=== PATIENT | female | born 1965 | race Hispanic/Latino ===

== ENCOUNTER 2017-04-27 20:09 | Emergency (ER) | payer OTHER ==
[~2017-04-27] VITALS: Ht 154.9 cm; Wt 103.9 kg
[~2017-04-27 20:09] MED LIST: ADVAIR DISKUS 21 DSK; ADVAIR DISKUS1 UNIT INH; ALBUTEROL SULFAT3 M1 INH; ALBUTEROL0.09 MG/A1 INH; ALBUTEROL0.63 MG/3 INH/SOL; ASPIRIN CHILDRE81 MG PO; ATROVENT 0.02%2.5 ML INH; BACTRIM DS 8001 TAB PO; CIPRO 500MG TA500 MG PO; DELTASONE20 MG PO; DILAUDID2 MG PO; DUONEB 3 MG/3 ML3 ML INH/SOL; FLEXERIL10 MG PO; FUROSEMIDE20 MG PO; FUROSEMIDE40 MG PO; LASIX20 MG PO; LASIX40 MG PO; MEDROL DOSEPAK1 PA1 PO; MEDROL DOSEPAK1 PAC PO; NAPROSYN500 M1 PO; NAPROXEN500 MG PO; ORPHENADRINE C100 MG PO; OXYCODONE HYDRO10 M1 PO; OXYCODONE5 MG PO; PERCOCET 325 MG-5 MG PO; PERCOCET 325 MG1 TA2 PO; PERCOCET 325 MG1 TAB PO; PREDNICOT10 MG PO; PREDNISONE 10MG10 M1 PO; PREDNISONE 20MG20 MG PO; PREDNISONE10 MG PO; PREDNISONE20 M1 PO; PROAIR HFA0.09 MG/Ac; PROAIR HFA0.09 MG/Ac INH; PROVENTIL0.09 MG/A1 INH; PROVENTIL0.09 MG/Ac INH; TESSALON PERLE100 MG PO; TRAMADOL HCL50 MG PO; TRAMADOL HYDROC50 MG PO; TRAMADOL50 MG PO; VICODIN HP 3001 TAB PO; ZITHROMAX Z-PA250 M1 PO; ZITHROMAX250 M2 PO
[2017-04-27 20:18] VITALS: BP 117/76
[2017-04-27] MEDS ORDERED: ZITHROMAX250 M2 PO (20:20)
[2017-04-27] MEDS ORDERED: VENTOLIN HFA18 GM INH (20:20)
[2017-04-27] MEDS ORDERED: PREDNISONE50 M1 PO (20:20)
--- NOTE | 2017-04-27 20:20 | ED DYSPNEA/ASTHMA COMPLAINT ---
History of Present Illness General Chief Complaint: Wheezing/Asthma Stated Complaint: "PER PT SOB NEED INHALER SCRIPT" Source: patient Exam Limitations: no limitations Vital Signs & Intake/Output Vital Signs & Intake/Output Vital Signs Date Time Temp Pulse Resp B/P B/P Pulse O2 O2 Flow FiO2 Mean Ox Delivery Rate 04/27 2018 97.1 89 16 117/76 96 Room Air Allergies Coded Allergies: NO KNOWN ALLERGIES (12/08/15) Reconcile Medications Albuterol Sulfate (Ventolin Hfa) 90 MCG HFA.AER.AD 2 PUF INH Q4-6 PRN PRN ASTHMA/BRONCHITIS Albuterol Sulfate (Albuterol Sulfate Hfa) 0.09 MG/Actuation ANUM 2 PUFF INH Q4- 6 PRN PRN SHORTNESS OF BREATH 90 MCG PER PUFF Albuterol Sulfate/Ipratropiu (Duoneb) 3 MG/3 ML NEB 1 Vial INH/THA 4 TIMES/DAY PRN WHEEZING/DYSPNEA Azithromycin (Zithromax) 250 MG TABLET 1 DP PO AD BRONCHITIS 2 the first day followed by 1 for days 2-5 Fluticasone-Salmeterol (Advair 500-50 Diskus) 500 MCG-50 MCG/DOSE BLST.W.DEV 1 PUF INH BID ASTHMA (Reported) Furosemide (Lasix) 40 MG TAB 1 TAB PO BID EDEMA Naproxen (Naprosyn) 500 MG TABLET 1 TAB PO BID PAIN Orphenadrine Citrate 100 MG TABLET.ER 1 TAB PO BIDP PRN back pain OXYCODONE HCL/ACETAMINOPHEN (Percocet 10-325 MG Tablet) 325 MG/10 MG TAB 1 TAB PO BID PRN PAIN (Reported) Prednisone 50 MG TABLET 1 TAB PO DAILY ASTHMA Triage Nurses Notes Reviewed? yes Onset: Gradual Duration: day(s):, changing over time Timing: recent history Severity: moderate Activities at Onset: activity Prior Episodes/Possible Cause: occasional episodes Modifying Factors: Improves With: rest. Associated Symptoms: cough, wheezing HPI: 51 yo woman presents with wheezing, cough, no phlegm x 1 week, in the context of cigarette smoking. She notes that she was able to work today, "but that I keep coughing and wheezing." She notes no fever, chills, chest pain, dizziness, syncopal type symptoms. She is otherwise well. Past History Travel History Traveled to [place] past 21 day No Medical History Any Pertinent Medical History? 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 MOTHER (Asthma). Uncle (Diabetes). BROTHER (sudden ; possibly cardiac.). Hx Contributory? No Review of Systems Review of Systems Constitutional: Reports: no symptoms. EENTM: Reports: no symptoms. Respiratory: Reports: no symptoms. Cardiovascular: Reports: no symptoms. GI: Reports: no symptoms. Genitourinary: Reports: no symptoms. Musculoskeletal: Reports: no symptoms. Skin: Reports: no symptoms. Neurological/Psychological: Reports: no symptoms. Hematologic/Endocrine: Reports: no symptoms. Immunologic/Allergic: Reports: no symptoms. All Other Systems: Reviewed and Negative Physical Exam Physical Exam General Appearance: well developed/nourished, mild distress Head: atraumatic, normal appearance Eyes: Bilateral: normal appearance. Ears, Nose, Throat: normal pharynx, normal ENT inspection Neck: normal inspection, supple, full range of motion Respiratory: normal breath sounds, wheezing bilaterally, mild. no respiratory distress. Cardiovascular: regular rate/rhythm Gastrointestinal: normal bowel sounds, soft, non-tender, no organomegaly Extremities: normal inspection, normal capillary refill, normal range of motion, no edema Neurologic/Psych: no motor/sensory deficits, awake, alert, oriented x 3 Skin: intact, normal color, warm/dry Core Measures ACS in differential dx? No Severe Sepsis Present: No Septic Shock Present: No Progress Differential Diagnosis: asthma, bronchitis, COPD, musculoskeletal pain Plan of Care: pt with stable 02 saturation, no distress. pt also ran out of albuterol inhaler.... Sent prednisone/ albuterol/azithro for asthmatic related bronchitis... close follow up advised. Initial ED EKG: none Departure Departure Disposition: HOME OR SELF CARE Condition: Stable Clinical Impression Primary Impression: Bronchitis Secondary Impressions: Asthma Referrals: THO MD,PRIETO (PCP/Family) Departure Forms: Customer Survey General Discharge Information Prescriptions: Current Visit Scripts Prednisone 1 TAB PO DAILY #5 TAB Azithromycin (Zithromax) 1 DP PO AD #6 TAB 2 the first day followed by 1 for days 2-5 Albuterol Sulfate (Ventolin Hfa) 2 PUF INH Q4-6 PRN PRN ASTHMA/BRONCHITIS #1 INHAL Ref 3 Critical Care Note Critical Care Note Critical Care Time: non-applicable
== END 2017-04-27 20:35 ==
LOC: ERH 20:09
DX: J45.909 Unspecified asthma, uncomplicated (principal); Z72.0 Tobacco use

== ENCOUNTER 2017-11-19 10:26 | Emergency (ER) | payer OTHER ==
[~2017-11-19 10:26] MED LIST changes: +ADVAIR 500-501 EACH INH; -ADVAIR DISKUS1 UNIT INH; +AUGMENTIN 875-1 EACH PO; +AZITHROMYCIN250 M1 PO; +CETIRIZINE HCL10 M2 PO; +CHANTIX1 MG PO; +FLUTICASONE PRO16 GM NASB; +FUROSEMIDE40 M1 PO; +IPRAT-ALBUT 0.5-3 ML NEB; +IPRAT-ALBUT 0.5-3 ML PO; +IPRATROPIU0.2 MG/1 M INH/SOL; +MEDROL4 M2 PO; +MONTELUKAST SOD10 M1 PO; +POTASSIUM CHLO20 ME2 PO; +PREDNISONE10 M2 PO; +PREDNISONE50 M1 PO; +PROAIR HFA8.5 GM INH; +SUBOXONE 12 MG1 EACH SL; +VENTOLIN HFA18 GM INH
--- NOTE | 2017-11-19 10:53 | ED GENERAL ADULT ---
History of Present Illness General Chief Complaint: General Adult Stated Complaint: BILATERIAL LE EDEMA Source: patient, old records Exam Limitations: poor historian Vital Signs & Intake/Output Vital Signs & Intake/Output Vital Signs Date Time Temp Pulse Resp B/P B/P Pulse O2 O2 Flow FiO2 Mean Ox Delivery Rate 11/19 1036 97.2 114 20 113/65 94 Room Air Allergies Coded Allergies: NO KNOWN ALLERGIES (12/08/15) Reconcile Medications Albuterol Sulfate (Proair Hfa) 90 MCG HFA.AER.AD 2 PUF INH Q4-6 PRN PRN ASTHMA Buprenorphine HCl/Naloxone HCl (Suboxone 12 MG-3 MG Sl Film) 12 MG-3 MG FILM 1 STR SL DAILY CHRONIC PAIN (Reported) Cetirizine HCl 10 MG TABLET 1 TAB PO PRN ALLERGIES/ASTHMA (Reported) Fluticasone Propionate 50 MCG/ACTUATION SPRAY.SUSP 2 SPRAY NASB AD PRN ALLERGIES/ASTHMA (Reported) Fluticasone/Salmeterol (Advair 500-50 Diskus) 500 MCG-50 MCG/DOSE BLST.W.DEV 1 PUF INH BID ASTHMA (Reported) Montelukast Sodium 10 MG TABLET 1 TAB PO AD PRN ALLERGIES/ASTHMA (Reported) Prednisone 10 MG TABLET 1 DOSE PO ONCE asthma exacerbation 6 tabs for two days 5 tabs for two days 4 tabs for two days 3 tabs for two days 2 tabs for two days Varenicline Tartrate (Chantix) 1 MG TABLET 1 TAB PO BID SMOKING CESSATION ( Reported) Triage Note: PT TO ED C/O INCREASED LYNN LE SWELLING. STATES SHE HAS A HX OF IT AND IS ON LASIX, REPORTS THAT THE MEDICINE DOES NOT SEEM TO BE WORKING MUCH AND HER SWELLING HAS BEEN INCRESED. REPORTS SHE IS NORMALLY SOB AT BASELINE, BUT THAT HAS INCREASED TO WITH EXERTION. Triage Nurses Notes Reviewed? yes HPI: Patient is a 49-year-old female with a past medical history significant for asthma, COPD, osteoarthritis the knees and back, chronic lower extremity edema who presents complaining of worsening lower extremity edema and worsening dyspnea on exertion. Patient states over the past 2 weeks her lower extremity edema has been worsening and while she has dyspnea on exertion at baseline, she has been having increasingly worse dyspnea on exertion over the last 2 weeks. She also complains of orthopnea needing to sleep in her recliner when she normally can tolerate lying down in bed with multiple pillows. She was to see her PCP Dr. Kennedy on 11/11/17 who prescribed a prednisone taper and azithromycin as well as recommending compression stockings. Patient has not been using compression stockings. Patient has had multiple ER visits for asthma exacerbation and leg swelling. Most recent echo was 06/23/17 and revealed normal ejection fraction. The review of systems is positive for vague intermittent chest pain occurring most recently 2 days ago lasting only for several minutes and for chronic cough that has not worsened recently. She denies any nausea, vomiting, fever, chills, palpitations and the rest of the review of systems is negative. 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 Cabrera within 1 week. (Saman ACUNA,Chase) Past History Travel History Traveled to [place] past 21 day No Medical History Any Pertinent Medical History? 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 MOTHER (Asthma). Uncle (Diabetes). BROTHER (sudden ; possibly cardiac.). Hx Contributory? No (Chase Davison MD) Review of Systems Review of Systems Constitutional: Denies: chills, diaphoresis, fever. EENTM: Reports: no symptoms. Respiratory: Reports: cough (chronic), orthopnea, short of breath (on exertion), sputum production (chronic), wheezing. Cardiovascular: Reports: chest pain (mild, intermittent), orthopena, peripheral edema. Denies: palpitations, syncope. GI: Reports: no symptoms. Genitourinary: Reports: no symptoms. Musculoskeletal: Reports: back pain (chronic). Skin: Denies: rash. (Chase Davison MD) Physical Exam Physical Exam General Appearance: well developed/nourished, no apparent distress, alert, awake , comfortable Head: atraumatic, normal appearance Eyes: Bilateral: normal appearance, PERRL, EOMI, pale conjunctivae. Ears, Nose, Throat: normal pharynx, normal ENT inspection Neck: normal inspection, supple Respiratory: normal breath sounds, no respiratory distress, decreased breath sounds, wheezing Cardiovascular: regular rate/rhythm, normal peripheral pulses Peripheral Pulses: 2+ radial (R), 2+ radial (L) Gastrointestinal: normal bowel sounds, soft, non-tender Core Measures ACS in differential dx? No CVA/TIA Diagnosis: No Sepsis Present: No Sepsis Focused Exam Completed? No (Chase Davison MD) Progress Differential Diagnoses I considered the following diagnoses in my evaluation of the patient: [Chronic venous insufficiency, CHF, asthma exacerbation, COPD exacerbation] Initial ED EKG: normal axis, sinus tachycardia Prior EKG: unchanged (Chase Davison MD) Plan of Care: Orders Procedure Date/time Status AEROSOL (GEN) 11/19 1249 Complete CBC WITHOUT DIFFERENTIAL 11/19 1113 Complete B-TYPE NATRIURETIC PEP (BNP) 11/19 1113 Complete BASIC METABOLIC PANEL 11/19 1113 Complete EKG 11/19 1113 Active Laboratory Tests 11/19/17 1145: Anion Gap 10, Estimated GFR > 60, BUN/Creatinine Ratio 27.1 H, Glucose 123 H, Calcium 9.0, Lnp-O-Llnfyleiikx Pept 45.3, CBC w Diff NO MAN DIFF REQ, RBC 4.36, MCV 89.2, MCH 29.0, RDW 17.8 H, MPV 6.9 L, Gran % 70.8, Lymphocytes % 21.9, Monocytes % 4.8, Eosinophils % 2.1, Basophils % 0.4, Absolute Granulocytes 8.7 H, Absolute Lymphocytes 2.7, Absolute Monocytes 0.6, Absolute Eosinophils 0.3, Absolute Basophils 0, PUBS MCHC 32.6 L Given presentation with worsening dyspnea on exertion and worsening lower extremity swelling patient will be worked up for CHF although most recent echocardiogram done in June 2017 showed normal ejection fraction. BNP was wnl and desiccation without evidence of pulmonary vascular congestion. Patient saturating well on room air and is already on Lasix for lower extremity edema. CBC significant only for mild leukocytosis can be attributed to prednisone taper the patient was put on by PCP. BMP significant for mild elevation in CO2 however this patient be patient's baseline based on previous records. Will give breathing treatment with albuterol and ipratropium and 1 dose IV Solu- Medrol. Recommend follow-up with previously scheduled appointment with Dr. Cabrera to establish care. Smoking CESSATION counseling given and patient was encouraged to begin use of compression stockings. (Chase Davison MD) (Nicole ACUNA,Jaylon Beaulieu) Departure Departure Disposition: HOME OR SELF CARE Condition: Stable Clinical Impression Primary Impression: Asthma Qualifiers: Asthma severity: moderate Asthma persistence: persistent Asthma complication type: with acute exacerbation Qualified Code: J45.41 - Moderate persistent asthma with (acute) exacerbation Referrals: Chase Kennedy MD (PCP/Family) Additional Instructions: Please call your PCP Dr. Kennedy inform him of this visit to the ER, schedule a follow-up appointment with him within 24-48 hours. Please keep your appointment to establish pulmonary care with Dr. Cabrera. Continue prednisone taper as previously prescribed, start using compression stockings. Continue to take all asthma/COPD medications as prescribed. Continue to attempt smoking cessation. If you should experience worsening shortness of breath, severe chest pain, palpitations please call your doctor or return to the ER. Departure Forms: Customer Survey General Discharge Information (Chase Davison MD) Resident Co-Sign Statement Statement: ED Attending supervision documentation- [x] I saw and evaluated the patient. I have also reviewed all the pertinent lab results and diagnostic results. I agree with the findings and the plan of care as documented in the Resident's documentation. Patient presents for evaluation of worsening lower extremity edema and dyspnea. Physical examination reveals bilateral lower extremity edema long with diminished breath sounds and mild end expiratory wheezing. [] I have reviewed the ED Record and agree with the Resident's documentation. [] Additions or exceptions (if any) to the Resident's note and plan are summarized below: [] (Nicole ACUNA,Jaylon Beaulieu) Critical Care Note Critical Care Note Critical Care Time: non-applicable (Chase Davison MD)
[2017-11-19 11:54] LABS: ABSOLUTE BASOPHIL COUNT 0 /CUMM (0.0-0.2); ABSOLUTE EOSINOPHIL COUNT 0.3 /CUMM (0.0-0.7); ABSOLUTE GRANULOCYTE CT 8.7 /CUMM (1.4-6.5); ABSOLUTE LYMPH COUNT 2.7 /CUMM (1.2-3.4); ABSOLUTE MONOCYTE COUNT 0.6 /CUMM (0.10-0.60); BASOPHIL % 0.4 % (0.0-2.0); EOSINOPHIL % 2.1 % (0-5); GRANULOCYTE % 70.8 % (42.2-75.2); HEMATOCRIT 38.9 % (37-47); MEAN CORPUSCULAR HGB CONC 32.6 G/DL (33.0-37.0); MEAN CORPUSCULAR VOLUME 89.2 FL (81.0-99.0); MEAN PLATELET VOLUME 6.9 FL (7.4-10.4); PLATELET COUNT 310 /CUMM (130-400); RBC DISTRIBUTION WIDTH 17.8 % (11.5-14.5); RED BLOOD CELL CT 4.36 /CUMM (4.20-5.40); WHITE BLOOD CELL COUNT 12.3 /CUMM (4.8-10.8)
--- NOTE | 2017-11-19 13:08 | RADIOLOGY REPORT ---
EXAMINATION: XR CHEST CLINICAL INFORMATION: cough. Likely asthma exacerbation. R/O CHF COMPARISON: 10/25/2017 TECHNIQUE: PA and lateral views of the chest were obtained. FINDINGS: Mild perihilar bronchial wall thickening. No consolidation, pneumothorax, or pleural effusion. Cardiac and mediastinal contours are normal. Pulmonary vasculature is unremarkable. Trachea is midline. Osseous structures are unremarkable. IMPRESSION: Mild bronchial wall thickening as can be seen with asthma or viral/atypical airways infection. No evidence of pneumonia.
[2017-11-19 14:07] VITALS: BP 122/70
== END 2017-11-19 14:34 ==
LOC: ERH 10:26
PROVIDERS: Dermatology
DX: J45.909 Unspecified asthma, uncomplicated (principal); Z72.0 Tobacco use
CPT/HCPCS: 1263; 71046; 93005; 93010; 96374; J2920

== ENCOUNTER 2017-12-05 16:02 | Emergency (ER) | payer OTHER ==
[~2017-12-05] VITALS: Ht 154.9 cm; Wt 103.9 kg
[2017-12-05 16:46] LABS: ABSOLUTE BASOPHIL COUNT 0.1 /CUMM (0.0-0.2); ABSOLUTE EOSINOPHIL COUNT 0.1 /CUMM (0.0-0.7); ABSOLUTE GRANULOCYTE CT 6.8 /CUMM (1.4-6.5); ABSOLUTE MONOCYTE COUNT 0.9 /CUMM (0.10-0.60); BASOPHIL % 0.6 % (0.0-2.0); EOSINOPHIL % 1.5 % (0-5); GRANULOCYTE % 68.9 % (42.2-75.2); HEMATOCRIT 39.7 % (37-47); MEAN CORPUSCULAR HGB 28.5 PG (27.0-31.0); MEAN CORPUSCULAR VOLUME 89.1 FL (81.0-99.0); MEAN PLATELET VOLUME 7.4 FL (7.4-10.4); PLATELET COUNT 360 /CUMM (130-400); RBC DISTRIBUTION WIDTH 16.7 % (11.5-14.5); RED BLOOD CELL CT 4.45 /CUMM (4.20-5.40); WHITE BLOOD CELL COUNT 9.9 /CUMM (4.8-10.8)
--- NOTE | 2017-12-05 17:16 | RADIOLOGY REPORT ---
EXAMINATION: XR CHEST CLINICAL INFORMATION: Shortness of breath. Cough. Congestion. COMPARISON: Chest x-ray 11/19/2017. CT of chest 10/25/2017. Chest x-ray 10/25/2017, 05/09/2017. TECHNIQUE: 2 views of the chest were obtained. FINDINGS: Mild chronic increased lung markings that are chronic unchanged since prior study. No pulmonary vascular congestion. No infiltrate or pleural effusion. The heart size is normal. The cardiomediastinal contours are normal. Stable calcified granuloma at the right medial lung base. IMPRESSION: No acute abnormality of the chest.
--- NOTE | 2017-12-05 17:58 | ED DYSPNEA/ASTHMA COMPLAINT ---
History of Present Illness General Chief Complaint: Dyspnea (COPD, CHF, Other) Stated Complaint: DIFF BREATHING, SWELLING IN LEGS Source: patient, old records Exam Limitations: no limitations Allergies Coded Allergies: NO KNOWN ALLERGIES (12/08/15) Reconcile Medications Albuterol Sulfate (Proair Hfa) 90 MCG HFA.AER.AD 2 PUF INH Q4-6 PRN PRN ASTHMA Buprenorphine HCl/Naloxone HCl (Suboxone 12 MG-3 MG Sl Film) 12 MG-3 MG FILM 1 STR SL DAILY CHRONIC PAIN (Reported) Fluticasone Propionate 50 MCG/ACTUATION SPRAY.SUSP 2 SPRAY NASB AD PRN ALLERGIES/ASTHMA (Reported) Fluticasone/Salmeterol (Advair 500-50 Diskus) 500 MCG-50 MCG/DOSE BLST.W.DEV 1 PUF INH BID ASTHMA (Reported) Montelukast Sodium 10 MG TABLET 1 TAB PO AD PRN ALLERGIES/ASTHMA (Reported) Potassium Citrate (Potassium Citrate ER) 10 MEQ (1,080 MG) TABLET.ER 2 TAB PO BID LOW POTASSIUM Varenicline Tartrate (Chantix) 1 MG TABLET 1 TAB PO BID SMOKING CESSATION ( Reported) Triage Note: PT TO ED WITH C/O COUGH AND CONGESTION "FOREVER", CONGESTED COUGH NOTED. "THE REASON I'M HERE AGAIN IS BOTH MY FEET AND LOWER LEGS ARE RED AND STILL SWOLLEN, I HAVE BEEN TAKING LASIX FOR 2 WEEKS, IT'S NOT HELPING, I WENT BACK THEY SAID TAKE 2, THEN I WENT AGAIN THEY SAID TAKE 3, STILL SWOLLEN". Triage Nurses Notes Reviewed? yes Onset: Gradual Duration: week(s): (2), waxing and waning Timing: recent history Severity: mild, moderate Associated Symptoms: cough, LE EDEMA HPI: 51 year old female presents with c/o lower leg swelling for the past 2 weeks and also c/o lower back right sided for the past few months. She c/o associated shortness of breath for the past 2 weeks. SHe was seen in the ER last week and was treated with nebulizer treatment and told to use compression stockings. She then went to her PCP who doubled her lasix and then to Dr. Zarate who increased her lasix to 3 pillss. She is scheduled to have outpatient echo and stress test. She now reports that the legs are becoming red. (Stephanie ACUNA,Lalitha) Vital Signs & Intake/Output Vital Signs & Intake/Output Vital Signs Date Time Temp Pulse Resp B/P B/P Pulse O2 O2 Flow FiO2 Mean Ox Delivery Rate 12/05 2051 98.5 78 18 117/57 97 Room Air ED Intake and Output 12/06 0000 12/05 1200 Intake Total Output Total Balance Patient 229 lb Weight Weight Reported by Patient Measurement Method (Nicole ACUNA,Jaylon Beaulieu) Past History Travel History Traveled to [place] past 21 day No Medical History Any Pertinent Medical History? see below for history Neurological: NONE EENT: NONE Cardiovascular: NONE Respiratory: COPD, ASTHMA, BRONCITIS Gastrointestinal: NONE Hepatic: NONE Renal: NONE Musculoskeletal: chronic back pain, rheumatoid arthritis, CHRONIC KNEE PAIN Psychiatric: NONE Endocrine: NONE Blood Disorders: NONE Cancer(s): NONE SHIPPING AGENT/Reproductive: NONE History of MRSA: No History of VRE: No History of CDIFF: No Surgical History Surgical History: none Psychosocial History Who do you live with Mother Services at Home None What is your primary language Scottish Tobacco Use: Current Daily Use Daily Tobacco Use Amount/Type: => 5 Cigarettes daily ETOH Use: denies use Illicit Drug Use: denies illicit drug use Family History Family History, If Any: FATHER (Heart Disease). MOTHER (Asthma). Uncle (Diabetes). BROTHER (sudden ; possibly cardiac.). Hx Contributory? No (Lalitha Brown MD) Review of Systems Review of Systems Constitutional: Denies: chills, fever. EENTM: Reports: no symptoms. Respiratory: Reports: cough, short of breath. Denies: sputum production. Cardiovascular: Reports: chest pain, peripheral edema. Denies: palpitations. GI: Denies: abdominal pain. Genitourinary: Denies: discharge, dysuria. Musculoskeletal: Reports: no symptoms. Skin: Reports: no symptoms. Neurological/Psychological: Reports: no symptoms. Hematologic/Endocrine: Denies: bruising, bleeding, polyuria, polydipsia. Immunologic/Allergic: Denies: splenectomy. All Other Systems: Reviewed and Negative (Lalitha Brown MD) Physical Exam Physical Exam General Appearance: well developed/nourished, alert, awake, anxious Head: atraumatic, normal appearance Eyes: Bilateral: normal appearance, PERRL, EOMI. Ears, Nose, Throat: normal pharynx, hearing grossly normal Neck: normal inspection, supple, full range of motion Respiratory: decreased breath sounds, accessory muscle use, wheezing (END EXPIRATORY), respiratory distress Cardiovascular: regular rate/rhythm Peripheral Pulses: 2+ radial (R), 2+ radial (L) Gastrointestinal: normal bowel sounds, soft, non-tender Extremities: swelling (2+ BILATERALLY) Neurologic/Psych: no motor/sensory deficits, awake, alert, oriented x 3 Skin: intact, normal color, warm/dry Core Measures ACS in differential dx? Yes CVA/TIA Diagnosis No Sepsis Present: No Sepsis Focused Exam Completed? No (Stephanie ACUNA,Lalitha) Progress Differential Diagnosis: asthma, bronchitis, COPD, pulmonary embolism, unstable angina Plan of Care: Orders Procedure Date/time Status Add-on Test (ER Only) 12/05 1843 Active D-DIMER 12/05 1830 Complete EKG 12/05 1700 Active TROPONIN LEVEL 12/05 1621 Complete B-TYPE NATRIURETIC PEP (BNP) 12/05 1621 Complete COMPREHENSIVE METABOLIC PANEL 12/05 1615 Complete CBC WITHOUT DIFFERENTIAL 12/05 1615 Complete Laboratory Tests 12/05/17 1830: Troponin I < 0.01, Jcn-Z-Reqgqnslhru Pept 31.7, D-Dimer High Sensitivty 211 12/05/17 1634: Anion Gap 11, Estimated GFR > 60, BUN/Creatinine Ratio 17.1, Glucose 93, Calcium 8.8, Total Bilirubin 0.4, AST 19, ALT 33, Alkaline Phosphatase 96, Total Protein 6.4, Albumin 3.9, Globulin 2.5, Albumin/Globulin Ratio 1.6, CBC w Diff NO MAN DIFF REQ, RBC 4.45, MCV 89.1, MCH 28.5, MCHC 32.0 L, RDW 16.7 H, MPV 7.4, Gran % 68.9, Lymphocytes % 19.7 L, Monocytes % 9.3, Eosinophils % 1.5, Basophils % 0.6, Absolute Granulocytes 6.8 H, Absolute Lymphocytes 2.0, Absolute Monocytes 0.9 H, Absolute Eosinophils 0.1, Absolute Basophils 0.1 Diagnostic Imaging: Viewed by Me: Radiology Read. Discussed w/RAD: Radiology Read. CXR Impression: PATIENT: NILO GARDINER PRESENT AGE : 51 PATIENT ACCOUNT NO: [id number] : 63 LOCATION: [facility] ORDERING PHYSICIAN: Jaylon Sanchez (TBS) DO SERVICE DATE: 12/05/17 EXAM TYPE: RAD - XRY-CHEST XRAY, TWO VIEWS EXAMINATION: XR CHEST CLINICAL INFORMATION: Shortness of breath. Cough. Congestion. COMPARISON: Chest x-ray 11/19/2017. CT of chest 10/25/2017. Chest x-ray 10/25/2017, 05/09/2017. TECHNIQUE: 2 views of the chest were obtained. FINDINGS: Mild chronic increased lung markings that are chronic unchanged since prior study. No pulmonary vascular congestion. No infiltrate or pleural effusion. The heart size is normal. The cardiomediastinal contours are normal. Stable calcified granuloma at the right medial lung base. IMPRESSION: No acute abnormality of the chest. DICTATED BY: Manas Arrieta MD DATE /TIME DICTATED:12/05/171710 MODELING MANAGER:RYAN DATE/TIME TRANSCRIBED: 12/05/171710 CONFIDENTIAL, DO NOT COPY WITHOUT APPROPRIATE AUTHORIZATION. < Electronically signed in Other Vendor System> SIGNED BY: Manas Arrieta MD 1715 Initial ED EKG: NSR Prior EKG: unchanged Hand-Off Endorsed To: Jaylon Rivera MD Endorsed Time: 1899 Pending: labs, other (TREATMENT) (Lalitha Brown MD) Comments: 12/05/2017 8:43:06 PM I have updated Nilo on her test results and it had a rather lengthy discussion about her leg swelling. I have reassured her that the redness of her legs (mild erythema symmetrically of the ankles) simply stasis dermatitis. I have urged her to elevate her feet and begin using her compression stockings again. I have also requested that she did not go to work because she tends to stand for hours at a time. I will provide a potassium prescription given her hypokalemia. At this point she states she is feeling better overall and comfortable enough to return home. Her primary concern this evening was the leg swelling. (Jaylon Rivera MD) Departure Departure Condition: Stable Referrals: Chase Kennedy MD (PCP/Family) Departure Forms: Customer Survey General Discharge Information (Lalitha Brown MD) Departure Disposition: HOME OR SELF CARE Clinical Impression Primary Impression: Dyspnea Qualifiers: Dyspnea type: unspecified Qualified Code: R06.00 - Dyspnea, unspecified Secondary Impressions: Dependent edema, Hypokalemia Additional Instructions: Continue taking your Lasix but because your potassium level is low, begin the potassium prescription I have provided. Begin using her compression stockings again and elevate your legs for half an hour 3 times a day. Low-salt diet. Follow-up with your primary care physician or electronics research engineer on Friday for reevaluation and recheck of your potassium level. Return if any concerns or sudden worsening. Please note that there might be incidental findings in your evaluation that are unrelated to the current emergency department visit. Please notify your primary care doctor about this emergency department visit in order to obtain and review all of the testing performed so that these incidental findings can be monitored as needed. If you had an x-ray performed, please understand that some fractures may not be seen on the initial set of x-rays. If your symptoms persist you might need a repeat set of x-rays to check for such a fracture. If you had a laceration evaluated, please understand that foreign bodies such as glass or wood may not be visible to the naked eye or on plain x-rays. If the wound becomes red, swollen, increasingly more painful or if there is any drainage from the wound, please have it reevaluated by a physician for the possibility of a retained foreign body. If you're unable to follow up as outlined in the discharge instructions please return to the emergency department. Thank you for choosing the [facility] Emergency Department for your care. It was a pleasure to serve you today. Jaylon Rivera M.D. [facility] Prescriptions: Current Visit Scripts Potassium Citrate (Potassium Citrate ER) 2 TAB PO BID #20 TAB (Nicole ACUNA,Jaylon Beaulieu) Critical Care Note Critical Care Note Critical Care Time: non-applicable (Stephanie ACUNA,Lalitha)
[2017-12-05] MEDS ORDERED: POTASSIUM CITR10 ME1 PO (20:48)
[2017-12-05 20:52] VITALS: BP 117/57
== END 2017-12-05 21:00 ==
LOC: ERH 16:02
PROVIDERS: Emergency Medicine
DX: R06.00 Dyspnea, unspecified (principal); R60.0 Localized edema; E87.6 Hypokalemia; M54.5 Low back pain
CPT/HCPCS: 1263; 71046; 93005; 93010; 96374; J1940

== ENCOUNTER 2017-12-11 07:26 | Inpatient (IN) | payer OTHER ==
[~2017-12-11] VITALS: Ht 154.9 cm; Wt 112.9 kg
[~2017-12-11 07:26] MED LIST changes: +POTASSIUM CITR10 ME1 PO
--- NOTE | 2017-12-11 08:30 | ED DYSPNEA/ASTHMA COMPLAINT ---
History of Present Illness General Chief Complaint: General Adult Stated Complaint: ASTHMA/SWELLING TO LOWER EXTREMITIES Source: patient, old records Exam Limitations: no limitations Vital Signs & Intake/Output Vital Signs & Intake/Output Vital Signs Date Time Temp Pulse Resp B/P B/P Pulse O2 O2 Flow FiO2 Mean Ox Delivery Rate 12/11 1057 98.1 74 20 104/66 96 Nasal 2.0L Cannula 12/11 0904 94 Nasal 2.0L Cannula 12/11 0733 96.4 105 15 102/69 90 Room Air Room Air Allergies Coded Allergies: No Known Allergies (12/11/17) Reconcile Medications Albuterol Sulfate (Proair Hfa) 90 MCG HFA.AER.AD 2 PUF INH Q4-6 PRN PRN ASTHMA Buprenorphine HCl/Naloxone HCl (Suboxone 12 MG-3 MG Sl Film) 12 MG-3 MG FILM 1 STR SL DAILY CHRONIC PAIN (Reported) Fluticasone Propionate 50 MCG/ACTUATION SPRAY.SUSP 2 SPRAY NASB AD PRN ALLERGIES/ASTHMA (Reported) Fluticasone/Salmeterol (Advair 500-50 Diskus) 500 MCG-50 MCG/DOSE BLST.W.DEV 1 PUF INH BID ASTHMA (Reported) Montelukast Sodium 10 MG TABLET 1 TAB PO AD PRN ALLERGIES/ASTHMA (Reported) Potassium Citrate (Potassium Citrate ER) 10 MEQ (1,080 MG) TABLET.ER 2 TAB PO BID LOW POTASSIUM Varenicline Tartrate (Chantix) 1 MG TABLET 1 TAB PO BID SMOKING CESSATION ( Reported) Triage Note: PT TO ED FOR C/C OF SOB AND SWOLLEN BILATERAL LEGS X 2 WEEKS. SAW HER PCP AND STARTED ON LASIX, BUT PT REPORTS NO RELIEF OF SYMPTOMS. O2 SAT 90% ON RA IN TRIAGE. PT TOOK NEBULIZER TREATMENT AT HOME WITHOUT RELIEF. Triage Nurses Notes Reviewed? yes HPI: Increasing shortness of breath, wheezing, nonproductive cough, dyspnea on exertion, orthopnea and bilateral leg swelling. Symptoms started approximately 2 months ago and have been worsening. This the patient's third visit to the emergency department. Patient is also seen her primary care physician 3 times and her calender feeder once. Patient was started on Lasix and her Lasix dose was slowly. Increased 220 mg. Patient is urinating frequently however the swelling continues to worsen. Patient states that she was originally on steroids but has been off of them since she finished a course. Patient is now getting pain in the right side of her lower back. Pain is aching in nature. There is no radiation. The pain increases with movement. She rates the pain as 4 out of 10. Patient denies any fevers or chills. Patient states that she cannot even do her activities of daily living because she feels so short of breath. Patient required to stop 3 times in the waiting room to the emergency department room to catch her breath. Past History Travel History Traveled to [place] past 21 day No Medical History Any Pertinent Medical History? see below for history Neurological: NONE EENT: NONE Cardiovascular: NONE Respiratory: COPD, ASTHMA, BRONCITIS Gastrointestinal: NONE Hepatic: NONE Renal: NONE Musculoskeletal: chronic back pain, rheumatoid arthritis, CHRONIC KNEE PAIN Psychiatric: NONE Endocrine: NONE Blood Disorders: NONE Cancer(s): NONE REPAIR ORDER CLERK/Reproductive: NONE History of MRSA: No History of VRE: No History of CDIFF: No Surgical History Surgical History: none Psychosocial History Who do you live with Mother Services at Home None What is your primary language Andorran Tobacco Use: Current Daily Use Daily Tobacco Use Amount/Type: => 5 Cigarettes daily ETOH Use: denies use Illicit Drug Use: denies illicit drug use Family History Family History, If Any: FATHER (Heart Disease). MOTHER (Asthma). Uncle (Diabetes). BROTHER (sudden ; possibly cardiac.). Hx Contributory? No Review of Systems Review of Systems Constitutional: Reports: no symptoms. EENTM: Reports: no symptoms. Respiratory: Reports: see HPI, cough, orthopnea, short of breath, wheezing. Cardiovascular: Reports: no symptoms. GI: Reports: no symptoms. Genitourinary: Reports: no symptoms. Musculoskeletal: Reports: see HPI, back pain. Skin: Reports: no symptoms. Neurological/Psychological: Reports: no symptoms. Hematologic/Endocrine: Reports: no symptoms. Immunologic/Allergic: Reports: no symptoms. All Other Systems: Reviewed and Negative Physical Exam Physical Exam General Appearance: well developed/nourished, alert, awake, anxious, moderate distress Head: atraumatic Eyes: Bilateral: PERRL, EOMI. Ears, Nose, Throat: normal pharynx, normal ENT inspection, hearing grossly normal Neck: normal inspection, supple, full range of motion, JVD Respiratory: decreased breath sounds, wheezing, respiratory distress Cardiovascular: regular rate/rhythm, normal peripheral pulses Gastrointestinal: normal bowel sounds, soft, non-tender, no organomegaly Extremities: pedal edema (ABOVE KNEES B/L) Neurologic/Psych: no motor/sensory deficits, awake, alert, oriented x 3, normal mood/affect Skin: intact, normal color, warm/dry Lymphatic: no anterior cervical josue Core Measures ACS in differential dx? No CVA/TIA Diagnosis No Sepsis Present: No Sepsis Focused Exam Completed? No Progress Differential Diagnosis: asthma, bronchitis, CHF, COPD, pulmonary embolism, pneumonia, pneumothorax Plan of Care: Orders Procedure Date/time Status Heart Healthy Diet 12/11 D Active ED Holding Orders 12/11 1323 Active Admit to inpatient 12/11 132 Active Vital Signs 12/11 1323 Active Code Status 12/11 1323 Active BLOOD CULTURE 12/11 937 Active RAPID VIRAL INFLUENZA A 12/11 933 Complete URINALYSIS 12/11 832 Complete TROPONIN LEVEL 12/11 832 Complete COMPREHENSIVE METABOLIC PANEL 12/11 832 Complete CBC WITHOUT DIFFERENTIAL 12/11 832 Complete B-TYPE NATRIURETIC PEP (BNP) 12/11 832 Complete EKG 12/11 736 Active Laboratory Tests 12/11/17 0840: Anion Gap 9, Estimated GFR > 60, BUN/Creatinine Ratio 16.7, Glucose 107 H, Calcium 9.0, Total Bilirubin 0.1 L, AST 19, ALT 34, Alkaline Phosphatase 86, Troponin I < 0.01, Aan-R-Bnvrerjykpj Pept 43.8, Total Protein 6.3, Albumin 3.8, Globulin 2.5, Albumin/Globulin Ratio 1.5, CBC w Diff NO MAN DIFF REQ, RBC 4.30, MCV 88.6, MCH 28.6, MCHC 32.3 L, RDW 17.0 H, MPV 7.2 L, Gran % 65.1, Lymphocytes % 20.9, Monocytes % 10.0 H, Eosinophils % 3.6, Basophils % 0.4, Absolute Granulocytes 4.4, Absolute Lymphocytes 1.4, Absolute Monocytes 0.7 H, Absolute Eosinophils 0.2, Absolute Basophils 0, Urine Color STRAW, Urine Clarity CLEAR, Urine pH 6.0, Ur Specific [place] 1.010, Urine Protein NEG, Urine Ketones NEG, Urine Nitrite NEG, Urine Bilirubin NEG, Urine Urobilinogen 0.2, Ur Leukocyte Esterase NEG, Ur Microscopic SEDIMENT EXAMINED, Urine RBC 1-3, Urine WBC RARE, Ur Epithelial Cells FEW, Urine Bacteria RARE H, Urine Hemoglobin TRACE-INTACT, Urine Glucose NEG Microbiology 12/11 1030 BLOOD: Blood Culture - RECD 12/11 1020 NASOPHARYN: Influenza Virus A & B Rapid Smear - COMP 12/11 09 BLOOD: Blood Culture - RECD Diagnostic Imaging: Viewed by Me: Radiology Read. Discussed w/RAD: Radiology Read. Radiology Impression: PATIENT: NILO GARDINER PRESENT AGE: 52 PATIENT ACCOUNT NO: [id number] : 63 LOCATION: ER ORDERING PHYSICIAN: Chase Morrison MD SERVICE DATE: 12/11/17 EXAM TYPE: RAD - XRY-LUMBOSACRAL SPINE AP & LAT EXAMINATION: XR LUMBOSACRAL SPINE CLINICAL INFORMATION: Low back pain. Presumptive diagnosis: Fracture. COMPARISON : CT of the abdomen and pelvis 10/25/2017. TECHNIQUE: AP and lateral views of the lumbosacral spine are obtained. FINDINGS: There is no acute fracture or subluxation. Mild degenerative disc disease at L4-L5 with a slight anterolisthesis of L4 is unchanged in appearance. IMPRESSION: No change in mild degenerative disc disease at L4-L5 with a slight anterolisthesis of L4 on L5. No acute findings. DICTATED BY: Jacek Lopez MD DATE/TIME DICTATED:12/11/17907 SOFT BOARDER:RYAN DATE/TIME TRANSCRIBED:12/11/17907 CONFIDENTIAL, DO NOT COPY WITHOUT APPROPRIATE AUTHORIZATION. <Electronically signed in Other Vendor System> SIGNED BY: Jacek Lopez MD 12/11/17912 , PATIENT: NILO GARDINER PRESENT AGE: 52 PATIENT ACCOUNT NO: [id number] : 63 LOCATION: ER ORDERING PHYSICIAN: Chase Morrison MD SERVICE DATE: 12/11/17 EXAM TYPE: US - US-EXT BILAT VENOUS DOPPLER EXAMINATION: US TRIPLEX OF LOWER EXTREMITIES, BILATERAL CLINICAL INFORMATION: There is a 52-year-old female with bilateral leg edema, bilateral pain., Possible deep vein thrombosis. COMPARISON: None TECHNIQUE: Color-flow triplex imaging with spectral analysis and compression Doppler were performed on the lower extremities. This study was somewhat limited in the distal left femoral vein and the bilateral calf veins due to the patient's body habitus. FINDINGS: Respiratory variation, normal compression and augmented flow are noted throughout the lower extremities. The visualized common femoral vein, superficial femoral vein, profunda femoral vein, popliteal vein and midcalf peroneal and posterior tibial venous segments show no evidence of deep venous thrombosis. The distal left femoral vein was difficult to visualize. The bilateral calf veins were not identified. There is no Melvin's cyst. IMPRESSION: Normal triplex scan without evidence of deep venous thrombosis involving the lower extremities. DICTATED BY: Jason Sullivan MD DATE/TIME DICTATED:12/11/171025 SOFT BOARDER:RYAN DATE/TIME TRANSCRIBED:12/11/171025 CONFIDENTIAL, DO NOT COPY WITHOUT APPROPRIATE AUTHORIZATION. <Electronically signed in Other Vendor System> SIGNED BY: Jason Sullivan MD 12/11/17 1032, PATIENT: NILO GARDINER PRESENT AGE: 52 PATIENT ACCOUNT NO: [id number] : 63 LOCATION: [facility] ORDERING PHYSICIAN: Chase Morrison MD SERVICE DATE: 12/11/17 EXAM TYPE: CAT - CTA CHEST -PULMONARY EMBOLISM EXAMINATION: CT CHEST PE STUDY CLINICAL INFORMATION: Shortness of breath. Dyspnea on exertion. Wells score greater than 6. Presumptive diagnosis of pulmonary embolism. COMPARISON: Chest x-ray dated 12/11. CTA of the chest dated 10/25/2017. TECHNIQUE: Prior to contrast administration, localization images were obtained. After the administration of 120 mL of intravenous Optiray 350, multidetector CT volume acquisition of the chest was performed. 3-D postprocessing was performed with multiplanar reconstructions and MIP images obtained at the acquisition workstation under concurrent physician supervision. DLP: 517.99 mGy-cm. FINDINGS: Pulmonary arteries: The bolus timing on this study was acceptable for visualization of the pulmonary arterial tree. There are no intraluminal pulmonary arterial filling defects present to suggest pulmonary embolism in the main pulmonary artery, right and left main pulmonary artery, lobar and segmental branches. Lungs: There is a 0.8 cm densely calcified granuloma in the right lower lobe (series 2, image 301). Mild subsegmental atelectasis is seen in the right middle lobe and lingula. No suspicious pulmonary nodules, masses, pleural effusion or pneumothorax. The central airways are patent. Aorta and heart: The heart is normal in size. Moderate three-vessel coronary artery calcifications are suspected. Evaluation is limited by the presence of intravenous contrast. The mediastinum, aorta and great vessels are normal. There is no pericardial effusion Lymphatic structures: There is no lymphadenopathy. Some faint calcific densities are seen within subcarinal lymph nodes. Thyroid gland: Coarse calcific density in the right lobe of the thyroid gland is again seen, unchanged. Thyroid gland to the extent included is heterogeneous, but otherwise unremarkable. Upper abdomen: Limited evaluation of the upper abdominal viscera demonstrates no focal abnormality. Bones: No significant focal findings. IMPRESSION: 1. No evidence of pulmonary embolism. 2. Mild subsegmental atelectatic changes in the right middle lobe and lingula. 3. Densely calcified granuloma right lower lobe and partially calcified subcarinal lymph nodes, consistent with old granulomatous disease. 4. Moderate three-vessel coronary artery calcifications are suspected. DICTATED BY: Kaylene Church MD DATE/TIME DICTATED:12/11/171230 SOFT BOARDER:RYAN DATE/TIME TRANSCRIBED:12/11/171230 CONFIDENTIAL, DO NOT COPY WITHOUT APPROPRIATE AUTHORIZATION. <Electronically signed in Other Vendor System> SIGNED BY: Kaylene Church MD 12/11/17 1249 CXR Impression: PATIENT: NILO GARDINER PRESENT AGE : 52 PATIENT ACCOUNT NO: [id number] : 63 LOCATION: [facility] ORDERING PHYSICIAN: Chase Morrison MD SERVICE DATE: 12/11/17 EXAM TYPE: RAD - XRY-CHEST XRAY, TWO VIEWS EXAMINATION: XR CHEST CLINICAL INFORMATION: Shortness of breath, orthopnea, dyspnea on exertion, peripheral edema. Presumptive diagnosis: Pulmonary edema. COMPARISON: Chest 12/05/2017. TECHNIQUE: PA and lateral views of the chest are obtained. FINDINGS: The heart is normal in size. There is no vascular congestion or edema. There is no change in mild perihilar peribronchial thickening. There is no focal consolidation. A calcified granuloma at the right medial lung base is unchanged. IMPRESSION: No acute cardiopulmonary process. DICTATED BY: Jacek Lopez MD DATE/TIME DICTATED:06/20 SOFT BOARDER:RYAN DATE/TIME TRANSCRIBED:12/11/17904 CONFIDENTIAL, DO NOT COPY WITHOUT APPROPRIATE AUTHORIZATION. <Electronically signed in Other Vendor System> SIGNED BY: Jacek Lopez MD 12/11/17910 Initial ED EKG: S TACH AT 107, NO STT CHANGES, NO CHANGE FROM PRIOR Prior EKG: unchanged Rhythm Strip: sinus tachycardia Comments: Ambulatory saturation 88%. Case was discussed with Dr. Zarate who does not feel that this is heart failure given the normal BNP and chest x-ray findings of no pulmonary edema. Departure Departure Disposition: STILL A PATIENT Condition: Stable Clinical Impression Primary Impression: COPD exacerbation Referrals: Brent ACUNA,Chase Elizabeth (PCP/Family) Departure Forms: Customer Survey General Discharge Information Admission Note Spoke With: Genesis Simon MD Documentation of Exam: Documentation of any treatments & extenuating circumstances including Concerns Regarding Discharge (functional status, medication knowledge or non-compliance, living conditions, etc.) that warrant an admission rather than observation: [ NEBS, IV STEROIDS, PULM CONSULTAITON, O2, ] Critical Care Note Critical Care Note Critical Care Time: non-applicable
[2017-12-11 08:50] LABS: ABSOLUTE BASOPHIL COUNT 0 /CUMM (0.0-0.2); ABSOLUTE EOSINOPHIL COUNT 0.2 /CUMM (0.0-0.7); ABSOLUTE GRANULOCYTE CT 4.4 /CUMM (1.4-6.5); ABSOLUTE LYMPH COUNT 1.4 /CUMM (1.2-3.4); ABSOLUTE MONOCYTE COUNT 0.7 /CUMM (0.10-0.60); BASOPHIL % 0.4 % (0.0-2.0); EOSINOPHIL % 3.6 % (0-5); GRANULOCYTE % 65.1 % (42.2-75.2); HEMATOCRIT 38.1 % (37-47); MEAN CORPUSCULAR HGB 28.6 PG (27.0-31.0); MEAN CORPUSCULAR HGB CONC 32.3 G/DL (33.0-37.0); MEAN CORPUSCULAR VOLUME 88.6 FL (81.0-99.0); MEAN PLATELET VOLUME 7.2 FL (7.4-10.4); PLATELET COUNT 358 /CUMM (130-400); WHITE BLOOD CELL COUNT 6.8 /CUMM (4.8-10.8)
--- NOTE | 2017-12-11 09:11 | RADIOLOGY REPORT ---
EXAMINATION: XR CHEST CLINICAL INFORMATION: Shortness of breath, orthopnea, dyspnea on exertion, peripheral edema. Presumptive diagnosis: Pulmonary edema. COMPARISON: Chest 12/05/2017. TECHNIQUE: PA and lateral views of the chest are obtained. FINDINGS: The heart is normal in size. There is no vascular congestion or edema. There is no change in mild perihilar peribronchial thickening. There is no focal consolidation. A calcified granuloma at the right medial lung base is unchanged. IMPRESSION: No acute cardiopulmonary process.
--- NOTE | 2017-12-11 09:13 | RADIOLOGY REPORT ---
EXAMINATION: XR LUMBOSACRAL SPINE CLINICAL INFORMATION: Low back pain. Presumptive diagnosis: Fracture. COMPARISON: CT of the abdomen and pelvis 10/25/2017. TECHNIQUE: AP and lateral views of the lumbosacral spine are obtained. FINDINGS: There is no acute fracture or subluxation. Mild degenerative disc disease at L4-L5 with a slight anterolisthesis of L4 is unchanged in appearance. IMPRESSION: No change in mild degenerative disc disease at L4-L5 with a slight anterolisthesis of L4 on L5. No acute findings.
--- NOTE | 2017-12-11 10:32 | ULTRASOUND REPORT ---
EXAMINATION: US TRIPLEX OF LOWER EXTREMITIES, BILATERAL CLINICAL INFORMATION: There is a 52-year-old female with bilateral leg edema, bilateral pain., Possible deep vein thrombosis. COMPARISON: None TECHNIQUE: Color-flow triplex imaging with spectral analysis and compression Doppler were performed on the lower extremities. This study was somewhat limited in the distal left femoral vein and the bilateral calf veins due to the patient's body habitus. FINDINGS: Respiratory variation, normal compression and augmented flow are noted throughout the lower extremities. The visualized common femoral vein, superficial femoral vein, profunda femoral vein, popliteal vein and midcalf peroneal and posterior tibial venous segments show no evidence of deep venous thrombosis. The distal left femoral vein was difficult to visualize. The bilateral calf veins were not identified. There is no Melvin's cyst. IMPRESSION: Normal triplex scan without evidence of deep venous thrombosis involving the lower extremities.
--- NOTE | 2017-12-11 12:49 | CT SCAN REPORT ---
EXAMINATION: CT CHEST PE STUDY CLINICAL INFORMATION: Shortness of breath. Dyspnea on exertion. Wells score greater than 6. Presumptive diagnosis of pulmonary embolism. COMPARISON: Chest x-ray dated 12/11/2017. CTA of the chest dated 10/25/2017. TECHNIQUE: Prior to contrast administration, localization images were obtained. After the administration of 120 mL of intravenous Optiray 350, multidetector CT volume acquisition of the chest was performed. 3-D postprocessing was performed with multiplanar reconstructions and MIP images obtained at the acquisition workstation under concurrent physician supervision. DLP: 517.99 mGy-cm. FINDINGS: Pulmonary arteries: The bolus timing on this study was acceptable for visualization of the pulmonary arterial tree. There are no intraluminal pulmonary arterial filling defects present to suggest pulmonary embolism in the main pulmonary artery, right and left main pulmonary artery, lobar and segmental branches. Lungs: There is a 0.8 cm densely calcified granuloma in the right lower lobe (series 2, image 301). Mild subsegmental atelectasis is seen in the right middle lobe and lingula. No suspicious pulmonary nodules, masses, pleural effusion or pneumothorax. The central airways are patent. Aorta and heart: The heart is normal in size. Moderate three-vessel coronary artery calcifications are suspected. Evaluation is limited by the presence of intravenous contrast. The mediastinum, aorta and great vessels are normal. There is no pericardial effusion Lymphatic structures: There is no lymphadenopathy. Some faint calcific densities are seen within subcarinal lymph nodes. Thyroid gland: Coarse calcific density in the right lobe of the thyroid gland is again seen, unchanged. Thyroid gland to the extent included is heterogeneous, but otherwise unremarkable. Upper abdomen: Limited evaluation of the upper abdominal viscera demonstrates no focal abnormality. Bones: No significant focal findings. IMPRESSION: 1. No evidence of pulmonary embolism. 2. Mild subsegmental atelectatic changes in the right middle lobe and lingula. 3. Densely calcified granuloma right lower lobe and partially calcified subcarinal lymph nodes, consistent with old granulomatous disease. 4. Moderate three-vessel coronary artery calcifications are suspected.
--- NOTE | 2017-12-11 13:42 | History & Physical ---
RikiRedmond 12/11/17 7040: General Information and HPI MD Statement: I have seen and personally examined NILO GARDINER and documented this H&P. The patient is a 52 year old F who presented with a patient stated chief complaint of worsening of shortness of breath and cough.[]. Source of Information: patient, old records Exam Limitations: no limitations History of Present Illness: 52 YO F obese, current smoker (5-6 cigarettes/d) with PMH of COPD not on home O2 , asthma, lower extrimity edema on lasix, chronic back pain, rheumatoid arthritis and chronic knee pain came to ED with progressively worsening of shortness of breath for 2 months. Patient reported that for last 2 months her shortness of breath progressively worsening. She reported that initially she was able to walk but later on she wasn't able to walk even 20 steps and she becomes short of breath. For last couple of days patient having worsening of shortness of breath and she became short of breath even at rest. Patient also reported having worsening of lower extremity swelling. Patient came to ED for worsening of swelling and short of breath couple of times and she was discharged with Lasix and tapering dose of prednisone. This time her short of breath is worse and she was desaturating to 88 on room air and she was admitted. Patient also reported having back pain/10 nonradiating and dull. Patient also reported having chest pain intermittently that goes away by itself in a couple of minutes. But on this admission patient denied any chest pain. Patient also reported that she has baseline cough that comes and goes. Patient denied any chest pain, palpitation, lightheadedness, chills, fever, sick contacts, abdominal pain and dysuria. Last time patient was admitted with shortness of breath in telemetry unit but later on was transferred to general medicine and treated for COPD exacerbation and discharged on prednisone taper. Her last echocardiogram was done in February 2015 that showing ejection fraction 6570 percent. Patient is following Dr. Zarate for her cardiac issues. Patient was supposed to see Dr. Cabrera for her COPD today at 2 PM. ED course: Vitals: Impression 96.4, pulse 105, respiratory rate 15, blood pressure 102/69, oxygen saturation 90% on room air. Labs: WBC count 6.8, hemoglobin 12.3, hematocrit 38.5, platelet count 358, sodium 141, potassium 3.9, BUN 10, creatinine 0.6, anion gap 9, BUNs/creatinine ratio 16.7, glucose 107, calcium 9.0, bilirubin 0.1, AST 19, ALT 34, troponin less than 0.01, proBNP 43.8. On ambulation patient's saturation was 88% in ED and she was started on 2L oxygen. Rapid flu test negative Allergies/Medications Allergies: Coded Allergies: No Known Allergies (12/11/17) Past History Travel History Traveled to [place] past 21 day No Medical History Neurological: NONE EENT: NONE Cardiovascular: NONE Respiratory: COPD, ASTHMA, BRONCITIS Gastrointestinal: NONE Hepatic: NONE Renal: NONE Musculoskeletal: chronic back pain, rheumatoid arthritis, CHRONIC KNEE PAIN Psychiatric: NONE Endocrine: NONE Blood Disorders: NONE Cancer(s): NONE MAJOR GIFTS MANAGER/Reproductive: NONE History of MRSA: No History of VRE: No History of CDIFF: No Surgical History Surgical History: none Past Family/Social History Family History Relations & Conditions if any FATHER (Heart Disease). MOTHER (Asthma). Uncle (Diabetes). BROTHER (sudden ; possibly cardiac.). Psychosocial History Services at Home: None ETOH Use: denies use Illicit Drug Use: denies illicit drug use Review of Systems Review of Systems Constitutional: Reports: no symptoms. EENTM: Reports: no symptoms. Cardiovascular: Reports: see HPI. Respiratory: Reports: cough, short of breath. GI: Reports: no symptoms. Genitourinary: Reports: no symptoms. Musculoskeletal: Reports: back pain. Neurological/Psychological: Reports: no symptoms. Exam & Diagnostic Data Last 24 Hrs of Vital Signs/I&O Vital Signs Date Time Temp Pulse Resp B/P B/P Pulse O2 O2 Flow FiO2 Mean Ox Delivery Rate 12/11 1420 97.5 87 20 105/65 94 Nasal 2.0L Cannula 12/11 1418 97.5 86 20 105/65 94 Nasal 2.0L Cannula 12/11 1414 95 Nasal Cannula 12/11 1057 98.1 74 20 104/66 96 Nasal 2.0L Cannula 12/11 0904 94 Nasal 2.0L Cannula 12/11 0733 96.4 105 15 102/69 90 Room Air Room Air Intake & Output 12/11 1600 12/11 0800 12/11 0000 Intake Total 360 Output Total Balance 360 Intake, Oral 360 Patient 249 lb 249 lb Weight Weight Reported by Patient Measurement Method Physical Exam General Appearance Alert, Oriented X3, Cooperative Skin Temp/Moisture Exam: Warm/Dry Sepsis Skin Exam (color): Normal for Ethnicity HEENT Atraumatic, PERRLA, EOMI Neck Supple Cardiovascular Normal S1, Normal S2 Lungs Expiratory wheezing B/L Abdomen Soft, No Tenderness Neurological Normal Speech, Strength at 5/5 X4 Ext, Normal Tone, Sensation Intact Extremities B/L pedal edema with chronic venous changes and reticular veins Last 24 Hrs of Labs/Reza: Laboratory Tests 12/11/17 0840: Anion Gap 9, Estimated GFR > 60, BUN/Creatinine Ratio 16.7, Glucose 107 H, Calcium 9.0, Total Bilirubin 0.1 L, AST 19, ALT 34, Alkaline Phosphatase 86, Troponin I < 0.01, Edw-T-Hvnklnglokl Pept 43.8, Total Protein 6.3, Albumin 3.8, Globulin 2.5, Albumin/Globulin Ratio 1.5, CBC w Diff NO MAN DIFF REQ, RBC 4.30, MCV 88.6, MCH 28.6, MCHC 32.3 L, RDW 17.0 H, MPV 7.2 L, Gran % 65.1, Lymphocytes % 20.9, Monocytes % 10.0 H, Eosinophils % 3.6, Basophils % 0.4, Absolute Granulocytes 4.4, Absolute Lymphocytes 1.4, Absolute Monocytes 0.7 H, Absolute Eosinophils 0.2, Absolute Basophils 0, Urine Color STRAW, Urine Clarity CLEAR, Urine pH 6.0, Ur Specific [place] 1.010, Urine Protein NEG, Urine Ketones NEG, Urine Nitrite NEG, Urine Bilirubin NEG, Urine Urobilinogen 0.2, Ur Leukocyte Esterase NEG, Ur Microscopic SEDIMENT EXAMINED, Urine RBC 1-3, Urine WBC RARE, Ur Epithelial Cells FEW, Urine Bacteria RARE H, Urine Hemoglobin TRACE-INTACT, Urine Glucose NEG Microbiology 12/11 1030 BLOOD: Blood Culture - RECD 12/11 1020 NASOPHARYN: Influenza Virus A & B Rapid Smear - COMP 12/11 929 BLOOD: Blood Culture - RECD Assessment/Plan Assessment: 52 YO F obese, current smoker (5-6 cigarettes/d) with PMH of COPD not on home O2 , asthma, lower extrimity edema on lasix, chronic back pain, rheumatoid arthritis and chronic knee pain came to ED with progressively worsening of shortness of breath for 2 months. Patient reported that for last 2 months her shortness of breath progressively worsening. We will admit the patient on general medicine floor for the treatment of COPD exacerbation. COPD exacerbation: -Supplemental oxygen to maintain oxygen saturation above 92%. -TRC nebulization as needed -IV azithromycin -IV Solu-Medrol 40 mg IV every 8 hourly. -Incentive spirometry -Chest physiotherapy -CTA chest negative for PE Chronic bilateral leg swelling: -We will continue Lasix home dose. -Pressure stockings. -Daily weight -Monitor Input and output -We will monitor BP for electrolyte, BUN and creatinine. -Doppler study lower extremity was done that was negative for DVT. -Ultrasound abdomen negative for ascites. -We will follow the echocardiogram result tomorrow for pulmonary hypertension and right heart failure. Smoking cessation: -Nicotine patch -counselling for smoking cessation. DVT prophylaxis: Mechanical and subcutaneous heparin CODE STATUS: Full code. As Ranked By This Provider Problem List: 1. COPD exacerbation 2. Lower extremity edema Core Measures/Misc (07/20) Acute Coronary Syndrome ACS Diagnosis: No Congestive Heart Failure Congestive Heart Failure Diagnosis No Cerebrovascular Accident CVA/TIA Diagnosis: No VTE (View Protocol) VTE Risk Factors Age>40 No Mechanical VTE Prophylaxis d/t N/A MechProphylax Ordered No VTE Pharm Prophylaxis d/t NA PharmProphylax ordered Sepsis (View protocol) Sepsis Present: No Shannan ACUNA,[facility] 12/11/17 1431: Resident Review Statement Resident Statement: examined this patient, discussed with internal audit senior manager, agreed with internal audit senior manager Other Findings: 52 year old female with past medical history of COPD not on oxygen, asthma, chronic lower extremity edema on Lasix, chronic back pain, rheumatoid arthritis, who presented to the ED with progressive exertional dyspnea. Patient symptoms started long time ago however during the last 2 months her her symptom including lower extremity swelling and exertional dyspnea started to get worse. She now reports dyspnea with few steps. The patient presented to the ED and her primary care doctor multiple times during the past 2 months for the same exact complaint. She reported 2 days of wheezing and significant worsening of her symptom. Patient also has recent abdominal distention but without abdominal pain, nausea, vomiting, diarrhea or constipation. Assessment: Patient has a chronic lower extremity edema that's most likely secondary to venous insufficiency. Her x-ray is clear, no JVD, no BMP which makes heart failure unlikely. She presented with wheezing and shortness breath which can be secondary to COPD exacerbation or asthma exacerbation. There is no symptom or sign suggestive for ongoing infection and the patient does not need antibiotic. Oxygen saturation dropped to 88% while in the ED by improved to the 90s on 2 L of oxygen. Plan * We will admit to the general medicine floor * We will order peak flow * Echocardiogram, looking for pulmonary hypertension and right-sided strain. * Limited abdominal ultrasound, to rule out ascites. * Patient will be on oxygen supplement as needed * IV Solu-Medrol 40 mg daily every 8 hours * Sputum culture, and watch off antibiotic. * Albuterol he applies her, if continued to be short of breath we may add ipratropium nebulizer. * DVT prophylaxis with heparin subcutaneous * Regular diet * Full code Heather ACUNA,Ankur 12/12/17 1422: General Information and HPI Allergies/Medications Home Med list Albuterol Sulfate (Proair Hfa) 90 MCG HFA.AER.AD 2 PUF INH Q4-6 PRN PRN ASTHMA Aspirin (Aspirin*) 81 MG TAB.CHEW 1 TAB PO DAILY Heart health . Buprenorphine HCl/Naloxone HCl (Suboxone 12 MG-3 MG Sl Film) 12 MG-3 MG FILM 1 STR SL DAILY CHRONIC PAIN (Reported) Fluticasone Propionate 50 MCG/ACTUATION SPRAY.SUSP 2 SPRAY NASB AD PRN ALLERGIES/ASTHMA (Reported) Fluticasone/Salmeterol (Advair 500-50 Diskus) 500 MCG-50 MCG/DOSE BLST.W.DEV 1 PUF INH BID ASTHMA (Reported) Furosemide (Lasix) 40 MG TABLET 1 TAB PO DAILY edema (Reported) Montelukast Sodium 10 MG TABLET 1 TAB PO AD PRN ALLERGIES/ASTHMA (Reported) Potassium Citrate (Potassium Citrate ER) 10 MEQ (1,080 MG) TABLET.ER 2 TAB PO BID LOW POTASSIUM Prednisone 20 MG TABLET 2 TAB PO DAILY COPD Take 2 tabs daily for 5 days and then stop.. Varenicline Tartrate (Chantix) 1 MG TABLET 1 TAB PO BID SMOKING CESSATION ( Reported) Attending MD Review Statement Attending Statement Attending MD Statement: examined this patient, discuss w/resident/PA/OPTICAL ENGINEERING TECHNICIAN, agreed w/resident/PA/OPTICAL ENGINEERING TECHNICIAN, reviewed EMR data (avail) Attending Assessment/Plan: 52F PMH COPD not on home O2, asthma, lower extrimity edema on lasix, chronic back pain, rheumatoid arthritis presenting with 2 days of worsening shortness of breath, dyspnea on exertion, and dry cough, found to desaturate to 82% in ED with exertion. Patient is wheezing on exam, clear CXR, low BNP. She has chronic LE edema that is treated with outpatient Lasix. No signs of infection. 1. COPD Exacerbation 2. Acute hypoxemic respiratory failure 3. Chronic bilateral LE edema Plan - Continue in general medicine - Solumedrol - Nebulizers - Cardiology and pulmonary consults - Titrate down oxygen as tolerated - Continue home medications including Lasix - Obtain echocardiogram - DVT PPx
[2017-12-11 14:18] VITALS: BP 105/65
--- NOTE | 2017-12-11 16:03 | ULTRASOUND REPORT ---
EXAMINATION: US ABDOMEN LIMITED CLINICAL INFORMATION: Ascites check. Abdominal distention. Edema. COMPARISON: None TECHNIQUE: Real-time imaging of all 4 abdominal quadrants performed. FINDINGS: No evidence of abdominal ascites. Limited views of the liver are unremarkable. IMPRESSION: No abdominal ascites.
[2017-12-11 17:14] VITALS: BP 114/82
--- NOTE | 2017-12-11 18:24 | Cons- Cardiology ---
General Information and HPI Consulting Request Date of Consult: 12/11/17 Requested By: Ankur Romero MD History of Present Illness: Karen is a 52 year old female with history of asthma, tobacco abuse and obesity who presented to the ER for a worsening of her breathing. She has felt short of breath for two to three weeks but yesterday became profoundly short of breath and can only walk a couple steps. She noted wheezing with a chest heaviness that was worse with physical activity. She has a cough productive of white sputum without any definite fever or chills. In the ER the patient was found to have a low oxygen saturation. Otherwise this patient has complaints of remote lightheadedness, perhaps a month ago and it is common for her to feel some palpitations. She also reports leg swelling with some lower extremity discomfort. It should be noted that she has a history of rheumatoid arthritis and chronic knee pain. The patient's BNP was very low and her chest X-ray was not suggestive of pulmonary edema. Her last echocardiogram was done in February 2015 and showed an ejection fraction of 6570 percent. Allergies/Medications Allergies: Coded Allergies: No Known Allergies (12/11/17) Home Med List: Albuterol Sulfate (Proair Hfa) 90 MCG HFA.AER.AD 2 PUF INH Q4-6 PRN PRN ASTHMA Buprenorphine HCl/Naloxone HCl (Suboxone 12 MG-3 MG Sl Film) 12 MG-3 MG FILM 1 STR SL DAILY CHRONIC PAIN (Reported) Fluticasone Propionate 50 MCG/ACTUATION SPRAY.SUSP 2 SPRAY NASB AD PRN ALLERGIES/ASTHMA (Reported) Fluticasone/Salmeterol (Advair 500-50 Diskus) 500 MCG-50 MCG/DOSE BLST.W.DEV 1 PUF INH BID ASTHMA (Reported) Montelukast Sodium 10 MG TABLET 1 TAB PO AD PRN ALLERGIES/ASTHMA (Reported) Potassium Citrate (Potassium Citrate ER) 10 MEQ (1,080 MG) TABLET.ER 2 TAB PO BID LOW POTASSIUM Varenicline Tartrate (Chantix) 1 MG TABLET 1 TAB PO BID SMOKING CESSATION ( Reported) Review of Systems Review of Systems: leg discomfort Past History Travel History Traveled to [place] past 21 day No Medical History Blood Transfusion Hx: No Neurological: NONE EENT: NONE Cardiovascular: NONE Respiratory: COPD, ASTHMA, BRONCITIS Gastrointestinal: NONE Hepatic: NONE Renal: NONE Musculoskeletal: chronic back pain, rheumatoid arthritis, CHRONIC KNEE PAIN Psychiatric: NONE Endocrine: NONE Blood Disorders: NONE Cancer(s): NONE STEMMER MACHINE/Reproductive: NONE Surgical History Surgical History: 1 Family History Relations & Conditions If Any: FATHER (Heart Disease). MOTHER (Asthma). Uncle (Diabetes). BROTHER (sudden ; possibly cardiac.). Psychosocial History Services at Home: None Smoking Status: Current Everyday Smoker ETOH Use: denies use Illicit Drug Use: denies illicit drug use Exam & Diagnostic Data Vital Signs and I&O Vital Signs Date Time Temp Pulse Resp B/P B/P Pulse O2 O2 Flow FiO2 Mean Ox Delivery Rate 12/11 1714 98.4 88 18 114/82 93 Room Air 12/11 1614 97.3 85 18 95/60 94 Nasal 2.0L Cannula 12/11 1420 97.5 87 20 105/65 94 Nasal 2.0L Cannula 12/11 1418 97.5 86 20 105/65 94 Nasal 2.0L Cannula 12/11 1414 95 Nasal Cannula 12/11 1057 98.1 74 20 104/66 96 Nasal 2.0L Cannula 12/11 0904 94 Nasal 2.0L Cannula 12/11 0733 96.4 105 15 102/69 90 Room Air Room Air Intake & Output 12/11 1600 12/11 0800 12/11 0000 12/10 1600 12/10 0800 12/10 0000 Intake Total 360 Output Total Balance 360 Intake, Oral 360 Patient 249 lb 249 lb Weight Weight Reported by Patient Measurement Method Physical Exam: General: WD/obese female in NAD; alert and oriented x 3 HEENT: NC/AT, PERRL, EOMI Neck: no JVD, no carotid bruit Heart: RRR w/o murmur Lungs: decreased air movement with wheezing bilaterally ABdomen: soft, NT, +ve bowel sounds Extremities: 2+ bilateral leg edema Assessment/Plan Assessment/Plan * This patient has an exacerbation of COPD with bronchospasm. She has ruled out for a PE and has no evidence of decompensated CHF. There is no pulmonary edema on her chest X-ray or CT scan and her BNP is very low. I recommend agressive treatment for bronchospasm with steroids and beta agonist inhalers. In addition to asthma, I stongly suspect that this patient has restrictive lung disease related to her centripetal obesity. * This patient does have coronary calcifications and has chest tightness. I suspect that the chest discomfort is related more to bronchospasm but it is reasonable and recommended to risk stratify her with a stress test when more stable and when not wheezing. If she continues to demonstrate wheezing with low oxygen saturation then the stress test will need to be a dobutamine study since persantine can worsen bronchospasm. Continue low dose aspirin for now. * This patient should have sleep study as an outpatient if not already done. * Obtain an echocardiogram to assess for right heart failure related to high pulmonary pressures from lung disease. I think her lower extremity edema is most likely dependent edema however and would diurese her with lasix at 40mg IV daily with careful monitoring of her creatinine and her blood pressure which at present is at the lower limits of normal. Consult Acknowledgment - Thank you for your consult request.
[2017-12-11 22:37] VITALS: BP 124/75
[2017-12-12 05:29] VITALS: BP 126/86
--- NOTE | 2017-12-12 07:16 | PN- Housestaff ---
[facility] Subjective Follow-up For: Acute hypoxemic respiratory failure due to COPD exacerbation. B/L lower extremity swelling Subjective: No overnight events. Patient remained afebrile overnight. Seen and examined this morning. Patient denied any chest pain, short of breath, nausea, vomiting, chills, fever, abdominal pain dysuria. She is using 2 L of oxygen maintaining saturation 92%. Patient having dry cough that started baseline. Her breathing is improved. Review of Systems Constitutional: Reports: no symptoms. EENTM: Reports: no symptoms. Cardiovascular: Reports: no symptoms. Respiratory: Reports: cough. Gastrointestinal: Reports: no symptoms. Genitourinary: Reports: no symptoms. Musculoskeletal: Reports: no symptoms. Neurological/Psychological: Reports: no symptoms. Objective Last 24 Hrs of Vital Signs/I&O Vital Signs Date Time Temp Pulse Resp B/P B/P Pulse O2 O2 Flow FiO2 Mean Ox Delivery Rate 12/12 0700 96 Nasal 2.0L Cannula 12/12 0529 98.4 96 20 126/86 92 Room Air 12/12 0000 Nasal 2.0L Cannula 12/11 2237 98.3 104 20 124/75 93 Nasal 2.0L Cannula 12/11 1927 Nasal 2.0L Cannula 12/11 1924 93 Nasal 2.0L Cannula 12/11 1715 93 Room Air Room Air 12/11 1714 98.4 88 18 114/82 93 Room Air 12/11 1614 97.3 85 18 95/60 94 Nasal 2.0L Cannula 12/11 1420 97.5 87 20 105/65 94 Nasal 2.0L Cannula 12/11 1418 97.5 86 20 105/65 94 Nasal 2.0L Cannula 12/11 1414 95 Nasal Cannula 12/11 1057 98.1 74 20 104/66 96 Nasal 2.0L Cannula Intake & Output 12/12 1600 12/12 0800 12/12 0000 Intake Total 480 240 Output Total Balance 480 240 Intake, Oral 480 240 Physical Exam General Appearance: Alert, Oriented X3, Cooperative Skin Temp/Moisture Exam: Warm/Dry Sepsis Skin Exam (color): Normal for Ethnicity HEENT: Atraumatic, PERRLA, EOMI Neck: Supple Cardiovascular: Normal S1, Normal S2 Lungs: Clear to Auscultation Abdomen: Soft, No Tenderness Neurological: Normal Speech, Strength at 5/5 X4 Ext, Normal Tone, Sensation Intact Extremities: b/l PEDAL EDEMA WITH reticular veins. Assessment/Plan Assessment: 52 YO F obese, current smoker (5-6 cigarettes/d) with PMH of COPD not on home O2 , asthma, lower extrimity edema on lasix, chronic back pain, rheumatoid arthritis and chronic knee pain came to ED with progressively worsening of shortness of breath for 2 months. Patient reported that for last 2 months her shortness of breath progressively worsening. We will admit the patient on general medicine floor for the treatment of COPD exacerbation. Acute hypoxemic respiratory failure due to COPD exacerbation: -Patient was desaturating in ED to 82% initially and then to 88% and requiring O2. -Supplemental oxygen to maintain oxygen saturation above 92%. -TRC nebulization as needed -IV azithromycin -IV Solu-Medrol 40 mg IV every 8 hourly. -Incentive spirometry -Chest physiotherapy Chronic bilateral leg swelling: -Continue Lasix home dose. -Pressure stockings. -Daily weight -Monitor Input and output -We will monitor BP for electrolyte, BUN and creatinine. -We will follow the echocardiogram result for pulmonary hypertension and right heart failure. Smoking cessation: -Nicotine patch -counselling for smoking cessation. DVT prophylaxis: Mechanical and subcutaneous heparin CODE STATUS: Full code. Problem List: 1. COPD exacerbation 2. Leg swelling Pain Ratin Pain Location: none Pain Goal: Remain pain free Pain Plan: pain pathway Tomorrow's Labs & Rationales: cbc/bep Ankur Romero MD 12/12/17 1425: Attending MD Review Statement Attending Statement Attending MD Statement: examined this patient, discuss w/resident/PA/FOOD SERVICE DRIVER, agreed w/resident/PA/FOOD SERVICE DRIVER, reviewed EMR data (avail) Attending Assessment/Plan: 52F PMH COPD not on home O2, asthma, lower extrimity edema on lasix, chronic back pain, rheumatoid arthritis presenting with 2 days of worsening shortness of breath, dyspnea on exertion, and dry cough, found to desaturate to 82% in ED with exertion. Patient is wheezing on exam, clear CXR, low BNP. She has chronic LE edema that is treated with outpatient Lasix. No signs of infection. Wheezing has improved with Solumedrol. Patient feels much better. 1. COPD Exacerbation 2. Acute hypoxemic respiratory failure 3. Chronic bilateral LE edema Plan - Continue in general medicine - Solumedrol - Nebulizers - Cardiology and pulmonary consults - Titrate down oxygen as tolerated - Continue home medications including Lasix - Obtain echocardiogram - DVT PPx
[2017-12-12 09:29] LABS: ABSOLUTE BASOPHIL COUNT 0 /CUMM (0.0-0.2); ABSOLUTE EOSINOPHIL COUNT 0 /CUMM (0.0-0.7); ABSOLUTE GRANULOCYTE CT 10.8 /CUMM (1.4-6.5); ABSOLUTE MONOCYTE COUNT 0.2 /CUMM (0.10-0.60); BASOPHIL % 0.1 % (0.0-2.0); EOSINOPHIL % 0 % (0-5); GRANULOCYTE % 90.5 % (42.2-75.2); HEMATOCRIT 39.3 % (37-47); MEAN CORPUSCULAR HGB 28.7 PG (27.0-31.0); MEAN CORPUSCULAR HGB CONC 32.1 G/DL (33.0-37.0); MEAN CORPUSCULAR VOLUME 89.4 FL (81.0-99.0); MEAN PLATELET VOLUME 7.9 FL (7.4-10.4); PLATELET COUNT 377 /CUMM (130-400); RBC DISTRIBUTION WIDTH 16.6 % (11.5-14.5)
[2017-12-12 10:27] LABS: WHITE BLOOD CELL COUNT 11.9 /CUMM (4.8-10.8)
[2017-12-12] MEDS ORDERED: ASPIRIN81 M4 PO ×2 (13:32→14:19)
[2017-12-12] MEDS ORDERED: PREDNISONE20 M1 PO ×2 (13:32→14:19)
--- NOTE | 2017-12-12 13:37 | Patient Discharge Instructions ---
Discharge Instructions General Discharge Information You were seen/treated for: Acute hypoxemic respiratory failure due to COPD exacerbation. Bilateral pedal edema. Watch for these problems: Shortness of breath at rest, cough, sputum, lightheadedness, chest pain, nausea, increasing leg swelling, decreased appetite, palpitations and generalized weakness. If she experience any of these symptoms place come to ED or call your primary care physician. Special Instructions: Follow-up with your primary care physician in one week. Follow up with your aircraft inspection record clerk in 1 week. Diet Recommended Diet: Heart Healthy Activity Activity Self Limited: Yes Acute Coronary Syndrome Inclusion Criteria At DC or during hospital stay patient has or had the following: ACS DIAGNOSIS No Discharge Core Measures Meds if any: Prescribed or Continued at Discharge Meds if any: NOT Prescribed or Continued at Discharge Congestive Heart Failure Inclusion Criteria At DC or during hospital stay patient has or had the following: CHF DIAGNOSIS No Discharge Core Measures Meds if any: Prescribed or Continued at Discharge Meds if any: NOT Prescribed or Continued at Discharge Cerebrovascular accident Inclusion Criteria At DC or during hospital stay patient has or had the following: CVA/TIA Diagnosis No Discharge Core Measures Meds if any: Prescribed or Continued at Discharge Meds if any: NOT Prescribed or Continued at Discharge Venous thromboembolism Inclusion Criteria VTE Diagnosis No VTE Type NONE VTE Confirmed by (Test) NONE Discharge Core Measures - Per Current guidelines, there needs to be overlap - treatment for the first 5 days of Warfarin therapy. - If discharged on Warfarin prior to 5 days of - overlap therapy, the patient will need to be - assessed for post discharge needs including - *Post discharge parental anticoagulation - *Warfarin and/or parental anticoagulation education - *Follow up date to check INR post discharge At least 5 days overlap therapy as Inpatient No Meds if any: Prescribed or Continued at Discharge Note: Overlap Therapy is Warfarin and Anticoagulant Meds if any: NOT Prescribed or Continued at Discharge
[2017-12-12] MEDS ORDERED: LASIX40 M1 PO (13:49)
[2017-12-12 14:59] VITALS: BP 108/58
--- NOTE | 2017-12-12 16:50 | PN- Cardiology ---
Subjective Subjective: No complaints. Feels her breathing has improved and is near its baseline. Objective Vital Signs and I&Os Vital Signs Date Time Temp Pulse Resp B/P B/P Pulse O2 O2 Flow FiO2 Mean Ox Delivery Rate 12/12 1459 99.3 104 18 108/58 95 12/12 0845 96 Nasal 2.0L Cannula 12/12 799 96 Nasal 2.0L Cannula 12/12 0529 98.4 96 20 126/86 92 Room Air 12/12 0000 Nasal 2.0L Cannula 12/11 2237 98.3 104 20 124/75 93 Nasal 2.0L Cannula 12/11 1926 Nasal 2.0L Cannula 12/11 192 93 Nasal 2.0L Cannula 12/11 171 93 Room Air Room Air 12/11 171 98.4 88 18 114/82 93 Room Air Intake & Output 12/12 1600 12/12 0800 12/12 0000 12/11 1600 12/11 0800 12/11 0000 Intake Total 480 240 360 Output Total Balance 480 240 360 Intake, Oral 480 240 360 Patient 249 lb 249 lb Weight Weight Reported by Patient Measurement Method Physical Exam: Well-developed, well-nourished middle-aged female in no acute distress. Vital signs: See above. Neck: No JVD, no bruits. Lungs: Clear to auscultation bilaterally. Heart: S1, S2 with a grade 1/6 systolic murmur. No gallop or rub. PMI fifth ICS at MCL. Abdomen: Soft, nontender, positive bowel sounds. Extremities: trace edema. Current Medications: Current Medications Sig/Pam Start time Last Medication Dose Route Stop Time Status Admin Albuterol Sulfate 3 ML EVERY 4 HRS/AWAKE 12/11 1999 AC 12/12 INH 1216 Albuterol Sulfate 3 ML Q4P PRN 12/11 1500 AC INH Aspirin 81 MG DAILY 12/12 999 AC 12/12 PO 1052 Budesonide/ 2 PUF BID 12/11 2199 AC 12/12 Formoterol Fumarate INH 1052 Fluticasone 2 SPRAY DAILY 12/12 999 AC 12/12 Propionate DANAE 1052 Furosemide 40 MG DAILY 12/12 1347 AC 12/12 IV 1558 Heparin Sodium 5,000 UNIT Q8 12/11 2199 AC 12/12 (Porcine) SC 1344 Ipratropium [place] 2.5 ML EVERY 4 HRS/AWAKE 12/11 1999 AC 12/12 INH 1217 Magnesium Oxide 400 MG ONE ONE 12/12 1345 DC 12/12 PO 12/12 1346 1558 Methylprednisolone 40 MG Q12 12/12 2199 UNVr IV Methylprednisolone 40 MG Q8 12/11 1999 DC 12/12 IV 1344 Montelukast Sodium 10 MG AT BEDTIME 12/11 2199 AC 12/11 PO 2135 Potassium Chloride 10 MEQ DAILY 12/12 1000 AC 12/12 PO 1052 Results Last 48 Hrs of Labs/Mics: Laboratory Tests 12/12/17 0800: Anion Gap 16, Estimated GFR > 60, BUN/Creatinine Ratio 28.3 H, CBC w Diff NO MAN DIFF REQ, RBC 4.40, MCV 89.4, MCH 28.7, MCHC 32.1 L, RDW 16.6 H, MPV 7.9, Gran % 90.5 H, Lymphocytes % 8.0 L, Monocytes % 1.4 L, Eosinophils % 0, Basophils % 0.1, Absolute Granulocytes 10.8 H, Absolute Lymphocytes 1.0 L, Absolute Monocytes 0.2, Absolute Eosinophils 0, Absolute Basophils 0 12/11/17 0840: Anion Gap 9, Estimated GFR > 60, BUN/Creatinine Ratio 16.7, Glucose 107 H, Calcium 9.0, Magnesium 1.8, Total Bilirubin 0.1 L, AST 19, ALT 34, Alkaline Phosphatase 86, Troponin I < 0.01, Dqp-P-Bvofycgcino Pept 43.8, Total Protein 6.3, Albumin 3.8, Globulin 2.5, Albumin/Globulin Ratio 1.5, TSH 0.899, CBC w Diff NO MAN DIFF REQ, RBC 4.30, MCV 88.6, MCH 28.6, MCHC 32.3 L, RDW 17.0 H, MPV 7.2 L, Gran % 65.1, Lymphocytes % 20.9, Monocytes % 10.0 H, Eosinophils % 3.6, Basophils % 0.4, Absolute Granulocytes 4.4, Absolute Lymphocytes 1.4, Absolute Monocytes 0.7 H, Absolute Eosinophils 0.2, Absolute Basophils 0, Urine Color STRAW, Urine Clarity CLEAR, Urine pH 6.0, Ur Specific [place] 1.010, Urine Protein NEG, Urine Ketones NEG, Urine Nitrite NEG, Urine Bilirubin NEG, Urine Urobilinogen 0.2, Ur Leukocyte Esterase NEG, Ur Microscopic SEDIMENT EXAMINED, Urine RBC 1-3, Urine WBC RARE, Ur Epithelial Cells FEW, Urine Bacteria RARE H, Urine Hemoglobin TRACE-INTACT, Urine Glucose NEG Microbiology 12/11 1020 NASOPHARYN: Influenza Virus A & B Rapid Smear - COMP Assessment/Plan Assessment/Plan [id number] w/ hx of obesity, tobacco use, & asthma who presented to the ED w/ worsening SOB w/ LE edema, but no significantly elevated NT-PRO BNP or CXR evidence of vascular congestion. Evaluation was felt to be most consistent with acute hypoxemic respiratory failure due to COPD exacerbation and she has been improving with standard therapy. Echocardiogram has been performed and will be reviewed. Continue telemetry? Not applicable (On Gen Med.)
--- NOTE | 2017-12-12 18:56 | ECHOCARDIOGRAM REPORT ---
NILO GARDINER Age: 52 : 1965 Gender: F Exam Date: 12/12/2017 09:16 Exam Location: [address] [place] [address] Ht (in): 61 Wt (lb): 249 BSA: 2.28 BP: 105 / 65 Ordering Physician: Rebecca Campbell MD Referring Physician: Rebecca Campbell MD Technologist: Luis Correa [facility] Room Number: 210-2 Indications: PULMONARY HYPERTENSION Rhythm: Sinus Technical Quality: Fair FINDINGS Left Ventricle Normal size left ventricle. Mild concentric left ventricular hypertrophy. No obvious regional wall motion abnormalities. Normal left ventricular ejection fraction visually estimated at >65%. "pseudonormal" filling pattern of the left ventricle for age (stage 2 diastolic dysfunction). Right Ventricle Normal right ventricular size and function. Right Atrium Normal right atrial size. Left Atrium Normal left atrial size. Mitral Valve Mitral valve mildly thickened. Mild mitral regurgitation. Aortic Valve Aortic valve not well visualized. Focal thickening of the aortic valve cusps. Mild aortic stenosis. No aortic regurgitation. Tricuspid Valve Structurally normal tricuspid valve. Trace tricuspid regurgitation. No evidence of pulmonary hypertension. Right ventricular systolic pressure estimated to be within the normal range at 28 mmHg. Pulmonic Valve Pulmonic valve not well visualized, grossly normal. No pulmonic regurgitation. Pericardium No pericardial effusion. Great Vessels Normal size aortic root. Dilated inferior vena cava. CONCLUSIONS Normal size left ventricle. Mild concentric left ventricular hypertrophy. Normal left ventricular ejection fraction visually estimated at > 65%. "pseudonormal" filling pattern of the left ventricle for age (stage 2 diastolic dysfunction). Normal right ventricular size and function. Normal atrial size. Mild mitral regurgitation. Mild aortic stenosis. Trace tricuspid regurgitation. No evidence of pulmonary hypertension. Dilated inferior vena cava. Santos Blackmon M.D. (Electronically Signed) Final Date: 12 December 2017 18:55 MEASUREMENTS (Male / Female) Normal Values 2D ECHO LV Diastolic Diameter PLAX 5.0 cm 4.2 - 5.9 / 3.9 - 5.3 cm LV Systolic Diameter PLAX 3.0 cm 2.1 - 4.0 cm LV Fractional Shortening PLAX 40.0 % 25 - 46 % LV Ejection Fraction 2D Teich 70.4 % IVS Diastolic Thickness 1.2 cm LVPW Diastolic Thickness 1.1 cm LV Relative Wall Thickness 0.5 RV Internal Dim ED PLAX 2.9 cm 1.9 - 3.8 cm LVOT Diameter 2.0 cm Aortic Root Diameter 2.4 cm LA Systolic Diameter LX 3.1 cm 3.0 - 4.0 / 2.7 - 3.8 cm LA Volume 40.0 cm 18 - 58 / 22 - 52 cm Ascending Aorta Diameter 3.0 cm DOPPLER AV Peak Velocity 203.0 cm/s AV Peak Gradient 16.5 mmHg AV Mean Velocity 136.0 cm/s AV Mean Gradient 9.0 mmHg AV Velocity Time Integral 37.3 cm LVOT Peak Velocity 104.0 cm/s LVOT Peak Gradient 4.3 mmHg LVOT Mean Velocity 65.4 cm/s LVOT Mean Gradient 2.0 mmHg LVOT Velocity Time Integral 26.2 cm LVOT Stroke Volume 82.3 cm AV Area Cont Eq vti 2.2 cm AV Area Cont Eq pk 1.6 cm MV Peak Velocity 135.0 cm/s MV Peak Gradient 7.3 mmHg MV Mean Velocity 81.9 cm/s MV Mean Gradient 3.0 mmHg Mitral E Point Velocity 122.0 cm/s Mitral A Point Velocity 116.0 cm/s Mitral E to A Ratio 1.1 MV PHT Velocity 140.0 cm/s MV Deceleration [place] 955.0 cm/s MV Pressure Half Time 44.0 ms MV Area PHT 5.0 cm MV Deceleration Time 211.0 ms TR Peak Velocity 210.0 cm/s TR Peak Gradient 17.6 mmHg Right Atrial Pressure 10.0 mmHg Pulmonary Artery Systolic Pressu 27.6 mmHg Right Ventricular Systolic Press 27.6 mmHg PV Peak Velocity 146.0 cm/s PV Peak Gradient 8.5 mmHg PV Mean Velocity 99.8 cm/s PV Mean Gradient 5.0 mmHg PV Velocity Time Integral 34.0 cm LV E' Lateral Velocity 10.4 cm/s Mitral E to LV E' Lateral Ratio 11.7 LV E' Septal Velocity 10.0 cm/s Mitral E to LV E' Septal Ratio 12.2
[2017-12-12 21:54] VITALS: BP 100/64
[2017-12-13 07:16] VITALS: BP 104/66
[2017-12-13 08:28] LABS: ABSOLUTE BASOPHIL COUNT 0 /CUMM (0.0-0.2); ABSOLUTE EOSINOPHIL COUNT 0 /CUMM (0.0-0.7); EOSINOPHIL % 0 % (0-5); MEAN CORPUSCULAR VOLUME 88.9 FL (81.0-99.0); MEAN PLATELET VOLUME 7.8 FL (7.4-10.4)
[2017-12-13 09:05] LABS: ABSOLUTE GRANULOCYTE CT 17.9 /CUMM (1.4-6.5); ABSOLUTE LYMPH COUNT 1.1 /CUMM (1.2-3.4); ABSOLUTE MONOCYTE COUNT 0.7 /CUMM (0.10-0.60); BASOPHIL % 0 % (0.0-2.0); HEMATOCRIT 37.2 % (37-47); MEAN CORPUSCULAR HGB CONC 32.6 G/DL (33.0-37.0); PLATELET COUNT 362 /CUMM (130-400); RBC DISTRIBUTION WIDTH 17.1 % (11.5-14.5); RED BLOOD CELL CT 4.18 /CUMM (4.20-5.40)
--- NOTE | 2017-12-13 09:23 | PN- Housestaff ---
Tai ACUNA,Jason 12/13/17 0923: Subjective Follow-up For: COPD exacerbation Subjective: breathing is substantially improved afebrile no new complaints Review of Systems Constitutional: Reports: see HPI. Objective Last 24 Hrs of Vital Signs/I&O Vital Signs Date Time Temp Pulse Resp B/P B/P Pulse O2 O2 Flow FiO2 Mean Ox Delivery Rate 12/13 0845 95 Room Air 12/13 0800 Nasal 2.0L Cannula 12/13 0716 98.1 83 18 104/66 95 12/13 0000 Room Air 12/12 2154 98.9 94 18 100/64 94 Room Air 12/12 1930 93 Nasal 2.0L Cannula 12/12 1730 96 Nasal 2.0L Cannula 12/12 1459 99.3 104 18 108/58 95 Intake & Output 12/13 1600 12/13 0800 12/13 0000 Intake Total 480 250 Output Total Balance 480 250 Intake, IV 0 10 Intake, Oral 480 240 Number 20 0 Bowel Movements Physical Exam General Appearance: Alert, Oriented X3, Cooperative, No Acute Distress Cardiovascular: Regular Rate, Normal S1, Normal S2, No Murmurs Lungs: diminished air entry, no audible wheezing Abdomen: Normal Bowel Sounds, Soft, No Tenderness, No Masses Extremities: No Clubbing, No Cyanosis, Normal Pulses, mild LE edema Current Medications: Current Medications Sig/Pam Start time Last Medication Dose Route Stop Time Status Admin Albuterol Sulfate 3 ML EVERY 4 HRS/AWAKE 12/11 1999 AC 12/13 INH 1226 Albuterol Sulfate 3 ML Q4P PRN 12/11 1500 AC INH Aspirin 81 MG DAILY 12/12 999 AC 12/13 PO 0945 Budesonide/ 2 PUF BID 12/11 2199 AC 12/13 Formoterol Fumarate INH 0944 Fluticasone 2 SPRAY DAILY 12/12 1000 AC 12/13 Propionate DANAE 0944 Furosemide 40 MG DAILY 12/12 1347 AC 12/13 IV 0944 Heparin Sodium 5,000 UNIT Q8 12/11 2199 AC 12/13 (Porcine) SC 0536 Ipratropium [place] 2.5 ML EVERY 4 HRS/AWAKE 12/11 1999 AC 12/13 INH 1224 Magnesium Oxide 400 MG ONE ONE 12/12 1345 DC 12/12 PO 12/12 1346 1558 Methylprednisolone 40 MG Q12 12/12 2199 AC 12/13 IV 0944 Methylprednisolone 40 MG Q8 12/11 1999 DC 12/12 IV 1344 Montelukast Sodium 10 MG AT BEDTIME 12/11 2199 AC 12/12 PO 2054 Potassium Chloride 10 MEQ DAILY 12/12 1000 AC 12/13 PO 0945 Last 24 Hrs of Lab/Reza Results Last 24 Hrs of Labs/Mics: Laboratory Tests 12/13/17 0650: Anion Gap 10, Estimated GFR > 60, BUN/Creatinine Ratio 31.4 H, CBC w Diff MAN DIFF ORDERED, RBC 4.18 L, MCV 88.9, MCH 29.0, MCHC 32.6 L, RDW 17.1 H, MPV 7.8, Gran % 91.0 H, Lymphocytes % 5.6 L, Monocytes % 3.4, Eosinophils % 0, Basophils % 0, Absolute Granulocytes 17.9 H, Absolute Lymphocytes 1.1 L, Absolute Monocytes 0.7 H, Absolute Eosinophils 0, Absolute Basophils 0, Platelet Estimate ADEQUATE, Normocytic RBCs VERIFIED, Normochromic RBCs VERIFIED Assessment/Plan Assessment: 52 year old female with PMH of obesity, smoking (11/06ppd), COPD not on home O2, asthma, lower extremity edema , chronic back pain, rheumatoid arthritis and chronic knee pain came to ED with progressively worsening of shortness of breath for 2 months. Patient reported that for last 2 months her shortness of breath progressively worsening. Acute hypoxemic respiratory failure due to COPD exacerbation: -Patient desaturated in ED to 82% and requiring O2. -Supplemental oxygen to maintain oxygen saturation above 92%. -TRC nebulization as needed -Antibiotics discontinued -IV Solu-Medrol 40mg IV BID, discharge on prednisone 40mg x 5 days then stop -Incentive spirometry -Chest physiotherapy -Continue singulair and symbicort -Evaluated by cardiology, findings c/w COPD exacerbation, no significant valvular disease or pulmonary hypertension Chronic bilateral leg swelling: -Continue Lasix home dose. -Pressure stockings. -Daily weight -Monitor Input and output -We will monitor BP for electrolyte, BUN and creatinine. -We will follow the echocardiogram result for pulmonary hypertension and right heart failure. Smoking cessation: -Nicotine patch -counseling for smoking cessation. DVT prophylaxis: Mechanical and subcutaneous heparin CODE STATUS: Full code. Problem List: 1. Tobacco abuse counseling 2. Asthma 3. Hypoxia 4. COPD exacerbation 5. Leg swelling Pain Ratin Pain Location: n/a Pain Goal: Pain 4 or less Pain Plan: prn Tomorrow's Labs & Rationales: none, discharge Heather ACUNAAnkur 12/13/17 1157: Attending MD Review Statement Attending Statement Attending MD Statement: examined this patient, discuss w/resident/PA/DIRECTOR OF QUALITY CONTROL, agreed w/resident/PA/DIRECTOR OF QUALITY CONTROL, reviewed EMR data (avail) Attending Assessment/Plan: 52F PMH COPD not on home O2, asthma, lower extrimity edema on lasix, chronic back pain, rheumatoid arthritis presenting with 2 days of worsening shortness of breath, dyspnea on exertion, and dry cough, found to desaturate to 82% in ED with exertion. Patient is wheezing on exam, clear CXR, low BNP. She has chronic LE edema that is treated with outpatient Lasix. No signs of infection. Wheezing has improved with Solumedrol. Patient feels much better. Now on room air. Echocardiogram shows diastolic dysfunction and pulmonary hypertension. 1. COPD Exacerbation 2. Acute hypoxemic respiratory failure 3. Chronic bilateral LE edema Plan - Stable for discharge home following evaluation by cardiology today - Prednisone taper - Outpatient pulmonary and cardiology follow up - Titrate down oxygen as tolerated - Continue home medications including Lasix and inhalers
[2017-12-13 09:29] LABS: WHITE BLOOD CELL COUNT 19.7 /CUMM (4.8-10.8)
--- NOTE | 2017-12-14 09:44 | Discharge Summary ---
Visit Information Visit Dates Admission Date: 12/11/17 Discharge Date: 12/13/17 Hospital Course Course Attending Physician: Ankur Romero MD Primary Care Physician: Chase Kennedy MD Hospital Course: 52 YO F obese, current smoker (5-6 cigarettes/d) with PMH of COPD not on home O2 , asthma, lower extrimity edema on lasix, chronic back pain, rheumatoid arthritis and chronic knee pain came to ED with progressively worsening of shortness of breath for 2 months. Patient reported that for last 2 months her shortness of breath progressively worsening. ED course: Vitals: Impression 96.4, pulse 105, respiratory rate 15, blood pressure 102/69, oxygen saturation 90% on room air. Labs: WBC count 6.8, hemoglobin 12.3, hematocrit 38.5, platelet count 358, sodium 141, potassium 3.9, BUN 10, creatinine 0.6, anion gap 9, BUNs/creatinine ratio 16.7, glucose 107, calcium 9.0, bilirubin 0.1, AST 19, ALT 34, troponin less than 0.01, proBNP 43.8. On ambulation patient's saturation was 88% in ED and she was started on 2L oxygen. Rapid flu test negative Acute hypoxemic respiratory failure due to COPD exacerbation: -Patient was desaturating in ED to 82% initially and then to 88% and requiring O2. -Supplemental oxygen to maintain oxygen saturation above 92%. -TRC nebulization as needed -IV azithromycin -IV Solu-Medrol 40 mg IV every 8 hourly. -Incentive spirometry -Chest physiotherapy Chronic bilateral leg swelling: -Continue Lasix home dose. -Pressure stockings. -Daily weight -Monitor Input and output -We will monitor BP for electrolyte, BUN and creatinine. -We will follow the echocardiogram result for pulmonary hypertension and right heart failure. Smoking cessation: -Nicotine patch -counselling for smoking cessation. DVT prophylaxis: Mechanical and subcutaneous heparin CODE STATUS: Full code. Allergies: Coded Allergies: No Known Allergies (12/11/17) Pertinent Lab Results: USG abdomen on 12/11/17: IMPRESSION: No abdominal ascites. Chest x-ray on 12/11/17: IMPRESSION: No acute cardiopulmonary process. Lumbar spine x-ray on 12/11/17; IMPRESSION: No change in mild degenerative disc disease at L4-L5 with a slight anterolisthesis of L4 on L5. No acute findings. Doppler study legs on 12/11/17: IMPRESSION: Normal triplex scan without evidence of deep venous thrombosis involving the lower extremities. CTA chest on 12/11/17: IMPRESSION: 1. No evidence of pulmonary embolism. 2. Mild subsegmental atelectatic changes in the right middle lobe and lingula. 3. Densely calcified granuloma right lower lobe and partially calcified subcarinal lymph nodes, consistent with old granulomatous disease. 4. Moderate three-vessel coronary artery calcifications are suspected. Echocardiogram on 12/12/17: CONCLUSIONS Normal size left ventricle. Mild concentric left ventricular hypertrophy. Normal left ventricular ejection fraction visually estimated at > 65%. "pseudonormal" filling pattern of the left ventricle for age (stage 2 diastolic dysfunction). Normal right ventricular size and function. Normal atrial size. Mild mitral regurgitation. Mild aortic stenosis. Trace tricuspid regurgitation. No evidence of pulmonary hypertension. Dilated inferior vena cava. Disposition Summary Disposition Principal Diagnosis: Acute hypoxemic respiratory failure due to COPD exacerbation. Additional Diagnosis: B/L leg edema possibly due to chronic venous insufficiency. Discharge Disposition: home or self care Discharge Instructions General Discharge Information Code Status: Full Code Patient's Diet: Heart healthy diet Patient's Activity: Self limited Follow-Up Instructions/Appts: Follow-up with your primary care physician in one week. 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 Medications at Discharge Discharge Medications: Continue taking these medications: Fluticasone/Salmeterol (Advair 500-50 Diskus) 500 MCG-50 MCG/DOSE BLST.W.DEV 1 Puff Inhale through mouth TWICE DAILY Comments: NOT GIVEN IN HOSPITAL Albuterol Sulfate (Proair Hfa) 90 MCG HFA.AER.AD 2 Puff Inhale through mouth EVERY 4-6 HOURS NEEDED as needed for ASTHMA Qty = 1 Comments: NOT GIVEN IN HOSPITAL Buprenorphine HCl/Naloxone HCl (Suboxone 12 MG-3 MG Sl Film) 12 MG-3 MG FILM 1 Strip SUBLINGUAL DAILY Qty = 14 Comments: NOT GIVEN IN HOSPITAL Fluticasone Propionate (Fluticasone Propionate) 50 MCG/ACTUATION SPRAY.SUSP 2 [place] Both sides of nose As Directed as needed for ALLERGIES/ASTHMA Qty = 16 Comments: Last Taken: 12/13/17 Time: 0945 AM Varenicline Tartrate (Chantix) 1 MG TABLET 1 Tablet ORAL TWICE DAILY Qty = 56 Comments: NOT GIVEN IN HOSPITAL Montelukast Sodium (Montelukast Sodium) 10 MG TABLET 1 Tablet ORAL As Directed as needed for ALLERGIES/ASTHMA Qty = 30 Comments: Last Taken: 12/12/17 Time: 9:00 PM Potassium Citrate (Potassium Citrate ER) 10 MEQ (1,080 MG) TABLET.ER 2 Tablet ORAL TWICE DAILY Qty = 20 Comments: Last Taken: 12/13/17 Time: 0945 AM Furosemide (Lasix) 40 MG TABLET 1 Tablet ORAL DAILY Qty = 30 Comments: Last Taken: 12/13/17 Time: 0945 AM Start taking the following new medications: Aspirin (Aspirin*) 81 MG TAB.CHEW 1 Tablet ORAL DAILY Qty = 30 No Refills Instructions: . Comments: Last Taken: 12/13/17 Time: 0945 AM Prednisone (Prednisone) 20 MG TABLET 2 Tablet ORAL DAILY Qty = 10 No Refills Instructions: Take 2 tabs daily for 5 days and then stop.. Comments: IV SOLUMEDROL GIVEN Last Taken: 12/13/17 Time: 0945 AM Copies To: Brent ACUNA,Chase Zarate MD PHD,[facility] [place]
== END 2017-12-13 13:50 | DRG 140 ==
LOC: ERH 07:26 → ERHI 13:24 → 2NB 13:24 → ENRESERV 15:22 → ENTRNSPT 15:45 → EDTRNSPT 15:58 → 2NB 16:58 → CMPTRNSPT 17:03 → ENPENDDIS 12-13 11:53 → 2NB 12-13 13:50
PROVIDERS: Emergency Medicine; Student in an Organized Health Care Education/Training Program
DX: J44.1 Chronic obstructive pulmonary disease with (acute) exacerbation (principal); J96.01 Acute respiratory failure with hypoxia; Z72.0 Tobacco use; E66.9 Obesity, unspecified; Z68.42 Body mass index [BMI] 45.0-49.9, adult; R60.0 Localized edema; I87.2 Venous insufficiency (chronic) (peripheral); G89.29 Other chronic pain; M54.9 Dorsalgia, unspecified; M06.9 Rheumatoid arthritis, unspecified; M25.569 Pain in unspecified knee
CPT/HCPCS: 2NBSP; 36415; 71046; 72100; 81001; 82436; 87040; 87804; 87804-59; 93005; 93010; 93306; 93970; 96374; J1644; J1940; J2920; J2930; J3490

== ENCOUNTER 2018-01-02 10:40 | Inpatient (IN) | payer OTHER ==
[~2018-01-02] VITALS: Ht 154.9 cm; Wt 113.4 kg
[~2018-01-02 10:40] MED LIST changes: +ASPIRIN81 M4 PO; +LASIX40 M1 PO
--- NOTE | 2018-01-02 10:52 | ED GENERAL ADULT ---
See Addendum History of Present Illness General Chief Complaint: General Adult Stated Complaint: WEAKNESS Allergies Coded Allergies: No Known Allergies (12/11/17) (Prince ACUNA,Chase Matthews) General Source: patient Exam Limitations: no limitations Vital Signs & Intake/Output Vital Signs & Intake/Output Vital Signs Date Time Temp Pulse Resp B/P B/P Pulse O2 O2 Flow FiO2 Mean Ox Delivery Rate 01/02 1247 95 Room Air 01/02 1246 97.6 137 18 112/70 96 Nasal 2.0L Cannula 01/02 1241 137 126/63 03 1201 95 01/02 1046 98.3 124 18 96/67 93 Room Air Reconcile Medications Albuterol Sulfate (Proair Hfa) 90 MCG HFA.AER.AD 2 PUF INH Q4-6 PRN PRN ASTHMA Aspirin (Aspirin*) 81 MG TAB.CHEW 1 TAB PO DAILY Heart health . Buprenorphine HCl/Naloxone HCl (Suboxone 12 MG-3 MG Sl Film) 12 MG-3 MG FILM 1 STR SL DAILY CHRONIC PAIN (Reported) Fluticasone Propionate 50 MCG/ACTUATION SPRAY.SUSP 2 SPRAY NASB AD PRN ALLERGIES/ASTHMA (Reported) Fluticasone/Salmeterol (Advair 500-50 Diskus) 500 MCG-50 MCG/DOSE BLST.W.DEV 1 PUF INH BID ASTHMA (Reported) Furosemide (Lasix) 40 MG TABLET 1 TAB PO DAILY edema (Reported) Montelukast Sodium 10 MG TABLET 1 TAB PO AD PRN ALLERGIES/ASTHMA (Reported) Potassium Citrate (Potassium Citrate ER) 10 MEQ (1,080 MG) TABLET.ER 2 TAB PO BID LOW POTASSIUM Prednisone 20 MG TABLET 2 TAB PO DAILY COPD Take 2 tabs daily for 5 days and then stop.. Varenicline Tartrate (Chantix) 1 MG TABLET 1 TAB PO BID SMOKING CESSATION ( Reported) Triage Nurses Notes Reviewed? yes Onset: Abrupt Duration: hour(s): Timing: multiple episodes today Injury Environment: work Modifying Factors: Improves With: movement. HPI: 52yoF w/ hx of asthma, LE edema BIBA for dizziness, nausea, chills, hot flashes and generalized weakness. She reports sx of abrupt onset this morning and hence calling EMS. She does not endorse any LOC, fevers, vomiting, CP. She endorsed palpitations and chronic SOB. She does not use O2 at baseline. EMS found her with BP of 114/60, tachy to 120, SOB and blood sugar in the 80s. She reports needing several pillows to sleep, which is a chronic issue for 3yrs, for which she uses compression stockings and takes 40mg lasix BID with complete adherence. She is also on Singulair, Advair, ProAir and Chantix. She currently smokes about 1cig/day but over 20-30yrs, she has smoked about 8cigs daily. She occasionally takes alcohol. 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 MOTHER (Asthma). Uncle (Diabetes). BROTHER (sudden ; possibly cardiac.). (Chase Morrison MD) Medical History Any Pertinent Medical History? see below for history Neurological: NONE EENT: NONE Cardiovascular: NONE Respiratory: NONE Gastrointestinal: NONE Hepatic: NONE Renal: NONE Musculoskeletal: NONE Surgical History Surgical History: unobtainable Psychosocial History ETOH Use: occasional use Family History Hx Contributory? Yes (Slade Schwartz) Review of Systems Review of Systems Constitutional: Reports: chills, malaise, weakness. Denies: diaphoresis, fever. EENTM: Reports: no symptoms. Respiratory: Reports: cough, wheezing. Cardiovascular: Reports: no symptoms. GI: Reports: no symptoms. Genitourinary: Reports: no symptoms. Musculoskeletal: Reports: no symptoms. Skin: Reports: no symptoms. Neurological/Psychological: Reports: no symptoms. (Slade Schwartz) Physical Exam Physical Exam Rectal: BROWN STOOL, HEME NEGATIVE (Morrison MD,Dano.) Physical Exam General Appearance: well developed/nourished, mild distress Head: atraumatic, normal appearance Eyes: Bilateral: normal appearance, PERRL. Ears, Nose, Throat: normal pharynx Neck: normal inspection, supple Respiratory: chest non-tender, decreased breath sounds, wheezing Cardiovascular: regular rate/rhythm Peripheral Pulses: 2+ radial (R), 2+ radial (L) Gastrointestinal: normal bowel sounds Rectal: deferred Extremities: pedal edema, swelling Neurologic/Psych: oriented x 3 Core Measures ACS in differential dx? Yes CVA/TIA Diagnosis: No Sepsis Present: No Sepsis Focused Exam Completed? No Kim Coma Score Kim Coma Score Response Value Best Eye Response ([place]): open to voice 3 Best Verbal Response: oriented 5 Best Motor Response: obeys commands 6 Total 14 (Opare-Michelle STUDENT,Slade) Progress Diagnostic Imaging: Viewed by Me: Radiology Read. Discussed w/RAD: Radiology Read. CXR Impression: PATIENT: NILO GARDINER PRESENT AGE : 52 PATIENT ACCOUNT NO: [id number] : 63 LOCATION: [facility] ([place]) ORDERING PHYSICIAN: Chase Morrison MD SERVICE DATE: 01/02/181102 EXAM TYPE: RAD - XRY-CHEST XRAY, TWO VIEWS EXAMINATION: XR CHEST CLINICAL INFORMATION: Pulmonary edema COMPARISON: CTA chest 12/11/2017 TECHNIQUE: 2 views of the chest were obtained. FINDINGS: The films are technically limited due to the patient's body habitus and underpenetration. Lung volumes are slightly diminished. No focal consolidation or mass. No pleural effusion or pneumothorax. There is some bronchovascular crowding from low lung volumes, but no cirilo pulmonary edema. Cardiac silhouette is prominent, likely related to the prominent epicardial fat seen previously. IMPRESSION: Limited study but no acute pulmonary disease identified. DICTATED BY: Micheal Kraft MD DATE/TIME DICTATED:01/02/181206 SAP SOLUTION MANAGER CONSULTANT:RYAN DATE/TIME TRANSCRIBED:01/02/181206 CONFIDENTIAL, DO NOT COPY WITHOUT APPROPRIATE AUTHORIZATION. <Electronically signed in Other Vendor System> SIGNED BY: Micheal Kraft MD 01/02/18 1213 Initial ED EKG: S TACH, NSSTT CHANGES Prior EKG: unchanged (Prince ACUNA,Chase Matthews) Differential Diagnoses I considered the following diagnoses in my evaluation of the patient: [CHF, anemia, pulmonary edema, PE, UT, flu, hepatitic/thyroid/ renal pathology] Plan of Care: Orders Procedure Date/time Status Admit to inpatient 01/02 1445 Active PATHOLOGY SPECIMEN 01/02 1436 Active LEUKOCYTE POOR (PACKED CELLS) 01/02 1307 Active RAPID VIRAL INFLUENZA A 01/02 1123 Complete Add-on Test (ER Only) 01/02 1102 Active URINALYSIS 01/02 1058 Complete TROPONIN LEVEL 01/02 1058 Complete PARTIAL THROMBOPLASTIN TIME 01/02 1058 Complete PROTHROMBIN TIME 01/02 1058 Complete CBC WITHOUT DIFFERENTIAL 01/02 1058 Complete B-TYPE NATRIURETIC PEP (BNP) 01/02 1058 Complete BASIC METABOLIC PANEL 01/02 1058 Complete TYPE & SCREEN (NOT X-MATCH) 01/02 1058 Active EKG 01/02 1042 Active Laboratory Tests 01/02/18 1235: Urine Color YEL, Urine Clarity CLEAR, Urine pH 6.0, Ur Specific [place] 1.010, Urine Protein NEG, Urine Ketones NEG, Urine Nitrite NEG, Urine Bilirubin NEG, Urine Urobilinogen 0.2, Ur Leukocyte Esterase NEG, Ur Microscopic EXAM NOT REQUIRED, Urine Hemoglobin NEG, Urine Glucose NEG 01/02/18 1100: Anion Gap 8, Estimated GFR > 60, BUN/Creatinine Ratio 76.7 H, Glucose 146 H, Calcium 8.7, Troponin I < 0.01, Ayw-X-Ncrkwjgudcb Pept 66.5, PT 11.9, INR 1.13, APTT 25, CBC w Diff NO MAN DIFF REQ, RBC 2.86 L, MCV 89.9, MCH 28.9, MCHC 32.1 L, RDW 17.2 H, MPV 7.3 L, Gran % 92.0 H, Lymphocytes % 5.7 L, Monocytes % 2.3, Eosinophils % 0, Basophils % 0, Absolute Granulocytes 13.0 H, Absolute Lymphocytes 0.8 L, Absolute Monocytes 0.3, Absolute Eosinophils 0, Absolute Basophils 0 Microbiology 01/02 1154 NASOPHARYN: Influenza Virus A & B Rapid Smear - COMP Patient's work up will include, urinalysis, flu swab, EKG, trops, CBC, CMP, CXR, type and screen, PT/PTT. Duoneb treatments. 12:30PM Patient w/ low BP - gentle hydration with 500mL of NS 1:15PM Hgb of 8.3, about 4pt drop from previous admission 2wks ago. Patient has hx of blood transfusion years ago during hospitalization for asthma exacerbation. Patient guiaic negative but still GIB until proven otherwise. GI was consulted. Patient to go the GI suite for endoscopy with Dr. Ornelas Initial ED EKG: S TACH, NSSTT CHANGES (Opare-Michelle STUDENT,Slade) Departure Departure Disposition: STILL A PATIENT Condition: Guarded Clinical Impression Primary Impression: Symptomatic anemia Referrals: Chase Kennedy MD (PCP/Family) Departure Forms: Customer Survey General Discharge Information Admission Note Spoke With: Ankur Romero MD Documentation of Exam: Documentation of any treatments & extenuating circumstances including Concerns Regarding Discharge (functional status, medication knowledge or non-compliance, living conditions, etc.) that warrant an admission rather than observation: [ICU admission, IV fluids, transfusion, gastroenterology follow-up, biopsy result follow-up, may require additional endoscopy.] OR/GI Note Spoke With: Ramses Ornelas MD Treatment Decision: NILO GARDINER requires urgent operative management or an emergent procedure that cannot be performed in the Emergency Room setting. Transport To: GI Suite (Chase Morrison MD) Critical Care Note Critical Care Note Critical Care Time: mins: (90 MIN) (Chase Morrison MD)
[2018-01-02 11:07] LABS: ABSOLUTE BASOPHIL COUNT 0 /CUMM (0.0-0.2); ABSOLUTE EOSINOPHIL COUNT 0 /CUMM (0.0-0.7); ABSOLUTE LYMPH COUNT 0.8 /CUMM (1.2-3.4); ABSOLUTE MONOCYTE COUNT 0.3 /CUMM (0.10-0.60); BASOPHIL % 0 % (0.0-2.0); EOSINOPHIL % 0 % (0-5); HEMATOCRIT 25.8 % (37-47); MEAN CORPUSCULAR HGB 28.9 PG (27.0-31.0); MEAN CORPUSCULAR HGB CONC 32.1 G/DL (33.0-37.0); MEAN CORPUSCULAR VOLUME 89.9 FL (81.0-99.0); MEAN PLATELET VOLUME 7.3 FL (7.4-10.4); PLATELET COUNT 290 /CUMM (130-400); RBC DISTRIBUTION WIDTH 17.2 % (11.5-14.5); RED BLOOD CELL CT 2.86 /CUMM (4.20-5.40); WHITE BLOOD CELL COUNT 14.1 /CUMM (4.8-10.8)
[2018-01-02 11:15] LABS: PT 11.9 SEC (9.4-12.5); PTT 25 SEC (25-37)
--- NOTE | 2018-01-02 12:13 | RADIOLOGY REPORT ---
EXAMINATION: XR CHEST CLINICAL INFORMATION: Pulmonary edema COMPARISON: CTA chest 12/11/2017 TECHNIQUE: 2 views of the chest were obtained. FINDINGS: The films are technically limited due to the patient's body habitus and underpenetration. Lung volumes are slightly diminished. No focal consolidation or mass. No pleural effusion or pneumothorax. There is some bronchovascular crowding from low lung volumes, but no cirilo pulmonary edema. Cardiac silhouette is prominent, likely related to the prominent epicardial fat seen previously. IMPRESSION: Limited study but no acute pulmonary disease identified.
--- NOTE | 2018-01-02 14:18 | Cons- Gastroenterology ---
General Information and HPI Consulting Request Date of Consult: 01/02/18 Requested By: Chase Morrison MD Reason for Consult: Anemia. Abdominal pain. Source of Information: patient Exam Limitations: no limitations History of Present Illness: Ms. Nicole is a 52 year old female with COPD who came to today with reports of worsening SOB/GONZALEZ and lower extremity swelling. She has some SOB at baseline which she attributes to COPD, but over the past few weeks she has been more fatigued and has not been able to do her activities of daily living secondary to dyspnea. She has had some vague episgastric discomfort over the past few weeks which she describes as a pressure and burning sensation which is new for her. She is without any burning going up her chest wall and she is also without any dysphagia or vomiting. She takes omeprazole at home and she denies taking anything else for her burning discomfort. She has taken nsaids in the past, but it doesn't sound like she has been taking anything recently and she denies any GI distress with taking nsaids. She also reports having normla bowel movements and she denies any black tarry stool or brbpr. In the ER she was tachycardic and had orthostatic changes with her BP when checked. She was noted to have an increased BUN/Cr ratio of 46/0.6 and her hgb fell 4 grams since it was last checked in mid-december. She was also noted to have brown guaiac negative stool. Allergies/Medications Allergies: Coded Allergies: No Known Allergies (12/11/17) Home Med List: Albuterol Sulfate (Proair Hfa) 90 MCG HFA.AER.AD 2 PUF INH Q4-6 PRN PRN ASTHMA Aspirin (Aspirin*) 81 MG TAB.CHEW 1 TAB PO DAILY Heart health . Buprenorphine HCl/Naloxone HCl (Suboxone 12 MG-3 MG Sl Film) 12 MG-3 MG FILM 1 STR SL DAILY CHRONIC PAIN (Reported) Fluticasone Propionate 50 MCG/ACTUATION SPRAY.SUSP 2 SPRAY NASB AD PRN ALLERGIES/ASTHMA (Reported) Fluticasone/Salmeterol (Advair 500-50 Diskus) 500 MCG-50 MCG/DOSE BLST.W.DEV 1 PUF INH BID ASTHMA (Reported) Furosemide (Lasix) 40 MG TABLET 1 TAB PO DAILY edema (Reported) Montelukast Sodium 10 MG TABLET 1 TAB PO AD PRN ALLERGIES/ASTHMA (Reported) Potassium Citrate (Potassium Citrate ER) 10 MEQ (1,080 MG) TABLET.ER 2 TAB PO BID LOW POTASSIUM Prednisone 20 MG TABLET 2 TAB PO DAILY COPD Take 2 tabs daily for 5 days and then stop.. Varenicline Tartrate (Chantix) 1 MG TABLET 1 TAB PO BID SMOKING CESSATION ( Reported) Current Medications: Current Medications Sig/Pam Start time Last Medication Dose Route Stop Time Status Admin Albuterol Sulfate 3 ML ONCE ONE 01/02 1115 DC 01/02 INH 01/02 1116 1201 Ipratropium [place] 2.5 ML ONCE ONE 01/02 1115 DC 01/02 INH 01/02 1116 1201 Sodium Chloride 500 ML BOLUS ONE 01/02 1115 DC 01/02 IV 01/02 1214 1118 Past History Travel History Traveled to [place] past 21 day No Medical History Neurological: NONE EENT: NONE Cardiovascular: NONE Respiratory: NONE, COPD Gastrointestinal: NONE Hepatic: NONE Renal: NONE Musculoskeletal: NONE, degen joint disease Psychiatric: NONE Endocrine: NONE Blood Disorders: NONE Cancer(s): NONE 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 MOTHER (Asthma). Uncle (Diabetes). BROTHER (sudden ; possibly cardiac.). Psychosocial History Services at Home: None ETOH Use: occasional use Review of Systems Review of Systems Constitutional: Reports: malaise, weakness. Denies: diaphoresis, fever, unexplained weight loss. EENTM: Denies: no symptoms. Cardiovascular: Reports: edema, orthopena, peripheral edema. Denies: chest pain, syncope. Respiratory: Reports: cough, orthopnea, short of breath. Denies: hemoptysis, sputum production, stridor. GI: Reports: see HPI. Genitourinary: Denies: no symptoms. Musculoskeletal: Reports: back pain, joint pain, muscle pain. Denies: joint swelling. Skin: Denies: no symptoms. Neurological/Psychological: Denies: no symptoms. Hematologic/Endocrine: Denies: no symptoms. Immunologic/Allergic: Denies: no symptoms. All Other Systems: Reviewed and Negative Exam & Diagnostic Data Vital Signs and I&O Vital Signs Date Time Temp Pulse Resp B/P B/P Pulse O2 O2 Flow FiO2 Mean Ox Delivery Rate 01/02 1247 95 Room Air 01/02 1246 97.6 137 18 112/70 96 Nasal 2.0L Cannula 01/02 1241 137 126/63 01/02 1201 95 01/02 1046 98.3 124 18 96/67 93 Room Air Intake & Output 01/02 1600 01/02 0400 01/01 1600 01/01 0400 12/31 0400 Intake Total Output Total Balance Patient 240 lb Weight Weight Reported by Patient Measurement Method Physical Exam General Appearance: well developed/nourished, alert, awake, mild distress, obese Head: atraumatic, normal appearance Eyes: Bilateral: normal appearance. Ears, Nose, Throat: normal pharynx, normal ENT inspection Neck: normal inspection, supple, full range of motion Respiratory: decreased breath sounds Cardiovascular: regular rate/rhythm Gastrointestinal: normal bowel sounds, soft, non-tender, distention Rectal: deferred Back: normal inspection Extremities: pedal edema Neurologic/Psych: no motor/sensory deficits, awake, alert, oriented x 3 Skin: intact, normal color Results Pertinent Lab Results: Laboratory Tests 01/02 01/02 1235 1100 Chemistry Sodium (137 - 145 mmol/L) 143 Potassium (3.5 - 5.1 mmol/L) 4.4 Chloride (98 - 107 mmol/L) 105 Carbon Dioxide (22 - 30 mmol/L) 30 Anion Gap (5 - 16) 8 BUN (7 - 17 mg/dL) 46 H Creatinine (0.5 - 1.0 mg/dL) 0.6 Estimated GFR (>60 ml/min) > 60 BUN/Creatinine Ratio (7 - 25 %) 76.7 H Glucose (65 - 99 mg/dL) 146 H Calcium (8.4 - 10.2 mg/dL) 8.7 Troponin I (< 0.11 ng/ml) < 0.01 Ppi-G-Fwsbsoxvqef Pept (<125 pg/mL) 66.5 Coagulation PT (9.4 - 12.5 SEC) 11.9 INR (0.90 - 1.19) 1.13 APTT (25 - 37 SEC) 25 Hematology CBC w Diff NO MAN DIFF REQ WBC (4.8 - 10.8 /CUMM) 14.1 H RBC (4.20 - 5.40 /CUMM) 2.86 L Hgb (12.0 - 16.0 G/DL) 8.3 L Hct (37 - 47 %) 25.8 L MCV (81.0 - 99.0 FL) 89.9 MCH (27.0 - 31.0 PG) 28.9 MCHC (33.0 - 37.0 G/DL) 32.1 L RDW (11.5 - 14.5 %) 17.2 H Plt Count (130 - 400 /CUMM) 290 MPV (7.4 - 10.4 FL) 7.3 L Gran % (42.2 - 75.2 %) 92.0 H Lymphocytes % (20.5 - 51.1 %) 5.7 L Monocytes % (1.7 - 9.3 %) 2.3 Eosinophils % (0 - 5 %) 0 Basophils % (0.0 - 2.0 %) 0 Absolute Granulocytes (1.4 - 6.5 /CUMM) 13.0 H Absolute Lymphocytes (1.2 - 3.4 /CUMM) 0.8 L Absolute Monocytes (0.10 - 0.60 /CUMM) 0.3 Absolute Eosinophils (0.0 - 0.7 /CUMM) 0 Absolute Basophils (0.0 - 0.2 /CUMM) 0 Urines Urine Color (YEL,AMB,STR) YEL Urine Clarity (CLEAR) CLEAR Urine pH (5.0 - 8.0) 6.0 Ur Specific [place] (1.001 - 1.035) 1.010 Urine Protein (NEG,<30 MG/DL) NEG Urine Ketones (NEG) NEG Urine Nitrite (NEG) NEG Urine Bilirubin (NEG) NEG Urine Urobilinogen (0.1 - 1.0 EU/dl) 0.2 Ur Leukocyte Esterase (NEG) NEG Ur Microscopic EXAM NOT REQUIRED Urine Hemoglobin (NEG) NEG Urine Glucose (N MG/DL) NEG Assessment/Plan Assessment/Recommendations: Assessment: Ms. Nicole is a 52 year old female with COPD who has been having worsenign GONZALEZ/SOB over the past few weeks which I suspect is secondary to her new anemia which I suspect may be secondary to bleeding from PUD. While she denies any history of melena or recent execssive nsaid use I am uncertain as to the reliability of her history. Her elevated BUN/Cr is very suggestive of active upper GI bleeding and while this could also be seen in dehydration that wouldn't explain her 4 gram hgb drop. While she is orthostatic she had brown guaiac negative stool on rectal exam so I suspect that if she did bleed it has now stopped. In any case, considering the fall in her hgb and her tachycardia with orthostatic blood pressure changes I will arrange for a diagnostic EGD now to further evaluate her anemia and assess for any active bleeding or lesions that are at high risk to rebleed such as an ulcer with a vissible vessel. Recommendations: 1. IV protonix 80 mg bolus followed by a drip at 8 cc per hour 2. Maintain 2 large bore IVs at all times 3. Avoid NSAIDs for now 4. Notify GI for signs of overt GI bleeding. 5. Keep NPO in anticipation of a diagnostic/therapeutic EGD to be done later today. I will continue to follow this patient and make further recommendations based on her clinical course and the results of the EGD. Problem List: 1. Symptomatic anemia 2. Abdominal pain Copies To: Brent ACUNA,Chase Elizabeth Consult Acknowledgment - Thank you for your consult request.
--- NOTE | 2018-01-02 14:23 | Proc Note Endoscopy ---
Endoscopy Procedure Medical History: unchanged (see meditech consult) Mental Status: alert/oriented Heart/Lung Eval Prior to Sedation: within normal limits Candidate for Sedation? Yes Procedure Date: 01/02/18 Procedure Type: EGD w/biopsy Ophthalmic Tech: Ramses Ornelas MD ASA Classification: III Indications: Anemia. Instrument: diagnostic gastroscope Meds Received: MAC Patient's Tolerance: good Complications: none Extent Reached: second part of duodenum Procedure: After getting written informed consent the patient was placed in the left lateral decubitus position with pulse oximetry, cardiac monitoring, and supplemental oxygen given. A bite block was inserted and IV sedation was given until the desired effect was achieved. A high definition upper Olympus endoscope was then inserted into the mouth and advanced to the second portion of the duodenum with little difficulty. Retroflexed views and photodocumentation was obtained. Findings: Esophagus: The esophageal mucosa was grossly normal appearance and there was a normal-appearing Z line at 39 cm the incisors. Stomach: Along the incisure a were 2 clean-based ulcers approximately 1.5 cm in size which were irregular in appearance and the surrounding mucosa along the incisure was raised and irregular in appearance. Biopsies were obtained along the edge of the ulcers with cold biopsy forceps and was sent to pathology for further evaluation. The remainder the visualized gastric mucosa was grossly unremarkable, but there was a significant amount of leftover dark liquid and some solid food that obscured the fundus and cardia. There was no active bleeding appreciated. The pylorus was patent and easily traversable by the upper endoscope. Duodenum: The duodenal bulb was moderately erythematous, but there were no obvious ulcers or erosions appreciated. The duodenal sweep and folds were grossly normal in appearance. Impression: 1. 2 clean-based, irregular-appearing ulcers along the incisure potentially malignant status post biopsies. 2. Dark fluid and food obscuring the fundus, but no active bleeding was appreciated. Recommendations: 1. Would admit the patient to the ICU overnight for observation. 2. Continue IV Protonix 40 mg twice a day for now. 3. Would continue to hold all NSAIDs. 4. The pathology results should be followed up as an outpatient and if they are negative for malignancy consideration should be given to repeat her upper endoscopy in 2 months to confirm healing. 5. GI should be notified for signs of overt GI bleeding. 6. Follow hemoglobin and transfuse to keep hemoglobin greater than 7 or as per cardiology recommendations. CC: Brent ACUNA,Chase Elizabeth
--- NOTE | 2018-01-02 17:44 | History & Physical ---
Abdi ACUNA,Nishant 01/02/18 1710: General Information and HPI MD Statement: I have seen and personally examined NILO GARDINER and documented this H&P. The patient is a 52 year old F who presented with a patient stated chief complaint of [SOB and dizziness]. Source of Information: patient Exam Limitations: no limitations History of Present Illness: This is a 52 yo female with PMH of COPD not on home O2, asthma, one year of LE edema for which she takes lasix, supposed dx of RA, morbid obesity, who comes in for CC of diaphoresis and dizziness. Pt states that over the past month and a half of so she has been feeling more SOB than usual but today she noted a dramatic difference from her baseline. She went to work as usual but around 8:30 am she noted some diaphoresis and "feeling hot and cold." She drove back home a little later and noted that she was more SOB than baseline and dizzy walking back to her house. She took a neb treatment and she seemed to feel even more diaphoretic and pre-syncopal. Her brother called ambulance and pt has little memory from then. EMS found her with BP of 114/60, tachy to 120, SOB and blood sugar in the 80s. In ID she was found to be tachycardic, and hypotensive down to 96/67 with Hb 8.3 when earlier this month Hb was at 12.1. Given tchycardia, orthostatic +, and substantial drop in Hb GI workup commenced and she went for EGD with GI. She denies any hx of dark tarry stools, GI bleed. She does endorse GERD and bloating which she manages with OTC medications. She states when she gets the "puffiness " in her abdomen she can't eat as it makes it worse. Otherwise she denied any change in bladder or bowel habits. LMP was over 20 yrs ago. Denies drastic lb loss. ED rectal exam negative. She denies heavy use of pain meds (Ibuprofen once a month for generalized aches) but she used to be see a pain management doctor. She no longer follows with them and only takes suboxone. She does take ASA 81 daily. Pt has had many admissions recently with stable H/H and mainly for hypoxic respiratory failure due to COPD. She underwent EGD with biopsy with "2 clean- based, irregular-appearing ulcers along the incisure potentially malignant status post biopsies." Social hx + for 1-2 cigarettes a day but has prev hx up to 1/2 ppd. She does not drink or engage in IVDA. Fam hx negative for malignancy , her father has significant CAD with bypass. Allergies/Medications Allergies: Coded Allergies: No Known Allergies (12/11/17) Home Med list Albuterol Sulfate (Proair Hfa) 90 MCG HFA.AER.AD 2 PUF INH Q4-6 PRN PRN ASTHMA Aspirin (Aspirin*) 81 MG TAB.CHEW 1 TAB PO DAILY Heart health . Buprenorphine HCl/Naloxone HCl (Suboxone 12 MG-3 MG Sl Film) 12 MG-3 MG FILM 1 STR SL DAILY CHRONIC PAIN (Reported) Fluticasone Propionate 50 MCG/ACTUATION SPRAY.SUSP 2 SPRAY NASB AD PRN ALLERGIES/ASTHMA (Reported) Fluticasone/Salmeterol (Advair 500-50 Diskus) 500 MCG-50 MCG/DOSE BLST.W.DEV 1 PUF INH BID ASTHMA (Reported) Furosemide (Lasix) 40 MG TABLET 1 TAB PO DAILY edema (Reported) Montelukast Sodium 10 MG TABLET 1 TAB PO AD PRN ALLERGIES/ASTHMA (Reported) Potassium Citrate (Potassium Citrate ER) 10 MEQ (1,080 MG) TABLET.ER 2 TAB PO BID LOW POTASSIUM Prednisone 20 MG TABLET 2 TAB PO DAILY COPD Take 2 tabs daily for 5 days and then stop.. 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 MOTHER (Asthma). Uncle (Diabetes). BROTHER (sudden ; possibly cardiac.). Psychosocial History Services at Home: None ETOH Use: occasional use Review of Systems Review of Systems Constitutional: Reports: see HPI. Exam & Diagnostic Data Last 24 Hrs of Vital Signs/I&O Vital Signs Date Time Temp Pulse Resp B/P B/P Pulse O2 O2 Flow FiO2 Mean Ox Delivery Rate 01/02 1620 97.4 122 18 106/56 96 Nasal 2.0L Cannula 01/02 1552 97.9 116 20 107/70 96 Nasal 2.0L Cannula 01/02 1247 95 Room Air 01/02 1246 97.6 137 18 112/70 96 Nasal 2.0L Cannula 01/02 1241 137 126/63 01/02 1201 95 01/02 1046 98.3 124 18 96/67 93 Room Air Intake & Output 01/02 1600 01/02 0800 01/02 0000 Intake Total 500 Output Total Balance 500 Intake, IV 500 Patient 108.862 kg Weight Weight Reported by Patient Measurement Method Physical Exam General Appearance No Acute Distress Skin No Significant Lesion HEENT Atraumatic, PERRLA, EOMI, MUCOUS MEMBRANES DRY Neck Supple Cardiovascular Regular Rate, Normal S1, Normal S2 Lungs WHEEZES THROUGHT Abdomen OBESE, SOFT AND NON TENDER. DIMINISHED BS Neurological Normal Speech, Cranial Nerves 3-12 NL Extremities 3+ EDEMA IN BILAT LE Last 24 Hrs of Labs/Reza: Laboratory Tests 01/02/18 1235: Urine Color YEL, Urine Clarity CLEAR, Urine pH 6.0, Ur Specific [place] 1.010, Urine Protein NEG, Urine Ketones NEG, Urine Nitrite NEG, Urine Bilirubin NEG, Urine Urobilinogen 0.2, Ur Leukocyte Esterase NEG, Ur Microscopic EXAM NOT REQUIRED, Urine Hemoglobin NEG, Urine Glucose NEG 01/02/18 1100: Anion Gap 8, Estimated GFR > 60, BUN/Creatinine Ratio 76.7 H, Glucose 146 H, Calcium 8.7, Troponin I < 0.01, Icw-S-Fehopfggdyw Pept 66.5, PT 11.9, INR 1.13, APTT 25, CBC w Diff NO MAN DIFF REQ, RBC 2.86 L, MCV 89.9, MCH 28.9, MCHC 32.1 L, RDW 17.2 H, MPV 7.3 L, Gran % 92.0 H, Lymphocytes % 5.7 L, Monocytes % 2.3, Eosinophils % 0, Basophils % 0, Absolute Granulocytes 13.0 H, Absolute Lymphocytes 0.8 L, Absolute Monocytes 0.3, Absolute Eosinophils 0, Absolute Basophils 0 Microbiology 01/02 1154 NASOPHARYN: Influenza Virus A & B Rapid Smear - COMP Assessment/Plan Assessment: ASSESSMENT: This is a 52 yo female with PMH of COPD not on home O2, asthma, one year of LE edema for which she takes lasix, supposed dx of RA, morbid obesity, who comes in for CC of diaphoresis and dizziness. ED work up showed 4 g drop in Hb from the beginning of this month and given tachycardia, SOB, elevated BUN disproportionate to Cr, and + orthostats pt dx with symptomatic anemia and went for EGD which shows two irregular ulcers which were biopsied. However pt does also have WBC 14 with with tachycardia and elevated RR. She technically meets SIRS criteria, but symptomatic anemia can present much the same. PLAN Acute GI blood loss anemia: Pt is s/p EGD and biopsy. Pt was getting one unit of blood when I saw her. Will monitor and transfuse as necessary * Appreciate GI recs * IV protonix 40 bid * Type and cross * Transfuse with HB goal > 7 * 2 large bore IV * q12 CBC * Follow up pathology outpatient * Hold NSAID * Holding hypertensive medication * Hold ASA * Iron studies Shortness of Breath: DDX: symptomatic anemia, COPD, volume overload. Pt is not hypoxic, but she does complain of SOB which could be secondary to symptomatic anemia. On exam she sounds diffusely wheezy. She also has 3+ edema in bilat LE for which she chronically takes Lasix at home. She was getting blood when I saw her which is additional volume. She was initially hypotensive and is being treated for GI bleed so holding off on diuretics which could worsen hypotension. Will re-assess and if BP tolerates will consider 20 of Lasix. * TRC * Short course of po steroid; will administer 40mg PO today and reassess. Ideally would like to avoid prolonged course of steroids given that she does have ulcer. * Holding Lasix Chronic pain: * f/u in hospital pain pathway. On Suboxone at home. Smoking: Have counseled re smoking cessation. She takes Chiantix at home. * Will offer patch in hosptial FC MECHANICAL DVT PPX As Ranked By This Provider Problem List: 1. Symptomatic anemia 2. Leg swelling 3. COPD (chronic obstructive pulmonary disease) Core Measures/Misc (07/20) Acute Coronary Syndrome ACS Diagnosis: No Congestive Heart Failure Congestive Heart Failure Diagnosis No Cerebrovascular Accident CVA/TIA Diagnosis: No VTE (View Protocol) VTE Risk Factors Acute Medical Illness No Mechanical VTE Prophylaxis d/t N/A MechProphylax Ordered No VTE Pharm Prophylaxis d/t Bleeding (Active) Sepsis (View protocol) Sepsis Present: No Ankur Romero MD 01/02/18 1855: Attending MD Review Statement Attending Statement Attending MD Statement: examined this patient, discuss w/resident/PA/TIRE SHOP MANAGER, agreed w/resident/PA/TIRE SHOP MANAGER, reviewed EMR data (avail) Attending Assessment/Plan: Hemodynamically stable, gastric ulcers and possible malignancy seen on endoscopy , will admit to ICU for monitoring, monitor CBC closely, PPI, GI consult, follow pathology, can give Lasix if appears fluid overloaded.
[2018-01-03] VITALS: BP 110/60
[2018-01-03 05:16] LABS: ABSOLUTE BASOPHIL COUNT 0.1 /CUMM (0.0-0.2); ABSOLUTE EOSINOPHIL COUNT 0 /CUMM (0.0-0.7); ABSOLUTE GRANULOCYTE CT 13.4 /CUMM (1.4-6.5); ABSOLUTE LYMPH COUNT 5.3 /CUMM (1.2-3.4); ABSOLUTE MONOCYTE COUNT 1.6 /CUMM (0.10-0.60); BASOPHIL % 0.3 % (0.0-2.0); EOSINOPHIL % 0.1 % (0-5); GRANULOCYTE % 65.6 % (42.2-75.2); MEAN CORPUSCULAR HGB 29.6 PG (27.0-31.0); MEAN CORPUSCULAR HGB CONC 32.6 G/DL (33.0-37.0); MEAN CORPUSCULAR VOLUME 90.8 FL (81.0-99.0); MEAN PLATELET VOLUME 7.9 FL (7.4-10.4); PLATELET COUNT 279 /CUMM (130-400); RBC DISTRIBUTION WIDTH 16.4 % (11.5-14.5)
[2018-01-03 05:57] LABS: WHITE BLOOD CELL COUNT 20.4 /CUMM (4.8-10.8)
[2018-01-03 08:00] VITALS: BP 120/70
--- NOTE | 2018-01-03 09:53 | PN- Gastroenterology ---
Assessment/Plan GI Assessment/Recommendations: Assessment: Ms. Nicole is a 52 year old female with COPD admitted with an upper GI bleed for which she underwent an EGD yesterday that showed 2 irregular appearing ulcers along her incisura which are potentially malignant and biopsies of those ulcers are pending. She has done relatively well in the ICU overnight without any significant drop in her BP, but her tachycardia has persisted as has her elevated BUN/Cr ratio which is suggests she may actually still be bleeding. That being said, her hgb did improve with transfusion, albeit I would of expected a bit more of an increase with 2 units, and her tachycardia is likely multifactorial and in part related to the nebulizer treatments she has been getting. It is also possible that the melena she reports having after her EGD last night may just be the old blood that was still appreciated in her stomach at the time of the EGD so I will hold off on a repeat EGD today, but would recommend she only be advanced to a full diet today and continue ICU monitoring. Recommendations: 1. Advance to full liquid diet today with nothing red. 2. Continue ICU monitoring 3. Maintain 2 large bore IVs at all times 4. Follow CBC q8hrs today and would also request that a BUN/Cr be rechecked on her next CBC draw 5. Avoid NSAIDs 6. Continue IV protonix 40 mg bid for now 7. Notify GI for signs of overt GI bleeding such as ongoing melena or new hematemesis. 8. Treatment of COPD as per critical care team 9. Follow up pathology. I will continue to follow this patient and make further recommendations based on her clinical course. Problem List: 1. Symptomatic anemia 2. Nausea & vomiting 3. Abdominal pain Subjective Subjective: pt s/p EGD yesterday with biopsy of 2 ulcers along the incisura which were potentially malignant. s/p 2 units of prbcs yesterday. notes having a significant amount of 'dark/black' stool since the EGD with her last BM being about 2 am per her recollection. She denies any significant abdominal pain or vomiting and she is requesting to eat. Review of Systems Constitutional: Reports: malaise, weakness. EENTM: Denies: no symptoms. Cardiovascular: Reports: orthopena. Denies: chest pain. Respiratory: Reports: short of breath, wheezing. Musculoskeletal: Denies: no symptoms. Skin: Denies: no symptoms. Hematologic/Endocrine: Reports: bleeding. Objective Vital Signs and I&Os Vital Signs Date Time Temp Pulse Resp B/P B/P Pulse O2 O2 Flow FiO2 Mean Ox Delivery Rate 01/03 0400 95 Nasal 2.0L Cannula 01/03 0000 95 Nasal 2.0L Cannula 01/03 0000 97.2 129 28 110/60 95 Nasal 2.0L Cannula 01/02 2136 Nasal 2.0L Cannula 01/02 2000 96 Nasal 2.0L Cannula 01/02 1803 97.4 102 16 117/74 100 Nasal 1.0L Cannula 01/02 1620 97.4 122 18 106/56 96 Nasal 2.0L Cannula 01/02 1552 97.9 116 20 107/70 96 Nasal 2.0L Cannula 01/02 1247 95 Room Air 01/02 1246 97.6 137 18 112/70 96 Nasal 2.0L Cannula 01/02 1241 137 126/63 01/02 1201 95 01/02 1046 98.3 124 18 96/67 93 Room Air Intake & Output 01/03 1600 01/03 0400 01/02 1600 01/02 0400 01/01 1600 01/01 0400 Intake Total 700 350 500 Output Total 1 Balance 699 350 500 Intake, Blood 700 350 Product Intake, IV 500 Number 1 Bowel Movements Output, Urine 1 Patient 245 lb 240 lb Weight Weight Bed scale Reported by Patient Measurement Method Physical Exam General Appearance: well developed/nourished, no apparent distress, comfortable Head: atraumatic, normal appearance Ears, Nose, Throat: normal pharynx Neck: normal inspection, supple Respiratory: chest non-tender, wheezing Cardiovascular: regular rate/rhythm, tachycardia Abdomen: normal bowel sounds, soft, non-tender, no organomegaly Rectal: deferred Extremities: no edema Skin: intact, normal color Current Medications: Current Medications Sig/Pam Start time Last Medication Dose Route Stop Time Status Admin Acetaminophen 650 MG Q6P PRN 01/02 1800 AC PO Acetaminophen 1,000 MG Q6P PRN 01/02 1800 AC IV Albuterol Sulfate 3 ML Q4P PRN 01/02 2215 AC INH Albuterol Sulfate 3 ML ONCE ONE 01/02 1115 DC 01/02 INH 01/02 1116 1201 Budesonide/ 2 PUF BID 01/02 2200 AC 01/03 Formoterol Fumarate INH 0919 Chlorhexidine 1 GM .STK-MED ONE 01/02 1439 DC Gluconate TOP 01/02 1440 Ipratropium [place] 2.5 ML ONCE ONE 01/02 1115 DC 01/02 INH 01/02 1116 1201 Morphine Sulfate 4 MG Q4P PRN 01/02 2130 AC IV Morphine Sulfate 4 MG Q4P PRN 01/02 1800 DC IV Ondansetron HCl 4 MG Q8P PRN 01/02 1800 AC 01/02 IV 2237 Pantoprazole Sodium 40 MG BID 01/02 2200 AC 01/03 IV 0919 Sodium Chloride 500 ML BOLUS ONE 01/02 1115 DC 01/02 IV 01/02 1214 1118 Results Pertinent Lab Results: Laboratory Tests 01/03 01/02 01/02 0355 2223 1999 Chemistry Sodium (137 - 145 mmol/L) 142 Potassium (3.5 - 5.1 mmol/L) 4.3 Chloride (98 - 107 mmol/L) 107 Carbon Dioxide (22 - 30 mmol/L) 29 Anion Gap (5 - 16) 6 BUN (7 - 17 mg/dL) 52 H Creatinine (0.5 - 1.0 mg/dL) 0.8 Estimated GFR (>60 ml/min) > 60 Glucose (65 - 99 mg/dL) 90 Calcium (8.4 - 10.2 mg/dL) 8.2 L Phosphorus (2.5 - 4.5 mg/dL) 4.1 Magnesium (1.6 - 2.3 mg/dL) 2.1 Total Bilirubin (0.2 - 1.3 mg/dL) 0.4 AST (14 - 36 U/L) 9 L ALT (9 - 52 U/L) 27 Troponin I (< 0.11 ng/ml) < 0.01 Albumin (3.5 - 5.0 g/dL) 2.9 L Hematology CBC w Diff NO MAN DIFF REQ Cancelled WBC (4.8 - 10.8 /CUMM) 20.4 H Cancelled RBC (4.20 - 5.40 /CUMM) 3.20 L Cancelled Hgb (12.0 - 16.0 G/DL) 9.5 L Cancelled Hct (37 - 47 %) 29.0 L Cancelled MCV (81.0 - 99.0 FL) 90.8 Cancelled MCH (27.0 - 31.0 PG) 29.6 Cancelled MCHC (33.0 - 37.0 G/DL) 32.6 L Cancelled RDW (11.5 - 14.5 %) 16.4 H Cancelled Plt Count (130 - 400 /CUMM) 279 Cancelled MPV (7.4 - 10.4 FL) 7.9 Cancelled Gran % (42.2 - 75.2 %) 65.6 Lymphocytes % (20.5 - 51.1 %) 26.0 Monocytes % (1.7 - 9.3 %) 8.0 Eosinophils % (0 - 5 %) 0.1 Basophils % (0.0 - 2.0 %) 0.3 Absolute Granulocytes (1.4 - 6.5 /CUMM) 13.4 H Absolute Lymphocytes (1.2 - 3.4 /CUMM) 5.3 H Absolute Monocytes (0.10 - 0.60 /CUMM) 1.6 H Absolute Eosinophils (0.0 - 0.7 /CUMM) 0 Absolute Basophils (0.0 - 0.2 /CUMM) 0.1 01/02 03 1235 1100 Chemistry Sodium (137 - 145 mmol/L) 143 Potassium (3.5 - 5.1 mmol/L) 4.4 Chloride (98 - 107 mmol/L) 105 Carbon Dioxide (22 - 30 mmol/L) 30 Anion Gap (5 - 16) 8 BUN (7 - 17 mg/dL) 46 H Creatinine (0.5 - 1.0 mg/dL) 0.6 Estimated GFR (>60 ml/min) > 60 BUN/Creatinine Ratio (7 - 25 %) 76.7 H Glucose (65 - 99 mg/dL) 146 H Calcium (8.4 - 10.2 mg/dL) 8.7 Iron (37 - 170 ug/dL) 41 TIBC (265 - 497 ug/dL) 313 Ferritin (11.1 - 264 ng/mL) 17.3 Troponin I (< 0.11 ng/ml) < 0.01 [id number] Pept (<125 pg/mL) 66.5 Coagulation PT (9.4 - 12.5 SEC) 11.9 INR (0.90 - 1.19) 1.13 APTT (25 - 37 SEC) 25 Hematology CBC w Diff NO MAN DIFF REQ WBC (4.8 - 10.8 /CUMM) 14.1 H RBC (4.20 - 5.40 /CUMM) 2.86 L Hgb (12.0 - 16.0 G/DL) 8.3 L Hct (37 - 47 %) 25.8 L MCV (81.0 - 99.0 FL) 89.9 MCH (27.0 - 31.0 PG) 28.9 MCHC (33.0 - 37.0 G/DL) 32.1 L RDW (11.5 - 14.5 %) 17.2 H Plt Count (130 - 400 /CUMM) 290 MPV (7.4 - 10.4 FL) 7.3 L Gran % (42.2 - 75.2 %) 92.0 H Lymphocytes % (20.5 - 51.1 %) 5.7 L Monocytes % (1.7 - 9.3 %) 2.3 Eosinophils % (0 - 5 %) 0 Basophils % (0.0 - 2.0 %) 0 Absolute Granulocytes (1.4 - 6.5 /CUMM) 13.0 H Absolute Lymphocytes (1.2 - 3.4 /CUMM) 0.8 L Absolute Monocytes (0.10 - 0.60 /CUMM) 0.3 Absolute Eosinophils (0.0 - 0.7 /CUMM) 0 Absolute Basophils (0.0 - 0.2 /CUMM) 0 Retic Count (0.5 - 2.0 %) 2.70 H Urines Urine Color (YEL,AMB,STR) YEL Urine Clarity (CLEAR) CLEAR Urine pH (5.0 - 8.0) 6.0 Ur Specific [place] (1.001 - 1.035) 1.010 Urine Protein (NEG,<30 MG/DL) NEG Urine Ketones (NEG) NEG Urine Nitrite (NEG) NEG Urine Bilirubin (NEG) NEG Urine Urobilinogen (0.1 - 1.0 EU/dl) 0.2 Ur Leukocyte Esterase (NEG) NEG Ur Microscopic EXAM NOT REQUIRED Urine Hemoglobin (NEG) NEG Urine Glucose (N MG/DL) NEG
--- NOTE | 2018-01-03 12:39 | PN- Housestaff ---
See Addendum Subjective Follow-up For: Acute GI blood loss anemia Subjective: Patient seen and examined. Resting in bed. Reports having dark bowel movement overnight. Denies fevers chills abdominal pain. requesting diet to be advanced. Tmax 98 Heart rate ranging in 100 to 110s Sinus tachycardia Blood pressure 120-100/60-70 96% on 2 L nasal cannula Review of Systems Constitutional: Reports: see HPI. Objective Last 24 Hrs of Vital Signs/I&O Vital Signs Date Time Temp Pulse Resp B/P B/P Pulse O2 O2 Flow FiO2 Mean Ox Delivery Rate 01/03 0800 95 Nasal 2.0L Cannula 01/03 0800 98.4 115 18 120/70 95 Nasal 2.0L Cannula 01/03 0400 95 Nasal 2.0L Cannula 01/03 0000 95 Nasal 2.0L Cannula 01/03 0000 97.2 129 28 110/60 95 Nasal 2.0L Cannula 01/02 2136 Nasal 2.0L Cannula 01/02 2000 96 Nasal 2.0L Cannula 01/02 1803 97.4 102 16 117/74 100 Nasal 1.0L Cannula 01/02 1620 97.4 122 18 106/56 96 Nasal 2.0L Cannula 01/02 1552 97.9 116 20 107/70 96 Nasal 2.0L Cannula Intake & Output 01/03 1600 01/03 0800 01/03 0000 Intake Total 700 350 Output Total 1 Balance 699 350 Intake, Blood 700 350 Product Number 1 Bowel Movements Output, Urine 1 Patient 245 lb Weight Weight Bed scale Measurement Method Physical Exam General Appearance: Alert, Oriented X3, Cooperative Skin: No Rashes HEENT: Atraumatic Neck: Supple Cardiovascular: Normal S1, Normal S2, No Murmurs, tachycardic Lungs: b/l wheezes, bibasilar crackels Abdomen: Normal Bowel Sounds, Soft, No Tenderness Neurological: Normal Speech Current Medications: Current Medications Sig/Pam Start time Last Medication Dose Route Stop Time Status Admin Acetaminophen 650 MG Q6P PRN 01/02 1800 AC PO Acetaminophen 1,000 MG Q6P PRN 01/02 1800 AC IV Albuterol Sulfate 3 ML Q4P PRN 01/02 2215 AC INH Budesonide/ 2 PUF BID 01/02 2200 AC 01/03 Formoterol Fumarate INH 0919 Chlorhexidine 1 GM .STK-MED ONE 01/02 1439 DC Gluconate TOP 01/02 1440 Morphine Sulfate 4 MG Q4P PRN 01/02 2130 AC IV Morphine Sulfate 4 MG Q4P PRN 01/02 1800 DC IV Ondansetron HCl 4 MG Q8P PRN 01/02 1800 AC 01/02 IV 2237 Pantoprazole Sodium 40 MG BID 01/02 2200 AC 01/03 IV 0919 Last 24 Hrs of Lab/Reza Results Last 24 Hrs of Labs/Mics: Laboratory Tests 01/03/18 0355: Anion Gap 6, Estimated GFR > 60, Glucose 90, Calcium 8.2 L, Phosphorus 4.1, Magnesium 2.1, Total Bilirubin 0.4, AST 9 L, ALT 27, Albumin 2.9 L, CBC w Diff NO MAN DIFF REQ, RBC 3.20 L, MCV 90.8, MCH 29.6, MCHC 32.6 L, RDW 16.4 H, MPV 7.9, Gran % 65.6, Lymphocytes % 26.0, Monocytes % 8.0, Eosinophils % 0.1, Basophils % 0.3, Absolute Granulocytes 13.4 H, Absolute Lymphocytes 5.3 H, Absolute Monocytes 1.6 H, Absolute Eosinophils 0, Absolute Basophils 0.1 01/02/182222: Troponin I < 0.01 01/02/181999: CBC w Diff Cancelled, WBC Cancelled, RBC Cancelled, Hgb Cancelled, Hct Cancelled , MCV Cancelled, MCH Cancelled, MCHC Cancelled, RDW Cancelled, Plt Count Cancelled, MPV Cancelled Microbiology 01/03 2000 UPPER RESP: Surveillance Culture - RECD Assessment/Plan Assessment: This is a 52 yo female with PMH of COPD not on home O2, asthma, one year of LE edema for which she takes lasix, supposed dx of RA, morbid obesity, who comes in for CC of diaphoresis and dizziness. ED work up showed 4 g drop in Hb from the beginning of this month and given tachycardia, SOB, elevated BUN disproportionate to Cr, and + orthostats pt dx with symptomatic anemia and went for EGD which shows two irregular ulcers which were biopsied. However pt does also have WBC 14 with with tachycardia and elevated RR. She technically meets SIRS criteria, but symptomatic anemia can present much the same. PLAN Acute GI blood loss anemia: Pt is s/p EGD and biopsy. -H/H 8.3/25.8 on presenataion, s/p2 units pRBCS H/H 9.5/29 -Repeat CBC Q8, Transfuse with HB goal > 7 -Continue IV protonix 40 bid -[place]itain 2 large bore IV -Holding NSAIDs and aspirin -Antihypertensive medication -Iron studies within normal limits -Follow up pathology report outpatient -Diet will be advanced to full liquids as per GI recommendation -Notify GI in case of active bleed hemodynamic instability Shortness of Breath: DDX: symptomatic anemia, COPD, volume overload. -Patient continues to have 3+ edema bilateral lower extremity. Her home dose of Lasix was held in event of initial hypotension and GI bleed. She received 2 units of pRBCS as well yesterday. Discussed with attending she will benefit with diuresis. -TRC -Hold of steriods today -Lasix 40mg IV today reassess tomorrow Leukocytosis Patient presented with white count of 14 likely secondary to steroid use and heme concentration. Today she has elevated count of 22 of note patient received 40 mg of prednisone yesterday. No bands -Continue to monitor fever and WBC curve Chronic pain: -f/u in hospital pain pathway. On Suboxone at home. Smoking: Have counseled re smoking cessation. She takes Chiantix at home. -Will offer patch in hosptial FC/ DVT PPX with ALPS only in setting of GI bleed/FL diet Problem List: 1. Symptomatic anemia Pain Ratin Pain Location: n/a Pain Goal: Pain 4 or less Pain Plan: prn Tomorrow's Labs & Rationales: cbc q8 bep
[2018-01-03 14:24] LABS: ABSOLUTE BASOPHIL COUNT 0.1 /CUMM (0.0-0.2); ABSOLUTE EOSINOPHIL COUNT 0.1 /CUMM (0.0-0.7); ABSOLUTE GRANULOCYTE CT 11.3 /CUMM (1.4-6.5); ABSOLUTE LYMPH COUNT 4.7 /CUMM (1.2-3.4); ABSOLUTE MONOCYTE COUNT 1.2 /CUMM (0.10-0.60); BASOPHIL % 0.6 % (0.0-2.0); EOSINOPHIL % 0.4 % (0-5); GRANULOCYTE % 65.2 % (42.2-75.2); MEAN CORPUSCULAR HGB 29.8 PG (27.0-31.0); MEAN CORPUSCULAR HGB CONC 32.8 G/DL (33.0-37.0); MEAN CORPUSCULAR VOLUME 90.8 FL (81.0-99.0); MEAN PLATELET VOLUME 7.6 FL (7.4-10.4); PLATELET COUNT 278 /CUMM (130-400); RBC DISTRIBUTION WIDTH 16.9 % (11.5-14.5); RED BLOOD CELL CT 2.97 /CUMM (4.20-5.40)
[2018-01-03 14:25] LABS: WHITE BLOOD CELL COUNT 17.4 /CUMM (4.8-10.8)
[2018-01-03 16:00] VITALS: BP 112/70
[2018-01-03 22:23] LABS: ABSOLUTE BASOPHIL COUNT 0.1 /CUMM (0.0-0.2); ABSOLUTE EOSINOPHIL COUNT 0.2 /CUMM (0.0-0.7); ABSOLUTE MONOCYTE COUNT 1.5 /CUMM (0.10-0.60); BASOPHIL % 0.6 % (0.0-2.0); EOSINOPHIL % 1.3 % (0-5); MEAN CORPUSCULAR HGB 29.5 PG (27.0-31.0); MEAN CORPUSCULAR HGB CONC 32.4 G/DL (33.0-37.0); MEAN CORPUSCULAR VOLUME 90.9 FL (81.0-99.0); MEAN PLATELET VOLUME 7.6 FL (7.4-10.4); PLATELET COUNT 296 /CUMM (130-400); RBC DISTRIBUTION WIDTH 16.7 % (11.5-14.5); RED BLOOD CELL CT 2.97 /CUMM (4.20-5.40)
[2018-01-03 22:24] LABS: GRANULOCYTE % 61.4 % (42.2-75.2)
[2018-01-03 23:30] VITALS: BP 105/67
[2018-01-04 05:51] LABS: ABSOLUTE BASOPHIL COUNT 0.1 /CUMM (0.0-0.2); ABSOLUTE EOSINOPHIL COUNT 0.3 /CUMM (0.0-0.7); ABSOLUTE GRANULOCYTE CT 11.4 /CUMM (1.4-6.5); ABSOLUTE LYMPH COUNT 3.8 /CUMM (1.2-3.4); ABSOLUTE MONOCYTE COUNT 1.3 /CUMM (0.10-0.60); BASOPHIL % 0.5 % (0.0-2.0); EOSINOPHIL % 1.6 % (0-5); HEMATOCRIT 26.7 % (37-47); MEAN CORPUSCULAR HGB 29.7 PG (27.0-31.0); MEAN CORPUSCULAR HGB CONC 32.4 G/DL (33.0-37.0); MEAN CORPUSCULAR VOLUME 91.7 FL (81.0-99.0); MEAN PLATELET VOLUME 7.3 FL (7.4-10.4); PLATELET COUNT 301 /CUMM (130-400); RBC DISTRIBUTION WIDTH 16.9 % (11.5-14.5); RED BLOOD CELL CT 2.91 /CUMM (4.20-5.40); WHITE BLOOD CELL COUNT 16.8 /CUMM (4.8-10.8)
[2018-01-04 06:09] LABS: GRANULOCYTE % 67.6 % (42.2-75.2)
--- NOTE | 2018-01-04 09:36 | PN- Housestaff ---
Abdi ACUNA,Jose 01/04/18 0935: Subjective Follow-up For: GI Bleed SOB Subjective: Saw pt at bedside. she stated she was hungry and was interested in advancing diet. Review of Systems Constitutional: Denies: chills, fever, weakness. EENTM: Reports: no symptoms. Cardiovascular: Denies: chest pain, palpitations. Respiratory: Reports: short of breath. Gastrointestinal: Denies: abdominal pain, constipation, diarrhea, melena, bloody stool. Genitourinary: Reports: no symptoms. Musculoskeletal: Reports: back pain, joint pain. Objective Last 24 Hrs of Vital Signs/I&O Vital Signs Date Time Temp Pulse Resp B/P B/P Pulse O2 O2 Flow FiO2 Mean Ox Delivery Rate 01/04 1256 97 Nasal 2.0L Cannula 01/04 0830 96 Nasal 2.0L Cannula 01/04 0400 Nasal 2.0L Cannula 01/04 0000 94 Nasal 2.0L Cannula 01/03 2330 97.1 100 17 105/67 95 Nasal 2.0L Cannula 01/03 2200 95 Nasal 2.0L Cannula Intake & Output 01/04 1600 01/04 0800 01/04 0000 Intake Total 990 383 0179 Output Total 013 898 4117 Balance -120 -250 -800 Intake, IV 30 Intake, Oral 363 770 9988 Output, Urine 951 957 0486 Physical Exam General Appearance: Alert, Oriented X3, Cooperative, No Acute Distress Skin: No Significant Lesion HEENT: Atraumatic, PERRLA, EOMI Neck: Supple Cardiovascular: Regular Rate Lungs: wheezes on expiration Abdomen: Soft, obese, no guarding or rigidity Extremities: 3+ edema in bilat LE Current Medications: Current Medications Sig/Pam Start time Last Medication Dose Route Stop Time Status Admin Acetaminophen 650 MG .STK-MED ONE 01/04 0502 DC PO 01/04 0503 Acetaminophen 650 MG Q6P PRN 01/02 1800 AC 01/04 PO 0503 Acetaminophen 1,000 MG Q6P PRN 01/02 1800 AC IV Albuterol Sulfate 3 ML Q4P PRN 01/02 2215 AC INH Budesonide/ 2 PUF BID 01/02 2200 AC 01/04 Formoterol Fumarate INH 0752 Montelukast Sodium 10 MG AT BEDTIME 01/03 220 AC 01/03 PO 220 Morphine Sulfate 4 MG Q4P PRN 01/02 2130 AC IV Omeprazole 40 MG BID 01/05 1000 AC PO Ondansetron HCl 4 MG Q8P PRN 01/02 1800 AC 01/02 IV 2237 Pantoprazole Sodium 40 MG BID 01/02 2200 AC 01/04 IV 01/05 0100 0752 Last 24 Hrs of Lab/Reza Results Last 24 Hrs of Labs/Mics: Laboratory Tests 01/04/18 0525: Anion Gap 4 L, Estimated GFR > 60, BUN/Creatinine Ratio 38.6 H, CBC w Diff NO MAN DIFF REQ, RBC 2.91 L, MCV 91.7, MCH 29.7, MCHC 32.4 L, RDW 16.9 H, MPV 7.3 L, Gran % 67.6, Lymphocytes % 22.4, Monocytes % 7.9, Eosinophils % 1.6, Basophils % 0.5, Absolute Granulocytes 11.4 H, Absolute Lymphocytes 3.8 H, Absolute Monocytes 1.3 H, Absolute Eosinophils 0.3, Absolute Basophils 0.1 01/03/182139: Anion Gap 6, Estimated GFR > 60, BUN/Creatinine Ratio 44.3 H, CBC w Diff NO MAN DIFF REQ, RBC 2.97 L, MCV 90.9, MCH 29.5, MCHC 32.4 L, RDW 16.7 H, MPV 7.6, Gran % 61.4, Lymphocytes % 28.1, Monocytes % 8.6, Eosinophils % 1.3, Basophils % 0.6, Absolute Granulocytes 11.0 H, Absolute Lymphocytes 5.0 H, Absolute Monocytes 1.5 H, Absolute Eosinophils 0.2, Absolute Basophils 0.1 Assessment/Plan Assessment: Acute GI blood loss anemia: Pt is s/p EGD and biopsy with two irregular ulcers in stomach visualized on scope. H/H 8.3/25.8 on presenataion, s/p2 units pRBCS H /H 9.5/29. Pt on full diet today. * Repeat CBC Q8, Transfuse with HB goal > 7. * Transition to PO protonix tomorrow.Continue IV protonix 40 bid today * Manitain 2 large bore IV * Holding NSAIDs and aspirin * Iron studies within normal limits * Follow up pathology report outpatient * Notify GI in case of active bleed hemodynamic instability. GI has signed off. * Type and cross * q12 cbc Shortness of Breath: DDX: symptomatic anemia, COPD, volume overload. * Patient continues to have 3+ edema bilateral lower extremity. She received 2 units of pRBCS as well yesterday. Git IV lasixyesterday * TRC * Will hold Lasix today as her BP was in low 90s systolic and pt is negative 2 liters since yesterday * IV steroids today. Will need to consider transitioning to PO steroids. Leukocytosis: Patient presented with white count of 14 likely secondary to steroid use and heme concentration. WBC con't to be elevated but no bands present. No evidence of infxn at this time. * Continue to monitor fever and WBC curve Chronic pain: * f/u in hospital pain pathway. On Suboxone at home. Smoking: Have counseled re smoking cessation. She takes Chiantix at home. * Will offer patch in hosptial FC/ DVT PPX with ALPS only in setting of GI bleed Regular diet Problem List: 1. Symptomatic anemia Pain Ratin Pain Location: none Pain Goal: Remain pain free Pain Plan: current reg Tomorrow's Labs & Rationales: icu cbc Ankur Romero MD 01/04/18 1328: Attending MD Review Statement Attending Statement Attending MD Statement: examined this patient, discuss w/resident/PA/SNOWSPORT INSTRUCTOR, agreed w/resident/PA/SNOWSPORT INSTRUCTOR, reviewed EMR data (avail) Attending Assessment/Plan: 52F PMH COPD not on home O2, asthma, b/l LE edema on Lasix, RA, morbid obesity, recently discharged after being treated for COPD exacerbation, admitted for complaints of weakness, pallor, lightheadedness, found to have acute blood loss anemia secondary to gastric ulcers suspicious for gastric malignancy, also with fluid overload with bilateral LE edema and orthopnea. Patient feels better today. Her edema is improving. Still dyspneic on exertion. Hgb stable, no further signs of bleeding. Excellent diuresis yesterday. 1. Gastric ulcers 2. Acute blood loss anemia 3. Gastric malignancy 4. Bilateral lower extremity edema 5. COPD Plan - May transfer to telemetry - Advance diet as tolerated - PPI BID - CBC daily - Follow GI recommendations - No Lasix today, check fluid status tomorrow - Continue Solumedrol - Monitor I/O - Continue home medications - ALPS for DVT PPx - If Hgb stable and breathing comfortably, may be discharged home tomorrow
--- NOTE | 2018-01-04 11:19 | PN- Gastroenterology ---
Assessment/Plan GI Assessment/Recommendations: Assessment: Ms. Nicole is a 52 year old female with COPD admitted with a GI bleed secondary to gastric ulcers which are potentially malignant. She has remained hemodynamically stable, as has her hgb, and both her tachycardia and BUN/Cr ratio have improved so while she still has some melena I suspect that is old blood and should improve over the course of the next 1-2 days. She is tolerating a diet and I therefore don't feel a repeat EGD is necessary at this time, but if her pathology is negative for malignancy one should be repeated in about 2 months to confirm healing considering the irregular appearance of the ulcers. Recommendations: 1. Advance diet as tolerated. 2. Continue IV protonix 40 mg bid through today and if once she is taking a full PO diet would then put her on an oral PPI twice a day. 3. Avoid nsaids 4. Follow CBC q12 hrs and transfuse as needed to keep hgb > 7 or as per cardiology recommendations. 5. Notify GI for signs of hemodynamically significant overt GI bleeding. 6. Follow up the pathology and if this is negative for malignancy she should have a repeat EGD in 2 months to ensure healing of the ulcer. If the path is positive for malignancy an oncology consult and a ct scan of her chest, abd and pelvis for with PO and IV contrast should be obtained which can be done as an outpatient. 7. Treatment of respiratory and volume status as per critical care team, but from a GI perspective she no longer requires the ICU. I will sign off at this time and ask that GI be recontaced for any new GI issues or recurrent bleeding that may arise on this admisson. Problem List: 1. Symptomatic anemia 2. Nausea & vomiting 3. Abdominal pain Subjective Subjective: pt doing well without any abdominal pain. She notes that her stools are still dark/black. She is without any vomiting or brbpr. Objective Vital Signs and I&Os Vital Signs Date Time Temp Pulse Resp B/P B/P Pulse O2 O2 Flow FiO2 Mean Ox Delivery Rate 01/04 0830 96 Nasal 2.0L Cannula 01/04 0400 Nasal 2.0L Cannula 01/04 0000 94 Nasal 2.0L Cannula 01/03 2330 97.1 100 17 105/67 95 Nasal 2.0L Cannula 01/03 2200 95 Nasal 2.0L Cannula 01/03 1600 94 Nasal 2.0L Cannula 01/04 1600 98.7 100 28 112/70 94 Nasal 2.0L Cannula 01/03 1200 93 Nasal 2.0L Cannula Intake & Output 01/04 0400 01/03 0400 01/02 1600 01/02 0400 Intake Total 200 1000 1140 350 500 Output Total 450 1800 901 Balance -250 -800 239 350 500 Intake, Blood 700 350 Product Intake, IV 500 Intake, Oral 200 1000 440 Number 1 Bowel Movements Output, Urine 450 1800 901 Patient 245 lb 240 lb Weight Weight Bed scale Reported by Patient Measurement Method Physical Exam General Appearance: well developed/nourished, no apparent distress, comfortable Head: atraumatic, normal appearance Ears, Nose, Throat: normal pharynx Neck: normal inspection, supple Respiratory: chest non-tender, no respiratory distress, wheezing Cardiovascular: regular rate/rhythm Abdomen: normal bowel sounds, soft, non-tender, no organomegaly Rectal: deferred Extremities: normal inspection, pedal edema Current Medications: Current Medications Sig/Pam Start time Last Medication Dose Route Stop Time Status Admin Acetaminophen 650 MG Q6P PRN 01/02 1800 AC 01/04 PO 0503 Acetaminophen 1,000 MG Q6P PRN 01/02 1800 AC IV Albuterol Sulfate 3 ML Q4P PRN 01/02 2215 AC INH Budesonide/ 2 PUF BID 01/02 2200 AC 01/04 Formoterol Fumarate INH 0752 Furosemide 40 MG ONCE ONE 01/03 1330 DC 01/03 IV 01/03 1331 1516 Montelukast Sodium 10 MG AT BEDTIME 01/03 2200 AC 01/03 PO 2209 Morphine Sulfate 4 MG Q4P PRN 01/02 2130 AC IV Ondansetron HCl 4 MG Q8P PRN 01/02 1800 AC 01/02 IV 2237 Pantoprazole Sodium 40 MG BID 01/02 220 AC 01/04 IV 0752 Results Pertinent Lab Results: Laboratory Tests 01/04 01/03 0525 2140 Chemistry Sodium (137 - 145 mmol/L) 136 L 137 Potassium (3.5 - 5.1 mmol/L) 4.1 3.8 Chloride (98 - 107 mmol/L) 99 100 Carbon Dioxide (22 - 30 mmol/L) 32 H 30 Anion Gap (5 - 16) 4 L 6 BUN (7 - 17 mg/dL) 27 H 31 H Creatinine (0.5 - 1.0 mg/dL) 0.7 0.7 Estimated GFR (>60 ml/min) > 60 > 60 BUN/Creatinine Ratio (7 - 25 %) 38.6 H 44.3 H Hematology CBC w Diff NO MAN DIFF REQ NO MAN DIFF REQ WBC (4.8 - 10.8 /CUMM) 16.8 H 18.0 H RBC (4.20 - 5.40 /CUMM) 2.91 L 2.97 L Hgb (12.0 - 16.0 G/DL) 8.6 L 8.7 L Hct (37 - 47 %) 26.7 L 27.0 L MCV (81.0 - 99.0 FL) 91.7 90.9 MCH (27.0 - 31.0 PG) 29.7 29.5 MCHC (33.0 - 37.0 G/DL) 32.4 L 32.4 L RDW (11.5 - 14.5 %) 16.9 H 16.7 H Plt Count (130 - 400 /CUMM) 301 296 MPV (7.4 - 10.4 FL) 7.3 L 7.6 Gran % (42.2 - 75.2 %) 67.6 61.4 Lymphocytes % (20.5 - 51.1 %) 22.4 28.1 Monocytes % (1.7 - 9.3 %) 7.9 8.6 Eosinophils % (0 - 5 %) 1.6 1.3 Basophils % (0.0 - 2.0 %) 0.5 0.6 Absolute Granulocytes (1.4 - 6.5 /CUMM) 11.4 H 11.0 H Absolute Lymphocytes (1.2 - 3.4 /CUMM) 3.8 H 5.0 H Absolute Monocytes (0.10 - 0.60 /CUMM) 1.3 H 1.5 H Absolute Eosinophils (0.0 - 0.7 /CUMM) 0.3 0.2 Absolute Basophils (0.0 - 0.2 /CUMM) 0.1 0.1 /01/03 1348 0355 Chemistry Sodium (137 - 145 mmol/L) 142 Potassium (3.5 - 5.1 mmol/L) 4.3 Chloride (98 - 107 mmol/L) 107 Carbon Dioxide (22 - 30 mmol/L) 29 Anion Gap (5 - 16) 6 BUN (7 - 17 mg/dL) 52 H Creatinine (0.5 - 1.0 mg/dL) 0.8 Estimated GFR (>60 ml/min) > 60 Glucose (65 - 99 mg/dL) 90 Calcium (8.4 - 10.2 mg/dL) 8.2 L Phosphorus (2.5 - 4.5 mg/dL) 4.1 Magnesium (1.6 - 2.3 mg/dL) 2.1 Total Bilirubin (0.2 - 1.3 mg/dL) 0.4 AST (14 - 36 U/L) 9 L ALT (9 - 52 U/L) 27 Albumin (3.5 - 5.0 g/dL) 2.9 L Hematology CBC w Diff NO MAN DIFF REQ NO MAN DIFF REQ WBC (4.8 - 10.8 /CUMM) 17.4 H 20.4 H RBC (4.20 - 5.40 /CUMM) 2.97 L 3.20 L Hgb (12.0 - 16.0 G/DL) 8.9 L 9.5 L Hct (37 - 47 %) 27.0 L 29.0 L MCV (81.0 - 99.0 FL) 90.8 90.8 MCH (27.0 - 31.0 PG) 29.8 29.6 MCHC (33.0 - 37.0 G/DL) 32.8 L 32.6 L RDW (11.5 - 14.5 %) 16.9 H 16.4 H Plt Count (130 - 400 /CUMM) 278 279 MPV (7.4 - 10.4 FL) 7.6 7.9 Gran % (42.2 - 75.2 %) 65.2 65.6 Lymphocytes % (20.5 - 51.1 %) 27.1 26.0 Monocytes % (1.7 - 9.3 %) 6.7 8.0 Eosinophils % (0 - 5 %) 0.4 0.1 Basophils % (0.0 - 2.0 %) 0.6 0.3 Absolute Granulocytes (1.4 - 6.5 /CUMM) 11.3 H 13.4 H Absolute Lymphocytes (1.2 - 3.4 /CUMM) 4.7 H 5.3 H Absolute Monocytes (0.10 - 0.60 /CUMM) 1.2 H 1.6 H Absolute Eosinophils (0.0 - 0.7 /CUMM) 0.1 0 Absolute Basophils (0.0 - 0.2 /CUMM) 0.1 0.1 01/02 123 Chemistry Troponin I (< 0.11 ng/ml) < 0.01 Hematology CBC w Diff Cancelled WBC Cancelled RBC Cancelled Hgb Cancelled Hct Cancelled MCV Cancelled MCH Cancelled MCHC Cancelled RDW Cancelled Plt Count Cancelled MPV Cancelled Urines Urine Color (YEL,AMB,STR) YEL Urine Clarity (CLEAR) CLEAR Urine pH (5.0 - 8.0) 6.0 Ur Specific [place] (1.001 - 1.035) 1.010 Urine Protein (NEG,<30 MG/DL) NEG Urine Ketones (NEG) NEG Urine Nitrite (NEG) NEG Urine Bilirubin (NEG) NEG Urine Urobilinogen (0.1 - 1.0 EU/dl) 0.2 Ur Leukocyte Esterase (NEG) NEG Ur Microscopic EXAM NOT REQUIRED Urine Hemoglobin (NEG) NEG Urine Glucose (N MG/DL) NEG 01/02 1100 Chemistry Sodium (137 - 145 mmol/L) 143 Potassium (3.5 - 5.1 mmol/L) 4.4 Chloride (98 - 107 mmol/L) 105 Carbon Dioxide (22 - 30 mmol/L) 30 Anion Gap (5 - 16) 8 BUN (7 - 17 mg/dL) 46 H Creatinine (0.5 - 1.0 mg/dL) 0.6 Estimated GFR (>60 ml/min) > 60 BUN/Creatinine Ratio (7 - 25 %) 76.7 H Glucose (65 - 99 mg/dL) 146 H Calcium (8.4 - 10.2 mg/dL) 8.7 Iron (37 - 170 ug/dL) 41 TIBC (265 - 497 ug/dL) 313 Ferritin (11.1 - 264 ng/mL) 17.3 Troponin I (< 0.11 ng/ml) < 0.01 Qzz-[id number] Pept (<125 pg/mL) 66.5 Coagulation PT (9.4 - 12.5 SEC) 11.9 INR (0.90 - 1.19) 1.13 APTT (25 - 37 SEC) 25 Hematology CBC w Diff NO MAN DIFF REQ WBC (4.8 - 10.8 /CUMM) 14.1 H RBC (4.20 - 5.40 /CUMM) 2.86 L Hgb (12.0 - 16.0 G/DL) 8.3 L Hct (37 - 47 %) 25.8 L MCV (81.0 - 99.0 FL) 89.9 MCH (27.0 - 31.0 PG) 28.9 MCHC (33.0 - 37.0 G/DL) 32.1 L RDW (11.5 - 14.5 %) 17.2 H Plt Count (130 - 400 /CUMM) 290 MPV (7.4 - 10.4 FL) 7.3 L Gran % (42.2 - 75.2 %) 92.0 H Lymphocytes % (20.5 - 51.1 %) 5.7 L Monocytes % (1.7 - 9.3 %) 2.3 Eosinophils % (0 - 5 %) 0 Basophils % (0.0 - 2.0 %) 0 Absolute Granulocytes (1.4 - 6.5 /CUMM) 13.0 H Absolute Lymphocytes (1.2 - 3.4 /CUMM) 0.8 L Absolute Monocytes (0.10 - 0.60 /CUMM) 0.3 Absolute Eosinophils (0.0 - 0.7 /CUMM) 0 Absolute Basophils (0.0 - 0.2 /CUMM) 0 Retic Count (0.5 - 2.0 %) 2.70 H
[2018-01-04 16:41] VITALS: BP 122/64
--- NOTE | 2018-01-04 17:30 | Patient Discharge Instructions ---
See Addendum Discharge Instructions General Discharge Information You were seen/treated for: GI Bleed Shortness of breath You had these procedures: EGD (Upper endoscopy) Watch for these problems: 1. dizziness 2. Shortness of breath 3. Blood in stool 4. Dark tarry stool 5. Chest pain Special Instructions: 1. Follow up with your PCP in one week 2. Follow up with your GI doctor in two weeks 3. Please take your new meds as prescribed 4. Suggest stop smoking as it directly contributes to your shortness of breath and increases your risk of cancers, including gastric and pulmonary cancer. Diet Continue normal diet: Yes Activity Activity Self Limited: Yes Acute Coronary Syndrome Inclusion Criteria At DC or during hospital stay patient has or had the following: ACS DIAGNOSIS No Discharge Core Measures Meds if any: Prescribed or Continued at Discharge Meds if any: NOT Prescribed or Continued at Discharge Congestive Heart Failure Inclusion Criteria At DC or during hospital stay patient has or had the following: CHF DIAGNOSIS No Discharge Core Measures Meds if any: Prescribed or Continued at Discharge Meds if any: NOT Prescribed or Continued at Discharge Cerebrovascular accident Inclusion Criteria At DC or during hospital stay patient has or had the following: CVA/TIA Diagnosis No Discharge Core Measures Meds if any: Prescribed or Continued at Discharge Meds if any: NOT Prescribed or Continued at Discharge Venous thromboembolism Inclusion Criteria VTE Diagnosis No VTE Type NONE VTE Confirmed by (Test) NONE Discharge Core Measures - Per Current guidelines, there needs to be overlap - treatment for the first 5 days of Warfarin therapy. - If discharged on Warfarin prior to 5 days of - overlap therapy, the patient will need to be - assessed for post discharge needs including - *Post discharge parental anticoagulation - *Warfarin and/or parental anticoagulation education - *Follow up date to check INR post discharge At least 5 days overlap therapy as Inpatient No Meds if any: Prescribed or Continued at Discharge Note: Overlap Therapy is Warfarin and Anticoagulant Meds if any: NOT Prescribed or Continued at Discharge
[2018-01-04] MEDS ORDERED: PROTONIX40 M3 PO (17:32)
[2018-01-04 22:21] VITALS: BP 128/76
[2018-01-04 22:54] LABS: ABSOLUTE BASOPHIL COUNT 0 /CUMM (0.0-0.2); ABSOLUTE EOSINOPHIL COUNT 0.2 /CUMM (0.0-0.7); ABSOLUTE GRANULOCYTE CT 11.8 /CUMM (1.4-6.5); ABSOLUTE LYMPH COUNT 1.8 /CUMM (1.2-3.4); BASOPHIL % 0.2 % (0.0-2.0); EOSINOPHIL % 1.1 % (0-5); GRANULOCYTE % 79.8 % (42.2-75.2); MEAN CORPUSCULAR HGB 29.7 PG (27.0-31.0); MEAN CORPUSCULAR HGB CONC 32.6 G/DL (33.0-37.0); MEAN CORPUSCULAR VOLUME 91.2 FL (81.0-99.0); MEAN PLATELET VOLUME 7.3 FL (7.4-10.4); PLATELET COUNT 297 /CUMM (130-400); RBC DISTRIBUTION WIDTH 16.1 % (11.5-14.5); RED BLOOD CELL CT 2.63 /CUMM (4.20-5.40); WHITE BLOOD CELL COUNT 14.8 /CUMM (4.8-10.8)
[2018-01-05 06:41] VITALS: BP 96/56
--- NOTE | 2018-01-05 07:10 | PN- Housestaff ---
Ji ACUNA,Jyoti 01/05/18 0710: Subjective Follow-up For: GI Bleed SOB Tele-Events Since Last Visit: Normal sinus rhythm, 87, 0.08, 0.16 Subjective: Patient was seen and examined at bedside, she denies any complaints, no overnight events Review of Systems Constitutional: Denies: chills, diaphoresis, fever, malaise, weakness. Cardiovascular: Denies: chest pain, edema, orthopena, palpitations. Respiratory: Denies: cough, hemoptysis, orthopnea, short of breath. Gastrointestinal: Denies: abdominal pain, diarrhea, bloody stool, vomiting. Genitourinary: Denies: no symptoms. Musculoskeletal: Denies: no symptoms. Objective Last 24 Hrs of Vital Signs/I&O Vital Signs Date Time Temp Pulse Resp B/P B/P Pulse O2 O2 Flow FiO2 Mean Ox Delivery Rate 01/05 0641 98.6 80 20 96/56 96 Nasal 2.0L Cannula / 2248 98.3 01/04 2221 99.5 97 20 128/76 94 Nasal 2.0L Cannula 01/04 2200 Nasal 2.0L Cannula / 2116 94 Nasal 1.0L Cannula / 2058 99.8 / 1648 98 Nasal 2.0L Cannula / 1641 97.8 84 20 122/64 96 /04 1256 97 Nasal 2.0L Cannula Intake & Output 03/05 1600 03/05 0800 03/05 0000 Intake Total 120 240 Output Total 900 Balance -780 240 Intake, Oral 120 240 Number 0 Bowel Movements Output, Urine 900 Patient 250 lb Weight Weight Bed scale Measurement Method Physical Exam General Appearance: Alert, Oriented X3, Cooperative, No Acute Distress HEENT: Atraumatic, PERRLA, EOMI, Mucous Membr. moist/pink Neck: Supple, No JVD Cardiovascular: Normal S1, Normal S2, No Murmurs Lungs: bilateral wide spread wheezes Abdomen: Normal Bowel Sounds, Soft, No Tenderness Neurological: Normal Speech, Strength at 5/5 X4 Ext, Normal Tone Extremities: bilateral 2 + pitting edema Vascular: Normal Pulses Assessment/Plan Assessment: 52 yo female with PMH of COPD not on home O2, asthma, one year of LE edema for which she takes lasix, supposed dx of RA, morbid obesity, who comes in for CC of diaphoresis and dizziness. ED work up showed 4 g drop in Hb from the beginning of this month and given tachycardia, SOB, elevated BUN disproportionate to Cr, and + orthostats pt dx with symptomatic anemia and went for EGD which shows two irregular ulcers which were biopsied. Acute GI blood loss anemia: Pt is s/p EGD and biopsy with two irregular ulcers in stomach visualized on scope. H/H 8.1 on presenataion, s/p2 units pRBCS H/H 9.5. Pt on full diet today. * Start omeprazole 40 mg twice daily p.o. * Manitain 2 large bore IV * Holding NSAIDs and aspirin * Iron studies within normal limits * Follow up pathology report outpatient * Notify GI in case of active bleed hemodynamic instability. GI has signed off. * Type and cross * q12 cbc,Transfuse with HB goal > 7. Shortness of Breath: DDX: symptomatic anemia, COPD, volume overload. * Patient continues to have 3+ edema bilateral lower extremity. She received 2 units of pRBCS as well yesterday. * TRC * Will hold Lasix today as her BP was in low 90s systolic and pt is negative 780 * DC IV Solu-Medrol, * Start p.o. prednisone 40 mg daily for a short steroid taper Leukocytosis: Most likely due to steroid use. WBC con't to be elevated but no bands present. No evidence of infxn at this time. * Continue to monitor fever and WBC curve Chronic pain: * f/u in hospital pain pathway. On Suboxone at home. Smoking: Have counseled re smoking cessation. She takes Chiantix at home. * Will offer patch in hosptial FC/ DVT PPX with ALPS only in setting of GI bleed Regular diet Problem List: 1. Leg swelling 2. COPD (chronic obstructive pulmonary disease) Pain Ratin Pain Location: N/A Pain Goal: Remain pain free Pain Plan: PATHWAY Tomorrow's Labs & Rationales: N/A Estela Cabezas 01/05/18 1502: Attending MD Review Statement Attending Statement Attending MD Statement: examined this patient, discuss w/resident/PA/AUTO PARKER, agreed w/resident/PA/AUTO PARKER, reviewed EMR data (avail), discussed with nursing, discussed with case mgmt Attending Assessment/Plan: pt being dced home in stable condition . pts hb stable. pt says she drinks 15-17 cups of coffee daily and still smokes 3 cigs /day. Pt was encouraged to quit smoking and also to cut down on her coffee in view of her recent GI bleed and EGD showing ulcers. She would be following up with GI as an outpatient for f/u of biopsy results as well for repeat EGD to document healing of her ulcers. Pt will be dced home.
[2018-01-05 08:15] LABS: ABSOLUTE BASOPHIL COUNT 0.1 /CUMM (0.0-0.2); ABSOLUTE EOSINOPHIL COUNT 0.1 /CUMM (0.0-0.7); ABSOLUTE GRANULOCYTE CT 10.4 /CUMM (1.4-6.5); ABSOLUTE LYMPH COUNT 2.5 /CUMM (1.2-3.4); ABSOLUTE MONOCYTE COUNT 1.1 /CUMM (0.10-0.60); BASOPHIL % 0.5 % (0.0-2.0); EOSINOPHIL % 0.5 % (0-5); GRANULOCYTE % 73.8 % (42.2-75.2); HEMATOCRIT 24.1 % (37-47); MEAN CORPUSCULAR HGB 30.4 PG (27.0-31.0); MEAN CORPUSCULAR HGB CONC 33.1 G/DL (33.0-37.0); MEAN CORPUSCULAR VOLUME 91.8 FL (81.0-99.0); MEAN PLATELET VOLUME 7.2 FL (7.4-10.4); PLATELET COUNT 312 /CUMM (130-400); RED BLOOD CELL CT 2.63 /CUMM (4.20-5.40); WHITE BLOOD CELL COUNT 14.1 /CUMM (4.8-10.8)
[2018-01-05] MEDS ORDERED: PREDNISONE10 M2 PO (10:47)
[2018-01-05] MEDS ORDERED: PROTONIX40 M3 PO (10:51)
[2018-01-05 11:07] VITALS: BP 110/62
--- NOTE | 2018-01-05 11:12 | Discharge Summary ---
Visit Information Visit Dates Admission Date: 01/02/18 Discharge Date: 01/05/18 Hospital Course Course Attending Physician: Raulito ACUNA,Estela Del Castillo Primary Care Physician: Chase Kennedy MD Hospital Course: 52 yo female with PMH of COPD not on home O2, asthma, one year of LE edema for which she takes lasix, supposed dx of RA, morbid obesity, who came in for CC of diaphoresis and dizziness. Pt states that over the past 1.5 month, she has been feeling more SOB than usual but today she noted a dramatic difference from her baseline. She went to work as usual but around 8:30 am she noted some diaphoresis and "feeling hot and cold." She drove back home a little later and noted that she was more SOB than baseline and dizzy walking back to her house. She took a neb treatment and she seemed to feel even more diaphoretic and pre- syncopal. Her brother called ambulance and pt has little memory from then. EMS found her with BP of 114/60, tachy to 120, SOB and blood sugar in the 80s. In ED she was found to be tachycardic, and hypotensive down to 96/67 with Hb 8.3 when earlier this month Hb was at 12.1. Given tchycardia, orthostatic +, and substantial drop in Hb GI workup commenced and she went for EGD with GI. She denies any hx of dark tarry stools, GI bleed. She does endorse GERD and bloating which she manages with OTC medications. She states when she gets the "puffiness " in her abdomen she can't eat as it makes it worse. Otherwise she denied any change in bladder or bowel habits. LMP was over 20 yrs ago. Denies drastic lb loss. ED rectal exam negative. She denies heavy use of pain meds (Ibuprofen once a month for generalized aches) but she used to be see a pain management doctor. She no longer follows with them and only takes suboxone. She does take ASA 81 daily. Pt has had many admissions recently with stable H/H and mainly for hypoxic respiratory failure due to COPD. " Social hx + for 1-2 cigarettes a day, she drinks 17 cups of coffee daily She does not drink or engage in IVDA. Fam hx negative for malignancy, her father has significant CAD with bypass. Acute GI blood loss anemia: Pt is s/p EGD and biopsy with two irregular ulcers in stomach visualized on scope. H/H on the day of discharge was stable at 8/24.1 , s/p2 units pRBCS H/H 9.5. Pt on full diet today. * She was initially admitted to the ICU and after she was stabilized she was transferred to the telemetry floor * Was initially treated with IV Protonix which was subsequently switched to p.o. omeprazole 40 mg twice daily p.o. * Manitain 2 large bore IV * While in the hospital NSAIDs and aspirin were held, * aspirin was continued on discharge as per GI recommendation * Iron studies within normal limits * Follow up pathology report outpatient * On discharge the patient was advised to get her CBCs checked in 3 days and report the results with her PCP to make sure she is not actively bleeding Shortness of Breath: DDX: symptomatic anemia, COPD, volume overload. * Patient continued to have 3+ edema bilateral lower extremity. She received 2 units of pRBCS as well yesterday. * TRC * Was treated with Lasix IV, had to be held for 2 days for hypotension * Was initially treated with IV Solu-Medrol, which was then switched to prednisone taper on discharge 40 X 2, 30X2,20X2, 10X2 Leukocytosis: Most likely was due to steroid use. WBC con't to be elevated but no bands present. No evidence of infxn at this time. * Continued to monitor fever and WBC curve Chronic pain: * f/u in hospital pain pathway. On Suboxone at home. Smoking: Have counseled re smoking cessation. She takes Chiantix at home. * Nicotine r patch in hosptial FC/ DVT PPX with ALPS only in setting of GI bleed Regular diet Allergies: Coded Allergies: No Known Allergies (12/11/17) Disposition Summary Disposition Principal Diagnosis: Acute GI blood loss anemia due to 2 gastric ulcers Additional Diagnosis: Shortness of Breath: Possibly due to symptomatic anemia, COPD, volume overload. Discharge Disposition: home or self care Discharge Instructions General Discharge Information Code Status: Full Code ( ) Patient's Diet: Heart healthy Patient's Activity: As tolerated Follow-Up Instructions/Appts: 1. Follow up with your PCP in one week 2. Follow up with your GI doctor in two weeks 3. Please take your new meds as prescribed 4. Suggest stop smoking as it directly contributes to your shortness of breath and increases your risk of cancers, including gastric and pulmonary cancer. 5. please get CBC checked in 3 days of discharge as advised and report the results to your CBC Medications at Discharge Discharge Medications: Stop taking the following medications: Prednisone (Prednisone) 20 MG TABLET ORAL DAILY Qty = 10 Continue taking these medications: Fluticasone/Salmeterol (Advair 500-50 Diskus) 500 MCG-50 MCG/DOSE BLST.W.DEV 1 Puff Inhale through mouth TWICE DAILY Comments: Last Taken: 01/05/18 Time: 8:40 AM (RECEIVED SYMBICORT) Albuterol Sulfate (Proair Hfa) 90 MCG HFA.AER.AD 2 Puff Inhale through mouth EVERY 4-6 HOURS NEEDED as needed for ASTHMA Qty = 1 Comments: Last Taken: 01/05/18 Time: 9:50 AM (RECEIVED NEB) Buprenorphine HCl/Naloxone HCl (Suboxone 12 MG-3 MG Sl Film) 12 MG-3 MG FILM 1 Strip SUBLINGUAL DAILY Qty = 14 Comments: Last Taken: NOT GIVEN IN HOSPITAL Time: Fluticasone Propionate (Fluticasone Propionate) 50 MCG/ACTUATION SPRAY.SUSP 2 [place] Both sides of nose As Directed as needed for ALLERGIES/ASTHMA Qty = 16 Comments: Last Taken: NOT GIVEN IN HOSPITAL Time: Varenicline Tartrate (Chantix) 1 MG TABLET 1 Tablet ORAL TWICE DAILY Qty = 56 Comments: Last Taken: NOT GIVEN IN HOSPITAL Time: Montelukast Sodium (Montelukast Sodium) 10 MG TABLET 1 Tablet ORAL As Directed as needed for ALLERGIES/ASTHMA Qty = 30 Comments: Last Taken: 01/04/18 Time: 9:00 PM Potassium Citrate (Potassium Citrate ER) 10 MEQ (1,080 MG) TABLET.ER 2 Tablet ORAL TWICE DAILY Qty = 20 Comments: Last Taken: NOT GIVEN IN HOSPITAL Time: Furosemide (Lasix) 40 MG TABLET 1 Tablet ORAL DAILY Qty = 30 Comments: Last Taken: 01/03/18 Time: 3:15 PM Aspirin (Aspirin*) 81 MG TAB.CHEW 1 Tablet ORAL DAILY Qty = 30 Instructions: . Comments: Last Taken: NOT GIVEN IN HOSPITAL Time: Start taking the following new medications: Pantoprazole Sodium (Protonix) 40 MG TABLET.DR 2 Tablet ORAL TWICE DAILY Qty = 60 No Refills Comments: Last Taken: 01/05/18 Time: 8:40 AM Prednisone (Prednisone) 10 MG TABLET 1 Tablet ORAL DAILY Qty = 20 No Refills Comments: TAKE 4 TABS DAILY ON 01/05, 01/06 TAKE 3 TABS DAILY ON 01/07, 01/08 TAKE 2 TABS DAILY ON 01/09, 01/10 TAKE ONE TAB DAILY ON 01/11,01/12 Copies To: Brent ACUNA,Chase Elizabeth Attending MD Review Statement Documenting Attending: Estela Cabezas MD Other Findings: Pt had GI bleed secondary to Gastric ulcer which on biopsy showed- "-- "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
== END 2018-01-05 13:00 | DRG 241 ==
LOC: ERH 10:40 → ERHI 14:45 → 1NO 14:45 → ENRESERV 16:18 → ENTRNSPT 19:18 → CRI 19:45 → CMPTRNSPT 19:46 → 1NO 01-04 16:04 → ENPENDDIS 01-05 11:37 → 1NO 01-05 13:00 → ENTRNSPT 01-05 13:26 → EDTRNSPTSTS 01-05 13:33 → EDTRNSPT 01-05 13:33 → CMPTRNSPT 01-05 13:43
PROVIDERS: Emergency Medicine; Internal Medicine; Student in an Organized Health Care Education/Training Program
PROC: 30233N1 Transfusion of Nonautologous Red Blood Cells into Peripheral Vein, Percutaneous Approach (ICD-10-PCS; principal; 2018-01-02)
PROC: 0DB68ZX Excision of Stomach, Via Natural or Artificial Opening Endoscopic, Diagnostic (ICD-10-PCS; 2018-01-02)
DX: K25.0 Acute gastric ulcer with hemorrhage (principal); D62 Acute posthemorrhagic anemia; Z68.42 Body mass index [BMI] 45.0-49.9, adult; F17.200 Nicotine dependence, unspecified, uncomplicated; J44.9 Chronic obstructive pulmonary disease, unspecified; R60.0 Localized edema; E66.01 Morbid (severe) obesity due to excess calories; R00.0 Tachycardia, unspecified; Z79.82 Long term (current) use of aspirin; Z79.51 Long term (current) use of inhaled steroids; M19.90 Unspecified osteoarthritis, unspecified site; C16.9 Malignant neoplasm of stomach, unspecified
CPT/HCPCS: 1NP; CCU; 36415; 71046; 81003; 82436; 86920; 87804; 87804-59; 88305; 93005; 93010; 99291; J0131; J1940; J2405; J2920; J3490; J7040; P9016

== ENCOUNTER 2018-01-07 08:08 | Emergency (ER) | payer OTHER ==
[~2018-01-07] VITALS: Ht 154.9 cm; Wt 113.4 kg
[~2018-01-07 08:08] MED LIST changes: +PROTONIX40 M3 PO
[2018-01-07 08:15] VITALS: BP 107/62
--- NOTE | 2018-01-07 09:11 | ED GENERAL ADULT ---
History of Present Illness General Chief Complaint: General Adult Stated Complaint: WEAKNESS, "I AM FEELING FUNNY" Source: patient, old records Exam Limitations: no limitations Vital Signs & Intake/Output Vital Signs & Intake/Output Vital Signs Date Time Temp Pulse Resp B/P B/P Pulse O2 O2 Flow FiO2 Mean Ox Delivery Rate 01/07 0948 99 Room Air 01/07 0815 98.4 101 16 107/62 95 Room Air Allergies Coded Allergies: No Known Allergies (12/11/17) Reconcile Medications Albuterol Sulfate (Proair Hfa) 90 MCG HFA.AER.AD 2 PUF INH Q4-6 PRN PRN ASTHMA Aspirin (Aspirin*) 81 MG TAB.CHEW 1 TAB PO DAILY Heart health . Buprenorphine HCl/Naloxone HCl (Suboxone 12 MG-3 MG Sl Film) 12 MG-3 MG FILM 1 STR SL DAILY CHRONIC PAIN (Reported) Fluticasone Propionate 50 MCG/ACTUATION SPRAY.SUSP 2 SPRAY NASB AD PRN ALLERGIES/ASTHMA (Reported) Fluticasone/Salmeterol (Advair 500-50 Diskus) 500 MCG-50 MCG/DOSE BLST.W.DEV 1 PUF INH BID ASTHMA (Reported) Furosemide (Lasix) 40 MG TABLET 1 TAB PO DAILY edema (Reported) Montelukast Sodium 10 MG TABLET 1 TAB PO AD PRN ALLERGIES/ASTHMA (Reported) Pantoprazole Sodium (Protonix) 40 MG TABLET.DR 2 TAB PO BID GI BLEED Potassium Citrate (Potassium Citrate ER) 10 MEQ (1,080 MG) TABLET.ER 2 TAB PO BID LOW POTASSIUM Prednisone 10 MG TABLET 1 TAB PO DAILY COPD Varenicline Tartrate (Chantix) 1 MG TABLET 1 TAB PO BID SMOKING CESSATION ( Reported) Triage Note: 52 Y/O FEMALE C/O "NOT FEELING WELL" SINCE THIS AM. STATES SHE WAS ADMITTED LAST WEEK FOR GI BLEED AND RECEIVED BLOOD. WAS D/NAS ON FRIDAY AND STATES SHE HAS FELT "VERY WEAK" SINCE D/C. REPORTS EATING/DRINKING WELL. DENIES NOTING BLOOD IN STOOL. DENIES PAIN. AFEBRILE. Triage Nurses Notes Reviewed? yes HPI: Patient was discharged on Friday after an admission for symptomatic anemia and an upper GI bleed. Patient was feeling well after discharge however this morning when she woke up she feels very fatigued and lightheaded. She felt a little bit short of breath when she got up that is currently feeling better. She denies any chest pain or palpitations. Patient denies any nausea or vomiting. She has not noted any blood in her stool. Past History Travel History Traveled to [place] past 21 day No Medical History Any Pertinent Medical History? see below for history Neurological: NONE EENT: NONE Cardiovascular: NONE Respiratory: NONE, COPD Gastrointestinal: GI BLEED Hepatic: NONE Renal: NONE Musculoskeletal: NONE, degen joint disease Psychiatric: NONE Endocrine: NONE Blood Disorders: NONE Cancer(s): NONE GENERAL INTERNAL MEDICINE PHYSICIAN/Reproductive: NONE History of MRSA: No History of VRE: No History of CDIFF: No Surgical History Surgical History: unobtainable Psychosocial History Who do you live with Mother Services at Home None What is your primary language Jordanian Tobacco Use: Quit <30 days ago ETOH Use: denies use Illicit Drug Use: denies illicit drug use Family History Family History, If Any: FATHER (Heart Disease). MOTHER (Asthma). Uncle (Diabetes). BROTHER (sudden ; possibly cardiac.). Hx Contributory? No Review of Systems Review of Systems Constitutional: Reports: see HPI, weakness. EENTM: Reports: no symptoms. Respiratory: Reports: see HPI, short of breath. Cardiovascular: Reports: no symptoms. GI: Reports: no symptoms. Genitourinary: Reports: no symptoms. Musculoskeletal: Reports: no symptoms. Skin: Reports: no symptoms. Neurological/Psychological: Reports: no symptoms. Hematologic/Endocrine: Reports: no symptoms. Immunologic/Allergic: Reports: no symptoms. All Other Systems: Reviewed and Negative Physical Exam Physical Exam General Appearance: well developed/nourished, alert, awake, anxious, mild distress Head: atraumatic, normal appearance Eyes: Bilateral: PERRL, EOMI. Ears, Nose, Throat: normal pharynx, normal ENT inspection, hearing grossly normal Neck: normal inspection, supple, full range of motion Respiratory: normal breath sounds, chest non-tender, no respiratory distress, lungs clear Cardiovascular: regular rate/rhythm, normal peripheral pulses Gastrointestinal: normal bowel sounds, soft, non-tender, no organomegaly Back: normal inspection, normal range of motion Extremities: normal inspection, normal capillary refill Neurologic/Psych: no motor/sensory deficits, awake, alert, oriented x 3, normal gait, normal mood/affect Skin: intact, normal color, warm/dry Lymphatic: no anterior cervical josue Core Measures ACS in differential dx? No CVA/TIA Diagnosis: No Sepsis Present: No Sepsis Focused Exam Completed? No Progress Differential Diagnoses I considered the following diagnoses in my evaluation of the patient: [ANEMIA, COPD, CHF] Plan of Care: Orders Procedure Date/time Status URINALYSIS 01/07 823 Active TROPONIN LEVEL 01/07 823 Active COMPREHENSIVE METABOLIC PANEL 01/07 823 Active CBC WITHOUT DIFFERENTIAL 01/07 823 Complete EKG 01/07 823 Active Laboratory Tests 01/07/18 0952: Anion Gap 8, Estimated GFR > 60, BUN/Creatinine Ratio 33.3 H, Glucose 107 H, Calcium 9.2, Total Bilirubin 0.4, AST 13 L, ALT 18, Alkaline Phosphatase 72, Troponin I Pending, Total Protein 5.7 L, Albumin 3.4 L, Globulin 2.3, Albumin/ Globulin Ratio 1.5, CBC w Diff NO MAN DIFF REQ, RBC 2.64 L, MCV 90.4, MCH 30.0, MCHC 33.2, RDW 16.4 H, MPV 6.9 L, Gran % 79.7 H, Lymphocytes % 11.7 L, Monocytes % 7.8, Eosinophils % 0.7, Basophils % 0.1, Absolute Granulocytes 11.9 H, Absolute Lymphocytes 1.8, Absolute Monocytes 1.2 H, Absolute Eosinophils 0.1 , Absolute Basophils 0 Initial ED EKG: NSR, no ST T wave changes Prior EKG: unchanged Comments: D/W DR. JESSICA. HE WILL SEE PT IN THE OFFICE Departure Departure Disposition: HOME OR SELF CARE Condition: Stable Clinical Impression Primary Impression: Anemia Referrals: Brent ACUNA,Chase Elizabeth (PCP/Family) Martha ACUNA,Jerald N. Additional Instructions: IT IS VERY IMPORTANT TO FOLLOW UP WITH DR. JESSICA. CALL HIS OFFICE TODAY FOR AN APPOINTMENT CALL DR. RODRIGEZ FROM [facility]COL[facility] (A CANCER DOCTOR) FOR AN APPOINTMENT. THEIR OFFICE WAS CLOSED TODAY SO I COULD NOT MAKE THAT APPOINTMENT FOLLOW UP WITH DR. GORDON AT YOUR APPOINTMENT RETURN FOR ANY BLEEDING OR FOR ANY CONCERNS Departure Forms: Customer Survey General Discharge Information Prescriptions: Current Visit Scripts Prednisone 1 TAB PO DAILY #7 TAB TAKE 2 PILLS A DAY FOR 2 MORE DAYS THEN TAKE 1 PILL A DAY FOR 3 DAYS THEN STOP Critical Care Note Critical Care Note Critical Care Time: non-applicable
[2018-01-07 10:13] LABS: ABSOLUTE BASOPHIL COUNT 0 /CUMM (0.0-0.2); ABSOLUTE EOSINOPHIL COUNT 0.1 /CUMM (0.0-0.7); ABSOLUTE GRANULOCYTE CT 11.9 /CUMM (1.4-6.5); ABSOLUTE LYMPH COUNT 1.8 /CUMM (1.2-3.4); ABSOLUTE MONOCYTE COUNT 1.2 /CUMM (0.10-0.60); BASOPHIL % 0.1 % (0.0-2.0); EOSINOPHIL % 0.7 % (0-5); GRANULOCYTE % 79.7 % (42.2-75.2); HEMATOCRIT 23.8 % (37-47); MEAN CORPUSCULAR HGB CONC 33.2 G/DL (33.0-37.0); MEAN CORPUSCULAR VOLUME 90.4 FL (81.0-99.0); MEAN PLATELET VOLUME 6.9 FL (7.4-10.4); PLATELET COUNT 413 /CUMM (130-400); RBC DISTRIBUTION WIDTH 16.4 % (11.5-14.5); RED BLOOD CELL CT 2.64 /CUMM (4.20-5.40)
[2018-01-07] MEDS ORDERED: PREDNISONE10 M2 PO (10:41)
== END 2018-01-07 10:50 ==
LOC: ERH 08:08
PROVIDERS: Emergency Medicine
DX: D64.9 Anemia, unspecified (principal)
CPT/HCPCS: 93005; 93010

== ENCOUNTER 2018-01-21 08:41 | Emergency (ER) | payer OTHER ==
[~2018-01-21] VITALS: Ht 154.9 cm; Wt 94.8 kg
--- NOTE | 2018-01-21 08:47 | ED DYSPNEA/ASTHMA COMPLAINT ---
History of Present Illness General Chief Complaint: Dyspnea (COPD, CHF, Other) Stated Complaint: SOB Source: patient Exam Limitations: no limitations Vital Signs & Intake/Output Vital Signs & Intake/Output Vital Signs Date Time Temp Pulse Resp B/P B/P Pulse O2 O2 Flow FiO2 Mean Ox Delivery Rate 01/21 0906 91 01/21 0901 94 Room Air 01/21 0849 97.9 98 18 125/73 91 Room Air Allergies Coded Allergies: No Known Allergies (12/11/17) Reconcile Medications Albuterol Sulfate (Proair Hfa) 90 MCG HFA.AER.AD 2 PUF INH Q4-6 PRN PRN ASTHMA Albuterol Sulfate 1.25 MG/3 ML VIAL.NEB 1 Vial INH/THA Q4-6 PRN WHEEZING Aspirin (Aspirin*) 81 MG TAB.CHEW 1 TAB PO DAILY Heart health . Azithromycin (Zithromax) 500 MG TABLET 1 TAB PO DAILY URI Buprenorphine HCl/Naloxone HCl (Suboxone 12 MG-3 MG Sl Film) 12 MG-3 MG FILM 1 STR SL DAILY CHRONIC PAIN (Reported) Fluticasone Propionate 50 MCG/ACTUATION SPRAY.SUSP 2 SPRAY NASB AD PRN ALLERGIES/ASTHMA (Reported) Fluticasone/Salmeterol (Advair 500-50 Diskus) 500 MCG-50 MCG/DOSE BLST.W.DEV 1 PUF INH BID ASTHMA (Reported) Furosemide (Lasix) 40 MG TABLET 1 TAB PO DAILY edema (Reported) Montelukast Sodium 10 MG TABLET 1 TAB PO AD PRN ALLERGIES/ASTHMA (Reported) Pantoprazole Sodium (Protonix) 40 MG TABLET.DR 2 TAB PO BID GI BLEED Potassium Citrate (Potassium Citrate ER) 10 MEQ (1,080 MG) TABLET.ER 2 TAB PO BID LOW POTASSIUM Prednisone 10 MG TABLET 1 TAB PO AD INFLAMMATION DAY1/DAY2 FOUR TABS DAILY DAY3/DAY4 THREE TABS DAILY DAY5/DAY6 TWO TABS DAILY DAY7 ONE TAB Triage Nurses Notes Reviewed? yes Onset: Gradual Duration: constant Timing: recent history Severity: moderate HPI: PT IS A 52 Y/O FEMALE WITH A PMH COPD not on home O2, asthma, LE edema for which she takes lasix, supposed dx of RA, morbid obesity, who presents emergency room stating that yesterday evening patient was in her normal state of health however today patient presents emergency room this morning of concerns of a gradual onset of wheezing and shortness of breath and COPD exacerbation, patient denies any fever chills chest pain arm pain jaw pain nausea vomiting leg swelling hemoptysis, diaphoresis back pain patient took rescue inhaler and nebulizers prior to arrival without relief of symptoms. Patient is not on prednisone. (Janak Pizano) Past History Travel History Traveled to [place] past 21 day No Medical History Any Pertinent Medical History? 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 MOTHER (Asthma). Uncle (Diabetes). BROTHER (sudden ; possibly cardiac.). Hx Contributory? No (Janak Pizano) Review of Systems Review of Systems Constitutional: Reports: no symptoms. EENTM: Reports: no symptoms. Respiratory: Reports: see HPI, wheezing. Denies: cough. Cardiovascular: Reports: no symptoms. GI: Reports: no symptoms. Genitourinary: Reports: no symptoms. Musculoskeletal: Reports: no symptoms. Skin: Reports: no symptoms. Neurological/Psychological: Reports: no symptoms. Hematologic/Endocrine: Reports: no symptoms. Immunologic/Allergic: Reports: no symptoms. All Other Systems: Reviewed and Negative (Janak Pizano) Physical Exam Physical Exam General Appearance: no apparent distress, obese Head: atraumatic Eyes: Bilateral: normal appearance. Ears, Nose, Throat: normal pharynx, hearing grossly normal Neck: normal inspection, supple Respiratory: chest non-tender, no respiratory distress, wheezing Cardiovascular: regular rate/rhythm Peripheral Pulses: 2+ radial (R) Gastrointestinal: normal bowel sounds, soft Neurologic/Psych: no motor/sensory deficits, awake Skin: intact, normal color Lymphatic: no anterior cervical josue Core Measures ACS in differential dx? No CVA/TIA Diagnosis No Sepsis Present: No Sepsis Focused Exam Completed? No (Janak Pizano) Progress Differential Diagnosis: asthma, AMI, bronchitis, costochondritis, CHF, COPD, musculoskeletal pain, pericarditis, pulmonary embolism, pneumonia, pneumothorax, unstable angina Plan of Care: Orders Procedure Date/time Status XRY-CHEST XRAY, TWO VIEWS 01/22 852 Active Current Medications Sig/Pam Start time Last Medication Dose Stop Time Status Admin Albuterol Sulfate 3 ML ONCE ONE 01/21 900 AC (Proventil) 01/21 901 Ipratropium Mathews 2.5 ML ONCE ONE 01/21 900 AC (Atrovent) 01/21 901 Prednisone 60 MG ONCE ONE 01/21 900 AC 01/21 901 Patient upon initial presentation was resting comfortably bedside no respiratory distress oxygen saturation 92% room air. Patient had audible wheezing on exam. Patient denies any signs of infection denies any chest pain concerns Although pulmonary embolism is of my differential diagnoses my suspicion is low at this time. Nebulizer AND STEROIDS treatment was ordered 918- patient after reexamination after nebulizers she states she feels much improved patient currently is talking on her cell phone after examination, wheezing had improved on exam patient will have 02 ambulation evaluation. Chest x-ray shows bronchial thickening or atypical pneumonia and due to patient' s past medical history and comorbidities of COPD patient will be given azithromycin Patient walked down the [facility] emergency room SHOWED 97% room air oxygen saturation with no respiratory distress. Diagnostic Imaging: Viewed by Me: Radiology Read. 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 FINDINGS: Symmetric lung inflation. There is no focal consolidation, pleural effusion, or pneumothorax. Central peribronchial thickening prominence of the perihilar interstitium that could reflect atypical/viral pneumonia. Cardiac silhouette size is normal. There are no acute osseous findings. IMPRESSION: Central peribronchial thickening prominence of the perihilar interstitium that could reflect atypical/viral pneumonia. DICTATED BY: Jaylon Wallace MD DATE/TIME DICTATED:01/21/18912 ENDORSEMENT CLERK:RYAN DATE/TIME TRANSCRIBED:01/21/18912 (Janak Pizano) Departure Departure Disposition: HOME OR SELF CARE Condition: Stable Clinical Impression Primary Impression: COPD exacerbation Secondary Impressions: URI (upper respiratory infection) Referrals: Brent ACUNA,Chase Elizabeth (PCP/Family) Additional Instructions: As discussed continue your nebulizer treatments and inhaler as directed, begin the prescription of prednisone as directed, follow-up with your transformation architect in 2 days if no better. If symptoms worsen return to emergency room Begin the prescription of azithromycin and ipratropium vials for nebulizer treatments. Prescriptions waiting at [facility] Departure Forms: Customer Survey General Discharge Information Prescriptions: Current Visit Scripts Albuterol Sulfate 1 Vial INH/THA Q4-6 PRN WHEEZING #150 ML Prednisone 1 TAB PO AD #19 TAB DAY1/DAY2 FOUR TABS DAILY DAY3/DAY4 THREE TABS DAILY DAY5/DAY6 TWO TABS DAILY DAY7 ONE TAB Azithromycin (Zithromax) 1 TAB PO DAILY #5 TAB (Janak Pizano) PA/BOILER WASHER Co-Sign Statement Statement: ED Attending supervision documentation- [] I saw and evaluated the patient. I have also reviewed all the pertinent lab results and diagnostic results. I agree with the findings and the plan of care as documented in the PA's/BOILER WASHER's documentation. [X] I have reviewed the ED Record and agree with the PA's/BOILER WASHER's documentation. [] Additions or exceptions (if any) to the PAs/BOILER WASHER's note and plan are summarized below: [] (Prince ACUNA,Chase Matthews) Critical Care Note Critical Care Note Critical Care Time: non-applicable (Janak Pizano)
[2018-01-21 08:49] VITALS: BP 125/73
--- NOTE | 2018-01-21 09:19 | RADIOLOGY REPORT ---
EXAMINATION: PA and lateral chest radiograph CLINICAL INFORMATION: Shortness of breath and wheezing COMPARISON: Chest x-ray 01/02/2018 TECHNIQUE: 2 views of the chest were obtained. FINDINGS: Symmetric lung inflation. There is no focal consolidation, pleural effusion, or pneumothorax. Central peribronchial thickening prominence of the perihilar interstitium that could reflect atypical/viral pneumonia. Cardiac silhouette size is normal. There are no acute osseous findings. IMPRESSION: Central peribronchial thickening prominence of the perihilar interstitium that could reflect atypical/viral pneumonia.
[2018-01-21] MEDS ORDERED: PREDNISONE10 M2 PO (09:25)
[2018-01-21] MEDS ORDERED: ALBUTEROL1.25 MG/1 INH/SOL (09:25)
[2018-01-21] MEDS ORDERED: ZITHROMAX500 M2 PO (09:25)
[2018-01-22] MEDS ORDERED: PREDNISONE20 M1 PO (06:59)
== END 2018-01-21 09:32 ==
LOC: ERH 08:41
DX: J44.1 Chronic obstructive pulmonary disease with (acute) exacerbation (principal); J06.9 Acute upper respiratory infection, unspecified
CPT/HCPCS: 1263; 71046

== ENCOUNTER 2018-02-07 09:33 | Emergency (ER) | payer OTHER ==
[~2018-02-07] VITALS: Ht 154.9 cm; Wt 117.9 kg
[~2018-02-07 09:33] MED LIST changes: +ALBUTEROL1.25 MG/1 INH/SOL; +ZITHROMAX500 M2 PO
--- NOTE | 2018-02-07 10:24 | ED DYSPNEA/ASTHMA COMPLAINT ---
History of Present Illness General Chief Complaint: Dyspnea (COPD, CHF, Other) Stated Complaint: SOB Source: patient, old records Exam Limitations: no limitations Vital Signs & Intake/Output Vital Signs & Intake/Output Vital Signs Date Time Temp Pulse Resp B/P B/P Pulse O2 O2 Flow FiO2 Mean Ox Delivery Rate 02/07 1219 98.7 100 20 135/72 96 Room Air 02/07 0942 98.6 103 18 123/68 95 Room Air Allergies Coded Allergies: No Known Allergies (12/11/17) Reconcile Medications Albuterol Sulfate (Proair Hfa) 90 MCG HFA.AER.AD 2 PUF INH Q4-6 PRN PRN ASTHMA Albuterol Sulfate (Proair Hfa) 90 MCG HFA.AER.AD 2 PUF INH Q4-6 PRN PRN ASTHMA Albuterol Sulfate 1.25 MG/3 ML VIAL.NEB 1 Vial INH/THA Q4-6 PRN WHEEZING Aspirin (Aspirin*) 81 MG TAB.CHEW 1 TAB PO DAILY Heart health . Azithromycin (Zithromax) 500 MG TABLET 1 TAB PO DAILY URI Buprenorphine HCl/Naloxone HCl (Suboxone 12 MG-3 MG Sl Film) 12 MG-3 MG FILM 1 STR SL DAILY CHRONIC PAIN (Reported) Fluticasone Propionate 50 MCG/ACTUATION SPRAY.SUSP 2 SPRAY NASB AD PRN ALLERGIES/ASTHMA (Reported) Fluticasone/Salmeterol (Advair 500-50 Diskus) 500 MCG-50 MCG/DOSE BLST.W.DEV 1 PUF INH BID ASTHMA (Reported) Furosemide (Lasix) 40 MG TABLET 1 TAB PO DAILY edema (Reported) Furosemide (Lasix) 40 MG TABLET 1 TAB PO DAILY EDEMA Lorazepam (Ativan) 0.5 MG TABLET 0.5 TAB PO DAILY NEEDED PRN PANIC Montelukast Sodium 10 MG TABLET 1 TAB PO AD PRN ALLERGIES/ASTHMA (Reported) Pantoprazole Sodium (Protonix) 40 MG TABLET.DR 2 TAB PO BID GI BLEED Potassium Citrate (Potassium Citrate ER) 10 MEQ (1,080 MG) TABLET.ER 2 TAB PO BID LOW POTASSIUM Prednisone 10 MG TABLET 1 TAB PO BID COPD Prednisone 20 MG TABLET 1 TAB PO BID asthma Prednisone 10 MG TABLET 1 TAB PO AD INFLAMMATION DAY1/DAY2 FOUR TABS DAILY DAY3/DAY4 THREE TABS DAILY DAY5/DAY6 TWO TABS DAILY DAY7 ONE TAB Triage Note: 52 YO FEAMLE TO TRIAGE C/O SOB FOR "AWHILE" HX OF COPD. STATES WAS GIVEN PERSCRIPTION FOR PREDNISONE AND LASIX BUT NEEDS A NEW SCRIPTS BECASE SHE WASNT ABLE TO PICK IT UP. C/O BILATERAL LOWER EXTREMITY SWELLING. RA SATS 95%. DENIES CHEST PAIN. Triage Nurses Notes Reviewed? yes HPI: 52F PMH COPD not on home O2, HFpEF, morbid obesity, recently diagnosed poorly differentiated gastric adenocarcinoma still undergoing staging, presents with episodes of acute onset of dyspnea. Patient was discharged from one month ago after being treated for COPD exacerbation and anemia, with EGD done during admission showing two irregular ulcers with eventual pathology showing adenocarcinoma. Has followed up as outpatient and undergone endoscopic ultrasound and CT for staging, and is due to begin chemotherapy this week. She reports an episode today (and has had 2 or similar in the past week), of acute onset of dyspnea, described as her lungs being squeezed. She becomes short of breath and profoundly dyspneic during exertion during these episodes, which last several hours. She denies chest pain, palpitations, lightheadedness, sore throat, fever, chills, n/v/d, dysuria. She ran out of Lasix yesterday and reports LE edema as well. Past History Travel History Traveled to [place] past 21 day No Medical History Any Pertinent Medical History? 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 MOTHER (Asthma). Uncle (Diabetes). BROTHER (sudden ; possibly cardiac.). Hx Contributory? No Review of Systems Review of Systems Constitutional: Reports: no symptoms. EENTM: Reports: no symptoms. Respiratory: Reports: see HPI. Cardiovascular: Reports: no symptoms. GI: Reports: no symptoms. Genitourinary: Reports: no symptoms. Musculoskeletal: Reports: no symptoms. Skin: Reports: no symptoms. Neurological/Psychological: Reports: no symptoms. Hematologic/Endocrine: Reports: no symptoms. Immunologic/Allergic: Reports: no symptoms. All Other Systems: Reviewed and Negative Physical Exam Physical Exam General Appearance: well developed/nourished, no apparent distress Head: atraumatic, normal appearance Eyes: Bilateral: normal appearance. Ears, Nose, Throat: normal pharynx, normal ENT inspection, hearing grossly normal Neck: normal inspection, supple, full range of motion Respiratory: normal breath sounds, chest non-tender, no respiratory distress Cardiovascular: regular rate/rhythm Gastrointestinal: soft, non-tender Extremities: 2+ b/l LE edema to knees Neurologic/Psych: awake, alert, oriented x 3, normal mood/affect Skin: intact, normal color, warm/dry Core Measures ACS in differential dx? No CVA/TIA Diagnosis No Sepsis Present: No Sepsis Focused Exam Completed? No Progress Differential Diagnosis: asthma, AMI, altitude sickness, bronchitis, costochondritis, CHF, COPD, musculoskeletal pain, pericarditis, pulmonary embolism, pneumonia, pneumothorax, rib fracture, unstable angina Plan of Care: Orders Procedure Date/time Status TROPONIN LEVEL 02/07 1001 Complete D-DIMER 02/07 1001 Complete COMPREHENSIVE METABOLIC PANEL 02/07 1001 Complete CBC WITHOUT DIFFERENTIAL 02/07 1001 Complete B-TYPE NATRIURETIC PEP (BNP) 02/07 1001 Complete EKG 02/07 0942 Active Current Medications Sig/Pam Start time Last Medication Dose Stop Time Status Admin Potassium Chloride 20 MEQ ONCE ONE 02/07 1245 UNVr (Klor) 02/07 1246 Laboratory Tests 02/07/18 1145: D-Dimer High Sensitivty < 200 02/07/18 1025: Anion Gap 10, Estimated GFR > 60, BUN/Creatinine Ratio 30.0 H, Glucose 114 H, Calcium 8.9, Total Bilirubin 0.4, AST 13 L, ALT 28, Alkaline Phosphatase 86, Troponin I < 0.01, Ejd-R-Gwafunycxih Pept 67.6, Total Protein 6.3, Albumin 3.6, Globulin 2.7, Albumin/Globulin Ratio 1.3, CBC w Diff NO MAN DIFF REQ, RBC 3.23 L, MCV 79.5 L, MCH 24.2 L, MCHC 30.4 L, RDW 24.6 H, MPV 6.9 L, Gran % 69.5, Lymphocytes % 16.7 L, Monocytes % 10.3 H, Eosinophils % 2.1, Basophils % 1.4, Absolute Granulocytes 8.7 H, Absolute Lymphocytes 2.1, Absolute Monocytes 1.3 H, Absolute Eosinophils 0.3, Absolute Basophils 0.2 Patient has been asymptomatic throughout stay. Her workup has been negative. I suspect panic disorder with anxiety, particularly given her recent cancer diagnosis. Will discharge home and give Ativan PRN to help. Initial ED EKG: normal sinus rhythm, no ST T wave changes Departure Departure Disposition: HOME OR SELF CARE Condition: Stable Clinical Impression Primary Impression: Panic attack as reaction to stress Referrals: Brent ACUNA,Chase Elizabeth (PCP/Family) Additional Instructions: Follow up with your oncologist and GI specialist. Tell them about this ER encounter. You can take an Ativan if you feel the same symptoms that brought you here, but do not drive or operate machinery after. The medication may make you sleepy or confused. Return to ER if any new or worsening symptoms. Departure Forms: Customer Survey General Discharge Information Prescriptions: Current Visit Scripts Lorazepam (Ativan) 0.5 TAB PO DAILY NEEDED PRN PANIC #10 TAB Furosemide (Lasix) 1 TAB PO DAILY #30 TAB Ref 3 Prednisone 1 TAB PO BID #10 TAB Critical Care Note Critical Care Note Critical Care Time: 30-74 min
[2018-02-07 10:37] LABS: ABSOLUTE BASOPHIL COUNT 0.2 /CUMM (0.0-0.2); ABSOLUTE EOSINOPHIL COUNT 0.3 /CUMM (0.0-0.7); ABSOLUTE GRANULOCYTE CT 8.7 /CUMM (1.4-6.5); ABSOLUTE LYMPH COUNT 2.1 /CUMM (1.2-3.4); ABSOLUTE MONOCYTE COUNT 1.3 /CUMM (0.10-0.60); BASOPHIL % 1.4 % (0.0-2.0); EOSINOPHIL % 2.1 % (0-5); GRANULOCYTE % 69.5 % (42.2-75.2); HEMATOCRIT 25.6 % (37-47); MEAN CORPUSCULAR HGB 24.2 PG (27.0-31.0); MEAN CORPUSCULAR HGB CONC 30.4 G/DL (33.0-37.0); MEAN CORPUSCULAR VOLUME 79.5 FL (81.0-99.0); MEAN PLATELET VOLUME 6.9 FL (7.4-10.4); PLATELET COUNT 411 /CUMM (130-400); RBC DISTRIBUTION WIDTH 24.6 % (11.5-14.5); RED BLOOD CELL CT 3.23 /CUMM (4.20-5.40); WHITE BLOOD CELL COUNT 12.5 /CUMM (4.8-10.8)
--- NOTE | 2018-02-07 11:14 | RADIOLOGY REPORT ---
EXAMINATION: XR CHEST CLINICAL INFORMATION: Dyspnea with lower extremity edema. COMPARISON: Chest radiograph 01/25/2018. TECHNIQUE: 2 views of the chest were obtained. FINDINGS: There is diffuse prominence of the background interstitium which is stable since 01/25/2018 it has developed since 01/21/2018. No alveolar edema, pleural effusion, dense consolidation, or pneumothorax. Normal cardiomediastinal silhouette. The osseous structures are intact. IMPRESSION: Stable exam since 01/25/2018 with diffuse prominence of the background interstitium which may represent interstitial edema.
[2018-02-07 12:19] VITALS: BP 135/72
[2018-02-07] MEDS ORDERED: ATIVAN0.5 M1 PO (12:40)
[2018-02-07] MEDS ORDERED: PREDNISONE10 M2 PO (12:44)
[2018-02-07] MEDS ORDERED: LASIX40 M1 PO (12:44)
== END 2018-02-07 12:55 ==
LOC: ERH 09:33
PROVIDERS: Internal Medicine
DX: F41.0 Panic disorder [episodic paroxysmal anxiety] (principal); F43.9 Reaction to severe stress, unspecified
CPT/HCPCS: 71046; 93005; 93010

== ENCOUNTER 2018-02-19 05:51 | Emergency (ER) | payer OTHER ==
[~2018-02-19 05:51] MED LIST changes: +ATIVAN0.5 M1 PO
--- NOTE | 2018-02-19 05:58 | ED DYSPNEA/ASTHMA COMPLAINT ---
History of Present Illness General Chief Complaint: Dyspnea (COPD, CHF, Other) Stated Complaint: BIBA SOB Source: patient, old records, EMS Exam Limitations: no limitations Vital Signs & Intake/Output Vital Signs & Intake/Output Vital Signs Date Time Temp Pulse Resp B/P B/P Pulse O2 O2 Flow FiO2 Mean Ox Delivery Rate 02/19 0816 93 02/19 0809 98.4 92 20 133/70 92 Room Air 02/19 0607 Room Air 02/19 0556 99.1 95 22 148/66 96 Room Air Allergies Coded Allergies: No Known Allergies (12/11/17) Triage Note: BIBA FROM HOME, WOKE UP WITH SOB/WHEEZES. PT HAS HX COPD. PT TOOK DUONEB AT HOME WITHNO RELIEF, RECIEVED DUO NEB IN ABULANCE WELL. PT AOX3 ON ARRIVAL, AUDIBLE WHEEZES NOTED. DR FINLEY IN FOR EVAL Triage Nurses Notes Reviewed? yes HPI: Patient brought in by ambulance for increasing shortness of breath and wheezing. Patient has also had orthopnea over the past 2-3 weeks. Patient was at the infusion center yesterday. For a unit of blood. Patient saw her surgeon yesterday in anticipation of having a Port-A-Cath inserted. Patient finished steroids approximately one week ago after a COPD exacerbation. For the past 2 days patient has been having increasing shortness of breath and wheezing. Positive nonproductive cough. No fevers chills. No chest pain or chest tightness. Patient used a DuoNeb at home with no relief and then was given another DuoNeb by EMS and she is currently feeling better. (Prince ACUNA,Chase Matthews) Reconcile Medications Albuterol Sulfate (Proair Hfa) 90 MCG HFA.AER.AD 2 PUF INH Q4-6 PRN PRN ASTHMA Albuterol Sulfate (Proair Hfa) 90 MCG HFA.AER.AD 2 PUF INH Q4-6 PRN PRN ASTHMA Albuterol Sulfate 1.25 MG/3 ML VIAL.NEB 1 Vial INH/THA Q4-6 PRN WHEEZING Aspirin (Aspirin*) 81 MG TAB.CHEW 1 TAB PO DAILY Heart health . Azithromycin (Zithromax) 500 MG TABLET 1 TAB PO DAILY URI Buprenorphine HCl/Naloxone HCl (Suboxone 12 MG-3 MG Sl Film) 12 MG-3 MG FILM 1 STR SL DAILY CHRONIC PAIN (Reported) Fluticasone Propionate 50 MCG/ACTUATION SPRAY.SUSP 2 SPRAY NASB AD PRN ALLERGIES/ASTHMA (Reported) Fluticasone/Salmeterol (Advair 500-50 Diskus) 500 MCG-50 MCG/DOSE BLST.W.DEV 1 PUF INH BID ASTHMA (Reported) Furosemide (Lasix) 40 MG TABLET 1 TAB PO DAILY edema (Reported) Furosemide (Lasix) 40 MG TABLET 1 TAB PO DAILY EDEMA Lorazepam (Ativan) 0.5 MG TABLET 0.5 TAB PO DAILY NEEDED PRN PANIC Montelukast Sodium 10 MG TABLET 1 TAB PO AD PRN ALLERGIES/ASTHMA (Reported) Pantoprazole Sodium (Protonix) 40 MG TABLET.DR 2 TAB PO BID GI BLEED Potassium Citrate (Potassium Citrate ER) 10 MEQ (1,080 MG) TABLET.ER 2 TAB PO BID LOW POTASSIUM Prednisone 10 MG TABLET 1 TAB PO BID COPD Prednisone 20 MG TABLET 1 TAB PO BID asthma Prednisone 20 MG TABLET 1 TAB PO BID copd Prednisone 10 MG TABLET 1 TAB PO AD INFLAMMATION DAY1/DAY2 FOUR TABS DAILY DAY3/DAY4 THREE TABS DAILY DAY5/DAY6 TWO TABS DAILY DAY7 ONE TAB (Buster ACUNA,Trino) Past History Travel History Traveled to [place] past 21 day No Medical History Any Pertinent Medical History? 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 MOTHER (Asthma). Uncle (Diabetes). BROTHER (sudden ; possibly cardiac.). Hx Contributory? No (Prince ACUNA,Chase Matthews) Review of Systems Review of Systems Constitutional: Reports: no symptoms. EENTM: Reports: no symptoms. Respiratory: Reports: see HPI. Cardiovascular: Reports: no symptoms. GI: Reports: no symptoms. Genitourinary: Reports: no symptoms. Musculoskeletal: Reports: no symptoms. Skin: Reports: no symptoms. Neurological/Psychological: Reports: no symptoms. Hematologic/Endocrine: Reports: no symptoms. Immunologic/Allergic: Reports: no symptoms. All Other Systems: Reviewed and Negative (Prince ACUNA,Chase Matthews) Physical Exam Physical Exam General Appearance: well developed/nourished, alert, awake, anxious, mild distress Head: atraumatic, normal appearance Eyes: Bilateral: PERRL, EOMI. Ears, Nose, Throat: normal pharynx, normal ENT inspection, hearing grossly normal Respiratory: chest non-tender, wheezing Cardiovascular: regular rate/rhythm, normal peripheral pulses Gastrointestinal: normal bowel sounds, soft, non-tender Extremities: normal inspection, normal capillary refill, normal range of motion, pedal edema Neurologic/Psych: no motor/sensory deficits, awake, alert, oriented x 3, normal mood/affect Skin: intact, normal color, warm/dry Lymphatic: no anterior cervical josue Core Measures ACS in differential dx? No CVA/TIA Diagnosis No Sepsis Present: No Sepsis Focused Exam Completed? No (Prince ACUNA,Chase Matthews) Progress Differential Diagnosis: asthma, AMI, bronchitis, CHF, COPD, pneumonia Plan of Care: Orders Procedure Date/time Status TROPONIN LEVEL 02/19 557 Complete COMPREHENSIVE METABOLIC PANEL 02/19 557 Complete CBC WITHOUT DIFFERENTIAL 02/19 557 Complete B-TYPE NATRIURETIC PEP (BNP) 02/19 557 Complete EKG 02/19 05 Active Laboratory Tests 02/19/18 0619: Anion Gap 7, Estimated GFR > 60, BUN/Creatinine Ratio 28.8 H, Glucose 96, Calcium 9.2, Total Bilirubin 0.4, AST 17, ALT 39, Alkaline Phosphatase 88, Troponin I < 0.01, Xsm-T-Vzuqedubbxi Pept 111, Total Protein 6.4, Albumin 3.7, Globulin 2.7, Albumin/Globulin Ratio 1.4, CBC w Diff MAN DIFF ORDERED, RBC 3.73 L, MCV 76.9 L, MCH 24.0 L, MCHC 31.2 L, RDW 26.4 H, MPV 6.6 L, Segmented Neutrophils 86 H, Band Neutrophils 4, Lymphocytes 4 L, Monocytes 5, Metamyelocytes 1, Nucleated RBCs 1 H, Platelet Estimate INCREASED, Polychromasia 1+, Hypochromic-Microcytic 2+, Poikilocytosis 1+, Basophilic Stippling 1+, Anisocytosis 1+, Microcytic Cells 1+, Stomatocytes 1+, Elliptocytes 1+ Diagnostic Imaging: Viewed by Me: Radiology Read. Discussed w/RAD: Radiology Read. 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 ORDERING PHYSICIAN: Chase Finley MD SERVICE DATE: 02/19/18 EXAM TYPE: RAD - XRY-PORTABLE CHEST XRAY EXAMINATION: XR PORTABLE CHEST CLINICAL INFORMATION: Orthopnea COMPARISON: 02/07/2018 TECHNIQUE: Portable frontal view of the chest was obtained. FINDINGS: Overlying soft tissue somewhat limits the evaluation. The lungs are well expanded. There is no focal consolidation, edema, or effusion. No pneumothorax. The cardiomediastinal silhouette is within normal limits. No acute osseous abnormality. IMPRESSION: No acute pulmonary finding. DICTATED BY: Cristo Pelaez MD DATE/TIME DICTATED:02/19/18615 RN [facility]: [facility] DATE/TIME TRANSCRIBED:02/19/18615 CONFIDENTIAL, DO NOT COPY WITHOUT APPROPRIATE AUTHORIZATION. <Electronically signed in Other Vendor System> SIGNED BY: Cristo Pelaez MD 02/19/18620 Initial ED EKG: NSR, nonspecific ST T wave chg Prior EKG: unchanged Hand-Off Endorsed To: Trino Goins MD Endorsed Time: 0700 Pending: labs (Chase Finley MD) Comments: Feels better still with wheezing. Neb tx prior to discharge. (Trino Goins MD) Departure Departure Condition: Stable Clinical Impression Primary Impression: COPD exacerbation Referrals: Chase Kennedy MD (PCP/Family) Departure Forms: Customer Survey General Discharge Information (Chase Finley MD) Departure Time of Disposition: 829 Disposition: HOME OR SELF CARE Prescriptions: Current Visit Scripts Prednisone 1 TAB PO BID #10 TAB (Trino Goins MD) Critical Care Note Critical Care Note Critical Care Time: non-applicable (Chase Finley MD) Time of Disposition: 829 Disposition: HOME OR SELF CARE Prescriptions: Current Visit Scripts Prednisone 1 TAB PO BID #10 TAB (Trino Goins MD) Critical Care Note Critical Care Note Critical Care Time: non-applicable (Prince ACUNA,Chase Matthews)
--- NOTE | 2018-02-19 06:21 | RADIOLOGY REPORT ---
EXAMINATION: XR PORTABLE CHEST CLINICAL INFORMATION: Orthopnea COMPARISON: 02/07/2018 TECHNIQUE: Portable frontal view of the chest was obtained. FINDINGS: Overlying soft tissue somewhat limits the evaluation. The lungs are well expanded. There is no focal consolidation, edema, or effusion. No pneumothorax. The cardiomediastinal silhouette is within normal limits. No acute osseous abnormality. IMPRESSION: No acute pulmonary finding.
[2018-02-19 06:39] LABS: HEMATOCRIT 28.7 % (37-47); MEAN CORPUSCULAR HGB CONC 31.2 G/DL (33.0-37.0); MEAN CORPUSCULAR VOLUME 76.9 FL (81.0-99.0); MEAN PLATELET VOLUME 6.6 FL (7.4-10.4); PLATELET COUNT 578 /CUMM (130-400); RBC DISTRIBUTION WIDTH 26.4 % (11.5-14.5); RED BLOOD CELL CT 3.73 /CUMM (4.20-5.40); WHITE BLOOD CELL COUNT 12.7 /CUMM (4.8-10.8)
[2018-02-19] MEDS ORDERED: PREDNISONE20 M1 PO (07:55)
[2018-02-19 08:09] VITALS: BP 133/70
== END 2018-02-19 08:38 ==
LOC: ERH 05:51
PROVIDERS: Emergency Medicine
DX: J44.1 Chronic obstructive pulmonary disease with (acute) exacerbation (principal); Z87.891 Personal history of nicotine dependence; R06.2 Wheezing
CPT/HCPCS: 1263; 71045; 93005; 93010

== ENCOUNTER 2018-02-21 10:47 | Inpatient (IN) | payer OTHER ==
[~2018-02-21] VITALS: Ht 154.9 cm; Wt 122.6 kg
--- NOTE | 2018-02-21 11:41 | ED GENERAL ADULT ---
History of Present Illness General Chief Complaint: Dyspnea (COPD, CHF, Other) Stated Complaint: SOB Vital Signs & Intake/Output Vital Signs & Intake/Output Vital Signs Date Time Temp Pulse Resp B/P B/P Pulse O2 O2 Flow FiO2 Mean Ox Delivery Rate 02/21 1053 96.8 96 18 119/68 94 Room Air Allergies Coded Allergies: No Known Allergies (12/11/17) Reconcile Medications Albuterol Sulfate (Proair Hfa) 90 MCG HFA.AER.AD 2 PUF INH Q4-6 PRN PRN ASTHMA Albuterol Sulfate (Proair Hfa) 90 MCG HFA.AER.AD 2 PUF INH Q4-6 PRN PRN ASTHMA Albuterol Sulfate 1.25 MG/3 ML VIAL.NEB 1 Vial INH/THA Q4-6 PRN WHEEZING Aspirin (Aspirin*) 81 MG TAB.CHEW 1 TAB PO DAILY Heart health . Azithromycin (Zithromax) 500 MG TABLET 1 TAB PO DAILY URI Buprenorphine HCl/Naloxone HCl (Suboxone 12 MG-3 MG Sl Film) 12 MG-3 MG FILM 1 STR SL DAILY CHRONIC PAIN (Reported) Fluticasone Propionate 50 MCG/ACTUATION SPRAY.SUSP 2 SPRAY NASB AD PRN ALLERGIES/ASTHMA (Reported) Fluticasone/Salmeterol (Advair 500-50 Diskus) 500 MCG-50 MCG/DOSE BLST.W.DEV 1 PUF INH BID ASTHMA (Reported) Furosemide (Lasix) 40 MG TABLET 1 TAB PO DAILY edema (Reported) Furosemide (Lasix) 40 MG TABLET 1 TAB PO DAILY EDEMA Lorazepam (Ativan) 0.5 MG TABLET 0.5 TAB PO DAILY NEEDED PRN PANIC Montelukast Sodium 10 MG TABLET 1 TAB PO AD PRN ALLERGIES/ASTHMA (Reported) Pantoprazole Sodium (Protonix) 40 MG TABLET.DR 2 TAB PO BID GI BLEED Potassium Citrate (Potassium Citrate ER) 10 MEQ (1,080 MG) TABLET.ER 2 TAB PO BID LOW POTASSIUM Prednisone 10 MG TABLET 1 TAB PO BID COPD Prednisone 20 MG TABLET 1 TAB PO BID asthma Prednisone 20 MG TABLET 1 TAB PO BID copd Prednisone 10 MG TABLET 1 TAB PO AD INFLAMMATION DAY1/DAY2 FOUR TABS DAILY DAY3/DAY4 THREE TABS DAILY DAY5/DAY6 TWO TABS DAILY DAY7 ONE TAB Triage Note: PT TO ER C/C SOB X 5 HRS, HX OF COPD. STATES SHE HAS BEEN USING BREATHING TX W/O RELIEF. B/L LOWER EXT EDEMA NOTED, STATES TAKING LASIX W/O DECREASE IN SWELLING. PER PT STATES SHE HAD CHEST PAIN LAST NIGHT, LASTING 5 MINS. 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 MOTHER (Asthma). Uncle (Diabetes). BROTHER (sudden ; possibly cardiac.). Progress Plan of Care: Orders Procedure Date/time Status EKG 02/21 1053 Active Departure Departure Condition: Stable Referrals: Brent ACUNA,Chase Elizabeth (PCP/Family) Departure Forms: Customer Survey General Discharge Information
--- NOTE | 2018-02-21 11:55 | ED DYSPNEA/ASTHMA COMPLAINT ---
History of Present Illness General Chief Complaint: Dyspnea (COPD, CHF, Other) Stated Complaint: SOB Source: patient, old records Exam Limitations: no limitations Vital Signs & Intake/Output Vital Signs & Intake/Output Vital Signs Date Time Temp Pulse Resp B/P B/P Pulse O2 O2 Flow FiO2 Mean Ox Delivery Rate 02/21 1333 97.8 83 22 122/76 94 Room Air 02/21 1215 98 02/21 1151 Room Air 02/21 1053 96.8 96 18 119/68 94 Room Air Allergies Coded Allergies: No Known Allergies (12/11/17) Reconcile Medications Albuterol Sulfate (Proair Hfa) 90 MCG HFA.AER.AD 2 PUF INH Q4-6 PRN PRN ASTHMA Albuterol Sulfate 1.25 MG/3 ML VIAL.NEB 1 Vial INH/THA Q4-6 PRN WHEEZING Buprenorphine HCl/Naloxone HCl (Suboxone 12 MG-3 MG Sl Film) 12 MG-3 MG FILM 1 STR SL DAILY CHRONIC PAIN (Reported) Ferrous Sulfate 325 MG (65 MG IRON) TABLET 1 TAB PO BID SUPPLEMENT (Reported) Fluticasone Propionate 50 MCG/ACTUATION SPRAY.SUSP 2 SPRAY NASB AD PRN ALLERGIES/ASTHMA (Reported) Fluticasone/Salmeterol (Advair 500-50 Diskus) 500 MCG-50 MCG/DOSE BLST.W.DEV 1 PUF INH BID ASTHMA (Reported) Furosemide (Lasix) 40 MG TABLET 1 TAB PO DAILY edema (Reported) Montelukast Sodium 10 MG TABLET 1 TAB PO AD PRN ALLERGIES/ASTHMA (Reported) Omeprazole 40 MG CAPSULE.DR 1 CAP PO DAILY GI (Reported) Potassium Citrate (Potassium Citrate ER) 10 MEQ (1,080 MG) TABLET.ER 2 TAB PO BID LOW POTASSIUM Prednisone 20 MG TABLET 1 TAB PO BID copd Tiotropium [place] (Spiriva) 18 MCG CAP.W.DEV 1 CAP INH DAILY RESP. (Reported ) Triage Note: PT TO ER C/C SOB X 5 HRS, HX OF COPD. STATES SHE HAS BEEN USING BREATHING TX W/O RELIEF. B/L LOWER EXT EDEMA NOTED, STATES TAKING LASIX W/O DECREASE IN SWELLING. PER PT STATES SHE HAD CHEST PAIN LAST NIGHT, LASTING 5 MINS. EKG ORDERED AT THIS TIME Triage Nurses Notes Reviewed? yes HPI: Patient presents with worsening shortness of breath and dyspnea on exertion as well as wheezing. Patient used her home nebulizer without any relief. Patient was seen 2 days ago for similar symptoms and was discharged on steroids which she has been taking. Patient is also feeling very anxious. Patient denies any chest pain or chest tightness. There is no orthopnea. Patient was due to have a Port-A-Cath inserted yesterday however she could not have it done because of her respiratory status. Past History Travel History Traveled to [place] past 21 day No Medical History Any Pertinent Medical History? 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 MOTHER (Asthma). Uncle (Diabetes). BROTHER (sudden ; possibly cardiac.). Hx Contributory? No Review of Systems Review of Systems Constitutional: Reports: no symptoms. EENTM: Reports: no symptoms. Respiratory: Reports: see HPI, short of breath, wheezing. Cardiovascular: Reports: no symptoms. GI: Reports: no symptoms. Genitourinary: Reports: no symptoms. Musculoskeletal: Reports: no symptoms. Skin: Reports: no symptoms. Neurological/Psychological: Reports: no symptoms. Hematologic/Endocrine: Reports: no symptoms. Immunologic/Allergic: Reports: no symptoms. All Other Systems: Reviewed and Negative Physical Exam Physical Exam General Appearance: well developed/nourished, alert, awake, anxious, moderate distress Head: atraumatic, normal appearance Eyes: Bilateral: PERRL, EOMI. Ears, Nose, Throat: normal pharynx, normal ENT inspection, hearing grossly normal Neck: normal inspection, supple, full range of motion Respiratory: wheezing, respiratory distress Cardiovascular: regular rate/rhythm, normal peripheral pulses Gastrointestinal: normal bowel sounds, soft, non-tender, no organomegaly Extremities: normal inspection, normal capillary refill, normal range of motion, no edema Neurologic/Psych: no motor/sensory deficits, awake, alert, oriented x 3, normal mood/affect Skin: intact, normal color, warm/dry Lymphatic: no anterior cervical josue Core Measures ACS in differential dx? No CVA/TIA Diagnosis No Sepsis Present: No Sepsis Focused Exam Completed? No Progress Differential Diagnosis: asthma, bronchitis, COPD, pulmonary embolism, pneumonia Plan of Care: Orders Procedure Date/time Status Heart Healthy Diet 02/21 D Active Intake & Output 02/21 1325 Active Patient Data 02/21 1208 Active ED Holding Orders 02/21 1207 Active Admit to inpatient 02/21 1207 Active Vital Signs 02/21 1207 Active Code Status 02/21 1207 Active AEROSOL (GEN) 02/21 1204 Complete XRY-LUMBOSACRAL SPINE AP & LAT 02/21 1152 Active XRY-CHEST XRAY, TWO VIEWS 02/21 1152 Active Telemetry/World Travel Counselor 02/21 1152 Active TROPONIN LEVEL 02/21 1152 Active COMPREHENSIVE METABOLIC PANEL 02/21 1152 Active CBC WITHOUT DIFFERENTIAL 02/21 1152 Complete EKG 02/21 1053 Active Laboratory Tests 02/21/18 1300: Anion Gap 6, Estimated GFR > 60, BUN/Creatinine Ratio 41.7 H, Glucose 121 H, Calcium 9.1, Total Bilirubin 0.5, AST 21, ALT 44, Alkaline Phosphatase 82, Troponin I Pending, Total Protein 6.2 L, Albumin 3.7, Globulin 2.5, Albumin/ Globulin Ratio 1.5, CBC w Diff MAN DIFF ORDERED, RBC 3.77 L, MCV 77.2 L, MCH 23.6 L, MCHC 30.6 L, RDW 27.2 H, MPV 6.6 L, Segmented Neutrophils 83 H, Band Neutrophils 1, Lymphocytes 12 L, Monocytes 4, Platelet Estimate VERIFIED BY SMEAR, Polychromasia 1+, Hypochromic-Microcytic 2+, Poikilocytosis 1+, Anisocytosis 2+, Microcytic Cells 1+, Ovalocytes 1+ Diagnostic Imaging: Viewed by Me: Radiology Read. Discussed w/RAD: Radiology Read. Initial ED EKG: NSR, nonspecific ST T wave chg Prior EKG: unchanged Departure Departure Disposition: STILL A PATIENT Condition: Guarded Clinical Impression Primary Impression: COPD exacerbation Referrals: Chase Kennedy MD (PCP/Family) Departure Forms: Customer Survey General Discharge Information Admission Note Spoke With: Sera Mckeon MD Documentation of Exam: Documentation of any treatments & extenuating circumstances including Concerns Regarding Discharge (functional status, medication knowledge or non-compliance, living conditions, etc.) that warrant an admission rather than observation: [ Patient to be admitted for COPD exacerbation pill outpatient treatment. She'll need IV steroids, IV antibiotics, nebulizers, pulmonary consultation. Once her respiratory status is improved she will need a Port-A-Cath inserted.] Critical Care Note Critical Care Note Critical Care Time: non-applicable respiratory status is improved she will need a Port-A-Cath inserted.]
[2018-02-21] MEDS ORDERED: SPIRIVA18 MCG INH (12:26)
[2018-02-21] MEDS ORDERED: FERROUS SULFAT325 M3 PO (12:26)
[2018-02-21] MEDS ORDERED: OMEPRAZOLE40 M1 PO (12:26)
[2018-02-21 13:16] LABS: HEMATOCRIT 29.1 % (37-47); MEAN CORPUSCULAR HGB 23.6 PG (27.0-31.0); MEAN CORPUSCULAR HGB CONC 30.6 G/DL (33.0-37.0); MEAN CORPUSCULAR VOLUME 77.2 FL (81.0-99.0); MEAN PLATELET VOLUME 6.6 FL (7.4-10.4); PLATELET COUNT 573 /CUMM (130-400); RBC DISTRIBUTION WIDTH 27.2 % (11.5-14.5); RED BLOOD CELL CT 3.77 /CUMM (4.20-5.40); WHITE BLOOD CELL COUNT 11.9 /CUMM (4.8-10.8)
--- NOTE | 2018-02-21 13:51 | History & Physical ---
Jerrod Alvarado MD 02/21/18 1351: General Information and HPI History of Present Illness: 52-year-old woman with past medical history of 52-year-old woman with past medical history of COPD not on home oxygen, asthma, chronic lower extremity edema, GI bleed, DJD, and gastrointestinal cancer seen for evaluation of shortness of breath and nonproductive cough. Patient was previously admitted to [facility] from 01/02/18-01/05/18 for evaluation of shortness of breath for which she was found to have acute gastrointestinal bleed with acute blood loss anemia requiring 2 units of packed red blood cells. An upper endoscopy was performed that demonstrated 2 malignant appearing ulcers which were biopsied. Patient followed up with oncologist Dr. Willams for outpatient treatment and was scheduled for Port-A-Cath placement yesterday however did not attend the appointment due to shortness of breath and anxiety. Patient was seen in the [facility] on 02/19/18 when her symptoms of shortness of breath and cough started for which she was discharged home on oral prednisone taper. Presently patient states that her shortness of breath is persistent but bearable with persistence of her dry nonproductive cough. She admits to feeling "puffy" and profoundly fatigued but otherwise denies any complaints. Review of systems Specifically she denies any headache, fever, chills, blurred/double vision, lightheadedness/dizziness, chest pain, palpitations, heartburn, nausea, vomiting , diarrhea, bowel/bladder complaints. Objective Vital signs -Temp: 96.8 -HR: 96 -RR: 18 -BP: 119/68 -02: 94% on room air Physical exam -Gen.: Ill-appearing middle-aged obese woman in no acute distress -HEENT: NCAT, PERRLA, EOMI, dry oral mucosa -Neck: Supple, no JVD, trachea midline, no accessory respiratory muscle use -Cardio: Normal S1/S2 without murmurs/gallops/rubs; regular rate and rhythm -Pulmonary: Bibasilar wheezing with diminished airflow, nonproductive cough, breathing room air -Abdomen: Soft, nontender, nondistended, bowel sounds intact -Neuro: Awake and alert, cranial nerves II through XII grossly intact -Extremities: 2+ nonpitting bilateral lower extremity edema, no cyanosis Labs/imaging/studies -CBC: WBC 11.9, hemoglobin 8.9, hematocrit 29.1, platelet 573 -BMP: Sodium 139, potassium 4.4, chloride 95, CO2 38, urea 25, creatinine 0.6, anion gap 6, glucose 121 -miscellaneous: Troponin I <0.01 -CXR: Unremarkable chest radiograph. No consolidative disease or effusion. -Lumbar spine x-ray: Stable grade 1 anterolisthesis of L4 on L5 that appears to be related to advanced facet degenerative changes at this level. Otherwise unremarkable examination. -EKG: Normal sinus rhythm Assessment 52-year-old morbidly obese woman with with multiple medical problems significant for recent diagnosis of gastrointestinal cancer, GI bleed, COPD not on home oxygen, and asthma seen for evaluation of progressively worsening shortness of breath and nonproductive cough. Patient saturating well on room air without supplemental oxygen and is in no acute respiratory distress. On exam she does have bilateral lower lobe expiratory wheezing and appears moderately anxious. She is afebrile with mild leukocytosis most likely secondary to recent steroid use. Clinically she appears to have a mild COPD exacerbation with moderate associated anxiety probably made worse by steroids. She is to be maintained on intravenous steroids, azithromycin, and Protonix for her history of GI cancer/bleed. She is to be seen by pulmonology and psychiatry for further evaluation and admitted to the general medicine floor. Problem list -COPD exacerbation -Anxiety -History of COPD not on home oxygen -GI cancer -History of GI bleed/anemia -DJD -History of asthma -Morbid obesity Plan -Admit to general medicine -[facility] with scheduled albuterol/ipratropium nebs -Supplemental oxygen, goal >92%, taper as tolerated -Accu-Cheks while receiving steroids -Type and cross -Guaiac all stools -Solu-Medrol 40 mg IV every 12 hours -Azithromycin 500 mg IV daily -Protonix 40 mg IV daily while on steroids -Ativan 0.5 mg by mouth every 6 hours as needed for anxiety -Continue home meds: Suboxone, iron supplement, Flonase, Singulair, and potassium -Hold Advair and Spiriva while receiving nebs -Pulmonology consult for COPD exacerbation -Psychiatry consult for anxiety -Sputum culture -Pain control with acetaminophen and Suboxone -Heart healthy diet -DVT prophylaxis with Alps, no pharmacological prophylaxis due to anemia/GI bleed -full code Allergies/Medications Allergies: Coded Allergies: No Known Allergies (12/11/17) Home Med list Albuterol Sulfate (Proair Hfa) 90 MCG HFA.AER.AD 2 PUF INH Q4-6 PRN PRN ASTHMA Albuterol Sulfate 1.25 MG/3 ML VIAL.NEB 1 Vial INH/THA Q4-6 PRN WHEEZING Buprenorphine HCl/Naloxone HCl (Suboxone 12 MG-3 MG Sl Film) 12 MG-3 MG FILM 1 STR SL DAILY CHRONIC PAIN (Reported) Ferrous Sulfate 325 MG (65 MG IRON) TABLET 1 TAB PO BID SUPPLEMENT (Reported) Fluticasone Propionate 50 MCG/ACTUATION SPRAY.SUSP 2 SPRAY NASB AD PRN ALLERGIES/ASTHMA (Reported) Fluticasone/Salmeterol (Advair 500-50 Diskus) 500 MCG-50 MCG/DOSE BLST.W.DEV 1 PUF INH BID ASTHMA (Reported) Furosemide (Lasix) 40 MG TABLET 1 TAB PO DAILY edema (Reported) Montelukast Sodium 10 MG TABLET 1 TAB PO AD PRN ALLERGIES/ASTHMA (Reported) Omeprazole 40 MG CAPSULE.DR 1 CAP PO DAILY GI (Reported) Potassium Citrate (Potassium Citrate ER) 10 MEQ (1,080 MG) TABLET.ER 2 TAB PO BID LOW POTASSIUM Tiotropium [place] (Spiriva) 18 MCG CAP.W.DEV 1 CAP INH DAILY RESP. (Reported ) Past History Travel History Traveled to [place] past 21 day No Medical History Neurological: NONE EENT: NONE Cardiovascular: NONE Respiratory: asthma, COPD Gastrointestinal: GI BLEED Hepatic: NONE Renal: NONE Musculoskeletal: degen joint disease Psychiatric: NONE Endocrine: NONE Blood Disorders: NONE Cancer(s): STOMACH CANCER GYRO MECHANIC/Reproductive: NONE History of MRSA: No History of VRE: No History of CDIFF: No Surgical History Surgical History: unobtainable Past Family/Social History Family History Relations & Conditions if any FATHER (Heart Disease). MOTHER (Asthma). Uncle (Diabetes). BROTHER (sudden ; possibly cardiac.). Psychosocial History Services at Home: None ETOH Use: denies use Illicit Drug Use: denies illicit drug use Review of Systems Review of Systems Constitutional: Reports: see HPI. Exam & Diagnostic Data Last 24 Hrs of Vital Signs/I&O Vital Signs Date Time Temp Pulse Resp B/P B/P Pulse O2 O2 Flow FiO2 Mean Ox Delivery Rate 02/21 1434 98.1 72 22 132/80 02/21 1412 Room Air 02/21 1333 97.8 83 22 122/76 94 Room Air 02/21 1215 98 02/21 1151 Room Air 02/21 1053 96.8 96 18 119/68 94 Room Air Intake & Output 02/21 1600 02/21 0800 02/21 0000 Intake Total 0 Output Total Balance 0 Intake, Oral 0 Patient 112.945 kg Weight Weight Reported by Patient Measurement Method Assessment/Plan As Ranked By This Provider Problem List: 1. COPD exacerbation Core Measures/Misc (07/20) Acute Coronary Syndrome ACS Diagnosis: No Congestive Heart Failure Congestive Heart Failure Diagnosis No Cerebrovascular Accident CVA/TIA Diagnosis: No VTE (View Protocol) VTE Risk Factors Age>40 No Mechanical VTE Prophylaxis d/t N/A MechProphylax Ordered No VTE Pharm Prophylaxis d/t Other (Hx of GIB with GI CA/ANEMIA) Sepsis (View protocol) Sepsis Present: No Sera Mckeon MD 02/21/18 1701: Attending MD Review Statement Attending Statement Attending MD Statement: examined this patient, discuss w/resident/PA/PROCUREMENT SPECIALIST, agreed w/resident/PA/PROCUREMENT SPECIALIST, discussed with family, reviewed EMR data (avail), discussed with nursing, reviewed images, amended to note Attending Assessment/Plan: 52-year-old female COPD not on home oxygen, asthma, chronic lower extremity edema, GI bleed, DJD, recently 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 Patient was seen 2 days ago in the emergency room with some shortness of breath and was discharged on by mouth prednisone. She was scheduled by Dr. Jones for the Port-A-Cath placement which unfortunately could not be done secondary to her feeling short of breath. She is combining of shortness of breath, dry cough and wheezing. Claims that prednisone did not help. She denies any fevers or chills. Patient does fall asleep partially during the conversation which her daughter reports that has been present for a long time. He denies any fevers or chills. He denies any nausea vomiting. She is anxious about her current diagnoses. Daughter and patient confirmed that she has been getting more swollen lately with swelling everywhere on her body. Vital Signs Date Time Temp Pulse Resp B/P B/P Pulse O2 O2 Flow FiO2 Mean Ox Delivery Rate 02/21 1434 98.1 72 22 132/80 02/21 1412 Room Air 02/21 1333 97.8 83 22 122/76 94 Room Air 02/21 1215 98 02/21 1151 Room Air 02/21 1053 96.8 96 18 119/68 94 Room Air on exam; aox3, nad. cv; s1,s2, rrr resp; b/l sacttered wheeze. abd; soft, nt, bs+ ext; 2+ edema b/l. Laboratory Tests 02/21 1300 Chemistry Sodium (137 - 145 mmol/L) 139 Potassium (3.5 - 5.1 mmol/L) 4.4 Chloride (98 - 107 mmol/L) 95 L Carbon Dioxide (22 - 30 mmol/L) 38 H Anion Gap (5 - 16) 6 BUN (7 - 17 mg/dL) 25 H Creatinine (0.5 - 1.0 mg/dL) 0.6 Estimated GFR (>60 ml/min) > 60 BUN/Creatinine Ratio (7 - 25 %) 41.7 H Glucose (65 - 99 mg/dL) 121 H Calcium (8.4 - 10.2 mg/dL) 9.1 Total Bilirubin (0.2 - 1.3 mg/dL) 0.5 AST (14 - 36 U/L) 21 ALT (9 - 52 U/L) 44 Alkaline Phosphatase (<127 U/L) 82 Troponin I (< 0.11 ng/ml) < 0.01 Total Protein (6.3 - 8.2 g/dL) 6.2 L Albumin (3.5 - 5.0 g/dL) 3.7 Globulin (1.9 - 4.2 gm/dL) 2.5 Albumin/Globulin Ratio (1.1 - 2.2 %) 1.5 Hematology CBC w Diff MAN DIFF ORDERED WBC (4.8 - 10.8 /CUMM) 11.9 H RBC (4.20 - 5.40 /CUMM) 3.77 L Hgb (12.0 - 16.0 G/DL) 8.9 L Hct (37 - 47 %) 29.1 L MCV (81.0 - 99.0 FL) 77.2 L MCH (27.0 - 31.0 PG) 23.6 L MCHC (33.0 - 37.0 G/DL) 30.6 L RDW (11.5 - 14.5 %) 27.2 H Plt Count (130 - 400 /CUMM) 573 H MPV (7.4 - 10.4 FL) 6.6 L Segmented Neutrophils (42.2 - 75.2 %) 83 H Band Neutrophils (0.0 - 5.0 %) 1 Lymphocytes (20.5 - 51.1 %) 12 L Monocytes (1.7 - 9.3 %) 4 Platelet Estimate (ADEQUATE) VERIFIED BY SMEAR Polychromasia 1+ Hypochromic-Microcytic 2+ Poikilocytosis 1+ Anisocytosis 2+ Microcytic Cells 1+ Ovalocytes 1+ EKG shows normal sinus rhythm. No acute ST-T wave changes. Lumbar spine xray: IMPRESSION: Stable grade 1 anterolisthesis of L4 on L5 that appears to be related to advanced facet degenerative changes at this level. Otherwise unremarkable examination. CXR: IMPRESSION: Unremarkable chest radiograph. No consolidative disease or effusion. 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 Was scheduled for Port-A-Cath placement which could not be done secondary to patient's breathing status. Also she could not get clearance from refinery operator assistant. Patient is now admitted with acute COPD exacerbation, chronic anemia, worsening lower extremity edema and some anxiety. Patient admitted to medicine floor. She will be treated with IV steroids and IV azithromycin. No evidence of infiltrate on the chest x-ray. She will be started on IV diuresis. Will obtain bilateral lower extent D Doppler ultrasound. We'll continue her on TRC nebs. Will obtain sputum culture. Will obtain pulmonology consult. We will monitor H&H. Continue her other home meds. Patient received Ativan in the emergency room for anxiety which helped. We can continue her on low-dose benzodiazepines and will consult psychiatry for anxiety. Patient will have ALPS for DVT prophylaxis secondary to her recent history of GI bleed and gastric cancer. She is a full code
--- NOTE | 2018-02-21 14:06 | RADIOLOGY REPORT ---
EXAMINATION: XR CHEST CLINICAL INFORMATION: Shortness of breath. COMPARISON: Chest radiograph 02/07/2018. TECHNIQUE: 2 views of the chest were obtained. FINDINGS: Lungs are well-expanded. No focal consolidative disease, pleural effusion, or pneumothorax. The cardiac silhouette and upper mediastinal contours are normal. No acute osseous finding. IMPRESSION: Unremarkable chest radiograph. No consolidative disease or effusion.
--- NOTE | 2018-02-21 14:07 | RADIOLOGY REPORT ---
EXAMINATION: XR LUMBOSACRAL SPINE CLINICAL INFORMATION: Fracture and back pain. COMPARISON: Lumbar spine radiographs 12/11/2017. TECHNIQUE: 4 views of the lumbosacral spine were obtained. FINDINGS: There is grade 1 anterolisthesis of L4 on L5 that appears to be related to advanced facet degenerative changes at this level. Alignment is otherwise normal. Vertebral heights are preserved. No acute fracture. Sacroiliac joints are symmetric. Visualized bowel gas pattern is normal. IMPRESSION: Stable grade 1 anterolisthesis of L4 on L5 that appears to be related to advanced facet degenerative changes at this level. Otherwise unremarkable examination.
[2018-02-21 14:34] VITALS: BP 132/80
[2018-02-21 22:29] VITALS: BP 128/76
[2018-02-22 06:06] VITALS: BP 130/72
--- NOTE | 2018-02-22 07:32 | PN- Housestaff ---
Fallon Harris MD,[facility] 02/22/18 0732: Subjective Follow-up For: -COPD exacerbation -Anxiety -History of COPD not on home oxygen -GI cancer Subjective: Patient visited today, morbede obese lady, was lying in bed comfortably in no acute distress, was alert and oriented. No fever or chills, no chest pain, no other events. Reported improved shorness of breathing, still had cough, no sputum Review of Systems Constitutional: Reports: see HPI. Objective Last 24 Hrs of Vital Signs/I&O Vital Signs Date Time Temp Pulse Resp B/P B/P Pulse O2 O2 Flow FiO2 Mean Ox Delivery Rate 02/22 0810 94 Room Air 02/22 0606 98.4 98 16 130/72 91 02/22 0000 Nasal 2.0L Cannula 02/21 2229 98.2 94 22 128/76 91 Room Air 02/21 1719 Room Air 02/21 1600 Nasal 2.0L Cannula 02/21 1434 98.1 72 22 132/80 02/21 1412 Room Air 02/21 1333 97.8 83 22 122/76 94 Room Air 02/21 1215 98 02/21 1151 Room Air Intake & Output 02/22 1600 02/22 0800 02/22 0000 Intake Total 480 600 Output Total Balance 480 600 Intake, Oral 480 600 Patient 270 lb Weight Weight Bed scale Measurement Method Physical Exam General Appearance: Alert, Oriented X3, Cooperative, No Acute Distress, morbede obese Skin Temp/Moisture Exam: Warm/Dry Sepsis Skin Exam (color): Normal for Ethnicity Cardiovascular: Normal S1, Normal S2 Lungs: Normal Air Movement, decreased breathing sounds bilaterally Abdomen: Soft, No Tenderness Neurological: Normal Speech Extremities: obese Current Medications: Current Medications Sig/Pam Start time Last Medication Dose Route Stop Time Status Admin Acetaminophen 650 MG Q6P PRN 02/21 1430 AC PO Albuterol Sulfate 3 ML EVERY 4 HRS/AWAKE 02/21 2000 AC 02/22 INH 0812 Albuterol Sulfate 3 ML Q6 PRN 02/21 1445 AC INH Albuterol Sulfate 3 ML ONCE ONE 02/21 1200 DC 02/21 INH 02/21 1201 1203 Azithromycin 500 MG DAILY@1300 02/22 1300 AC Sodium Chloride 250 ML IV Azithromycin 500 MG ONCE ONE 02/21 1215 DC 02/21 Dextrose/Water 250 ML IV 02/21 1314 1305 Buprenorphine/ 1.5 TAB 0800 02/22 0800 AC 02/22 Naloxone SL 0905 Ceftriaxone Sodium 0 .STK-MED ONE 02/21 1312 DC .ROUTE Ceftriaxone Sodium 1,000 MG ONCE ONE 02/21 1215 DC 02/21 IV 02/21 1216 1305 Ferrous Sulfate 325 MG BID 02/21 2100 AC 02/22 PO 0906 Fluticasone 2 SPRAY DAILY NEEDED PRN 02/21 1445 AC Propionate DANAE Furosemide 40 MG DAILY 02/22 0900 CAN PO Furosemide 40 MG DAILY 02/22 0900 AC 02/22 IV 0906 Ipratropium [place] 2.5 ML EVERY 4 HRS/AWAKE 02/21 2000 AC 02/22 INH 0812 Ipratropium [place] 2.5 ML Q6 02/21 1800 DC INH Ipratropium [place] 2.5 ML ONCE ONE 02/21 1200 DC 02/21 INH 02/21 1201 1202 Lorazepam 0.5 MG BID PRN 02/21 1913 AC PO 02/28 1911 Lorazepam 0.5 MG Q6 PRN 02/21 1445 DC PO 02/28 1444 Lorazepam 0 .STK-MED ONE 02/21 1312 DC PO Lorazepam 1 MG ONE ONE 02/21 1200 DC 02/21 PO 02/21 1201 1305 Methylprednisolone 40 MG Q12 02/21 2100 AC 02/22 IV 0906 Methylprednisolone 0 .STK-MED ONE 02/21 1312 DC .ROUTE Methylprednisolone 125 MG ONCE ONE 02/21 1200 DC 02/21 IV 02/21 1201 1305 Montelukast Sodium 10 MG DAILY 02/22 0900 AC 02/22 PO 0906 Pantoprazole Sodium 40 MG DAILY 02/21 1432 AC 02/22 IV 0906 Potassium Chloride 20 MEQ BID 02/21 2100 AC 02/22 PO 0906 Last 24 Hrs of Lab/Reza Results Last 24 Hrs of Labs/Mics: Laboratory Tests 02/22/18 1054: D-Dimer High Sensitivty Pending 02/22/18 0641: Anion Gap 11, Estimated GFR > 60, BUN/Creatinine Ratio 32.5 H, Magnesium 2.4 H , Total Bilirubin 0.4, Direct Bilirubin 0.4, AST 16, ALT 42, Alkaline Phosphatase 85, Total Protein 6.6, Albumin 3.8, CBC w Diff MAN DIFF ORDERED, RBC 3.80 L, MCV 77.8 L, MCH 24.2 L, MCHC 31.1 L, RDW 27.3 H, MPV 7.1 L, Segmented Neutrophils Pending 02/21/18 1300: Anion Gap 6, Estimated GFR > 60, BUN/Creatinine Ratio 41.7 H, Glucose 121 H, Calcium 9.1, Total Bilirubin 0.5, AST 21, ALT 44, Alkaline Phosphatase 82, Troponin I < 0.01, Total Protein 6.2 L, Albumin 3.7, Globulin 2.5, Albumin/ Globulin Ratio 1.5, CBC w Diff MAN DIFF ORDERED, RBC 3.77 L, MCV 77.2 L, MCH 23.6 L, MCHC 30.6 L, RDW 27.2 H, MPV 6.6 L, Segmented Neutrophils 83 H, Band Neutrophils 1, Lymphocytes 12 L, Monocytes 4, Platelet Estimate VERIFIED BY SMEAR, Polychromasia 1+, Hypochromic-Microcytic 2+, Poikilocytosis 1+, Anisocytosis 2+, Microcytic Cells 1+, Ovalocytes 1+ Microbiology 02/21 1432 LOWER RESP: Respiratory Culture - COLB 02/21 143 LOWER RESP: Gram Stain - COLB Assessment/Plan Assessment: 52-year-old morbidly obese woman with with multiple medical problems significant for recent diagnosis of gastrointestinal cancer, GI bleed, COPD not on home oxygen, and asthma seen for evaluation of progressively worsening shortness of breath and nonproductive cough. Patient saturating well on room air without supplemental oxygen and is in no acute respiratory distress. On exam she does have bilateral lower lobe expiratory wheezing and appears moderately anxious. She is afebrile with mild leukocytosis most likely secondary to recent steroid use. Clinically she appears to have a mild COPD exacerbation with moderate associated anxiety probably made worse by steroids. She is to be maintained on intravenous steroids, azithromycin, and Protonix for her history of GI cancer/bleed. She is to be seen by pulmonology and psychiatry for further evaluation and admitted to the general medicine floor. Problem list -COPD exacerbation -Anxiety -History of COPD not on home oxygen -GI cancer -History of GI bleed/anemia -DJD -History of asthma -Morbid obesity Plan -Admit to general medicine -[facility] with scheduled albuterol/ipratropium nebs -Supplemental oxygen, goal >92%, taper as tolerated -Accu-Cheks while receiving steroids -Type and cross -Guaiac all stools -Solu-Medrol 40 mg IV every 12 hours -Azithromycin 500 mg IV daily -Protonix 40 mg IV daily while on steroids -Ativan 0.5 mg by mouth every 6 hours as needed for anxiety -Continue home meds: Suboxone, iron supplement, Flonase, Singulair, and potassium -Hold Advair and Spiriva while receiving nebs -Pulmonology consult for COPD exacerbation -Psychiatry consult for anxiety -Sputum culture -Pain control with acetaminophen and Suboxone\ -Considering improved chest exam, we will check D Dimer - follow D Dimer -Heart healthy diet -DVT prophylaxis with Alps, no pharmacological prophylaxis due to anemia/GI bleed -full code Problem List: 1. COPD (chronic obstructive pulmonary disease) 2. Asthma exacerbation Pain Ratin Pain Location: None Pain Goal: Pain 4 or less Pain Plan: Continue current plan Tomorrow's Labs & Rationales: CBC BEP Mike ACUNA,Sera 02/22/18 1326: Attending MD Review Statement Attending Statement Attending MD Statement: examined this patient, discuss w/resident/PA/LABORATORY DEVELOPMENT TECHNICIAN, agreed w/resident/PA/LABORATORY DEVELOPMENT TECHNICIAN, reviewed EMR data (avail), discussed with nursing, reviewed images, amended to note Attending Assessment/Plan: Patient seen and examined, claims that she's feeling the same. Still having difficulty breathing. Still having wheezing. Appreciate pulmonology input. Vital Signs Date Time Temp Pulse Resp B/P B/P Pulse O2 O2 Flow FiO2 Mean Ox Delivery Rate 02/22 0810 94 Room Air 02/22 0606 98.4 98 16 130/72 91 02/22 0000 Nasal 2.0L Cannula 02/21 2229 98.2 94 22 128/76 91 Room Air 02/21 1719 Room Air 02/21 1600 Nasal 2.0L Cannula 02/21 1434 98.1 72 22 132/80 02/21 1412 Room Air 02/21 1333 97.8 83 22 122/76 94 Room Air on exam; aox3, nad. cv; s1,s2, rrr resp; decreased bs overall. abd; soft, nt, bs+ ext; 2+ edema b/l. Laboratory Tests 02/22 02/22 1054 0641 Chemistry Sodium (137 - 145 mmol/L) 143 Potassium (3.5 - 5.1 mmol/L) 4.8 Chloride (98 - 107 mmol/L) 96 L Carbon Dioxide (22 - 30 mmol/L) 35 H Anion Gap (5 - 16) 11 BUN (7 - 17 mg/dL) 26 H Creatinine (0.5 - 1.0 mg/dL) 0.8 Estimated GFR (>60 ml/min) > 60 BUN/Creatinine Ratio (7 - 25 %) 32.5 H Magnesium (1.6 - 2.3 mg/dL) 2.4 H Total Bilirubin (0.2 - 1.3 mg/dL) 0.4 Direct Bilirubin (< 0.4 mg/dL) 0.4 AST (14 - 36 U/L) 16 ALT (9 - 52 U/L) 42 Alkaline Phosphatase (<127 U/L) 85 Total Protein (6.3 - 8.2 g/dL) 6.6 Albumin (3.5 - 5.0 g/dL) 3.8 Coagulation D-Dimer High Sensitivty (0 - 243 ng/ml) < 200 Hematology CBC w Diff MAN DIFF ORDERED WBC (4.8 - 10.8 /CUMM) 14.8 H RBC (4.20 - 5.40 /CUMM) 3.80 L Hgb (12.0 - 16.0 G/DL) 9.2 L Hct (37 - 47 %) 29.5 L MCV (81.0 - 99.0 FL) 77.8 L MCH (27.0 - 31.0 PG) 24.2 L MCHC (33.0 - 37.0 G/DL) 31.1 L RDW (11.5 - 14.5 %) 27.3 H Plt Count (130 - 400 /CUMM) 564 H MPV (7.4 - 10.4 FL) 7.1 L Segmented Neutrophils (42.2 - 75.2 %) 88 H Band Neutrophils (0.0 - 5.0 %) 1 Lymphocytes (20.5 - 51.1 %) 5 L Monocytes (1.7 - 9.3 %) 6 Platelet Estimate (ADEQUATE) VERIFIED BY SMEAR Polychromasia 1+ Hypochromic-Microcytic 2+ Poikilocytosis 1+ Anisocytosis 2+ Microcytic Cells 1+ Ovalocytes 1+ A/P; 52-year-old female COPD not on home oxygen, asthma, chronic lower extremity edema, GI bleed, DJD, 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 with shortness of breath, acute blood loss anemia and underwent endoscopy which revealed antral ulcer and pathology results are dictated as above recent visit to emergency room with shortness of breath and got discharged on by mouth prednisone. Was scheduled for Port-A-Cath placement which could not be done secondary to patient's breathing status. Also she could not get clearance from infectious disease physician. Patient is now admitted with acute COPD exacerbation, chronic anemia, worsening lower extremity edema and some anxiety. Appreciate pulmonology input. Lower extremity Doppler and d-dimer are negative. We'll continue the patient on IV steroids and IV antibiotic for now. We'll follow-up on the cultures. Continue IV Lasix for now. Patient still has lower Extremity swelling. Continue TRC nebs and inhalers as well as the rest of the medications. Please follow psychiatry consult. DVT prophylaxis: ALPS secondary to recent GI bleed and history of gastric cancer recently diagnosed. Please notify oncology in the morning as patient could not get her Port-A-Cath placed for breathing issues. Please call Dr. Cabrera in the morning because they require pulmonology clearance for the Port-A-Cath placement.
[2018-02-22 08:30] LABS: HEMATOCRIT 29.5 % (37-47); MEAN CORPUSCULAR HGB 24.2 PG (27.0-31.0); MEAN CORPUSCULAR HGB CONC 31.1 G/DL (33.0-37.0); MEAN CORPUSCULAR VOLUME 77.8 FL (81.0-99.0); MEAN PLATELET VOLUME 7.1 FL (7.4-10.4); PLATELET COUNT 564 /CUMM (130-400); RBC DISTRIBUTION WIDTH 27.3 % (11.5-14.5); WHITE BLOOD CELL COUNT 14.8 /CUMM (4.8-10.8)
--- NOTE | 2018-02-22 10:18 | Cons- Pulmonary ---
General Information and HPI Consulting Request Date of Consult: 02/22/18 Requested By: [place] Reason for Consult: Shortness of breath History of Present Illness: Patient is 52-year-old woman carries a diagnosis COPD asthma recently diagnosed adenocarcinoma of the stomach admitted with recurrent shortness of breath. As recently emergency room 3 days ago and discharged from prednisone. X-ray has remained clear. Chronic lower extremity edema which appears to have worsened. Has no chest pain or hemoptysis. Allergies/Medications Allergies: Coded Allergies: No Known Allergies (12/11/17) Home Med List: Albuterol Sulfate (Proair Hfa) 90 MCG HFA.AER.AD 2 PUF INH Q4-6 PRN PRN ASTHMA Albuterol Sulfate 1.25 MG/3 ML VIAL.NEB 1 Vial INH/THA Q4-6 PRN WHEEZING Buprenorphine HCl/Naloxone HCl (Suboxone 12 MG-3 MG Sl Film) 12 MG-3 MG FILM 1 STR SL DAILY CHRONIC PAIN (Reported) Ferrous Sulfate 325 MG (65 MG IRON) TABLET 1 TAB PO BID SUPPLEMENT (Reported) Fluticasone Propionate 50 MCG/ACTUATION SPRAY.SUSP 2 SPRAY NASB AD PRN ALLERGIES/ASTHMA (Reported) Fluticasone/Salmeterol (Advair 500-50 Diskus) 500 MCG-50 MCG/DOSE BLST.W.DEV 1 PUF INH BID ASTHMA (Reported) Furosemide (Lasix) 40 MG TABLET 1 TAB PO DAILY edema (Reported) Montelukast Sodium 10 MG TABLET 1 TAB PO AD PRN ALLERGIES/ASTHMA (Reported) Omeprazole 40 MG CAPSULE.DR 1 CAP PO DAILY GI (Reported) Potassium Citrate (Potassium Citrate ER) 10 MEQ (1,080 MG) TABLET.ER 2 TAB PO BID LOW POTASSIUM Tiotropium [place] (Spiriva) 18 MCG CAP.W.DEV 1 CAP INH DAILY RESP. (Reported ) Review of Systems Review of Systems Constitutional: Denies: chills, fever. Cardiovascular: Reports: edema, peripheral edema. Denies: chest pain. Respiratory: Reports: cough, short of breath. Denies: hemoptysis, sputum production, wheezing. GI: Denies: abdominal pain, diarrhea. 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 MOTHER (Asthma). Uncle (Diabetes). BROTHER (sudden ; possibly cardiac.). Psychosocial History Services at Home: None Smoking Status: Former Smoker ETOH Use: denies use Illicit Drug Use: denies illicit drug use Exam & Diagnostic Data Last 24 Hrs of Vital Signs/I&O Vital Signs Date Time Temp Pulse Resp B/P B/P Pulse O2 O2 Flow FiO2 Mean Ox Delivery Rate 02/22 0810 94 Room Air 02/22 0606 98.4 98 16 130/72 91 02/22 0000 Nasal 2.0L Cannula 02/21 2229 98.2 94 22 128/76 91 Room Air 02/21 1719 Room Air 02/21 1600 Nasal 2.0L Cannula 02/21 1434 98.1 72 22 132/80 02/21 1412 Room Air 02/21 1333 97.8 83 22 122/76 94 Room Air 02/21 1215 98 02/21 1151 Room Air 02/21 1053 96.8 96 18 119/68 94 Room Air Intake & Output 02/22 1600 02/22 0800 02/22 0000 Intake Total 480 600 Output Total Balance 480 600 Intake, Oral 480 600 Patient 270 lb Weight Weight Bed scale Measurement Method Room air oxygen saturation 94% HNT exam shows no stridor exam for chest shows diminished breath sounds there are no wheezes or crackles cardiac exam shows regular S1 and S2 abdomen is soft nontender extremities have 3+ symmetrical edema. Last 48 Hrs of Labs/Reza: Laboratory Tests 02/22/18 0641: Anion Gap 11, Estimated GFR > 60, BUN/Creatinine Ratio 32.5 H, Magnesium 2.4 H , Total Bilirubin 0.4, Direct Bilirubin 0.4, AST 16, ALT 42, Alkaline Phosphatase 85, Total Protein 6.6, Albumin 3.8, CBC w Diff MAN DIFF ORDERED, RBC 3.80 L, MCV 77.8 L, MCH 24.2 L, MCHC 31.1 L, RDW 27.3 H, MPV 7.1 L, Segmented Neutrophils Pending 02/21/18 1300: Anion Gap 6, Estimated GFR > 60, BUN/Creatinine Ratio 41.7 H, Glucose 121 H, Calcium 9.1, Total Bilirubin 0.5, AST 21, ALT 44, Alkaline Phosphatase 82, Troponin I < 0.01, Total Protein 6.2 L, Albumin 3.7, Globulin 2.5, Albumin/ Globulin Ratio 1.5, CBC w Diff MAN DIFF ORDERED, RBC 3.77 L, MCV 77.2 L, MCH 23.6 L, MCHC 30.6 L, RDW 27.2 H, MPV 6.6 L, Segmented Neutrophils 83 H, Band Neutrophils 1, Lymphocytes 12 L, Monocytes 4, Platelet Estimate VERIFIED BY SMEAR, Polychromasia 1+, Hypochromic-Microcytic 2+, Poikilocytosis 1+, Anisocytosis 2+, Microcytic Cells 1+, Ovalocytes 1+ Assessment/Plan Impression/Plan: 52-year-old with adenocarcinoma of the stomach COPD admitted with recurrent shortness of breath in the setting of a normal chest x-ray. Leukocytosis may be related to recent prednisone usage if regimen includes COPD exacerbation versus possible pulmonary embolism in view of lower extremity edema recent diagnosis of malignancy clear chest x-ray without evidence of bronchospasm on exam. Recommendations: Lower extremity duplex ultrasound. Obtain d-dimer if elevated would pursue CTA. Continue IV steroids and antibiotics as ordered. Obtain arterial blood gas in view of prior history of hypercarbia elevated bicarbonate Consult Acknowledgment - Thank you for your consult request.
--- NOTE | 2018-02-22 11:18 | ULTRASOUND REPORT ---
EXAMINATION: US TRIPLEX OF LOWER EXTREMITIES, BILATERAL CLINICAL INFORMATION: Bilateral leg swelling. COMPARISON: 12/11/2017. TECHNIQUE: Color-flow triplex imaging with spectral analysis and compression Doppler were performed on the lower extremities. FINDINGS: Respiratory variation, normal compression and augmented flow are noted throughout the lower extremities. The visualized common femoral vein, superficial femoral vein, profunda femoral vein, popliteal vein and midcalf peroneal and posterior tibial venous segments show no evidence of deep venous thrombosis. There is no Melvin's cyst. IMPRESSION: Normal triplex scan without evidence of deep venous thrombosis involving the lower extremities.
--- NOTE | 2018-02-22 14:25 | Cons- Psychiatry ---
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 52 y/o single domiciled employed HF with multiple medical problems including COPD, asthma, and recent dx of stomach CA with multiple admits and ED presentations for SOB, now admitted to for SOB. WAs seen in ED 02/19 and dc 'd home with oral pred taper but returned with ongoing SOB. Psychiatry consulted for assistance with anxiety management. On interview, very pleasant and cooperative. Remains short of breath. Describes that her anxiety symptoms have markedly worsened over last two months concurrent with ongoing difficulties with breathing as well as recnet CA dx. She describes multiple avoidance events whereby she had acute SOB at a job in [place] and "now I can't even think about going back there" or "I get worried when I'm on a specific section [place] because there's no cell phone service there and if I get SOB there I won't be able to get help". Develops acutely anxious symptoms in context of SOB. 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 Did share some thoughts about no longer being alive when she was feeling extremely ill, even reporting she fleetingly has thought about taking poison, but she reports these are frustration related and situational and does not want to harm herself. Denies manic or psychotic symptoms. No HI. Denies EtOH or substance use. Past psych history is limited to a few outpatient visits to [facility] in [place]. "I met with a counselor there a few times recently but they canceled my case because it was too many appts for me to get to". Would like to resume tx there. Denies being on any previous psych meds, denies any history of suicide attempts, self harm, or psychiatric hospitalizations. Denies FH of psychiatric conditions. MSE: obese HF, adequately groomed, wearing O2 NC, difficulty breathing and + coughing. Good eye contact, pleasant, personable. Minimally anxious. Speech wnl. Mood "eh I'm marlyn frustrated". Affect was mildly anxious, non-labile. TP was logical and linear, TC as described above, vague, passive SI, denies HI, no perceptual disturbance. Cognitive: subjective report of some difficulty with short term memory though not formally tested and she was grossly alert and oriented. Her i/j was good. Studies and labs reviewed. Assessment: Anxiety symptoms most consistent with development of panic disorder secondary to medical (COPD) cause and/or substance (frequent steroid exposure) induced. Need to think about treatment in two stages: 1) Get through current hospitalization, 2) exterminator management. Recs: -Does not appear at imminent risk to self. Though did describe fleeting thoughts of self harm, she is future oriented, denies history of suicide attempts, has multiple community supports, and is treatment seeking. Not in need of psychiatric hospitalization -For anxiety while acutely ill and SOB INPATIENT, suggest zyprexa 2.5 mg Q4H PRN anxiety. Discussed R/B/SEs with the patient and she agrees. Would not suggest discharging on zyprexa. -For chronic management of anxiety/panic, suggest starting lexapro 5 mg daily, uptitrate to 10 mg daily after 3 days. Would suggest her PCP continue to manage this medication. -Would suggest social work assist patient with making new psychotherapy appointment intake at [facility], which the patient is in favor of doing. -Thank you for this consult
[2018-02-22 15:40] VITALS: BP 142/70
[2018-02-22 21:26] VITALS: BP 118/80
[2018-02-23 06:29] VITALS: BP 114/76
--- NOTE | 2018-02-23 08:14 | PN- Housestaff ---
Fallon Harris MD,[facility] 02/23/18 0814: Subjective Follow-up For: -COPD exacerbation -Anxiety -History of COPD not on home oxygen -GI cancer Subjective: Patient visited today, morbede obese lady, was lying in bed comfortably in no acute distress, was alert and oriented. Reported improved SOB. On supplement o2 No fever or chills, no chest pain, no other events. DVT and PE was ruled out yesterday Review of Systems Constitutional: Reports: see HPI. Objective Last 24 Hrs of Vital Signs/I&O Vital Signs Date Time Temp Pulse Resp B/P B/P Pulse O2 O2 Flow FiO2 Mean Ox Delivery Rate 02/23 0804 91 Room Air 02/23 0800 97 Nasal 1.0L Cannula 02/23 0629 97.4 86 20 114/76 97 02/23 0000 96 Nasal 1.0L Cannula 02/22 2230 96 02/22 2126 97.8 105 20 118/80 92 Nasal 1.5L Cannula 02/22 1630 98 Nasal 3.0L Cannula 02/22 1600 Nasal 2.0L Cannula 02/22 1540 98.4 102 16 142/70 96 Nasal Cannula Intake & Output 02/23 1600 02/23 0800 02/23 0000 Intake Total 240 270 Output Total Balance 240 270 Intake, IV 0 30 Intake, Oral 240 240 Number 0 0 Bowel Movements Physical Exam General Appearance: Alert, Oriented X3, No Acute Distress Sepsis Skin Exam (color): Normal for Ethnicity HEENT: Atraumatic, EOMI Cardiovascular: Normal S1, Normal S2 Lungs: Wheezing in AM, improved after respiratory treatment Abdomen: Soft, No Tenderness Neurological: Normal Speech Extremities: edema Current Medications: Current Medications Sig/Pam Start time Last Medication Dose Route Stop Time Status Admin Acetaminophen 650 MG Q6P PRN 02/21 1430 AC PO Albuterol Sulfate 3 ML EVERY 4 HRS/AWAKE 02/21 2000 AC 02/23 INH 1220 Albuterol Sulfate 3 ML Q6 PRN 02/21 1445 AC INH Azithromycin 500 MG DAILY@1300 02/22 1300 AC 02/23 Sodium Chloride 250 ML IV 1216 Buprenorphine/ 1.5 TAB 0800 02/22 0800 AC 02/23 Naloxone SL 0831 Ferrous Sulfate 325 MG BID 02/21 2100 AC 02/23 PO 0831 Fluticasone 2 SPRAY DAILY NEEDED PRN 02/21 1445 AC Propionate DANAE Furosemide 40 MG DAILY 02/22 0900 AC 02/23 IV 0831 Ipratropium [place] 2.5 ML EVERY 4 HRS/AWAKE 02/22 2000 AC 02/23 INH 1220 Lorazepam 0.5 MG BID PRN 02/21 191 AC PO 02/28 191 Methylprednisolone 40 MG Q12 02/21 2100 AC 02/23 IV 0831 Montelukast Sodium 10 MG DAILY 02/22 0900 AC 02/23 PO 0831 Olanzapine 2.5 MG Q4 HRS NEEDED PRN 02/22 183 AC 02/22 PO 2123 Pantoprazole Sodium 40 MG DAILY 02/21 143 AC 02/23 IV 0833 Potassium Chloride 20 MEQ BID 02/21 2100 AC 02/23 PO 0831 Last 24 Hrs of Lab/Reza Results Last 24 Hrs of Labs/Mics: Laboratory Tests 02/22/181939: pH 7.38, pCO2 53 H, pO2 97, HCO3 31 H, ABG O2 Sat (Measured) 96.0, P-50 (Temp Corrected) N, Carboxyhemoglobin 0 L, O2 Concentration % 1.5L, Temperature 98.4, O2 Delivery Method NC, Phlebotomy Draw Site RIGHT RADIAL Assessment/Plan Assessment: 52-year-old morbidly obese woman with with multiple medical problems significant for recent diagnosis of gastrointestinal cancer, GI bleed, COPD not on home oxygen, and asthma seen for evaluation of progressively worsening shortness of breath and nonproductive cough. patient was admitted to [facility] floor for management of following conditions: Respiratory distress COPD exacerbation/Asthma pulm emboli was ruled out with D Dimer and doppler US. -Admit to general medicine -[facility] with scheduled albuterol/ipratropium nebs -Supplemental oxygen, goal >92%, taper as tolerated -Solu-Medrol 40 mg IV every 12 hours -Azithromycin 500 mg IV daily - pulm consult Chronic medical problems: anxiety, recent diagnosis of gastric adenocarcinoma, morbid obesity -Protonix 40 mg IV daily while on steroids -Ativan 0.5 mg by mouth every 6 hours as needed for anxiety -Continue home meds: Suboxone, iron supplement, Flonase, Singulair, and potassium -Pain control with acetaminophen and Suboxone - Zyprexa for anxiety, planned to discharge on Lexapro -Heart healthy diet -DVT prophylaxis with Alps, no pharmacological prophylaxis due to anemia/GI bleed -full code Problem List: 1. Respiratory distress 2. Gastric adenocarcinoma Pain Ratin Pain Location: none Pain Goal: Pain 4 or less Pain Plan: Continue current plan Tomorrow's Labs & Rationales: CBC BEP [place] ACUNA,Codybrittahimanshu 02/23/18 1452: Attending MD Review Statement Attending Statement Attending MD Statement: examined this patient, discuss w/resident/PA/TABLEAU ARCHITECT, agreed w/resident/PA/TABLEAU ARCHITECT, discussed with family, reviewed EMR data (avail), discussed with nursing, discussed with case mgmt, amended to note Attending Assessment/Plan: Patient seen and examined. Lying in bed and does not appear to be in any acute respiratory distress. She is currently maintaining saturation on 1 L of oxygen. She is not routinely on home oxygen. On examination she has adequate entry bilaterally with no added sounds. Patient reports that she is able to ambulate stress from the bed to the doorway before she becomes short of breath. She reports that this has been going on for a few weeks prior to presentation. She reports that at baseline however she is only able to ambulate a little better than her current status. Also at baseline she admits to chronic bilateral lower extremity edema despite diuretic therapy at home. Echocardiogram done earlier this year shows evidence of stage II diastolic heart failure however there was no evidence of pulmonary hypertension on her echocardiogram done here. Problems: 1. Acute hypoxic respiratory failure secondary to COPD exacerbation and acute on chronic diastolic heart failure. Plan: -Continue bronchodilator therapy. Continue systemic steroid therapy intravenously. Transition to oral steroid therapy starting tomorrow. -Transition patient back to her home dose of Lasix. -Recommend bilateral compression wrapping to help reduce her lower extremity edema. -Please notify patient's weave defect charting clerk of her admission.
[2018-02-23 14:50] VITALS: BP 122/70
[2018-02-23 21:07] VITALS: BP 118/68
[2018-02-24 07:09] VITALS: BP 118/74
--- NOTE | 2018-02-24 07:47 | PN- Housestaff ---
Fallon Harris MD,[facility] 02/24/18 0747: Subjective Follow-up For: -COPD exacerbation -Anxiety -History of COPD not on home oxygen -GI cancer Subjective: Patient visited today, was lying in bed comfortably in no acute distress, was alert and oriented. Reported improved SOB, but he still reporting shortness of breathing with minimal activity. No fever or chills, no chest pain, no other events. Planned for Por A cath placement with IR tomorrow pending pulm tolerance. Review of Systems Constitutional: Reports: see HPI. Objective Last 24 Hrs of Vital Signs/I&O Vital Signs Date Time Temp Pulse Resp B/P B/P Pulse O2 O2 Flow FiO2 Mean Ox Delivery Rate 02/24 1355 98.2 91 20 132/72 92 Nasal Cannula 02/24 1058 124 90 Room Air 02/24 0800 95 Nasal 1.0L Cannula 02/24 0723 97 Nasal 1.0L Cannula 02/24 0709 98.0 98 18 118/74 97 02/24 0000 Nasal 1.0L Cannula 02/23 2107 98.2 91 18 118/68 99 Nasal 2.0L Cannula 02/23 1620 98 Nasal 2.0L Cannula 02/23 1600 Nasal 1.0L Cannula Intake & Output 02/24 1600 02/24 0800 02/24 0000 Intake Total 1810 120 720 Output Total Balance 1810 120 720 Intake, IV 10 Intake, Oral 1800 120 720 Number 0 1 Bowel Movements Physical Exam General Appearance: Alert, Oriented X3, Cooperative, No Acute Distress, Obese Skin: No Significant Lesion Skin Temp/Moisture Exam: Warm/Dry Sepsis Skin Exam (color): Normal for Ethnicity HEENT: Atraumatic Cardiovascular: Normal S1, Normal S2 Lungs: decreased breathing sounds Abdomen: Soft Neurological: Normal Speech Current Medications: Current Medications Sig/Pam Start time Last Medication Dose Route Stop Time Status Admin Acetaminophen 650 MG Q6P PRN 02/21 1430 AC PO Albuterol Sulfate 3 ML EVERY 4 HRS/AWAKE 02/22 2000 AC 02/24 INH 1110 Albuterol Sulfate 3 ML Q6 PRN 02/21 1445 AC INH Azithromycin 250 MG DAILY 02/24 09 AC 02/24 PO 0847 Budesonide/ 2 PUF BID 02/24 2100 AC Formoterol Fumarate INH Buprenorphine/ 1.5 TAB 0802/22 0800 AC 02/24 Naloxone SL 0847 Ferrous Sulfate 325 MG BID 02/21 2100 AC 02/24 PO 0848 Fluticasone 2 SPRAY DAILY NEEDED PRN 02/21 1445 AC Propionate DANAE Furosemide 20 MG DAILY 02/25 09 AC PO Furosemide 40 MG DAILY 02/23 1527 DC 02/24 PO 0847 Ipratropium [place] 2.5 ML EVERY 4 HRS/AWAKE 02/22 2000 AC 02/24 INH 1110 Lorazepam 0.5 MG BID PRN 02/21 191 AC PO 02/28 191 Methylprednisolone 40 MG Q12 02/21 2100 DC 02/24 IV 0847 Montelukast Sodium 10 MG DAILY 02/22 0900 AC 02/24 PO 0848 Olanzapine 2.5 MG Q4 HRS NEEDED PRN 02/22 1830 AC 02/24 PO 0640 Omeprazole 40 MG DAILY AC 02/24 0700 AC 02/24 PO 0633 Patient Medication 1 ED ONE ONE 02/23 1715 DC 02/23 Teaching ED 02/23 1716 1814 Potassium Chloride 20 MEQ DAILY 02/25 09 AC PO Potassium Chloride 20 MEQ BID 02/21 2100 DC 02/24 PO 0848 Prednisone 40 MG DAILY 02/25 09 DC PO Prednisone 30 MG DAILY 02/25 09 AC PO 02/26 0901 Last 24 Hrs of Lab/Reza Results Last 24 Hrs of Labs/Mics: Laboratory Tests 02/24/18 0648: Anion Gap 11, Estimated GFR > 60, BUN/Creatinine Ratio 35.7 H, CBC w Diff MAN DIFF ORDERED, RBC 3.90 L, MCV 80.2 L, MCH 24.2 L, MCHC 30.1 L, RDW 27.7 H, MPV 6.9 L, Segmented Neutrophils 86 H, Band Neutrophils 1, Lymphocytes 7 L, Monocytes 4, Metamyelocytes 2 H, Platelet Estimate INCREASED, Hypochromic- Microcytic 2+, Poikilocytosis 1+, Basophilic Stippling SLIGHT, Anisocytosis 1+, Ovalocytes FEW, Elliptocytes FEW Assessment/Plan Assessment: 52-year-old morbidly obese woman with with multiple medical problems significant for recent diagnosis of gastrointestinal cancer, GI bleed, COPD not on home oxygen, and asthma seen for evaluation of progressively worsening shortness of breath and nonproductive cough. patient was admitted to [facility] floor for management of following conditions: Respiratory distress COPD exacerbation/Asthma pulm emboli was ruled out with D Dimer and doppler US. -Admit to general medicine -[facility] with scheduled albuterol/ipratropium nebs -Supplemental oxygen, goal >92%, taper as tolerated -Po prednison -Azithromycin po - pulm consult Chronic medical problems: anxiety, recent diagnosis of gastric adenocarcinoma, morbid obesity -Protonix po -Ativan 0.5 mg by mouth every 6 hours as needed for anxiety -Continue home meds: Suboxone, iron supplement, Flonase, Singulair, and potassium -Pain control with acetaminophen and Suboxone - Zyprexa for anxiety, planned to discharge on Lexapro - NPO tonight for pota cath placement tomorrow -Heart healthy diet -DVT prophylaxis with Alps, no pharmacological prophylaxis due to anemia/GI bleed -full code Problem List: 1. Gastric adenocarcinoma 2. Respiratory distress Pain Ratin Pain Location: None Pain Goal: Pain 4 or less Pain Plan: Continue current paln Tomorrow's Labs & Rationales: CBC BEP Genesis Simon MD 02/24/18 1228: Attending MD Review Statement Attending Statement Attending MD Statement: examined this patient, discuss w/resident/PA/ELECTRICAL DISCHARGE MACHINE OPERATOR, agreed w/resident/PA/ELECTRICAL DISCHARGE MACHINE OPERATOR, reviewed EMR data (avail), discussed with nursing, discussed with case mgmt, amended to note Attending Assessment/Plan: Patient seen and examined. From a respiratory standpoint she is improving. Oxygen supplementation has been titrated down to 1 L. When we evaluated the patient she was saturating 94% on room air. She remains afebrile and hemodynamically stable. She however continues to be very anxious. She reports that seems ambulating to the bathroom she got very anxious and withdrawn back to bed but was unable to do so. She is of the impression that she requires oxygen therapy with activity. She is very anxious about going home for fear of returning to the hospital again. She is anxious about starting treatment for her gastric cancer. On examination she does not appear to be in respiratory distress. She has no use of accessory muscles. She has adequate entry bilaterally with no added sounds. This was discussed in detail with her medical record transcriber. Problems: 1. Acute hypoxic respiratory failure secondary to COPD exacerbation and acute on chronic diastolic heart failure. 2. Anxiety disorder 3. Gastric cancer. Plan: -Pulmonology recommendations appreciated. IV Solu-Medrol has been discontinued. Will begin patient on oral prednisone taper starting tomorrow. She does have significant -Anxiety disorder. She was evaluated during this hospitalization by the psychiatric service and has been started on Zyprexa to be using the inpatient setting. Begin patient on Lexapro as recommended by the psychiatric service starting at 5 mg daily. After 3 days she may increase to 10 mg daily as recommended by the psychiatry service and follow as an outpatient. -Please contact the general surgery service to determine if her Port-A-Cath may be placed while in the hospital. -The pulmonology service is recommending starting patient on CPAP therapy at nighttime. Please follow-up with case management to help set of home CPAP therapy upon discharge. -Anticipate discharge tomorrow unless otherwise recommended by the surgical service.
[2018-02-24 08:40] LABS: HEMATOCRIT 31.3 % (37-47); MEAN CORPUSCULAR HGB 24.2 PG (27.0-31.0); MEAN CORPUSCULAR HGB CONC 30.1 G/DL (33.0-37.0); MEAN CORPUSCULAR VOLUME 80.2 FL (81.0-99.0); MEAN PLATELET VOLUME 6.9 FL (7.4-10.4); PLATELET COUNT 505 /CUMM (130-400); RBC DISTRIBUTION WIDTH 27.7 % (11.5-14.5); WHITE BLOOD CELL COUNT 15.8 /CUMM (4.8-10.8)
--- NOTE | 2018-02-24 09:48 | PN- Pulmonary ---
Subjective HPI/Critical Care Issues: Doing well afebrile still anxious Objective Current Medications: Current Medications Sig/Pam Start time Last Medication Dose Route Stop Time Status Admin Acetaminophen 650 MG Q6P PRN 02/21 1430 AC PO Albuterol Sulfate 3 ML EVERY 4 HRS/AWAKE 02/22 2000 AC 02/24 INH 0723 Albuterol Sulfate 3 ML Q6 PRN 02/21 1445 AC INH Azithromycin 250 MG DAILY 02/24 0900 AC 02/24 PO 0847 Azithromycin 500 MG DAILY@1300 02/22 1300 DC 02/23 Sodium Chloride 250 ML IV 1216 Buprenorphine/ 1.5 TAB 0800 02/22 0800 AC 02/24 Naloxone SL 0847 Ferrous Sulfate 325 MG BID 02/21 2100 AC 02/24 PO 0848 Fluticasone 2 SPRAY DAILY NEEDED PRN 02/21 1445 AC Propionate DANAE Furosemide 40 MG DAILY 02/23 1527 AC 02/24 PO 0847 Furosemide 40 MG DAILY 02/22 0900 DC 02/23 IV 0831 Ipratropium [place] 2.5 ML EVERY 4 HRS/AWAKE 02/22 2000 AC 02/24 INH 0723 Lorazepam 0.5 MG BID PRN 02/21 1913 AC PO 02/28 1911 Methylprednisolone 40 MG Q12 02/21 2100 AC 02/24 IV 0847 Montelukast Sodium 10 MG DAILY 02/22 0900 AC 02/24 PO 0848 Olanzapine 2.5 MG Q4 HRS NEEDED PRN 02/22 1830 AC 02/24 PO 0640 Omeprazole 40 MG DAILY AC 02/24 0700 AC 02/24 PO 0633 Pantoprazole Sodium 40 MG DAILY 02/21 1432 DC 02/23 IV 0833 Patient Medication 1 ED ONE ONE 02/23 1715 DC 02/23 Teaching ED 02/23 1716 1814 Potassium Chloride 20 MEQ BID 02/21 2100 AC 02/24 PO 0848 Vital Signs & I&O Last 24 Hrs of Vitals and I&O: Vital Signs Date Time Temp Pulse Resp B/P B/P Pulse O2 O2 Flow FiO2 Mean Ox Delivery Rate 02/24 07 97 Nasal 1.0L Cannula 02/24 0709 98.0 98 18 118/74 97 02/24 0000 Nasal 1.0L Cannula 02/23 2107 98.2 91 18 118/68 99 Nasal 2.0L Cannula 02/23 1620 98 Nasal 2.0L Cannula 02/23 1600 Nasal 1.0L Cannula 02/23 1450 98.3 84 20 122/70 91 Nasal 2.0L Cannula Intake & Output 02/24 1600 02/24 0800 02/24 0000 Intake Total 120 720 Output Total Balance 120 720 Intake, Oral 120 720 Number 1 Bowel Movements Laboratory Tests 02/24 02/22 02/22 0648 1940 1054 Blood Gas pH (7.35 - 7.45 PH) 7.38 pCO2 (35 - 45 TORR) 53 H pO2 (80 - 100 TORR) 97 HCO3 (21 - 28 MEQ/L) 31 H ABG O2 Sat (Measured) (>96.0 %) 96.0 P-50 (Temp Corrected) N Carboxyhemoglobin (1.5 - 5.0 %) 0 L O2 Concentration % 1.5L Temperature (97.0 - 100.0 FARH) 98.4 O2 Delivery Method NC Chemistry Sodium (137 - 145 mmol/L) 142 Potassium (3.5 - 5.1 mmol/L) 4.8 Chloride (98 - 107 mmol/L) 95 L Carbon Dioxide (22 - 30 mmol/L) 36 H Anion Gap (5 - 16) 11 BUN (7 - 17 mg/dL) 25 H Creatinine (0.5 - 1.0 mg/dL) 0.7 Estimated GFR (>60 ml/min) > 60 BUN/Creatinine Ratio (7 - 25 %) 35.7 H Coagulation D-Dimer High Sensitivty (0 - 243 ng/ml) < 200 Hematology CBC w Diff MAN DIFF ORDERED WBC (4.8 - 10.8 /CUMM) Pending RBC (4.20 - 5.40 /CUMM) Pending Hgb (12.0 - 16.0 G/DL) Pending Hct (37 - 47 %) Pending MCV (81.0 - 99.0 FL) Pending MCH (27.0 - 31.0 PG) Pending MCHC (33.0 - 37.0 G/DL) Pending RDW (11.5 - 14.5 %) Pending Plt Count (130 - 400 /CUMM) Pending MPV (7.4 - 10.4 FL) Pending Segmented Neutrophils (42.2 - 75.2 %) Pending Miscellaneous Phlebotomy Draw Site RIGHT RADIAL Microbiology Date/Time Procedure - Status Source Growth 02/21 1432 Respiratory Culture - CAN LOWER RESP Cancelled: SPECIMEN NOT RECEIVED IN LABORATORY 02/22 1432 Gram Stain - CAN LOWER RESP Cancelled: SPECIMEN NOT RECEIVED IN LABORATORY Impression/Plan Impression/Plan Impression/Plan: General Appearance No Acute Distress Skin No Significant Lesion HEENT Atraumatic, PERRLA, EOMI, MUCOUS MEMBRANES DRY Neck Supple Cardiovascular Regular Rate, Normal S1, Normal S2 Lungs mild wheezing Abdomen OBESE, SOFT AND NON TENDER. DIMINISHED BS Neurological Normal Speech, Cranial Nerves 3-12 NL Extremities 1+ EDEMA IN BILAT LE Laboratory Tests 02/24 02/22 02/22 0648 1940 1054 Blood Gas pH (7.35 - 7.45 PH) 7.38 pCO2 (35 - 45 TORR) 53 H pO2 (80 - 100 TORR) 97 HCO3 (21 - 28 MEQ/L) 31 H ABG O2 Sat (Measured) (>96.0 %) 96.0 P-50 (Temp Corrected) N Carboxyhemoglobin (1.5 - 5.0 %) 0 L O2 Concentration % 1.5L Temperature (97.0 - 100.0 FARH) 98.4 O2 Delivery Method NC Chemistry Sodium (137 - 145 mmol/L) 142 Potassium (3.5 - 5.1 mmol/L) 4.8 Chloride (98 - 107 mmol/L) 95 L Carbon Dioxide (22 - 30 mmol/L) 36 H Anion Gap (5 - 16) 11 BUN (7 - 17 mg/dL) 25 H Creatinine (0.5 - 1.0 mg/dL) 0.7 Estimated GFR (>60 ml/min) > 60 BUN/Creatinine Ratio (7 - 25 %) 35.7 H Coagulation D-Dimer High Sensitivty (0 - 243 ng/ml) < 200 Hematology CBC w Diff MAN DIFF ORDERED WBC (4.8 - 10.8 /CUMM) Pending RBC (4.20 - 5.40 /CUMM) Pending Hgb (12.0 - 16.0 G/DL) Pending Hct (37 - 47 %) Pending MCV (81.0 - 99.0 FL) Pending MCH (27.0 - 31.0 PG) Pending MCHC (33.0 - 37.0 G/DL) Pending RDW (11.5 - 14.5 %) Pending Plt Count (130 - 400 /CUMM) Pending MPV (7.4 - 10.4 FL) Pending Segmented Neutrophils (42.2 - 75.2 %) Pending Miscellaneous Phlebotomy Draw Site RIGHT RADIAL Microbiology Date/Time Procedure - Status Source Growth 02/22 1432 Respiratory Culture - CAN LOWER RESP Cancelled: SPECIMEN NOT RECEIVED IN LABORATORY 02/22 1432 Gram Stain - CAN LOWER RESP Cancelled: SPECIMEN NOT RECEIVED IN LABORATORY Pt with sig COPD with asthmatic component with recently dxd Gastric ca has Sig COPD with asthmatic component with mild exacerbation Sig obesity with OHS with sig LORENA now on cpap -pt just started it recently Severe hypercarbia at baseline with chronic hypercarbic resp insuff Needs portacath REC * DC IV steroids * Prednisone 30 mg qd for two days and then 20 for two and 10 for two and 5 mg for two days and then qod * Start CPAP at - ask sleep lab for the setting * Cont Spiriva * Start symbicort bid * COnt other meds * COnt psych meds * Reduce lasix to 20 qd with potassium 20 meq * Ask Gen surg if portacath can be done while here as it would be safe for the patient
[2018-02-24 13:55] VITALS: BP 132/72
[2018-02-24 21:27] VITALS: BP 114/70
[2018-02-25 06:17] VITALS: BP 126/82
--- NOTE | 2018-02-25 07:06 | PN- Housestaff ---
Fallon Harris MD,[facility] 02/25/18 0706: Subjective Follow-up For: -Respiratory distress - Asthma/COPD exacerbation - morbid obesity - LORENA - Anxiety - GI cancer Subjective: Patient visited today, negro was sitting in bed comfortably in no acute distress, was alert and oriented. No fever or chills, no chest pain, no other events. Uses CPAP ovenight Saturating good without oxygen, even with ambulation, tolerated to be flat in bed planend for port A Cath today Review of Systems Constitutional: Reports: see HPI. Objective Last 24 Hrs of Vital Signs/I&O Vital Signs Date Time Temp Pulse Resp B/P B/P Pulse O2 O2 Flow FiO2 Mean Ox Delivery Rate 02/25 0745 98 Nasal 2.0L Cannula 02/25 0617 97.9 94 22 126/82 96 CPAP 02/25 0014 91 97 02/25 0000 CPAP 02/24 2127 98.4 100 20 114/70 95 Nasal 1.0L Cannula 02/24 1958 Nasal 2.0L Cannula 02/24 1613 Nasal 2.0L Cannula 02/24 1600 90 Room Air Room Air 02/24 1355 98.2 91 20 132/72 92 Nasal Cannula 02/24 1058 124 90 Room Air Intake & Output 02/25 1600 02/25 0800 02/25 0000 Intake Total 240 240 Output Total Balance 240 240 Intake, Oral 240 240 Physical Exam General Appearance: Alert, Oriented X3, Cooperative, No Acute Distress Skin Temp/Moisture Exam: Warm/Dry Sepsis Skin Exam (color): Normal for Ethnicity HEENT: Atraumatic, EOMI Cardiovascular: Normal S1, Normal S2 Lungs: Normal Air Movement, Mild wheezing Abdomen: No Tenderness, obese Extremities: imoproved edema, obese Current Medications: Current Medications Sig/Pam Start time Last Medication Dose Route Stop Time Status Admin Acetaminophen 650 MG Q6P PRN 02/21 1430 AC 02/25 PO 0417 Albuterol Sulfate 3 ML EVERY 4 HRS/AWAKE 02/22 2000 AC 02/25 INH 0740 Albuterol Sulfate 3 ML Q6 PRN 02/21 1445 AC INH Azithromycin 250 MG DAILY 02/24 09 AC 02/25 PO 0806 Budesonide/ 2 PUF BID 02/24 2100 AC 02/25 Formoterol Fumarate INH 0807 Buprenorphine/ 1.5 TAB 0802/22 0800 AC 02/25 Naloxone SL 0806 Ferrous Sulfate 325 MG BID 02/21 2100 AC 02/25 PO 0806 Fluticasone 2 SPRAY DAILY NEEDED PRN 02/21 1445 AC 02/24 Propionate DANAE 2048 Furosemide 20 MG DAILY 02/25 0900 AC 02/25 PO 0806 Furosemide 40 MG DAILY 02/23 1527 DC 02/24 PO 0847 Ipratropium [place] 2.5 ML EVERY 4 HRS/AWAKE 02/22 2000 AC 02/25 INH 0740 Lorazepam 0.5 MG BID PRN 02/21 191 AC 02/24 PO 02/28 191 203 Methylprednisolone 40 MG Q12 02/21 2100 DC 02/24 IV 0847 Montelukast Sodium 10 MG DAILY 02/22 0900 AC 02/25 PO 0806 Olanzapine 2.5 MG Q4 HRS NEEDED PRN 02/22 1830 AC 02/25 PO 0417 Omeprazole 40 MG DAILY AC 02/24 0700 AC 02/25 PO 0427 Patient Medication 1 ED ONE ONE 02/24 1700 DC Teaching ED 02/24 1701 Potassium Chloride 20 MEQ DAILY 02/25 0900 AC 02/25 PO 0806 Potassium Chloride 20 MEQ DAILY 02/25 0900 UNVr PO Potassium Chloride 20 MEQ BID 02/21 2100 DC 02/24 PO 0848 Prednisone 40 MG DAILY 02/25 0900 DC PO Prednisone 30 MG DAILY 02/25 0900 AC 02/25 PO 02/26 0901 0806 Last 24 Hrs of Lab/Reza Results Last 24 Hrs of Labs/Mics: Laboratory Tests 02/25/18 0644: Sodium Pending, Potassium Pending, Chloride Pending, Carbon Dioxide Pending, Anion Gap Pending, BUN Pending, Creatinine Pending, BUN/Creatinine Ratio Pending , CBC w Diff Pending, WBC Pending, RBC Pending, Hgb Pending, Hct Pending, MCV Pending, MCH Pending, MCHC Pending, RDW Pending, Plt Count Pending, MPV Pending Assessment/Plan Assessment: 52-year-old morbidly obese woman with with multiple medical problems significant for recent diagnosis of gastrointestinal cancer, GI bleed, COPD not on home oxygen, and asthma seen for evaluation of progressively worsening shortness of breath and nonproductive cough. patient was admitted to floor for management of following conditions: Respiratory distress COPD exacerbation/Asthma pulm emboli was ruled out with D Dimer and doppler US. -Admit to general medicine -TRC with scheduled albuterol/ipratropium nebs -Supplemental oxygen, goal >92%, taper as tolerated -Po prednison, on taper -Azithromycin po - pulm consult Chronic medical problems: anxiety, recent diagnosis of gastric adenocarcinoma, morbid obesity -Protonix po -Ativan 0.5 mg by mouth every 6 hours as needed for anxiety -Continue home meds: Suboxone, iron supplement, Flonase, Singulair, and potassium -Pain control with acetaminophen and Suboxone - Zyprexa for anxiety, planned to discharge on Lexapro - Planned for Port A cath placement today -Heart healthy diet -DVT prophylaxis with Alps, no pharmacological prophylaxis due to anemia/GI bleed -full code Problem List: 1. Respiratory distress 2. Gastric adenocarcinoma 3. Panic attack as reaction to stress 4. Morbid obesity Pain Ratin Pain Location: None Pain Goal: Pain 4 or less Pain Plan: Continue current plan Tomorrow's Labs & Rationales: CBC BEP [place] ACUNA,[place] 02/25/18 1230: Attending MD Review Statement Attending Statement Attending MD Statement: examined this patient, discuss w/resident/PA/RAILROAD WATCHMAN, agreed w/resident/PA/RAILROAD WATCHMAN, reviewed EMR data (avail), discussed with nursing, discussed with case mgmt, amended to note Attending Assessment/Plan: Patient seen and examined. She is much less anxious today. She feels much better. She does continue to complain of shortness of breath with modest exertion. This however is close to her baseline. With activity pulse oximetry drops to 89% but improves with rest. She is normative requirements for home oxygen prescriptions. This has been explained to her. She did utilize CPAP therapy overnight. She reports that she just got her CPAP machine the day before hospitalization. She will continue this at home. Examination she has adequate entry bilaterally with no added sounds. Problems: 1. Acute hypoxic respiratory failure secondary to COPD exacerbation and acute on chronic diastolic heart failure. 2. Anxiety disorder 3. Gastric cancer. 4. Leukocytosis. Plan: -Continue steroid taper. Patient has been started on prednisone today. -She is scheduled for placement of Port-A-Cath by the IR service later on today. -Her leukocytosis is likely related to her steroid therapy. She has no clinical evidence of an infectious process. -Management of her gastric cancer will be as directed by her vulcanizer rubber plate in the outpatient setting. -Following placement of the Port-A-Cath she may be discharged home later today. -Pulmonology follow-up appreciated. Patient will not be discharged on olanzapine. In view of this we will start him on azithromycin 250 mg orally every other day as recommended by the pulmonology service.
[2018-02-25] MEDS ORDERED: LEXAPRO5 M1 PO ×4 (07:47→15:32)
[2018-02-25] MEDS ORDERED: AZITHROMYCIN250 M1 PO ×4 (07:47→15:32)
[2018-02-25] MEDS ORDERED: MILLIPRED5 M1 PO ×3 (07:47→15:32)
--- NOTE | 2018-02-25 08:11 | Patient Discharge Instructions ---
Discharge Instructions General Discharge Information You were seen/treated for: COPD exacerbation/Asthma Watch for these problems: Severe shortness of breathing, dizziness, weakness, chest pain, worsening of any other symptoms Special Instructions: Please follow with the PCP within one of discharge. Please follow with your cast iron drain pipe layer within 1-2 weeks of discharge. Diet Continue normal diet: No Recommended Diet: Heart Healthy Activity Full Activity/No Limits: No Activity Self Limited: Yes Acute Coronary Syndrome Inclusion Criteria At DC or during hospital stay patient has or had the following: ACS DIAGNOSIS No Discharge Core Measures Meds if any: Prescribed or Continued at Discharge Meds if any: NOT Prescribed or Continued at Discharge Congestive Heart Failure Inclusion Criteria At DC or during hospital stay patient has or had the following: CHF DIAGNOSIS No Discharge Core Measures Meds if any: Prescribed or Continued at Discharge Meds if any: NOT Prescribed or Continued at Discharge Cerebrovascular accident Inclusion Criteria At DC or during hospital stay patient has or had the following: CVA/TIA Diagnosis No Discharge Core Measures Meds if any: Prescribed or Continued at Discharge Meds if any: NOT Prescribed or Continued at Discharge Venous thromboembolism Inclusion Criteria VTE Diagnosis No VTE Type NONE VTE Confirmed by (Test) NONE Discharge Core Measures - Per Current guidelines, there needs to be overlap - treatment for the first 5 days of Warfarin therapy. - If discharged on Warfarin prior to 5 days of - overlap therapy, the patient will need to be - assessed for post discharge needs including - *Post discharge parental anticoagulation - *Warfarin and/or parental anticoagulation education - *Follow up date to check INR post discharge At least 5 days overlap therapy as Inpatient No Meds if any: Prescribed or Continued at Discharge Note: Overlap Therapy is Warfarin and Anticoagulant Meds if any: NOT Prescribed or Continued at Discharge
[2018-02-25 08:48] LABS: HEMATOCRIT 30.4 % (37-47); MEAN CORPUSCULAR HGB 24.8 PG (27.0-31.0); MEAN CORPUSCULAR HGB CONC 31.1 G/DL (33.0-37.0); MEAN CORPUSCULAR VOLUME 79.6 FL (81.0-99.0); PLATELET COUNT 454 /CUMM (130-400); RBC DISTRIBUTION WIDTH 28.3 % (11.5-14.5); RED BLOOD CELL CT 3.82 /CUMM (4.20-5.40); WHITE BLOOD CELL COUNT 18.9 /CUMM (4.8-10.8)
--- NOTE | 2018-02-25 09:30 | Discharge Summary ---
Hospital Course Allergies: Coded Allergies: No Known Allergies (12/11/17) Discharge Instructions Medications at Discharge Discharge Medications: Continue taking these medications: Fluticasone/Salmeterol (Advair 500-50 Diskus) 500 MCG-50 MCG/DOSE BLST.W.DEV 1 Puff Inhale through mouth TWICE DAILY Comments: Last Taken: 01/05/18 Time: 8:40 AM (RECEIVED SYMBICORT) Buprenorphine HCl/Naloxone HCl (Suboxone 12 MG-3 MG Sl Film) 12 MG-3 MG FILM 1 Strip SUBLINGUAL DAILY Qty = 14 Comments: Last Taken: NOT GIVEN IN HOSPITAL Time: Fluticasone Propionate (Fluticasone Propionate) 50 MCG/ACTUATION SPRAY.SUSP 2 [place] Both sides of nose As Directed as needed for ALLERGIES/ASTHMA Qty = 16 Comments: Last Taken: NOT GIVEN IN HOSPITAL Time: Montelukast Sodium (Montelukast Sodium) 10 MG TABLET 1 Tablet ORAL As Directed as needed for ALLERGIES/ASTHMA Qty = 30 Comments: Last Taken: 01/04/18 Time: 9:00 PM Potassium Citrate (Potassium Citrate ER) 10 MEQ (1,080 MG) TABLET.ER 2 Tablet ORAL TWICE DAILY Qty = 20 Comments: Last Taken: NOT GIVEN IN HOSPITAL Time: Furosemide (Lasix) 40 MG TABLET 1 Tablet ORAL DAILY Qty = 30 Comments: Last Taken: 01/03/18 Time: 3:15 PM Albuterol Sulfate (Albuterol Sulfate) 1.25 MG/3 ML VIAL.NEB 1 Vial Inhale Solution EVERY 4-6 HOURS as needed for WHEEZING Qty = 150 Albuterol Sulfate (Proair Hfa) 90 MCG HFA.AER.AD 2 Puff Inhale through mouth EVERY 4-6 HOURS NEEDED as needed for ASTHMA Qty = 1 Ferrous Sulfate (Ferrous Sulfate) 325 MG (65 MG IRON) TABLET 1 Tablet ORAL TWICE DAILY Qty = 60 Tiotropium [place] (Spiriva) 18 MCG CAP.W.DEV 1 Capsule Inhale through mouth DAILY Qty = 30 Omeprazole (Omeprazole) 40 MG CAPSULE.DR 1 Capsule ORAL DAILY Qty = 90 Start taking the following new medications: Azithromycin (Azithromycin) 250 MG TABLET 250 Milligram ORAL DAILY Qty = 1 No Refills Instructions: . Escitalopram Oxalate (Lexapro) 5 MG TABLET 1 Tablet ORAL DAILY Qty = 30 Refills = 1 Instructions: Uptitrate to 2 pills per day after 3 days. Prednisolone (Millipred) 5 MG TABLET 0 ORAL SEE INSTRUCTIONS Qty = 60 Refills = 1 Instructions: Please take as follow: 6 pills for one day 4 pills for two days 2 pills for two days 1 pill for two days then take one pill every other day. Comments: Please take as follow: 6 pills for one day 4 pills for two days 2 pills for two days 1 pill for two days then take one pill every other day
--- NOTE | 2018-02-25 09:49 | PN- Pulmonary ---
Subjective HPI/Critical Care Issues: Stable No sig wheezing Mild rhonchi due to laryngeal transmitted sound Objective Current Medications: Current Medications Sig/Pam Start time Last Medication Dose Route Stop Time Status Admin Acetaminophen 650 MG Q6P PRN 02/21 1430 AC 02/25 PO 0417 Albuterol Sulfate 3 ML EVERY 4 HRS/AWAKE 02/22 2000 AC 02/25 INH 0740 Albuterol Sulfate 3 ML Q6 PRN 02/21 1445 AC INH Azithromycin 250 MG DAILY 02/24 09 AC 02/25 PO 0806 Budesonide/ 2 PUF BID 02/24 2100 AC 02/25 Formoterol Fumarate INH 0807 Buprenorphine/ 1.5 TAB 0800 02/22 08 AC 02/25 Naloxone SL 0806 Ferrous Sulfate 325 MG BID 02/21 2100 AC 02/25 PO 0806 Fluticasone 2 SPRAY DAILY NEEDED PRN 02/21 1445 AC 02/24 Propionate DANAE 2048 Furosemide 20 MG DAILY 02/25 09 AC 02/25 PO 0806 Furosemide 40 MG DAILY 02/23 1527 DC 02/24 PO 0847 Ipratropium [place] 2.5 ML EVERY 4 HRS/AWAKE 02/22 2000 AC 02/25 INH 0740 Lorazepam 0.5 MG BID PRN 02/21 1913 AC 02/24 PO 02/28 191 2039 Methylprednisolone 40 MG Q12 02/21 2100 DC 02/24 IV 0847 Montelukast Sodium 10 MG DAILY 02/22 09 AC 02/25 PO 0806 Olanzapine 2.5 MG Q4 HRS NEEDED PRN 02/22 1830 AC 02/25 PO 0417 Omeprazole 40 MG DAILY AC 02/24 07 AC 02/25 PO 0427 Patient Medication 1 ED ONE ONE 02/24 1700 DC Teaching ED 02/24 1701 Potassium Chloride 20 MEQ DAILY 02/25 09 AC 02/25 PO 0806 Potassium Chloride 20 MEQ DAILY 02/25 09 DC PO Potassium Chloride 20 MEQ BID 02/21 2100 DC 02/24 PO 0848 Prednisone 40 MG DAILY 02/25 09 DC PO Prednisone 30 MG DAILY 02/25 0900 AC 02/25 PO 02/26 0901 0806 Vital Signs & I&O Last 24 Hrs of Vitals and I&O: Vital Signs Date Time Temp Pulse Resp B/P B/P Pulse O2 O2 Flow FiO2 Mean Ox Delivery Rate 02/25 0800 93 Room Air 02/25 0745 98 Nasal 2.0L Cannula 02/25 0617 97.9 94 22 126/82 96 CPAP 02/25 0014 91 97 02/25 0000 CPAP 02/24 2127 98.4 100 20 114/70 95 Nasal 1.0L Cannula 02/24 1958 Nasal 2.0L Cannula 02/24 1613 Nasal 2.0L Cannula 02/24 1600 90 Room Air Room Air 02/24 1355 98.2 91 20 132/72 92 Nasal Cannula 02/24 1058 124 90 Room Air Intake & Output 02/25 1600 02/25 0800 02/25 0000 Intake Total 240 240 Output Total Balance 240 240 Intake, Oral 240 240 Impression/Plan Impression/Plan Impression/Plan: General Appearance No Acute Distress Skin No Significant Lesion HEENT Atraumatic, PERRLA, EOMI, MUCOUS MEMBRANES DRY Neck Supple Cardiovascular Regular Rate, Normal S1, Normal S2 Lungs mild wheezing Abdomen OBESE, SOFT AND NON TENDER. DIMINISHED BS Neurological Normal Speech, Cranial Nerves 3-12 NL Extremities 1+ EDEMA IN BILAT LE Pt with sig COPD with asthmatic component with recently dxd Gastric ca pending chemo has Sig COPD with asthmatic component with mild exacerbation Sig obesity with OHS with sig LORENA now on cpap -pt just started it recently Severe hypercarbia at baseline with chronic hypercarbic resp insuff Needs portacath REC * Prednisone 30 mg qd for two days and then 20 for two and 10 for two and 5 mg for two days and then qod for 10 days (prolonged taper on lower dose) * CPAP at hs - pt has cpap * Cont Spiriva * Start symbicort bid ( on advair high dose at home and resume advair 500 bid upon dc) * COnt other meds * COnt psych meds * Reduce lasix to 20 qd with potassium 20 meq and dc on three times a week lasix * Pt would have been a good candidate for qod azithro for copde prophylaxis but as she is on olanzapine qtc prolongation would be an issue and will hold off on chcf azithro ok to dc
[2018-02-25 11:34] LABS: PT 10.4 SEC (9.4-12.5)
[2018-02-25] MEDS ORDERED: LASIX20 M1 PO ×2 (13:12→15:32)
[2018-02-25] MEDS ORDERED: POTASSIUM CITR10 ME1 PO ×2 (13:12→15:32)
[2018-02-25 15:10] VITALS: BP 132/64
--- NOTE | 2018-02-25 15:17 | ULTRASOUND REPORT ---
PROCEDURE: VENOUS ACCESS TUNNELED >5 YEARS WITH PORT CLINICAL HISTORY: This patient is a 52 years old female with gastric cancer requiring chemotherapy, who presents to Interventional Radiology for placement of a right chest port as requested. PROCEDURES: 1. Real-time ultrasound-guided access into the right internal jugular vein after documentation of selected vessel patency, and permanent imaging storing in the patient records. 2. Placement of an 21 cm port. PHYSICIANS: Dr. Lashawn Kathleen (attending). MONITORING: The procedure was performed with anesthesia support. MEDICATIONS: 1. Lidocaine 1%, 9 mL SQ. 2. Lidocaine 1%, 20 mL with epinephrine SQ. 3. Ancef 2 g IV. CONTRAST: None FLUOROSCOPY TIME: 0.2 minutes DAP: 1.2 uGym2 COMPLICATIONS: None ESTIMATED BLOOD LOSS: <50 mL SPECIMENS: None IMPLANT: 6.6-Fr Vaccess port. SITE MARKING: As part of the preprocedure verification policy, a site marking procedure was initiated. Due to the nature the procedure, the insertion site could not be predetermined thus invoking the policy of exemption to site laterality and marking. Insertion site marking was performed in the procedure room in conjunction with imaging confirmation. PROCEDURE NOTE: Informed consent was obtained from the patient prior to the procedure. During this process, the procedure and potential alternatives were explained along with the intended outcome and benefits. The risks of the procedure, including the possibility of an unsuccessful procedure, as well as the risk of not doing the procedure, were discussed. The patient was given the opportunity to ask questions regarding the procedure and appeared competent to make decisions. A signed consent form documenting this discussion was placed in the medical record. A time-out procedure was performed. The patient was placed supine on the fluoroscopy table. The right neck and chest were prepped and draped in usual sterile fashion. All elements of maximal sterile barrier technique followed including use of cap, mask, sterile gown, sterile gloves, a sterile full body drape and hand hygiene. Also followed skin preparation with 2% chlorhexidine for cutaneous antisepsis, and sterile ultrasound preparation with sterile gel and probe cover when applicable. 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 Venous access was achieved into the IJ vein using ultrasound and fluoroscopic guidance with a 5-Fr Micropuncture set. A small skin norma was made at the access site. The length from the venotomy to the superior cavoatrial junction was marked using the 0.018 wire. The 0.018 wire was exchanged for a 0.035 in J wire, which was advanced to the IVC to maintain access during dissection of the pocket and the tunneling process. Attention was then directed to the chest. Lidocaine with 1:100,000 epinephrine was used for local anesthetic and a 3 cm incision was made. The pocket was dissected to the size of the port and then a subcutaneous tunnel was made to connect to the venotomy site. The pocket was flushed with normal saline. The catheter was sized and pulled through the tunnel. It was connected to the port. The Micropuncture set sheath in the IJ was exchanged over the wire for a peel-away sheath. The inner dilator and J wire were removed and the catheter was advanced through the peel away sheath. The peel away sheath was subsequently removed. The catheter tip is located at the superior cavoatrial junction. The port was aspirated and flushed, then packed with 5 mL of heparin solution. The incision site was sutured using 3-0 Polysorb for the facial layer. This was followed by 5-0 Polysorb for the subcuticular layer. There was excellent apposition of tissue planes and Dermabond glue was used for added closure at the incision over the chest as well as at the dermatotomy site at the neck. The patient tolerated the procedure well. FINDINGS: 1. Patent right IJ vein. 2. Tip of catheter in the superior cavoatrial junction. 3. Catheter flushes and aspirates well. 4. No pneumothorax. IMPRESSION: Successful and uncomplicated placement of a right chest port. PLAN: 1. The patient was stable after the procedure and was transferred to the interventional recovery area. The patient will be transferred to the floor. 2. The port may be used immediately. 3. The patient may shower. However, the site should NOT be submersed in water until the glue peels off (in approximately 7-10 days).
== END 2018-02-25 17:56 | disposition home health service (06) | DRG 140 ==
LOC: ERH 10:47 → ERHI 12:07 → 2NB 12:07 → ENRESERV 13:08 → ENTRNSPT 13:27 → EDTRNSPT 13:28 → EDTRNSPTSTS 13:28 → 2NB 13:41 → CMPTRNSPT 13:49 → 2NB 02-23 08:45 → ENTRNSPT 02-25 17:32 → EDTRNSPTSTS 02-25 17:51 → 2NB 02-25 17:56 → CMPTRNSPT 02-25 18:02
PROVIDERS: Emergency Medicine; Internal Medicine Interventional Cardiology; Radiology Vascular & Interventional Radiology
PROC: 02HV33Z Insertion of Infusion Device into Superior Vena Cava, Percutaneous Approach (ICD-10-PCS; principal; 2018-02-25)
PROC: B5181ZA Fluoroscopy of Superior Vena Cava using Low Osmolar Contrast, Guidance (ICD-10-PCS; principal; 2018-02-25)
DX: J44.1 Chronic obstructive pulmonary disease with (acute) exacerbation (principal); E66.01 Morbid (severe) obesity due to excess calories; Z68.42 Body mass index [BMI] 45.0-49.9, adult; F41.9 Anxiety disorder, unspecified; C16.9 Malignant neoplasm of stomach, unspecified; Z79.51 Long term (current) use of inhaled steroids; M19.91 Primary osteoarthritis, unspecified site; G47.33 Obstructive sleep apnea (adult) (pediatric); F43.0 Acute stress reaction; D72.829 Elevated white blood cell count, unspecified
CPT/HCPCS: 04007; 2NBP; 36415; 36592; 71045; 71046; 72100; 77002; 82436; 86920; 87070; 93005; 93010; 93970; C1769; C1788; EXP; J0456; J0690; J0696; J1642; J1940; J2920; J2930; J3490; J7040; J7512; P9016

== ENCOUNTER 2018-03-14 23:03 | Inpatient (IN) | payer OTHER ==
[~2018-03-14] VITALS: Ht 154.9 cm; Wt 71.4 kg
[~2018-03-14 23:03] MED LIST changes: +FERROUS SULFAT325 M3 PO; +LASIX20 M1 PO; +LEXAPRO5 M1 PO; +MILLIPRED5 M1 PO; +OMEPRAZOLE40 M1 PO; +SPIRIVA18 MCG INH
--- NOTE | 2018-03-14 23:18 | ED DYSPNEA/ASTHMA COMPLAINT ---
History of Present Illness General Chief Complaint: Dyspnea (COPD, CHF, Other) Stated Complaint: SOB, WHEEZING Source: patient, old records, EMS Exam Limitations: no limitations Vital Signs & Intake/Output Vital Signs & Intake/Output Vital Signs Date Time Temp Pulse Resp B/P B/P Pulse O2 O2 Flow FiO2 Mean Ox Delivery Rate 03/15 0126 100 20 120/64 95 Nasal 3.0L Cannula 03/14 2308 98.0 103 20 123/59 99 Non 6.0L ReBreather ED Intake and Output 03/15 0000 03/14 1200 Intake Total Output Total Balance Patient 270 lb Weight Weight Reported by Patient Measurement Method Allergies Coded Allergies: No Known Allergies (12/11/17) Reconcile Medications Albuterol Sulfate (Proair Hfa) 90 MCG HFA.AER.AD 2 PUF INH Q4-6 PRN PRN ASTHMA Albuterol Sulfate 1.25 MG/3 ML VIAL.NEB 1 Vial INH/THA Q4-6 PRN WHEEZING Azithromycin 250 MG TABLET 250 MG PO Q48 Lung health To start from 02/27/18. Buprenorphine HCl/Naloxone HCl (Suboxone 12 MG-3 MG Sl Film) 12 MG-3 MG FILM 1 STR SL DAILY CHRONIC PAIN (Reported) Escitalopram Oxalate (Lexapro) 5 MG TABLET 1 TAB PO DAILY ANXIETY Uptitrate to 2 pills per day after 3 days Ferrous Sulfate 325 MG (65 MG IRON) TABLET 1 TAB PO BID SUPPLEMENT (Reported) Fluticasone Propionate 50 MCG/ACTUATION SPRAY.SUSP 2 SPRAY NASB AD PRN ALLERGIES/ASTHMA (Reported) Fluticasone/Salmeterol (Advair 500-50 Diskus) 500 MCG-50 MCG/DOSE BLST.W.DEV 1 PUF INH BID ASTHMA (Reported) Furosemide (Lasix) 20 MG TABLET 1 TAB PO 3XW SWELLING . Montelukast Sodium 10 MG TABLET 1 TAB PO AD PRN ALLERGIES/ASTHMA (Reported) Omeprazole 40 MG CAPSULE.DR 1 CAP PO DAILY GI (Reported) Potassium Citrate (Potassium Citrate ER) 10 MEQ (1,080 MG) TABLET.ER 1 TAB PO 3XW LOW POTASSIUM . Prednisolone (Millipred) 5 MG TABLET 0 PO SEE ADMIN CRITERIA LUNG HEALTH Please take as follow: 6 pills for one day 4 pills for two days 2 pills for two days 1 pill for two days then take one pill every other day Tiotropium Amlin (Spiriva) 18 MCG CAP.W.DEV 1 CAP INH DAILY RESP. (Reported ) Triage Note: PT BIBA FROM HOME WITH C/O SOB/WHEEZING UNRELIEVED BY HOME NEBS. PT HAS HX COPD. PT RECIEVED EN ROUTE DUONEB AND ALBUTEROL NEB (ARRIVES ON ALBUTEROL NEB), AND 125MG IV SOLUMEDROL, PT HAS #18 IN LW. PT IS ON RA AT HOME. REPORTS SOME RELIEF FROM NEBS AT THIS TIME Triage Nurses Notes Reviewed? yes Onset: Last week Duration: day(s):, continues in ED, getting worse Timing: recent history Severity: moderate, severe Activities at Onset: rest Prior Episodes/Possible Cause: frequent episodes Modifying Factors: Improves With: rest. Worsens With: movement. Associated Symptoms: cough, edema, wheezing, weakness LMP (ages 10-50): post menopausal : No Patient currently breastfeeds: No HPI: One week prior to admission patient complains of productive cough with increasing dyspnea on exertion abdominal girth and peripheral edema. Prior to admission shortness of breath became significant without response to nebs. En route to hospital she received DuoNeb and albuterol neb and Solu-Medrol 125 mg IV. She denies fever chills nausea vomiting diarrhea chest pain abdominal pain dysuria rash bleeding. Past History Travel History Traveled to [place] past 21 day No Medical History Any Pertinent Medical History? see below for history Neurological: NONE EENT: NONE Cardiovascular: NONE Respiratory: asthma, COPD Gastrointestinal: GI BLEED Hepatic: NONE Renal: NONE Musculoskeletal: degen joint disease Psychiatric: NONE Endocrine: NONE Blood Disorders: NONE Cancer(s): STOMACH CANCER EMERGENCY DEPT TECH/Reproductive: NONE History of MRSA: No History of VRE: No History of CDIFF: No Surgical History Surgical History: unobtainable Psychosocial History Who do you live with Mother Services at Home None What is your primary language Khmer Tobacco Use: Quit >30 days ago ETOH Use: denies use Illicit Drug Use: denies illicit drug use Family History Family History, If Any: FATHER (Heart Disease). MOTHER (Asthma). Uncle (Diabetes). BROTHER (sudden ; possibly cardiac.). Hx Contributory? No Review of Systems Review of Systems Constitutional: Reports: no symptoms. EENTM: Reports: no symptoms. Respiratory: Reports: see HPI, cough, short of breath, sputum production, wheezing. Cardiovascular: Reports: see HPI, peripheral edema. GI: Reports: no symptoms. Genitourinary: Reports: no symptoms. Musculoskeletal: Reports: no symptoms. Skin: Reports: no symptoms. Neurological/Psychological: Reports: no symptoms. Hematologic/Endocrine: Reports: no symptoms. Immunologic/Allergic: Reports: no symptoms. All Other Systems: Reviewed and Negative Physical Exam Physical Exam General Appearance: well developed/nourished, alert, awake, anxious, severe distress, obese Head: atraumatic, normal appearance Eyes: Bilateral: normal appearance, PERRL, EOMI. Ears, Nose, Throat: normal pharynx, normal ENT inspection, hearing grossly normal Neck: normal inspection, supple, full range of motion, JVD, no midline tenderness Respiratory: chest non-tender, decreased breath sounds, crackles, wheezing, respiratory distress Cardiovascular: regular rate/rhythm, normal peripheral pulses, norml femoral pulses equa Peripheral Pulses: 4+ carotid (R), 4+ carotid (L) Gastrointestinal: normal bowel sounds, soft, non-tender, no organomegaly Extremities: normal capillary refill, normal range of motion, pedal edema, no ligament instability Neurologic/Psych: no motor/sensory deficits, awake, alert, oriented x 3, normal gait, normal mood/affect, certified prosthetist/orthotist II-XII nml as tested Skin: intact, normal color, warm/dry Lymphatic: no anterior cervical josue Core Measures ACS in differential dx? No CVA/TIA Diagnosis No Sepsis Present: No Sepsis Focused Exam Completed? No Progress Differential Diagnosis: asthma, bronchitis, CHF, COPD, pneumonia Plan of Care: Orders Procedure Date/time Status Regular Diet 03/15 B Active Patient Data 03/15 1644 Active OXYGEN SETUP (GEN) 03/14 2353 Active Saline Lock 03/14 235 Active Admit to inpatient 03/14 235 Active Vital Signs 03/14 2353 Active Activity/Ambulation 03/14 2353 Active Code Status 03/14 2353 Active BLOOD CULTURE 03/14 2351 Active TROPONIN LEVEL 03/14 2315 Complete MAGNESIUM 03/14 2315 Complete COMPREHENSIVE METABOLIC PANEL 03/14 2315 Complete CBC WITHOUT DIFFERENTIAL 03/14 2315 Complete B-TYPE NATRIURETIC PEP (BNP) 03/14 2315 Complete EKG 03/14 2315 Active Laboratory Tests 03/14/18 2350: Anion Gap 9, Estimated GFR > 60, BUN/Creatinine Ratio 16.3, Glucose 115 H, Calcium 8.2 L, Magnesium 1.8, Total Bilirubin 0.4, AST 15, ALT 34, Alkaline Phosphatase 99, Troponin I < 0.01, Qpp-Q-Dmtgvesqcne Pept 65.3, Total Protein 5.8 L, Albumin 3.1 L, Globulin 2.7, Albumin/Globulin Ratio 1.1, CBC w Diff NO MAN DIFF REQ, RBC 3.70 L, MCV 77.4 L, MCH 24.1 L, MCHC 31.1 L, RDW 30.5 H, MPV 6.5 L, Gran % 74.0, Lymphocytes % 14.1 L, Monocytes % 10.1 H, Eosinophils % 1.7, Basophils % 0.1, Absolute Granulocytes 6.2, Absolute Lymphocytes 1.2, Absolute Monocytes 0.8 H, Absolute Eosinophils 0.1, Absolute Basophils 0 Microbiology 03/15 0040 BLOOD: Blood Culture - RECD 03/15 0025 BLOOD: Blood Culture - RECD Diagnostic Imaging: Viewed by Me: Radiology Read. Discussed w/RAD: Radiology Read. CXR Impression: Diffuse interstitial prominence throughout both lungs likely indicative of mild to moderate vascular congestion. There are superimposed multifocal airspace disease concerning for pneumonia, though nonspecific. Initial ED EKG: normal axis, normal intervals, normal p-waves, normal QRS complex, normal sinus rhythm, no ST T wave changes Prior EKG: unchanged Rhythm Strip: normal sinus rhythm Departure Departure Disposition: STILL A PATIENT Condition: Stable Clinical Impression Primary Impression: Pneumonia Secondary Impressions: Asthma exacerbation, Volume overload Referrals: Brent ACUNA,Chase Elizabeth (PCP/Family) Departure Forms: Customer Survey General Discharge Information Admission Note Spoke With: Monica Washington MD Documentation of Exam: Documentation of any treatments & extenuating circumstances including Concerns Regarding Discharge (functional status, medication knowledge or non-compliance, living conditions, etc.) that warrant an admission rather than observation: Supplemental oxygen serial beta agonist nebs IV antibiotics pulmonary evaluation medication adjustment continuing care discharge planning Critical Care Note Critical Care Note Critical Care Time: non-applicable Documentation of Exam: Documentation of any treatments & extenuating circumstances including Concerns Regarding Discharge (functional status, medication knowledge or non-compliance, living conditions, etc.) that warrant an admission rather than observation: Supplemental oxygen serial beta agonist nebs IV antibiotics pulmonary evaluation medication adjustment continuing care discharge planning
--- NOTE | 2018-03-14 23:45 | RADIOLOGY REPORT ---
EXAMINATION: CHEST 1 VIEW CLINICAL INFORMATION: Pneumonia. CHF. COMPARISON: February 21, 2018. TECHNIQUE: An AP view of the chest is provided. FINDINGS: The cardiac silhouette is stable. There is diffuse interstitial prominence throughout both lungs. A right-sided port is in place with the tip overlying the mid SVC. The mediastinal and hilar contours are unremarkable. There are neither pleural effusions nor pneumothoraces. There is streaky opacification present within the left upper lobe as well as right perihilar and right lower lobe hazy opacification. The osseous structures are unremarkable. IMPRESSION: Diffuse interstitial prominence throughout both lungs likely indicative of mild to moderate vascular congestion. There are superimposed multifocal airspace disease concerning for pneumonia, though nonspecific. Recommendation is for a followup chest series to be obtained following treatment and/or resolution of symptoms to assure resolution of this appearance.
[2018-03-15 00:03] LABS: ABSOLUTE BASOPHIL COUNT 0 /CUMM (0.0-0.2); ABSOLUTE EOSINOPHIL COUNT 0.1 /CUMM (0.0-0.7); ABSOLUTE GRANULOCYTE CT 6.2 /CUMM (1.4-6.5); ABSOLUTE LYMPH COUNT 1.2 /CUMM (1.2-3.4); ABSOLUTE MONOCYTE COUNT 0.8 /CUMM (0.10-0.60); BASOPHIL % 0.1 % (0.0-2.0); EOSINOPHIL % 1.7 % (0-5); HEMATOCRIT 28.7 % (37-47); MEAN CORPUSCULAR HGB 24.1 PG (27.0-31.0); MEAN CORPUSCULAR HGB CONC 31.1 G/DL (33.0-37.0); MEAN CORPUSCULAR VOLUME 77.4 FL (81.0-99.0); MEAN PLATELET VOLUME 6.5 FL (7.4-10.4); PLATELET COUNT 462 /CUMM (130-400); RBC DISTRIBUTION WIDTH 30.5 % (11.5-14.5); WHITE BLOOD CELL COUNT 8.3 /CUMM (4.8-10.8)
--- NOTE | 2018-03-15 01:28 | History & Physical ---
Ji ACUNA,Jyoti 03/15/18 0127: General Information and HPI MD Statement: I have seen and personally examined NILO GARDINER and documented this H&P. The patient is a 52 year old F who presented with a patient stated chief complaint of [SOB]. Source of Information: patient, old records Exam Limitations: no limitations History of Present Illness: 52-year-old morbidly obese woman with recent diagnosis of gastrointestinal cancer, GI bleed, COPD not on home oxygen, chronic lower extremity edema on Lasix, LORENA on nocturnal CPAP and asthma. Patient presents with chief complaint of shortness of breath for 4 days on walking a few steps. She also reports occasional shortness of breath at rest. She has been using her inhalers more frequent however it did not help to improve the shortness of breath. The patient mentioned that she has been sleeping on recliner since she was discharged from the hospital 1 month ago because of shortness of breath. She denies paroxysmal nocturnal dyspnea. Patient was recently discharged on after being treated for COPD exacerbation, she was discharged on prednisone taper, azithromycin, her Lasix dose has been a change at 20, 3 times/ week. Patient also complains of increasing swelling of her both lower extremity and increasing abdominal girth and heaviness for 1.5 week. Patient complains of cough productive of greenish sputum for the past 1.5 week. Patient denies any chest pain, fever, chills, nausea, vomiting, diarrhea or constipation. She also denies recent sick contacts or recent travel Patient see Dr. Mccoy and Dr. Zarate and she reports being compliant with her home meds Of note the patient had a port placed during her last hospitalization for chemotherapy for recently diagnosed gastric cancer. Her first chemo therapy is scheduled for next Friday. Allergies/Medications Allergies: Coded Allergies: No Known Allergies (12/11/17) Home Med list Albuterol Sulfate (Proair Hfa) 90 MCG HFA.AER.AD 2 PUF INH Q4-6 PRN PRN ASTHMA Albuterol Sulfate 1.25 MG/3 ML VIAL.NEB 1 Vial INH/THA Q4-6 PRN WHEEZING Azithromycin 250 MG TABLET 250 MG PO Q48 Lung health To start from 02/27/18. Buprenorphine HCl/Naloxone HCl (Suboxone 12 MG-3 MG Sl Film) 12 MG-3 MG FILM 1 STR SL DAILY CHRONIC PAIN (Reported) Escitalopram Oxalate (Lexapro) 5 MG TABLET 1 TAB PO DAILY ANXIETY Uptitrate to 2 pills per day after 3 days Ferrous Sulfate 325 MG (65 MG IRON) TABLET 1 TAB PO BID SUPPLEMENT (Reported) Fluticasone Propionate 50 MCG/ACTUATION SPRAY.SUSP 2 SPRAY NASB AD PRN ALLERGIES/ASTHMA (Reported) Fluticasone/Salmeterol (Advair 500-50 Diskus) 500 MCG-50 MCG/DOSE BLST.W.DEV 1 PUF INH BID ASTHMA (Reported) Furosemide (Lasix) 20 MG TABLET 1 TAB PO 3XW SWELLING . Montelukast Sodium 10 MG TABLET 1 TAB PO AD PRN ALLERGIES/ASTHMA (Reported) Omeprazole 40 MG CAPSULE.DR 1 CAP PO DAILY GI (Reported) Potassium Citrate (Potassium Citrate ER) 10 MEQ (1,080 MG) TABLET.ER 1 TAB PO 3XW LOW POTASSIUM . Tiotropium [place] (Spiriva) 18 MCG CAP.W.DEV 1 CAP INH DAILY RESP. 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 MOTHER (Asthma). Uncle (Diabetes). BROTHER (sudden ; possibly cardiac.). Psychosocial History Services at Home: None ETOH Use: denies use Illicit Drug Use: denies illicit drug use Review of Systems Review of Systems Constitutional: Reports: malaise, weakness. Denies: chills, diaphoresis, fever. Cardiovascular: Reports: edema, orthopena, peripheral edema. Denies: chest pain, palpitations, syncope. Respiratory: Reports: cough, orthopnea, short of breath, sputum production. Denies: hemoptysis, stridor, wheezing. GI: Reports: bloating, distention. Denies: abdominal pain, constipation, diarrhea, bowel incontinence, melena, nausea, bloody stool, changes in stool, vomiting. Genitourinary: Denies: no symptoms. Musculoskeletal: Denies: no symptoms. Skin: Denies: no symptoms. Neurological/Psychological: Denies: no symptoms. Hematologic/Endocrine: Denies: no symptoms. Exam & Diagnostic Data Last 24 Hrs of Vital Signs/I&O Vital Signs Date Time Temp Pulse Resp B/P B/P Pulse O2 O2 Flow FiO2 Mean Ox Delivery Rate 03/15 0126 98.5 100 20 120/64 95 Nasal 3.0L Cannula 03/15 0003 Nasal 3.0L Cannula 03/14 2308 98.0 103 20 123/59 99 Non 6.0L ReBreather Intake & Output 03/15 0800 03/15 0000 03/14 1600 Intake Total 300 Output Total 400 Balance -100 Intake, Oral 300 Output, Urine 400 Patient 270 lb Weight Weight Reported by Patient Measurement Method Physical Exam General Appearance Alert, Oriented X3, Cooperative, No Acute Distress HEENT Atraumatic, PERRLA, EOMI, Mucous Membr. moist/pink Neck Supple, No JVD Cardiovascular Normal S1, Normal S2, No Murmurs Lungs markedly decreased air entery in both lung nguyễn Abdomen Normal Bowel Sounds, abdominal wall edema with markedly distended obese abdomen Neurological Normal Speech, Strength at 5/5 X4 Ext, Normal Tone, Sensation Intact, Cranial Nerves 3-12 NL Extremities No Clubbing, No Cyanosis, Bilateral 4+ pitting edeam to the level of the knee Vascular Normal Pulses, Pulses Symmetrical Last 24 Hrs of Labs/Reza: Laboratory Tests 03/15/18 0150: Methadone Screen Pending, Barbiturate Screen Pending, Ur Phencyclidine Scrn Pending, Amphetamines Screen Pending, U Benzodiazepines Scrn Pending, Urine Cocaine Screen Pending, Urine Cannabis Screen Pending, Urine Color Pending, Urine Clarity Pending, Urine pH Pending, Ur Specific Viola Pending, Urine Protein Pending, Urine Ketones Pending, Urine Nitrite Pending, Urine Bilirubin Pending, Urine Urobilinogen Pending, Ur Leukocyte Esterase Pending, Ur Microscopic SEDIMENT EXAMINED, Urine RBC Pending, Urine Hemoglobin Pending, Urine Glucose Pending 03/14/18 2350: Anion Gap 9, Estimated GFR > 60, BUN/Creatinine Ratio 16.3, Glucose 115 H, Calcium 8.2 L, Magnesium 1.8, Total Bilirubin 0.4, AST 15, ALT 34, Alkaline Phosphatase 99, Troponin I < 0.01, Acx-V-Cxzrawtehpb Pept 65.3, Total Protein 5.8 L, Albumin 3.1 L, Globulin 2.7, Albumin/Globulin Ratio 1.1, CBC w Diff NO MAN DIFF REQ, RBC 3.70 L, MCV 77.4 L, MCH 24.1 L, MCHC 31.1 L, RDW 30.5 H, MPV 6.5 L, Gran % 74.0, Lymphocytes % 14.1 L, Monocytes % 10.1 H, Eosinophils % 1.7, Basophils % 0.1, Absolute Granulocytes 6.2, Absolute Lymphocytes 1.2, Absolute Monocytes 0.8 H, Absolute Eosinophils 0.1, Absolute Basophils 0 Microbiology 03/15 013 LOWER RESP: Respiratory Culture - ORD 03/15 132 LOWER RESP: Gram Stain - ORD 03/15 0040 BLOOD: Blood Culture - RECD 03/15 002 BLOOD: Blood Culture - RECD Diagnostic Data EKG Results Normal sinus rhythm, heart rate 98, QTc 440, no STT wave changes CXR Results Diffuse interstitial prominence throughout both lungs likely indicative of mild to moderate vascular congestion. There are superimposed multifocal airspace disease concerning for pneumonia, though nonspecific. Recommendation is for a followup chest series to be obtained following treatment and/or resolution of symptoms to assure resolution of this appearance. Assessment/Plan Assessment: 52-year-old morbidly obese woman with recent diagnosis of gastrointestinal cancer, GI bleed, COPD not on home oxygen, chronic lower extremity edema on Lasix, LORENA on nocturnal CPAP and asthma. Patient presents with chief complaint of shortness of breath for 4 days on walking a few steps. She also reports occasional shortness of breath at rest she reports using her inhalers more frequent without significant relief of her shortness of breath. In addition she reports progressively worsening lower extremity edema and increased abdominal girth. Given the patient history of COPD her symptoms most likely is due to COPD exacerbation with an element of CHF exacerbation (lower extremity edema and increased abdominal girth) Last echo was on 12/21 and showed mild LVH, ejection fraction more than 65 which is psudonormal (stage II diastolic heart failure) of note patient Lasix dose was decreased during the last admission to 20 every other day. Problem list: COPD exacerbation CHF exacerbation Microcytic anemia History of gastric cancer awaiting chemotherapy Plan: Admit to telemetry Continuous telemetry monitoring Vitals every shift Strict I's and O's TRC and nebs Oxygen to keep oxygen saturation above 92 Continue IV Solu-Medrol Continue IV azithromycin Continue Lasix 40 IV daily Cardiology consult appreciated Pulmonary consult appreciated Serial troponin EKG to rule out ACS LRC culture, follow-up on blood culture Patient is full code DVT prophylaxis with Lovenox Heart healthy diet As Ranked By This Provider Problem List: 1. Volume overload 2. Gastric adenocarcinoma 3. COPD exacerbation 4. Anemia Core Measures/Misc (07/20) Acute Coronary Syndrome ACS Diagnosis: No Congestive Heart Failure Congestive Heart Failure Diagnosis No Cerebrovascular Accident CVA/TIA Diagnosis: No VTE (View Protocol) VTE Risk Factors Age>40 No Mechanical VTE Prophylaxis d/t N/A MechProphylax Ordered No VTE Pharm Prophylaxis d/t NA PharmProphylax ordered Sepsis (View protocol) Sepsis Present: No Tyree Rodriguez MD 03/15/18 0137: Resident Review Statement Resident Statement: examined this patient, discussed with sport intern, agreed with sport intern, reviewed EMR data (avail), discussed with nursing, discussed with case mgmt, reviewed images, amended to note Other Findings: 52-year-old female with past medical history of COPD not on home oxygen, asthma, morbid obesity with OHS with significant LORENA on CPAP at home, recently diagnosed gastric adenocarcinoma with port-a-cath for chemotherapy (not started yet, first dose planned for this Friday03/17/18) , rheumatoid arthritis, chronic knee pain , chronic lower extremity edema, presented to the ED for shortness of breath and leg swelling. She was feeling gradual onset of shortness of breath since past 4 days, which worsened to the point where she was short of breath on minimal exertion, and even while she was in the recliner. She denies any chest pain, chest heaviness/pressure, palpitations, fever/chills, sick contacts, recent travel, nausea, vomiting. Patient was recently discharged from [facility] for COPD exacerbation/ asthma with a Port-A-Cath placed for her chemotherapy during the admission (02/21-02/25/18). She also had a recent admission prior to that from 01/02/18-01/05/18 for GI bleding requiring 2 U PRBC transfusion, when she was found to have ulcers which turned out to be gastric adenocarcinoma. In her previous admissions with shortness of breath, she was treated for COPD exacerbation/asthma, and got Echo on 12/12/17 which showed stage 2 diastolic dysfunction but never in decompensated heart failure. Her RVSP was 28 mm Hg then without evedence of pulm HTN either. She was recently discharged with Lasix to be given every other day, which was a change from her daily meds. She was also not able to recall that she took her steroids as prescribed which was in tapering fashion. She is currently being admitted in the telemetry floor for the management of following issuesL # Acute on chronic hypoxic respiratory failure -Likely due to COPD exacerbation -Also Acute diastolic heart failure Patient's history, physical examination, radiological findings are suggestive of acute on chronic hypoxic respiratory failure. She might be having a COPD exacerbation, and at the same time, given her diastolic dysfunction, which have been pushed to decompensated heart failure with bilateral pulmonary edema. She is requiring oxygen at rest, which is new to her. She does not have any fever/ chills, sick contacts, or leukocytosis, which makes infectious cause less likely. Cultures have been sent nonetheless. * Admit to telemetry floor * Regular vitals, intake output charting strictly * Oxygen via nasal cannula to maintain SPO2 above 90% * TRC/nebs * Azithromycin for COPD exacerbation/possible bronchitis * Await cultures to guide antibiotic therapy * Trop/EKG trend to rule out ACS * Pulm, cardiology consult in the morning * Inj Lasix 40 mg IV daily for now with daily BEP * Will not repeat echo given her recent study, will defer to cardiology for the need #Recent diagnosis of gastric adenocarcinoma Patient has a Port-A-Cath placed now and is due to receive her first chemotherapy this Friday. * Please contact cancer Center in the morning to let them know or patient's admission #Rest of her home medications were continued. #Housekeeping: Diet: CHF diet DVT ppx: SQ lovenox Code status: Full code ICE, person to contact: Patient's mother Allie Yvon Washington MD, [facility] 03/15/18 9219: Attending MD Review Statement Attending Statement Attending Statement: examined this patient, discuss w/resident/PA/ASSISTANT FRONT DESK MANAGER, agreed w/resident/PA/ASSISTANT FRONT DESK MANAGER, reviewed images, amended to note Attending Assessment/Plan: 52 yo F with h/o significant COPD with asthmatic component, recently diagnosed gastric adenocardicnoma awaiting chemo, LORENA on CPAP, chronic hypercarbic respiratory failure, chronic LE edema, RA, chronic pain, is here for evaluation of 4-day h/o exertional dyspnea, productive cough and increasing lower extremity edema extending to her abdomen. She tried using her nebs with no relief. Enroute to the hospital, she received duonebs and solumedrol. Patient was recently admitted to [facility] (February 21) for COPD exacerbation and was discharged on a prednisone taper with EOD azithromycin (olanzapine was held due to QTC prolongation). However, patient does not recollect taking prednisone but only the EOD azithro. She was also advised lasix EOD. Patient did have the port placement at that point, and is due for her first chemo session on FridayMarch 17. Vitals stable except for hypoxia and tachycardia. Chest b/l reduced air entry with diffuse wheezing, minimal basilar crackles, Port- site is C/D/I, difficult to appreciate JVD. LE: 3++ pitting edema. Labs: H/H 8.9/28.7, microcytic anemia with reactive thrombocytosis, bicarb 36, glucose 115, trop neg, proBNP low. UA neg. Utox negative. EKG: sinus rhythm, no acute changes. PFT (2015): severe obstructive lung disease with a partially reversible component airtrapping and exercise induced desaturation. Echo (2018): EF >65%, stage 2 diastolic dysfunction. CXR: diffuse interstitial prominence s/o mild to moderate vascular congestion, superimposed multifocal airspace disease concerning for pneumonia, though nonspecific. Assessment and plan: 1. Acute hypoxic respiratory failure 2. COPD with asthma, with exacerbation 3. Chronic hypercarbia from underlying LORENA and possible OHS 4. Acute on chronic diastolic congestive heart failure 5. Chronic lower extremity edema 6. Chronic microcytic anemia with reactive thrombotycosis 7. CXR s/o multifocal pneumonia (nonspecific), no e/o fever or leukocytosis. - Admit to Telemetry - Strict I/O's, daily weights - IV lasix 40 daily - Serial EKG and troponin - Cardio consult - [facility] nebs, IV steroids - IV azithro for 5 days - Pulm consult (Dr. Cabrera) - Continue symbicort and singulair - Continue suboxone for chronic pain - Given no fever/ leukocytosis, low suspicion for pneumonia - LE dopplers (February 2018) were negative - If persistent tachycardia, consider CTA chest - Nocturnal CPAP - Outpatient follow up with Oncology for chemotherapy DVT ppx Lovenox. Full code.
--- NOTE | 2018-03-15 05:26 | Admission Certification ---
Admission Certification Certification Statement - As attending physician, I certify that at the time of - admission, based on clinical presentation, severity of - symptoms, need for further diagnostic testing and - therapeutic interventions, and risk of adverse outcomes - without in-hospital treatment, in my clinical assessment, - this patient requires an acute hospital stay for a minimum - of two nights or longer. I have also considered psychsocial - factors such as support system, advanced age, financial - issues, cognitive issues, and failed out-patient treatments, - past re-admission history, safety of patient, and lack of - compliance as applicable. Specific rationale supporting this admission is: Acute hypoxic respiratory failure, COPD exacerbation, diastolic CHF exacerbation.
[2018-03-15 06:30] VITALS: BP 116/62
--- NOTE | 2018-03-15 10:46 | Cons- Cardiology ---
General Information and HPI Consulting Request Date of Consult: 03/15/18 Requested By: Felix ACUNA,Monica Reason for Consult: Edema, dyspnea Source of Information: patient, old records Exam Limitations: no limitations History of Present Illness: The patient is a 52-year-old woman with a past medical history of recently diagnosed gastrointestinal cancer, GI bleeding, COPD/asthma, obstructive sleep apnea and chronic lower extremity edema. She presents to our hospital with symptoms of increasing dyspnea as well as lower extremity edema. The patient's presentation is similar to that experienced in December of this year, wherein further cardiac testing including an echocardiogram demonstrated overall normal results. She was to follow with her primary code clerk for stress testing. On arrival, an initial EKG demonstrated no acute ischemic changes. She has subsequently ruled out for myocardial infarction via serial troponin isoenzyme. Her presenting BNP was 65. Allergies/Medications Allergies: Coded Allergies: No Known Allergies (12/11/17) Home Med List: Albuterol Sulfate (Proair Hfa) 90 MCG HFA.AER.AD 2 PUF INH Q4-6 PRN PRN ASTHMA Albuterol Sulfate 1.25 MG/3 ML VIAL.NEB 1 Vial INH/THA Q4-6 PRN WHEEZING Azithromycin 250 MG TABLET 250 MG PO Q48 Lung health To start from 02/27/18. Buprenorphine HCl/Naloxone HCl (Suboxone 12 MG-3 MG Sl Film) 12 MG-3 MG FILM 1 STR SL DAILY CHRONIC PAIN (Reported) Escitalopram Oxalate (Lexapro) 5 MG TABLET 1 TAB PO DAILY ANXIETY Uptitrate to 2 pills per day after 3 days Ferrous Sulfate 325 MG (65 MG IRON) TABLET 1 TAB PO BID SUPPLEMENT (Reported) Fluticasone Propionate 50 MCG/ACTUATION SPRAY.SUSP 2 SPRAY NASB AD PRN ALLERGIES/ASTHMA (Reported) Fluticasone/Salmeterol (Advair 500-50 Diskus) 500 MCG-50 MCG/DOSE BLST.W.DEV 1 PUF INH BID ASTHMA (Reported) Furosemide (Lasix) 20 MG TABLET 1 TAB PO 3XW SWELLING . Montelukast Sodium 10 MG TABLET 1 TAB PO AD PRN ALLERGIES/ASTHMA (Reported) Omeprazole 40 MG CAPSULE.DR 1 CAP PO DAILY GI (Reported) Potassium Citrate (Potassium Citrate ER) 10 MEQ (1,080 MG) TABLET.ER 1 TAB PO 3XW LOW POTASSIUM . Tiotropium [place] (Spiriva) 18 MCG CAP.W.DEV 1 CAP INH DAILY RESP. (Reported ) Current Medications: Current Medications Sig/Pam Start time Last Medication Dose Route Stop Time Status Admin Acetaminophen 650 MG Q6P PRN 03/15 014 AC PO Acetaminophen 1,000 MG Q6P PRN 03/15 014 AC IV Azithromycin 500 MG DAILY 03/15 0900 AC 03/15 Sodium Chloride 250 ML IV 03/17 0959 0807 Azithromycin 500 MG ONCE ONE 03/14 2345 DC 03/15 Sodium Chloride 250 ML IV 03/15 0044 0126 Budesonide/ 2 PUF BID 03/15 900 AC Formoterol Fumarate INH Buprenorphine/ 1.5 TAB DAILY 03/15 900 AC 03/15 Naloxone SL 0806 Ceftazidime 0 .STK-MED ONE 03/15 0116 DC .ROUTE Ceftazidime 1,000 MG ONCE ONE 03/14 2345 DC 03/15 IV 03/14 2346 0126 Enoxaparin Sodium 40 MG DAILY 03/15 09 AC 03/15 SC 0806 Furosemide 40 MG DAILY 03/15 09 AC 03/15 IV 0806 Furosemide 0 .STK-MED ONE 03/15 0116 DC IV Furosemide 40 MG ONCE ONE 03/14 2345 DC 03/15 IV 03/14 2346 0126 Polyethylene Glycol 17 GM AT BEDTIME PRN 03/15 014 AC PO Review of Systems Review of Systems: The review of systems is negative for chest pains, palpitations nor lightheadedness. The remainder of the 14 point review of systems is noncontributory with the exception of above. 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 MOTHER (Asthma). Uncle (Diabetes). BROTHER (sudden ; possibly cardiac.). Psychosocial History Where Do You Live? Home Services at Home: None Smoking Status: Former Smoker ETOH Use: denies use Illicit Drug Use: denies illicit drug use Exam & Diagnostic Data Vital Signs and I&O Vital Signs Date Time Temp Pulse Resp B/P B/P Pulse O2 O2 Flow FiO2 Mean Ox Delivery Rate 03/15 0800 97 Nasal 3.0L Cannula 03/15 0630 98.2 95 16 116/62 96 03/15 0239 Nasal 3.0L Cannula 03/15 0126 98.5 100 20 120/64 95 Nasal 3.0L Cannula 03/15 0003 Nasal 3.0L Cannula 03/14 2308 98.0 103 20 123/59 99 Non 6.0L ReBreather Intake & Output 03/15 1600 03/15 0800 03/15 0000 03/14 1600 03/14 0800 03/14 0000 Intake Total 300 Output Total 400 Balance -100 Intake, Oral 300 Output, Urine 400 Patient 270 lb 270 lb Weight Weight Bed scale Reported by Patient Measurement Method Physical Exam: General: Nontoxic, no apparent distress. HEENT: Sclera and conjunctiva within normal limits, without xanthelasmas. Neck: Carotids 2+ without bruits. Respiratory: Scattered rhonchi and diffuse wheezing, air movement is good, without accessory respiratory muscle use. Heart: Regular rate and rhythm, without murmurs, without JVD. Abdomen: Soft, nontender, no masses, normoactive bowel sounds. Extremities: Without clubbing, cyanosis, without edema. Neuro: Nonfocal exam, strength, 5 out of 5 Skin: Within normal limits without lesions. Psych: Mood and affect: Normal Labs/Reza Results: Laboratory Tests 03/15 03/15 0758 0150 Chemistry Sodium (137 - 145 mmol/L) 147 H Potassium (3.5 - 5.1 mmol/L) 3.7 Chloride (98 - 107 mmol/L) 99 Carbon Dioxide (22 - 30 mmol/L) 32 H Anion Gap (5 - 16) 17 H BUN (7 - 17 mg/dL) 16 Creatinine (0.5 - 1.0 mg/dL) 0.6 Estimated GFR (>60 ml/min) > 60 BUN/Creatinine Ratio (7 - 25 %) 26.7 H Troponin I (< 0.11 ng/ml) < 0.01 Toxicology Urine Opiates Screen (>2000 NG/ML) < 100 Methadone Screen (>300 NG/ML) < 40 Barbiturate Screen (>200 NG/ML) < 60 Ur Phencyclidine Scrn (>25 NG/ML) < 6.00 Amphetamines Screen (>1000 NG/ML) < 100 U Benzodiazepines Scrn (>200 NG/ML) < 85 Urine Cocaine Screen (>300 NG/ML) < 50 Urine Cannabis Screen (>50 NG/ML) < 5.00 Urines Urine Color (YEL,AMB,STR) YEL Urine Clarity (CLEAR) HAZY H Urine pH (5.0 - 8.0) 6.0 Ur Specific [place] (1.001 - 1.035) 1.020 Urine Protein (NEG,<30 MG/DL) NEG Urine Ketones (NEG) NEG Urine Nitrite (NEG) NEG Urine Bilirubin (NEG) NEG Urine Urobilinogen (0.1 - 1.0 EU/dl) 0.2 Ur Leukocyte Esterase (NEG) MOD H Ur Microscopic SEDIMENT EXAMINED Urine RBC (0 - 5 /HPF) RARE Urine WBC (0 - 2 /HPF) 5-10 H Ur Epithelial Cells (NONE,FEW) MANY H Urine Bacteria (NEG/NONE) MANY H Urine Hemoglobin (NEG) SMALL H Urine Glucose (N MG/DL) NEG 03/14 2350 Chemistry Sodium (137 - 145 mmol/L) 140 Potassium (3.5 - 5.1 mmol/L) 3.7 Chloride (98 - 107 mmol/L) 95 L Carbon Dioxide (22 - 30 mmol/L) 36 H Anion Gap (5 - 16) 9 BUN (7 - 17 mg/dL) 13 Creatinine (0.5 - 1.0 mg/dL) 0.8 Estimated GFR (>60 ml/min) > 60 BUN/Creatinine Ratio (7 - 25 %) 16.3 Glucose (65 - 99 mg/dL) 115 H Calcium (8.4 - 10.2 mg/dL) 8.2 L Magnesium (1.6 - 2.3 mg/dL) 1.8 Total Bilirubin (0.2 - 1.3 mg/dL) 0.4 AST (14 - 36 U/L) 15 ALT (9 - 52 U/L) 34 Alkaline Phosphatase (<127 U/L) 99 Troponin I (< 0.11 ng/ml) < 0.01 Fof-M-Nyoqwueutsm Pept (<125 pg/mL) 65.3 Total Protein (6.3 - 8.2 g/dL) 5.8 L Albumin (3.5 - 5.0 g/dL) 3.1 L Globulin (1.9 - 4.2 gm/dL) 2.7 Albumin/Globulin Ratio (1.1 - 2.2 %) 1.1 Hematology CBC w Diff NO MAN DIFF REQ WBC (4.8 - 10.8 /CUMM) 8.3 RBC (4.20 - 5.40 /CUMM) 3.70 L Hgb (12.0 - 16.0 G/DL) 8.9 L Hct (37 - 47 %) 28.7 L MCV (81.0 - 99.0 FL) 77.4 L MCH (27.0 - 31.0 PG) 24.1 L MCHC (33.0 - 37.0 G/DL) 31.1 L RDW (11.5 - 14.5 %) 30.5 H Plt Count (130 - 400 /CUMM) 462 H MPV (7.4 - 10.4 FL) 6.5 L Gran % (42.2 - 75.2 %) 74.0 Lymphocytes % (20.5 - 51.1 %) 14.1 L Monocytes % (1.7 - 9.3 %) 10.1 H Eosinophils % (0 - 5 %) 1.7 Basophils % (0.0 - 2.0 %) 0.1 Absolute Granulocytes (1.4 - 6.5 /CUMM) 6.2 Absolute Lymphocytes (1.2 - 3.4 /CUMM) 1.2 Absolute Monocytes (0.10 - 0.60 /CUMM) 0.8 H Absolute Eosinophils (0.0 - 0.7 /CUMM) 0.1 Absolute Basophils (0.0 - 0.2 /CUMM) 0 Assessment/Plan Assessment/Plan 52-year-old woman with a past medical history of recently diagnosed gastrointestinal cancer, GI bleeding, COPD/asthma, obstructive sleep apnea and chronic lower extremity edema. She presents to our hospital with symptoms of increasing dyspnea as well as lower extremity edema, similar to that experienced in December of this year, wherein further cardiac testing including an echocardiogram demonstrated overall normal results. She was to follow with her primary code clerk for stress testing. On arrival, an initial EKG demonstrated no acute ischemic changes. She has subsequently ruled out for myocardial infarction via serial troponin isoenzyme. Her presenting BNP was 65. Dyspnea: The patient presents with dyspnea which is likely multifactorial in etiology including underlying COPD/asthma as well as obesity with possible hypoventilation syndrome. There is no evidence for acute congestive heart failure by exam or by laboratory data. She has as well ruled out for myocardial infarction via serial troponin isoenzymes. Lower extremity edema: The patient has lower extremity edema which is likely multifactorial in etiology. Recent echocardiography demonstrated an overall normal right ventricular systolic pressure. Consideration for evaluating possible hepatic portal vein issues may be given as per GI. Leg elevation as well as diuretics would likely be of greatest assistance. Other barriers for improvement on her lower extremity edema lying in her underlying hypo-albuminemia. Further consultation with nutrition may prove valuable. Thank you for allowing us to participate in the care of your patient. Please do not hesitate to contact us further with any questions. Sincerely, Catracho Medrano MD [facility] Consult Acknowledgment - Thank you for your consult request.
--- NOTE | 2018-03-15 11:55 | Cons- Pulmonary ---
General Information and HPI Consulting Request Date of Consult: 03/15/18 Requested By: Med team History of Present Illness: 52-year-old morbidly obese woman with recent diagnosis of gastrointestinal cancer, GI bleed, COPD not on home oxygen, chronic lower extremity edema on Lasix, LORENA on nocturnal CPAP and asthma. Patient presents with chief complaint of shortness of breath for 4 days on walking a few steps. She also reports occasional shortness of breath at rest. She has been using her inhalers more frequent however it did not help to improve the shortness of breath. The patient mentioned that she has been sleeping on recliner since she was discharged from the hospital 1 month ago because of shortness of breath. She denies paroxysmal nocturnal dyspnea. Patient was recently discharged on after being treated for COPD exacerbation, she was discharged on prednisone taper, azithromycin, her Lasix dose has been a change at 20, 3 times/ week. Patient also complains of increasing swelling of her both lower extremity and increasing abdominal girth and heaviness for 1.5 week. Patient complains of cough productive of greenish sputum for the past 1.5 week. Patient denies any chest pain, fever, chills, nausea, vomiting, diarrhea or constipation. She also denies recent sick contacts or recent travel Of note the patient had a port placed during her last hospitalization for chemotherapy for recently diagnosed gastric cancer. Her first chemo therapy is scheduled for next Friday. Allergies/Medications Allergies: Coded Allergies: No Known Allergies (12/11/17) Home Med List: Albuterol Sulfate (Proair Hfa) 90 MCG HFA.AER.AD 2 PUF INH Q4-6 PRN PRN ASTHMA Albuterol Sulfate 1.25 MG/3 ML VIAL.NEB 1 Vial INH/THA Q4-6 PRN WHEEZING Azithromycin 250 MG TABLET 250 MG PO Q48 Lung health To start from 02/27/18. Buprenorphine HCl/Naloxone HCl (Suboxone 12 MG-3 MG Sl Film) 12 MG-3 MG FILM 1 STR SL DAILY CHRONIC PAIN (Reported) Escitalopram Oxalate (Lexapro) 5 MG TABLET 1 TAB PO DAILY ANXIETY Uptitrate to 2 pills per day after 3 days Ferrous Sulfate 325 MG (65 MG IRON) TABLET 1 TAB PO BID SUPPLEMENT (Reported) Fluticasone Propionate 50 MCG/ACTUATION SPRAY.SUSP 2 SPRAY NASB AD PRN ALLERGIES/ASTHMA (Reported) Fluticasone/Salmeterol (Advair 500-50 Diskus) 500 MCG-50 MCG/DOSE BLST.W.DEV 1 PUF INH BID ASTHMA (Reported) Furosemide (Lasix) 20 MG TABLET 1 TAB PO 3XW SWELLING . Montelukast Sodium 10 MG TABLET 1 TAB PO AD PRN ALLERGIES/ASTHMA (Reported) Omeprazole 40 MG CAPSULE.DR 1 CAP PO DAILY GI (Reported) Potassium Citrate (Potassium Citrate ER) 10 MEQ (1,080 MG) TABLET.ER 1 TAB PO 3XW LOW POTASSIUM . Tiotropium [place] (Spiriva) 18 MCG CAP.W.DEV 1 CAP INH DAILY RESP. (Reported ) Review of Systems Review of Systems Constitutional: Reports: see HPI. 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 MOTHER (Asthma). Uncle (Diabetes). BROTHER (sudden ; possibly cardiac.). Psychosocial History Where Do You Live? Home Services at Home: None Smoking Status: Former Smoker ETOH Use: denies use Illicit Drug Use: denies illicit drug use Exam & Diagnostic Data Last 24 Hrs of Vital Signs/I&O Vital Signs Date Time Temp Pulse Resp B/P B/P Pulse O2 O2 Flow FiO2 Mean Ox Delivery Rate 03/15 0800 97 Nasal 3.0L Cannula 03/15 0630 98.2 95 16 116/62 96 03/15 0239 Nasal 3.0L Cannula 03/15 0126 98.5 100 20 120/64 95 Nasal 3.0L Cannula 03/15 0003 Nasal 3.0L Cannula 03/14 2308 98.0 103 20 123/59 99 Non 6.0L ReBreather Intake & Output 03/15 1600 03/15 0800 03/15 0000 Intake Total 300 Output Total 400 Balance -100 Intake, Oral 300 Output, Urine 400 Patient 270 lb 270 lb Weight Weight Bed scale Reported by Patient Measurement Method Last 48 Hrs of Labs/Reza: Laboratory Tests 03/15/18 0758: Anion Gap 17 H, Estimated GFR > 60, BUN/Creatinine Ratio 26.7 H, Troponin I < 0.01 03/15/18 0150: Urine Opiates Screen < 100, Methadone Screen < 40, Barbiturate Screen < 60, Ur Phencyclidine Scrn < 6.00, Amphetamines Screen < 100, U Benzodiazepines Scrn < 85, Urine Cocaine Screen < 50, Urine Cannabis Screen < 5.00, Urine Color YEL, Urine Clarity HAZY H, Urine pH 6.0, Ur Specific [place] 1.020, Urine Protein NEG, Urine Ketones NEG, Urine Nitrite NEG, Urine Bilirubin NEG, Urine Urobilinogen 0.2, Ur Leukocyte Esterase MOD H, Ur Microscopic SEDIMENT EXAMINED , Urine RBC RARE, Urine WBC 5-10 H, Ur Epithelial Cells MANY H, Urine Bacteria MANY H, Urine Hemoglobin SMALL H, Urine Glucose NEG 03/14/18 2350: Anion Gap 9, Estimated GFR > 60, BUN/Creatinine Ratio 16.3, Glucose 115 H, Calcium 8.2 L, Magnesium 1.8, Total Bilirubin 0.4, AST 15, ALT 34, Alkaline Phosphatase 99, Troponin I < 0.01, Bna-T-Blghmxdwutn Pept 65.3, Total Protein 5.8 L, Albumin 3.1 L, Globulin 2.7, Albumin/Globulin Ratio 1.1, CBC w Diff NO MAN DIFF REQ, RBC 3.70 L, MCV 77.4 L, MCH 24.1 L, MCHC 31.1 L, RDW 30.5 H, MPV 6.5 L, Gran % 74.0, Lymphocytes % 14.1 L, Monocytes % 10.1 H, Eosinophils % 1.7, Basophils % 0.1, Absolute Granulocytes 6.2, Absolute Lymphocytes 1.2, Absolute Monocytes 0.8 H, Absolute Eosinophils 0.1, Absolute Basophils 0 Assessment/Plan Impression/Plan: IMPRESSION: Diffuse interstitial prominence throughout both lungs likely indicative of mild to moderate vascular congestion. There are superimposed multifocal airspace disease concerning for pneumonia, though nonspecific. Recommendation is for a followup chest series to be obtained following treatment and/or resolution of symptoms to assure resolution of this appearance. DICTATED BY: Caden Britton MD DATE/TIME DICTATED:03/14/182339 General Appearance Alert, Oriented X3, Cooperative, No Acute Distress HEENT Atraumatic, PERRLA, EOMI, Mucous Membr. moist/pink Neck Supple, No JVD Cardiovascular Normal S1, Normal S2, No Murmurs Lungs markedly decreased air entery in both lung nguyễn Abdomen Normal Bowel Sounds, abdominal wall edema with markedly distended obese abdomen Neurological Normal Speech, Strength at 5/5 X4 Ext, Normal Tone, Sensation Intact, Cranial Nerves 3-12 NL Extremities No Clubbing, No Cyanosis, Bilateral 4+ pitting edeam to the level of the knee Vascular Normal Pulses, Pulses Symmetrical Pt with sig COPD with asthmatic component with recently dxd Gastric ca pending chemo has Chronic dyspnea and now with above mentioned cxr finding with prob pulm edema and unlikely pna, Diff dx include lymphangitic spread of gastric ca but seems less likely Sig COPD with asthmatic component with no sig wheezing today by exam Sig Pedal edema with Sig obesity with OHS with sig LORENA now on cpap was noncompliant before-pt just started it recently, with evidence of rt heart dysfunction Chronic hypercarbia at baseline with due to severe OLD with ohv with chronic hypercarbic resp insuff REC * NO need for systemic steroids and watch off steroids as she is not wheezing * COnt lasix iv bid * RPt ua * Order ultrasound of the abd and ultrasound of portal vein and hepatic vein * CPAP at hs - pt has cpap * Cont Spiriva and symbicort bid * Check echo to rule out pulm htn and pericardial issues * COnt other meds * COnt psych meds and buprenorphine / naloxone * IF qtc not prolonged can use qod azithro Will follow Consult Acknowledgment - Thank you for your consult request.
[2018-03-15 12:49] LABS: ABSOLUTE BASOPHIL COUNT 0 /CUMM (0.0-0.2); ABSOLUTE EOSINOPHIL COUNT 0 /CUMM (0.0-0.7); ABSOLUTE GRANULOCYTE CT 5.9 /CUMM (1.4-6.5); ABSOLUTE LYMPH COUNT 0.6 /CUMM (1.2-3.4); ABSOLUTE MONOCYTE COUNT 0.1 /CUMM (0.10-0.60); BASOPHIL % 0 % (0.0-2.0); EOSINOPHIL % 0 % (0-5); GRANULOCYTE % 88.4 % (42.2-75.2); HEMATOCRIT 29.6 % (37-47); MEAN CORPUSCULAR HGB 24.1 PG (27.0-31.0); MEAN CORPUSCULAR HGB CONC 30.5 G/DL (33.0-37.0); PLATELET COUNT 485 /CUMM (130-400); RBC DISTRIBUTION WIDTH 29.5 % (11.5-14.5); RED BLOOD CELL CT 3.75 /CUMM (4.20-5.40); WHITE BLOOD CELL COUNT 6.7 /CUMM (4.8-10.8)
--- NOTE | 2018-03-15 13:32 | PN- Att Addend ---
Attending Addendum Attending Brief Note Ms. Schaeffer is a 52 yo F with h/o significant COPD with asthmatic component, recently diagnosed gastric adenocardicnoma awaiting chemo, LORENA on CPAP, chronic hypercarbic respiratory failure, chronic LE edema, RA, chronic pain, is here for evaluation of 4-day h/o exertional dyspnea, productive cough and increasing lower extremity edema extending to her abdomen Patient's symptoms are lot better this morning in terms of her breathing. Denies any other specific complaints besides abdominal distension On exam - vitals - Blood pressure 116/62, heart rate 95/m, respiratory rate 16/m, afebrile saturating well on room air General Appearance Alert, Oriented X3 HEENT Atraumatic, PERRLA Neck Supple Cardiovascular Normal S1, Normal S2, No Murmurs Lungs Bilateral decreased air entry Abdomen Distended. Normal BS Neurological No focal neurological deficit Extremities 3+ bilateral pitting pedal edema Vascular Pulses intact Assessment and plan: 1. Acute hypoxic respiratory failure - COPD with asthma, with exacerbation 2. Acute on chronic diastolic congestive heart failure 3. Abdominal distension - h/o gastric carcinoma Will continue with IV Lasix BID Obtain abdominal ultrasound to assess for hepatic and portal veins IV azithro for 5 days Obtain 2-D transthoracic echocardiogram Continue symbicort and singulair Continue suboxone for chronic pain DVT ppx Lovenox. Full code.
[2018-03-15 15:02] VITALS: BP 110/64
[2018-03-15 21:16] VITALS: BP 110/64
[2018-03-16 06:25] VITALS: BP 108/60
--- NOTE | 2018-03-16 07:09 | PN- Housestaff ---
See Addendum Celena ACUNA,[facility] 03/16/18 0708: Subjective Follow-up For: Dyspnea Lower extremity swelling Tele-Events Since Last Visit: NSR with HR 77-103. No overnight events. Subjective: Patient was seen and examined at bedside. She feels better. Her shortness of breath has improved. She has an appointment tomorrow at the [facility] for chemotherapy and inquires whether she will be able to attend it. has no other complaints. Review of Systems Constitutional: Reports: no symptoms. Objective Last 24 Hrs of Vital Signs/I&O Vital Signs Date Time Temp Pulse Resp B/P B/P Pulse O2 O2 Flow FiO2 Mean Ox Delivery Rate 03/16 0829 96 Nasal 1.0L Cannula 03/16 0800 96 Nasal 3.0L Cannula 03/16 0625 98.2 91 18 108/60 96 Nasal 2.0L Cannula 03/16 0600 98 Nasal 2.0L Cannula 03/16 0035 79 96 03/16 0000 Nasal 3.0L Cannula 03/15 2232 95 98 03/15 2116 98.4 109 18 110/64 92 Nasal 2.0L Cannula 03/15 2031 95 Nasal 2.0L Cannula 03/15 1502 98.5 84 20 110/64 92 Nasal 2.0L Cannula 03/15 1150 Nasal 2.0L Cannula 03/15 1150 97 Nasal 2.0L Cannula Intake & Output 03/16 1600 03/16 0800 03/16 0000 Intake Total Output Total 150 Balance -150 Output, Urine 150 Patient 230 lb Weight Weight Bed scale Measurement Method Physical Exam General Appearance: Alert, Oriented X3, Cooperative, No Acute Distress Skin: No Rashes, No Breakdown Skin Temp/Moisture Exam: Warm/Dry Sepsis Skin Exam (color): Normal for Ethnicity HEENT: Atraumatic Cardiovascular: Normal S1, Normal S2, No Murmurs Lungs: Normal Air Movement Abdomen: Soft, No Tenderness Neurological: Normal Speech Extremities: b/l lower extremity 2+ edema up to knees Last 24 Hrs of Lab/Reza Results Last 24 Hrs of Labs/Mics: Laboratory Tests 03/16/18 0655: Anion Gap 10, Estimated GFR > 60, BUN/Creatinine Ratio 42.0 H, Pro-B- Natriuretic Pept 182 H 03/16/18 0650: CBC w Diff NO MAN DIFF REQ, RBC 3.48 L, MCV 78.8 L, MCH 22.7 L, MCHC 28.8 L, RDW 29.4 H, MPV 7.1 L, Gran % 73.2, Lymphocytes % 14.3 L, Monocytes % 12.3 H , Eosinophils % 0.2, Basophils % 0, Absolute Granulocytes 7.3 H, Absolute Lymphocytes 1.4, Absolute Monocytes 1.2 H, Absolute Eosinophils 0, Absolute Basophils 0 03/15/18 1850: Urine Color STRAW, Urine Clarity CLEAR, Urine pH 6.5, Ur Specific [place] 1.010, Urine Protein NEG, Urine Ketones NEG, Urine Nitrite NEG, Urine Bilirubin NEG, Urine Urobilinogen 0.2, Ur Leukocyte Esterase NEG, Ur Microscopic EXAM NOT REQUIRED, Urine Hemoglobin NEG, Urine Glucose NEG 03/15/18 1210: Troponin I < 0.01, CBC w Diff MAN DIFF ORDERED, RBC 3.75 L, MCV 79.0 L, MCH 24.1 L, MCHC 30.5 L, RDW 29.5 H, MPV 7.0 L, Gran % 88.4 H, Lymphocytes % 9.6 L, Monocytes % 2.0, Eosinophils % 0, Basophils % 0, Absolute Granulocytes 5.9, Segmented Neutrophils 78 H, Band Neutrophils 7 H, Absolute Lymphocytes 0.6 L, Lymphocytes 11 L, Monocytes 4, Absolute Monocytes 0.1, Absolute Eosinophils 0, Absolute Basophils 0, Platelet Estimate VERIFIED BY SMEAR, Polychromasia 1+, Hypochromic-Microcytic 1+, Poikilocytosis 1+, Anisocytosis 1+, Microcytic Cells 1+, Ovalocytes 1+, Stomatocytes 1+ Assessment/Plan Assessment: 52-year-old morbidly obese woman with recent diagnosis of gastrointestinal cancer, GI bleed, COPD not on home oxygen, chronic lower extremity edema on Lasix, LORENA on nocturnal CPAP and asthma presented to the ED with complains of shortness of breath for the past 4 days prior to admission. Assessment: 1. Dyspnea Likely due to Congestive Heart Failure 2. Possible COPD Exacerbation 3. Lower extremity edema 4. History of GI malignancy. 5. History of COPD not on home oxygen 6. History of LORENA Plan: * Continue oxygen supplementation to maintain target sats >92%. Currently on 2L. Will attempt to wean him off. * Her recent echo from December showed Stage II diastolic dysfunction. * Continue diuresis with IV Lasix 40mg BID * Add potassium supplement 40meq * TRC/nebs as needed. * Azithromycin 500mg qod for chronic maintenance of COPD. * CXR tomorrow to assess pulmonary edema. * Her Abd U/S doppler was normal. * Her appointment for chemotherapy at [facility] has been changed to a Friday. * Diet: Regular * DVT Prophylaxis: SC Lovenox * Code: Full Code Problem List: 1. Gastric adenocarcinoma Pain Ratin Pain Location: none Pain Goal: Remain pain free Pain Plan: none Tomorrow's Labs & Rationales: CBC, BEP Ken Wharton 03/16/18 1037: Attending MD Review Statement Attending Statement Attending MD Statement: examined this patient, discuss w/resident/PA/CAGE CASHIER, agreed w/resident/PA/CAGE CASHIER, discussed with family, reviewed EMR data (avail), discussed with nursing, discussed with case mgmt, reviewed images, amended to note Attending Assessment/Plan: 52 yo F with h/o significant COPD with asthmatic component, recently diagnosed gastric adenocardicnoma for planned chemo, LORENA on CPAP, chronic hypercarbic respiratory failure, chronic LE edema, RA, chronic pain, is here for evaluation of 4-day h/o exertional dyspnea, productive cough and increasing lower extremity edema extending to her abdomen admitted for acute hypoxic respiratory failure multifactorial 2/2 COPD and CHF exacerbation. Patient is being treated with iv lasix and steroids. F/u USG for vein thrombosis and portal hypertension. Patient is planned chemotherapy tomorrow as outpatient. Plan is to wean off oxygen and follow cardiolgoy. Inform cancer center/hematology as she is admitted. Discharge planning based on her clinical conditin imrpvoement. gi/dvt prophyalxis full code.
[2018-03-16 08:36] LABS: ABSOLUTE BASOPHIL COUNT 0 /CUMM (0.0-0.2); ABSOLUTE EOSINOPHIL COUNT 0 /CUMM (0.0-0.7); MEAN PLATELET VOLUME 7.1 FL (7.4-10.4)
[2018-03-16 08:58] LABS: ABSOLUTE GRANULOCYTE CT 7.3 /CUMM (1.4-6.5); ABSOLUTE LYMPH COUNT 1.4 /CUMM (1.2-3.4); ABSOLUTE MONOCYTE COUNT 1.2 /CUMM (0.10-0.60); BASOPHIL % 0 % (0.0-2.0); EOSINOPHIL % 0.2 % (0-5); GRANULOCYTE % 73.2 % (42.2-75.2); HEMATOCRIT 27.4 % (37-47); MEAN CORPUSCULAR HGB 22.7 PG (27.0-31.0); MEAN CORPUSCULAR HGB CONC 28.8 G/DL (33.0-37.0); MEAN CORPUSCULAR VOLUME 78.8 FL (81.0-99.0); PLATELET COUNT 497 /CUMM (130-400); RBC DISTRIBUTION WIDTH 29.4 % (11.5-14.5); RED BLOOD CELL CT 3.48 /CUMM (4.20-5.40)
--- NOTE | 2018-03-16 11:06 | ULTRASOUND REPORT ---
EXAMINATION: ABDOMINAL ULTRASOUND COMPLETE/ULTRASOUND ABDOMEN PELVIS ORGAN DOPPLER CLINICAL INFORMATION: Increasing abdominal girth. History of gastric cancer. Please assess hepatic and portal veins. COMPARISON: CT scan of the abdomen and pelvis dated 01/20/2018 and 10/25/2017. Limited abdominal ultrasound dated 12/11/2017. TECHNIQUE: Real-time imaging of the abdominal viscera. FINDINGS: Evaluation is mildly limited due to difficulties with patient cooperation and large body habitus. ORGAN DOPPLER: The main portal vein, right and left portal veins are patent with normal color flow imaging. There is normal hepatopetal flow within all portal veins. The intrahepatic veins are patent. The main, right and left hepatic arteries are patent. The splenic vein is patent with normal hepatopetal flow seen. PANCREAS: The visualized pancreatic body and portions of the head and tail are diffusely increased in echogenicity, consistent with fatty infiltration, similar to prior CT scans. The remainder of the pancreas is obscured from visualization by the overlying bowel gas. ABDOMINAL AORTA: The proximal, middle, and distal aortic segments are normal in caliber. INFERIOR VENA CAVA: Visualized portions are normal. LIVER: Normal. The liver demonstrates normal size, contour and echogenicity. No focal lesion or intrahepatic biliary duct dilatation. GALLBLADDER: Normal. The gallbladder is physiologically distended without evidence of stones, sludge, polyps, wall thickening or pericholecystic fluid. COMMON BILE DUCT: Normal in caliber measuring 0.4 cm in diameter. RIGHT KIDNEY: Normal. No hydronephrosis. No renal calculi or focal parenchymal lesions. The kidney measures 10.6 cm in maximum dimension. LEFT KIDNEY: Normal. No hydronephrosis. No renal calculi or focal parenchymal lesions. The kidney measures 10.0 cm in maximum dimension. SPLEEN: Normal. The spleen measures 10.6 cm in maximum dimension. FREE FLUID: None. IMPRESSION: 1. Portal veins and hepatic veins are patent with normal direction of flow seen. 2. No free fluid. 3. Liver and spleen normal in size and unremarkable. 4. Fatty infiltration of pancreas. 5. Otherwise unremarkable study.
[2018-03-16 14:37] VITALS: BP 98/62
--- NOTE | 2018-03-16 19:04 | Patient Discharge Instructions ---
Discharge Instructions General Discharge Information You were seen/treated for: Lower extremity swelling Shortness of breath Special Instructions: Please follow up with your PCP, glass edger and diamond driller helper within one week of discharge. Diet Continue normal diet: Yes Recommended Diet: Heart Healthy Activity Full Activity/No Limits: Yes Acute Coronary Syndrome Inclusion Criteria At DC or during hospital stay patient has or had the following: ACS DIAGNOSIS No Discharge Core Measures Meds if any: Prescribed or Continued at Discharge Meds if any: NOT Prescribed or Continued at Discharge Congestive Heart Failure Inclusion Criteria At DC or during hospital stay patient has or had the following: CHF DIAGNOSIS No Discharge Core Measures Meds if any: Prescribed or Continued at Discharge Meds if any: NOT Prescribed or Continued at Discharge Cerebrovascular accident Inclusion Criteria At DC or during hospital stay patient has or had the following: CVA/TIA Diagnosis No Discharge Core Measures Meds if any: Prescribed or Continued at Discharge Meds if any: NOT Prescribed or Continued at Discharge Venous thromboembolism Inclusion Criteria VTE Diagnosis No VTE Type NONE VTE Confirmed by (Test) NONE Discharge Core Measures - Per Current guidelines, there needs to be overlap - treatment for the first 5 days of Warfarin therapy. - If discharged on Warfarin prior to 5 days of - overlap therapy, the patient will need to be - assessed for post discharge needs including - *Post discharge parental anticoagulation - *Warfarin and/or parental anticoagulation education - *Follow up date to check INR post discharge At least 5 days overlap therapy as Inpatient No Meds if any: Prescribed or Continued at Discharge Note: Overlap Therapy is Warfarin and Anticoagulant Meds if any: NOT Prescribed or Continued at Discharge
--- NOTE | 2018-03-16 19:04 | Discharge Summary ---
Visit Information Visit Dates Admission Date: 03/14/18 Discharge Date: 03/17/15 Hospital Course Course Attending Physician: Ken Wharton MD Primary Care Physician: Brent ACUNA,Chase [facility] Hospital Course: Ms Nicole is a 52-year-old morbidly obese woman with a recent diagnosis of gastrointestinal cancer, hx of GI bleed, COPD not on home oxygen, chronic lower extremity edema on Lasix, LORENA on nocturnal CPAP and asthma who presented to the ED with complains of shortness of breath for the past 4 days prior to admission. Below is a list of conditions she was admitted and treated for 1. Dyspnea - multifactorial 2. Possible COPD Exacerbation 3. Lower extremity edema Patient presented with complains of shortness of breath on rest and exertion. She was started on oxygen supplementation along with TRC/nebs as needed. Imaging showed mild to moderate vascular congestion. With significant lower extremity edema, she was started on IV Lasix as well. Her dyspnea is likley multifactorial in etiology. An echo performed showed normal EF, pulmonary pressures and no impaired relaxation. A repeat CXR was obtained after 3 days of diuresis which showed mild persistent vascular congestion along with parenchymal opacity in the left lung apex. It is possible she has had lymphagitic spread of her malignancy which is partially contributing to her symptoms. Her oxygen was weaned down as tolerated, however, she still required 1L of O2 by the time of discharge. She was discharged on home oxygen with recommendations to follow up with her aerospace mechanic and chief hospital administrator within one week of discharge. She is scheduled for chemotherapy at [facility] on 03/18/18 Allergies: Coded Allergies: No Known Allergies (12/11/17) Significant Procedures: SERVICE DATE: 03/17/18- EXAM TYPE: CAT - CTA CHEST FINDINGS: Pulmonary arteries: Evaluation on the initial image acquisition is limited due to extensive beam hardening artifact related to the patient's body habitus and due to slightly delayed and suboptimal bolus timing. On repeat imaging, bolus timing is satisfactory with some limitation still remaining related to extensive beam hardening artifact and body habitus. There are several apparent filling defects seen, most prominent in the right upper lobe, most consistent with beam hardening artifact. No convincing evidence of pulmonary embolism is seen. Lungs: Diffuse patchy groundglass opacities is seen in the lungs bilaterally with associated enlargement of the pulmonary vessels and subtle interlobular septal thickening, consistent with pulmonary edema. Superimposed patchy consolidation is seen in the left upper lobe, suspicious for pneumonia. There are patchy areas of density seen laterally within the right upper lobe and medially within the right middle lobe, likely representing atelectatic changes. There is also subsegmental atelectasis and dependent atelectasis in both lower lobes. No pleural effusion or pneumothorax is seen. The central airways are patent. Densely calcified granuloma is seen in the right lower lobe (series 2, image 306). No significant pulmonary nodules, masses, pleural effusion or pneumothorax. The central airways are patent. Aorta and heart: The heart is mildly enlarged. Aorta is normal in caliber and unremarkable. Moderate atherosclerotic calcifications of the coronary arteries is seen. There is no pericardial effusion Lymphatic structures: There is no lymphadenopathy. Thyroid gland: Densely calcified nodule is seen in the right lobe of the thyroid gland, similar to the prior exam. Thyroid parenchyma appears heterogeneous and is poorly evaluated due to beam hardening artifact. Upper abdomen: Pancreas is atrophic and fat infiltrated. Limited evaluation of the upper abdominal viscera demonstrates no other focal abnormality. Bones: Minimal spurring is seen throughout the thoracic spine. No significant focal findings. IMPRESSION: 1. No evidence of pulmonary embolism. 2. Findings are most consistent with pulmonary edema with superimposed patchy consolidation in the left upper lobe, suspicious for pneumonia. There are also scattered areas of atelectatic changes in the lungs bilaterally. SERVICE DATE: 03/17/18 EXAM TYPE: RAD - XRY-CHEST XRAY, TWO VIEWS FINDINGS: Right jugular Port-A-Cath is in place with tip in the mid SVC, unchanged. The cardiomediastinal silhouette is borderline enlarged. Central vascular congestion and diffuse reticular opacities are again noted in the lungs bilaterally, unchanged when allowing for differences in technique. Superimposed more linear opacities seen in the left lung apex, also unchanged. No significant effusion or pneumothorax is seen. Bony structures are unremarkable. IMPRESSION: 1. No change in positioning of right jugular Port-A-Cath. 2. Persistent mild vascular congestion and diffuse reticular opacities, suggestive of pulmonary edema. Superimposed patchy parenchymal opacity in the left lung apex is seen, raising the suspicion of pneumonia. Clinical correlation is requested. SERVICE DATE: 03/16/18 EXAM TYPE: US - US-ABD/PELV ORGAN DOPPLER FINDINGS: Evaluation is mildly limited due to difficulties with patient cooperation and large body habitus. ORGAN DOPPLER: The main portal vein, right and left portal veins are patent with normal color flow imaging. There is normal hepatopetal flow within all portal veins. The intrahepatic veins are patent. The main, right and left hepatic arteries are patent. The splenic vein is patent with normal hepatopetal flow seen. PANCREAS: The visualized pancreatic body and portions of the head and tail are diffusely increased in echogenicity, consistent with fatty infiltration, similar to prior CT scans. The remainder of the pancreas is obscured from visualization by the overlying bowel gas. ABDOMINAL AORTA: The proximal, middle, and distal aortic segments are normal in caliber. INFERIOR VENA CAVA: Visualized portions are normal. LIVER: Normal. The liver demonstrates normal size, contour and echogenicity. No focal lesion or intrahepatic biliary duct dilatation. GALLBLADDER: Normal. The gallbladder is physiologically distended without evidence of stones, sludge, polyps, wall thickening or pericholecystic fluid. COMMON BILE DUCT: Normal in caliber measuring 0.4 cm in diameter. RIGHT KIDNEY: Normal. No hydronephrosis. No renal calculi or focal parenchymal lesions. The kidney measures 10.6 cm in maximum dimension. LEFT KIDNEY: Normal. No hydronephrosis. No renal calculi or focal parenchymal lesions. The kidney measures 10.0 cm in maximum dimension. SPLEEN: Normal. The spleen measures 10.6 cm in maximum dimension. FREE FLUID: None. IMPRESSION: 1. Portal veins and hepatic veins are patent with normal direction of flow seen. 2. No free fluid. 3. Liver and spleen normal in size and unremarkable. 4. Fatty infiltration of pancreas. 5. Otherwise unremarkable study. SERVICE DATE: 03/15/18-1300 EXAM TYPE: CARD - ECHOCARDIOGRAM FINDINGS Left Ventricle Normal left ventricular size with mild left ventricular hypertrophy. Normal systolic function with no obvious regional wall motion abnormalities. Normal left ventricular diastolic filling pattern for age. The ejection fraction is visually estimated at 65%. Right Ventricle The right ventricle is normal in size and function. Right Atrium The right atrium is normal in size. Left Atrium The left atrium is mildly enlarged. The interatrial septum is intact. Mitral Valve The mitral valve is normal in structure and function. There is trace mitral regurgitation. Aortic Valve Structurally normal aortic valve without significant sclerosis or stenosis. There is no aortic regurgitation. Tricuspid Valve The tricuspid valve is normal in structure and function. There is trace tricuspid regurgitation. Pulmonary artery systolic pressure is normal. Pulmonic Valve Structurally normal pulmonic valve. There is trace pulmonic regurgitation. Pericardium Normal pericardium without effusion. No pleural effusion. Great Vessels Normal aortic root dimension. The aortic arch and great vessels are well seen and are normal. CONCLUSIONS 1. Normal EF of 65%. 2. Mild left ventricular hypertrophy. 3. Mild left atrial enlargement. 4. Trace mitral regurgitation. 5. Trace tricuspid regurgitation. 6. Trace pulmonic regurgitation. SERVICE DATE: 03/14/18 EXAM TYPE: RAD - XRY-PORTABLE CHEST XRAY FINDINGS: The cardiac silhouette is stable. There is diffuse interstitial prominence throughout both lungs. A right-sided port is in place with the tip overlying the mid SVC. The mediastinal and hilar contours are unremarkable. There are neither pleural effusions nor pneumothoraces. There is streaky opacification present within the left upper lobe as well as right perihilar and right lower lobe hazy opacification. The osseous structures are unremarkable. IMPRESSION: Diffuse interstitial prominence throughout both lungs likely indicative of mild to moderate vascular congestion. There are superimposed multifocal airspace disease concerning for pneumonia, though nonspecific. Disposition Summary Disposition Principal Diagnosis: Dyspnea - multifactorial in etiology Possible COPD Exacerbation Additional Diagnosis: COPD LORENA Hx of gastric malignancy Discharge Disposition: home or self care Discharge Instructions General Discharge Information Code Status: Full Code Patient's Diet: Regular Patient's Activity: As tolerated Follow-Up Instructions/Appts: Please follow up with your PCP, aerospace mechanic and chief hospital administrator within one week of discharge. Medications at Discharge Discharge Medications: Stop taking the following medications: Furosemide (Lasix) 20 MG TABLET ORAL Three times a week Qty = 30 Continue taking these medications: Fluticasone/Salmeterol (Advair 500-50 Diskus) 500 MCG-50 MCG/DOSE BLST.W.DEV 1 Puff Inhale through mouth TWICE DAILY Comments: Last Taken: 03/17/18 Time: 8:00 AM (RECEIVED SYMBICORT) Buprenorphine HCl/Naloxone HCl (Suboxone 12 MG-3 MG Sl Film) 12 MG-3 MG FILM 1 Strip SUBLINGUAL DAILY Qty = 14 Comments: Last Taken: 03/17/18 Time: 8:00 AM Fluticasone Propionate (Fluticasone Propionate) 50 MCG/ACTUATION SPRAY.SUSP 2 Mather Both sides of nose As Directed as needed for ALLERGIES/ASTHMA Qty = 16 Comments: Last Taken: NOT GIVEN IN HOSPITAL Time: Montelukast Sodium (Montelukast Sodium) 10 MG TABLET 1 Tablet ORAL As Directed as needed for ALLERGIES/ASTHMA Qty = 30 Comments: Last Taken: NOT GIVEN IN HOSPITAL Time: Albuterol Sulfate (Albuterol Sulfate) 1.25 MG/3 ML VIAL.NEB 1 Vial Inhale Solution EVERY 4-6 HOURS as needed for WHEEZING Qty = 150 Comments: Last Taken: 03/17/18 Time: 1:30 PM Albuterol Sulfate (Proair Hfa) 90 MCG HFA.AER.AD 2 Puff Inhale through mouth EVERY 4-6 HOURS NEEDED as needed for ASTHMA Qty = 1 Comments: Last Taken: NOT GIVEN IN HOSPITAL Time: Ferrous Sulfate (Ferrous Sulfate) 325 MG (65 MG IRON) TABLET 1 Tablet ORAL TWICE DAILY Qty = 60 Comments: Last Taken: NOT GIVEN IN HOSPITAL Time: Tiotropium Palmer (Spiriva) 18 MCG CAP.W.DEV 1 Capsule Inhale through mouth DAILY Qty = 30 Comments: Last Taken: 03/17/18 Time: 8:00 AM Omeprazole (Omeprazole) 40 MG CAPSULE.DR 1 Capsule ORAL DAILY Qty = 90 Comments: Last Taken: NOT GIVEN IN HOSPITAL Time: Azithromycin (Azithromycin) 250 MG TABLET 250 Milligram ORAL EVERY 48 HOURS (Every 2 days) Qty = 30 Instructions: To start from 02/27/18. Comments: Last Taken: 03/17/18 Time: 10:00 AM Escitalopram Oxalate (Lexapro) 5 MG TABLET 1 Tablet ORAL DAILY Qty = 30 Instructions: Uptitrate to 2 pills per day after 3 days Comments: Last Taken: NOT GIVEN IN HOSPITAL Time: Potassium Citrate (Potassium Citrate ER) 10 MEQ (1,080 MG) TABLET.ER 1 Tablet ORAL Three times a week Qty = 20 Instructions: . Comments: Last Taken: NOT GIVEN IN HOSPITAL Time: Furosemide (Furosemide) 40 MG TABLET 60 Milligram ORAL TWICE DAILY Qty = 60 Comments: Last Taken: 03/17/18 Time: 8:00 AM This prescription has been renewed Copies To: Brent ACUNA,Chase Elizabeth Attending MD Review Statement Documenting Attending: Akiko ACUNA,Ken
--- NOTE | 2018-03-16 19:04 | PN- Pulmonary ---
Subjective HPI/Critical Care Issues: Patient was seen and examined at bedside. She feels better. Her shortness of breath has improved. Review of Systems Constitutional: Reports: no symptoms. Objective Current Medications: Current Medications Sig/Pam Start time Last Medication Dose Route Stop Time Status Admin Acetaminophen 650 MG Q6P PRN 03/15 0145 AC PO Acetaminophen 1,000 MG Q6P PRN 03/15 0145 AC IV Albuterol Sulfate 3 ML EVERY 4 HRS/AWAKE 03/15 1200 AC 03/16 INH 1625 Azithromycin 500 MG TUES THURS SAT 03/17 0900 CAN Sodium Chloride 250 ML IV 03/19 0959 Azithromycin 500 MG TUES THURS SAT 03/17 0900 AC PO Budesonide/ 2 PUF BID 03/15 0900 AC 03/16 Formoterol Fumarate INH 0821 Buprenorphine/ 1.5 TAB DAILY 03/15 0900 AC 03/16 Naloxone SL 0820 Enoxaparin Sodium 40 MG DAILY 03/15 0900 AC 03/16 SC 0820 Furosemide 40 MG 7:30 AM, & 4:30 PM 03/15 1630 AC 03/16 IV 1627 Patient Medication 1 ED ONE ONE 03/16 1515 DC Teaching ED 03/16 1516 Polyethylene Glycol 17 GM AT BEDTIME PRN 03/15 0145 AC PO Potassium Chloride 40 MEQ BID 03/16 1351 AC 03/16 PO 1626 Vital Signs & I&O Last 24 Hrs of Vitals and I&O: Vital Signs Date Time Temp Pulse Resp B/P B/P Pulse O2 O2 Flow FiO2 Mean Ox Delivery Rate 03/16 1627 94 Nasal 1.0L Cannula 03/16 1600 90 Nasal 1.0L Cannula 03/16 1437 98.3 90 18 98/62 90 Nasal 2.0L Cannula 03/16 1323 92 Room Air 03/16 0829 96 Nasal 1.0L Cannula 03/16 0800 96 Nasal 3.0L Cannula 03/16 0625 98.2 91 18 108/60 96 Nasal 2.0L Cannula 03/16 0600 98 Nasal 2.0L Cannula 03/16 0035 79 96 03/16 0000 Nasal 3.0L Cannula 03/15 2232 95 98 03/15 2116 98.4 109 18 110/64 92 Nasal 2.0L Cannula 03/15 2031 95 Nasal 2.0L Cannula Intake & Output 05/14 1600 05/14 0800 0514 0000 Intake Total 660 Output Total 250 150 Balance 410 -150 Intake, Oral 660 Output, Urine 250 150 Patient 230 lb Weight Weight Bed scale Measurement Method Impression/Plan Impression/Plan Impression/Plan: HEENT Atraumatic, PERRLA, EOMI, Mucous Membr. moist/pink Neck Supple, No JVD Cardiovascular Normal S1, Normal S2, No Murmurs Lungs markedly decreased air entery in both lung nguyễn Abdomen Normal Bowel Sounds, abdominal wall edema with markedly distended obese abdomen Neurological Normal Speech, Strength at 5/5 X4 Ext, Normal Tone, Sensation Intact, Cranial Nerves 3-12 NL Extremities No Clubbing, No Cyanosis, Bilateral 4+ pitting edeam to the level of the knee Vascular Normal Pulses, Pulses Symmetrical Pt with sig COPD with asthmatic component with recently dxd Gastric ca pending chemo has Chronic dyspnea and now with above mentioned cxr finding with prob pulm edema and unlikely pna, Diff dx include lymphangitic spread of gastric ca but seems less likely Sig COPD with asthmatic component with no sig wheezing today by exam Sig Pedal edema with Sig obesity with OHS with sig LORENA now on cpap was noncompliant before-pt just started it recently, with evidence of rt heart dysfunction Chronic hypercarbia at baseline with due to severe OLD with ohv with chronic hypercarbic resp insuff REC * NO need for systemic steroids and watch off steroids as she is not wheezing * COnt lasix iv bid * RPt ua * CPAP at hs - pt has cpap * Cont Spiriva and symbicort bid * Check echo to rule out pulm htn and pericardial issues * COnt other meds * COnt psych meds and buprenorphine / naloxone * IF qtc not prolonged can use qod azithro Will follow
--- NOTE | 2018-03-16 19:28 | PN- Cardiology ---
Subjective Subjective: * No current complaints of chest discomfort or shortness of breath. * sinus rhythm * Mild to moderately anemic Objective Vital Signs and I&Os Vital Signs Date Time Temp Pulse Resp B/P B/P Pulse O2 O2 Flow FiO2 Mean Ox Delivery Rate 03/16 1627 94 Nasal 1.0L Cannula 03/16 1600 90 Nasal 1.0L Cannula 03/16 1437 98.3 90 18 98/62 90 Nasal 2.0L Cannula 03/16 1323 92 Room Air 03/16 0829 96 Nasal 1.0L Cannula 03/16 0800 96 Nasal 3.0L Cannula 03/16 0625 98.2 91 18 108/60 96 Nasal 2.0L Cannula 03/16 0600 98 Nasal 2.0L Cannula 03/16 0035 79 96 03/16 0000 Nasal 3.0L Cannula 03/15 2232 95 98 03/15 2116 98.4 109 18 110/64 92 Nasal 2.0L Cannula 03/15 2031 95 Nasal 2.0L Cannula Intake & Output 03/16 1600 03/16 0800 03/16 0000 03/15 1600 03/15 0800 03/15 0000 Intake Total 660 700 300 Output Total 250 150 650 400 Balance 410 -150 50 -100 Intake, IV 250 Intake, Oral 660 450 300 Output, Urine 250 150 650 400 Patient 230 lb 270 lb 270 lb Weight Weight Bed scale Bed scale Reported by Patient Measurement Method Physical Exam: General: WD/obese female in NAD; alert and oriented x 3 HEENT: NC/AT, PERRL, EOMI Neck: no JVD, no carotid bruit Heart: RRR w/o murmur Lungs: decreased air movement bilaterally, no crackles or wheezing ABdomen: soft, NT, +ve bowel sounds Extremities: 2+ bilateral leg edema Assessment/Plan Assessment/Plan * This patient's shortness of breath is likley multifactorial. Although she has findings consistent with decompensated CHF such as shortness of breath, orthopnea, leg edema and pulmonary vascular congestion on her chest X-ray her BNP was very low at the time of admission. It interestingly tripled in value after admission and diuresis but it is still low. I suspect that the above findings are primarily due to her lung disease although anemia and mild RV dysfunction may also be contributing to her shortness of breath to some extent. It should also be noted that her prior echo did show impaired LV relaxation consistent with diastolic dysfunction. Decompensation related to the above cardiac issues are just unlikely to cohabitate with a low BNP. I would repeat an echocardiogram and continue to diurese this patient with IV Lasix at 60mg BID with monitoring of her BUN, creatinine and potassium. * Consideration should be given to alternate reasons for pulmonary edema and leg edema such as malignancy, obstruction or thrombus. Check a D-dimer. Repeat a chest X-ray after diuresis to look for underlying infiltrate. If she does not improve consider an ultrasound of the IVC to look for obstruction and consider lymphangitis spread of her cancer. Continue telemetry? Yes
[2018-03-16 23:16] VITALS: BP 98/58
[2018-03-17 06:42] VITALS: BP 94/52
--- NOTE | 2018-03-17 07:04 | PN- Housestaff ---
Celena ACUNA,[facility] 03/17/18 0704: Subjective Follow-up For: Lower extremity swelling shortness of breath Tele-Events Since Last Visit: NSR with HR 70-105. No overnight events. Subjective: Patient was seen and examined at bedside. Reports feeling better. Still having a productive cough. Denies any shortness of breath or any other associated symptoms. Review of Systems Constitutional: Reports: no symptoms. Objective Last 24 Hrs of Vital Signs/I&O Vital Signs Date Time Temp Pulse Resp B/P B/P Pulse O2 O2 Flow FiO2 Mean Ox Delivery Rate 03/17 0642 98.4 76 22 94/52 96 Nasal 4.0L Cannula 03/16 2316 98.3 95 20 98/58 95 Nasal Cannula 03/16 2315 82 97 03/16 2038 Nasal 1.0L Cannula 03/16 1627 94 Nasal 1.0L Cannula 03/16 1600 90 Nasal 1.0L Cannula 03/16 1437 98.3 90 18 98/62 90 Nasal 2.0L Cannula 03/16 1323 92 Room Air 03/16 0829 96 Nasal 1.0L Cannula 03/16 0800 96 Nasal 3.0L Cannula Intake & Output 03/17 0800 03/17 0000 03/16 1600 Intake Total 420 660 Output Total 200 1600 250 Balance -200 -1180 410 Intake, Oral 420 660 Number 1 Bowel Movements Output, Urine 200 1600 250 Patient 157 lb Weight Physical Exam General Appearance: Alert, Oriented X3, Cooperative, Mild Distress Skin: No Rashes, No Breakdown Skin Temp/Moisture Exam: Warm/Dry Sepsis Skin Exam (color): Normal for Ethnicity HEENT: Atraumatic Cardiovascular: Normal S1, Normal S2, No Murmurs Lungs: decreased air entry Abdomen: Soft, No Tenderness Neurological: Normal Speech Extremities: b/l 4+ edema up to knees Last 24 Hrs of Lab/Reza Results Last 24 Hrs of Labs/Mics: Laboratory Tests 03/17/18 0635: Sodium Pending, Potassium Pending, Chloride Pending, Carbon Dioxide Pending, Anion Gap Pending, BUN Pending, Creatinine Pending, BUN/Creatinine Ratio Pending , CBC w Diff Pending, WBC Pending, RBC Pending, Hgb Pending, Hct Pending, MCV Pending, MCH Pending, MCHC Pending, RDW Pending, Plt Count Pending, MPV Pending 03/17/18 0525: D-Dimer High Sensitivty 384 H 03/17/18 0205: Urinalysis LIGHT H, Urine Color YEL, Urine Clarity HAZY H, Urine pH 6.0, Ur Specific Kimper 1.015, Urine Protein NEG, Urine Ketones NEG, Urine Nitrite NEG, Urine Bilirubin NEG, Urine Urobilinogen 0.2, Ur Leukocyte Esterase SMALL H, Ur Microscopic SEDIMENT EXAMINED, Urine RBC 1-3, Urine WBC 5-10 H, Ur Epithelial Cells MOD H, Urine Crystals 1+ CA OX H, Urine Bacteria MOD H, Urine Mucus FEW , Urine Hemoglobin NEG, Urine Glucose NEG Assessment/Plan Assessment: 52-year-old morbidly obese woman with recent diagnosis of gastrointestinal cancer, GI bleed, COPD not on home oxygen, chronic lower extremity edema on Lasix, LORENA on nocturnal CPAP and asthma presented to the ED with complains of shortness of breath for the past 4 days prior to admission. Assessment: 1. Dyspnea Likely due to Congestive Heart Failure 2. Possible COPD Exacerbation 3. Lower extremity edema 4. History of GI malignancy. 5. History of COPD not on home oxygen 6. History of LORENA Plan: * Continue oxygen supplementation to maintain target sats >92%. Currently on 1L. Will attempt to wean her off. * Repeat echo is essentially normal with an EF of 65%. * Increase diuresis with IV Lasix 60mg BID * Continue potassium supplement 40meq * TRC/nebs as needed. * Azithromycin 250mg qod for chronic maintenance of COPD. * CXR today to assess pulmonary edema - pending * Her Abd U/S doppler was normal. * Her appointment for chemotherapy at [facility] has been changed to Friday. * Diet: Regular * DVT Prophylaxis: SC Lovenox * Code: Full Code Problem List: 1. Volume overload Pain Ratin Pain Location: none Pain Goal: Remain pain free Pain Plan: none Tomorrow's Labs & Rationales: none Ken Wharton 03/17/18 1206: Attending MD Review Statement Attending Statement Attending MD Statement: examined this patient, discuss w/resident/PA/LENS INSPECTOR, agreed w/resident/PA/LENS INSPECTOR, discussed with family, reviewed EMR data (avail), discussed with nursing, discussed with case mgmt, reviewed images, amended to note Attending Assessment/Plan: Patient with elevated dimer and bnp tripled since admission is going for CTA chest for high well score. Patient also has improved with iv lasix and short course of steroid. Patient seen by pulmonary and cardiology. Patient wants to leave home today for planned chemotherapy. Plan is to change to oral lasix and follow hematology/oncology as outpatient. F/u pulmoanry as outpatient and encourage complaince with CPAP.
--- NOTE | 2018-03-17 07:34 | ECHOCARDIOGRAM REPORT ---
NILO GARDINER Age: 52 : 1965 Gender: F Exam Date: 03/16/2018 20:00 Exam Location: 1 [address] Ht (in): 61 Wt (lb): 270 BSA: 2.38 BP: 98 / 62 Ordering Physician: Andrew Dallas MD Referring Physician: Pool Zarate MD, PhD Technologist: Gloria Cain [facility] Room Number: 171 Indications: PULMONARY HYPERTENSION Rhythm: Sinus Technical Quality: good FINDINGS Left Ventricle Normal left ventricular size with mild left ventricular hypertrophy. Normal systolic function with no obvious regional wall motion abnormalities. Normal left ventricular diastolic filling pattern for age. The ejection fraction is visually estimated at 65%. Right Ventricle The right ventricle is normal in size and function. Right Atrium The right atrium is normal in size. Left Atrium The left atrium is mildly enlarged. The interatrial septum is intact. Mitral Valve The mitral valve is normal in structure and function. There is trace mitral regurgitation. Aortic Valve Structurally normal aortic valve without significant sclerosis or stenosis. There is no aortic regurgitation. Tricuspid Valve The tricuspid valve is normal in structure and function. There is trace tricuspid regurgitation. Pulmonary artery systolic pressure is normal. Pulmonic Valve Structurally normal pulmonic valve. There is trace pulmonic regurgitation. Pericardium Normal pericardium without effusion. No pleural effusion. Great Vessels Normal aortic root dimension. The aortic arch and great vessels are well seen and are normal. CONCLUSIONS 1. Normal EF of 65%. 2. Mild left ventricular hypertrophy. 3. Mild left atrial enlargement. 4. Trace mitral regurgitation. 5. Trace tricuspid regurgitation. 6. Trace pulmonic regurgitation. Pool Zarate M.D. (Electronically Signed) Final Date: 17 Mar 2018 07:33 MEASUREMENTS (Male / Female) Normal Values 2D ECHO LV Diastolic Diameter PLAX 5.0 cm 4.2 - 5.9 / 3.9 - 5.3 cm LV Systolic Diameter PLAX 3.2 cm 2.1 - 4.0 cm LV Fractional Shortening PLAX 36.0 % 25 - 46 % LV Ejection Fraction 2D Teich 65.4 % IVS Diastolic Thickness 1.2 cm LVPW Diastolic Thickness 1.2 cm LV Relative Wall Thickness 0.5 RV Internal Dim ED PLAX 2.5 cm 1.9 - 3.8 cm LVOT Diameter 1.9 cm Aortic Root Diameter 2.4 cm LA Systolic Diameter LX 4.6 cm 3.0 - 4.0 / 2.7 - 3.8 cm LA Volume 42.0 cm 18 - 58 / 22 - 52 cm Ascending Aorta Diameter 3.1 cm DOPPLER AV Peak Velocity 189.0 cm/s AV Peak Gradient 14.3 mmHg AV Mean Velocity 120.0 cm/s AV Mean Gradient 7.0 mmHg AV Velocity Time Integral 32.4 cm LVOT Peak Velocity 148.0 cm/s LVOT Peak Gradient 8.8 mmHg LVOT Mean Velocity 101.0 cm/s LVOT Mean Gradient 5.0 mmHg LVOT Velocity Time Integral 30.7 cm LVOT Stroke Volume 87.0 cm AV Area Cont Eq vti 2.7 cm AV Area Cont Eq pk 2.2 cm MV Peak Velocity 132.0 cm/s MV Peak Gradient 7.0 mmHg MV Mean Velocity 81.0 cm/s MV Mean Gradient 3.0 mmHg Mitral E Point Velocity 120.8 cm/s Mitral A Point Velocity 83.4 cm/s Mitral E to A Ratio 1.4 MV PHT Velocity 136.0 cm/s MV Deceleration [place] 628.0 cm/s MV Pressure Half Time 65.0 ms MV Area PHT 3.4 cm MV Deceleration Time 211.0 ms TR Peak Velocity 167.0 cm/s TR Peak Gradient 11.2 mmHg Right Atrial Pressure 5.0 mmHg Pulmonary Artery Systolic Pressu 16.2 mmHg Right Ventricular Systolic Press 16.2 mmHg PV Peak Velocity 145.0 cm/s PV Peak Gradient 8.4 mmHg PV Mean Velocity 107.0 cm/s PV Mean Gradient 5.0 mmHg PV Velocity Time Integral 32.3 cm LV E' Lateral Velocity 12.5 cm/s Mitral E to LV E' Lateral Ratio 9.7 LV E' Septal Velocity 14.6 cm/s Mitral E to LV E' Septal Ratio 8.3
[2018-03-17 08:06] LABS: ABSOLUTE BASOPHIL COUNT 0 /CUMM (0.0-0.2); ABSOLUTE EOSINOPHIL COUNT 0.2 /CUMM (0.0-0.7); ABSOLUTE GRANULOCYTE CT 5.3 /CUMM (1.4-6.5); ABSOLUTE LYMPH COUNT 2.1 /CUMM (1.2-3.4); BASOPHIL % 0.2 % (0.0-2.0); EOSINOPHIL % 1.8 % (0-5); GRANULOCYTE % 62.2 % (42.2-75.2); HEMATOCRIT 28.5 % (37-47); MEAN CORPUSCULAR HGB 23.8 PG (27.0-31.0); MEAN CORPUSCULAR HGB CONC 30.2 G/DL (33.0-37.0); MEAN CORPUSCULAR VOLUME 78.9 FL (81.0-99.0); MEAN PLATELET VOLUME 6.8 FL (7.4-10.4); PLATELET COUNT 485 /CUMM (130-400); RBC DISTRIBUTION WIDTH 29.6 % (11.5-14.5); RED BLOOD CELL CT 3.61 /CUMM (4.20-5.40); WHITE BLOOD CELL COUNT 8.5 /CUMM (4.8-10.8)
--- NOTE | 2018-03-17 09:56 | PN- Pulmonary ---
Subjective HPI/Critical Care Issues: Improving improving Mild wheezing Room air saturation is improved On walking the oxygen does Objective Current Medications: Current Medications Sig/Pma Start time Last Medication Dose Route Stop Time Status Admin Acetaminophen 650 MG Q6P PRN 03/15 0145 AC PO Acetaminophen 1,000 MG Q6P PRN 03/15 0145 AC IV Albuterol Sulfate 3 ML EVERY 4 HRS/AWAKE 03/15 1200 AC 03/17 INH 0842 Azithromycin 500 MG TUES THURS SAT 03/17 0900 CAN Sodium Chloride 250 ML IV 03/19 0959 Azithromycin 500 MG TUES THURS SAT 03/17 0900 DC PO Azithromycin 250 MG TUES THURS SAT 03/17 0900 AC PO Budesonide/ 2 PUF BID 03/15 0900 AC 03/17 Formoterol Fumarate INH 0757 Buprenorphine/ 1.5 TAB DAILY 03/15 0900 AC 03/17 Naloxone SL 0804 Enoxaparin Sodium 40 MG DAILY 03/15 0900 AC 03/17 SC 0758 Furosemide 60 MG 7:30 AM, & 4:30 PM 03/17 0730 DC 03/17 IV 0759 Furosemide 40 MG 7:30 AM, & 4:30 PM 03/15 1630 DC 03/16 IV 1627 Patient Medication 1 ED ONE ONE 03/16 1515 DC Teaching ED 03/16 1516 Polyethylene Glycol 17 GM AT BEDTIME PRN 03/15 0145 AC PO Potassium Chloride 40 MEQ BID 03/16 1351 AC 03/17 PO 0758 Tiotropium [place] 1 PUF DAILY 03/16 1930 AC 03/17 INH 0757 Vital Signs & I&O Last 24 Hrs of Vitals and I&O: Vital Signs Date Time Temp Pulse Resp B/P B/P Pulse O2 O2 Flow FiO2 Mean Ox Delivery Rate 03/17 0848 92 Nasal 1.0L Cannula 03/17 0642 98.4 76 22 94/52 96 Nasal 4.0L Cannula 03/16 2316 98.3 95 20 98/58 95 Nasal Cannula 03/16 2315 82 97 03/16 2038 Nasal 1.0L Cannula 03/16 1627 94 Nasal 1.0L Cannula 03/16 1600 90 Nasal 1.0L Cannula 03/16 1437 98.3 90 18 98/62 90 Nasal 2.0L Cannula 03/16 1323 92 Room Air Intake & Output 03/17 1600 05/15 0800 05/15 0000 Intake Total 420 Output Total 200 1600 Balance -200 -1180 Intake, Oral 420 Number 1 Bowel Movements Output, Urine 200 1600 Patient 157 lb Weight Impression/Plan Impression/Plan Impression/Plan: HEENT Atraumatic, PERRLA, EOMI, Mucous Membr. moist/pink Neck Supple, No JVD Cardiovascular Normal S1, Normal S2, No Murmurs Lungs markedly decreased air entery in both lung nguyễn Abdomen Normal Bowel Sounds, abdominal wall edema with markedly distended obese abdomen Neurological Normal Speech, Strength at 5/5 X4 Ext, Normal Tone, Sensation Intact, Cranial Nerves 3-12 NL Extremities No Clubbing, No Cyanosis, Bilateral 4+ pitting edeam to the level of the knee Vascular Normal Pulses, Pulses Symmetrical Pt with sig COPD with asthmatic component with recently dxd Gastric ca pending chemo has Chronic dyspnea and now with above mentioned cxr finding with prob pulm edema and unlikely pna, Diff dx include lymphangitic spread of gastric ca but seems less likely Sig COPD with asthmatic component with no sig wheezing today by exam Sig Pedal edema with Sig obesity with OHS with sig LORENA now on cpap was noncompliant before-pt just started it recently, with evidence of rt heart dysfunction Chronic hypercarbia at baseline with due to severe OLD with ohv with chronic hypercarbic resp insuff REC * COnt lasix changed to by mouth * CPAP at hs - pt has cpap * Cont Spiriva and symbicort bid * Check walking oximetry and if she needs it she would need oxygen upon discharge to go home * COnt other meds * COnt psych meds and buprenorphine / naloxone * IF qtc not prolonged can use qod taylor Will follow ok to dc today as she would need to start chemo in am
--- NOTE | 2018-03-17 12:09 | RADIOLOGY REPORT ---
EXAMINATION: XR CHEST CLINICAL INFORMATION: Pulmonary edema. Comparison from previous. COMPARISON: Several prior chest x-rays, most recent of which is dated 03/14/2018. CT scan of the chest dated 03/17/2018. TECHNIQUE: 2 views of the chest were obtained. FINDINGS: Right jugular Port-A-Cath is in place with tip in the mid SVC, unchanged. The cardiomediastinal silhouette is borderline enlarged. Central vascular congestion and diffuse reticular opacities are again noted in the lungs bilaterally, unchanged when allowing for differences in technique. Superimposed more linear opacities seen in the left lung apex, also unchanged. No significant effusion or pneumothorax is seen. Bony structures are unremarkable. IMPRESSION: 1. No change in positioning of right jugular Port-A-Cath. 2. Persistent mild vascular congestion and diffuse reticular opacities, suggestive of pulmonary edema. Superimposed patchy parenchymal opacity in the left lung apex is seen, raising the suspicion of pneumonia. Clinical correlation is requested.
--- NOTE | 2018-03-17 14:03 | CT SCAN REPORT ---
EXAMINATION: CT CHEST PE STUDY CLINICAL INFORMATION: History of malignancy. Increasing oxygen requirement. Rule out pulmonary embolism. COMPARISON: Several prior chest x-rays, most recent of which is dated 03/17/2018. The scan of the chest, abdomen and pelvis dated 01/20/2018. TECHNIQUE: Prior to contrast administration, localization images were obtained. After the administration of 95 and mL of intravenous Optiray 320, multidetector CT volume acquisition of the chest was performed. 3-D postprocessing was performed with multiplanar reconstructions and MIP images obtained at the acquisition workstation under concurrent physician supervision. Due to suboptimal bolus timing, the patient was brought back for repeat imaging after the administration of 68 mL of intravenous Optiray 350. DLP: 551.24 mGy-cm. FINDINGS: Pulmonary arteries: Evaluation on the initial image acquisition is limited due to extensive beam hardening artifact related to the patient's body habitus and due to slightly delayed and suboptimal bolus timing. On repeat imaging, bolus timing is satisfactory with some limitation still remaining related to extensive beam hardening artifact and body habitus. There are several apparent filling defects seen, most prominent in the right upper lobe, most consistent with beam hardening artifact. No convincing evidence of pulmonary embolism is seen. Lungs: Diffuse patchy groundglass opacities is seen in the lungs bilaterally with associated enlargement of the pulmonary vessels and subtle interlobular septal thickening, consistent with pulmonary edema. Superimposed patchy consolidation is seen in the left upper lobe, suspicious for pneumonia. There are patchy areas of density seen laterally within the right upper lobe and medially within the right middle lobe, likely representing atelectatic changes. There is also subsegmental atelectasis and dependent atelectasis in both lower lobes. No pleural effusion or pneumothorax is seen. The central airways are patent. Densely calcified granuloma is seen in the right lower lobe (series 2, image 306). No significant pulmonary nodules, masses, pleural effusion or pneumothorax. The central airways are patent. Aorta and heart: The heart is mildly enlarged. Aorta is normal in caliber and unremarkable. Moderate atherosclerotic calcifications of the coronary arteries is seen. There is no pericardial effusion Lymphatic structures: There is no lymphadenopathy. Thyroid gland: Densely calcified nodule is seen in the right lobe of the thyroid gland, similar to the prior exam. Thyroid parenchyma appears heterogeneous and is poorly evaluated due to beam hardening artifact. Upper abdomen: Pancreas is atrophic and fat infiltrated. Limited evaluation of the upper abdominal viscera demonstrates no other focal abnormality. Bones: Minimal spurring is seen throughout the thoracic spine. No significant focal findings. IMPRESSION: 1. No evidence of pulmonary embolism. 2. Findings are most consistent with pulmonary edema with superimposed patchy consolidation in the left upper lobe, suspicious for pneumonia. There are also scattered areas of atelectatic changes in the lungs bilaterally.
[2018-03-17 14:28] VITALS: BP 100/60
[2018-03-17] MEDS ORDERED: FUROSEMIDE40 M1 PO ×2 (14:59→15:32)
--- NOTE | 2018-03-17 17:24 | PN- Cardiology ---
Subjective Subjective: * Patient's breathing is improved. * multiple pulmonary infiltrates noted on chest CT without any evidence of PE * sinus rhythm Objective Vital Signs and I&Os Vital Signs Date Time Temp Pulse Resp B/P B/P Pulse O2 O2 Flow FiO2 Mean Ox Delivery Rate 03/17 1428 99.4 97 20 100/60 95 Nasal 1.0L Cannula 03/17 1138 96 Nasal 1.0L Cannula 03/17 1130 86 Room Air 03/17 0848 92 Nasal 1.0L Cannula 03/17 0800 92 Nasal 1.0L Cannula 03/17 0642 98.4 76 22 94/52 96 Nasal 4.0L Cannula 03/16 2316 98.3 95 20 98/58 95 Nasal Cannula 03/16 2315 82 97 03/16 2038 Nasal 1.0L Cannula Intake & Output 03/17 1600 03/17 0800 03/17 0000 03/16 1600 03/16 0800 03/16 0000 Intake Total 1060 420 660 Output Total 8495 614 8728 250 150 Balance -540 -200 -1180 410 -150 Intake, IV 0 Intake, Oral 1060 420 660 Number 0 1 Bowel Movements Output, Urine 6686 505 6123 250 150 Patient 157 lb 230 lb Weight Weight Bed scale Measurement Method Physical Exam: General: WD/obese female in NAD; alert and oriented x 3 HEENT: NC/AT, PERRL, EOMI Neck: no JVD, no carotid bruit Heart: RRR w/o murmur Lungs: decreased air movement bilaterally, no crackles or wheezing ABdomen: soft, NT, +ve bowel sounds Extremities: 1-2+ bilateral leg edema Assessment/Plan Assessment/Plan * This patient's shortness of breath is likely multifactorial. In consideration of her pulmonary infiltrates and leg edema we should continue Lasix 60mg IV BID and change to oral Lasix at 60mg BID tomorrow. I suspect lymphangitis spread of the patient's cancer since she is confirmed to have a normal EF and impaired relaxation was not noted on echo. This is in addition to a normal BNP. Pneumonia is also unlikely in the absence of a congested cough, fever or increased WBC count. Pulmonary pressures were normal on her echo. Continue telemetry? No
== END 2018-03-17 18:40 | disposition home health service (06) | DRG 140 ==
LOC: ERH 23:03 → 1NO 23:53 → ERHI 23:53 → ENRESERV 03-15 01:23 → CANRESERV 03-15 01:23 → EDBEDREQ 03-15 01:48 → EDBEDREQTM 03-15 01:48 → ERHI 03-15 01:51 → ENRESERV 03-15 02:13 → 1NO 03-15 02:33 → ENTRNSPT 03-17 18:15 → EDTRNSPT 03-17 18:19 → EDTRNSPTSTS 03-17 18:19 → CMPTRNSPT 03-17 18:31 → 1NO 03-17 18:40
PROVIDERS: Emergency Medicine; Internal Medicine; Student in an Organized Health Care Education/Training Program
DX: J44.1 Chronic obstructive pulmonary disease with (acute) exacerbation (principal); J96.01 Acute respiratory failure with hypoxia; J96.12 Chronic respiratory failure with hypercapnia; E66.2 Morbid (severe) obesity with alveolar hypoventilation; Z68.43 Body mass index [BMI] 50.0-59.9, adult; C16.9 Malignant neoplasm of stomach, unspecified; G47.33 Obstructive sleep apnea (adult) (pediatric); D50.9 Iron deficiency anemia, unspecified; Z87.891 Personal history of nicotine dependence
CPT/HCPCS: 1NP; ERO; 36415; 36592; 71045; 71046; 80307; 81001; 81003; 82436; 87040; 87070; 93005; 93010; 93306; 96374; 96375; J0456; J0713; J1650; J1940; J3490; J7040

== ENCOUNTER 2018-05-05 10:06 | Emergency (ER) | payer OTHER ==
[~2018-05-05] VITALS: Ht 154.9 cm; Wt 116.1 kg
[~2018-05-05 10:06] MED LIST changes: +IPRAT-ALBUT 0.5-3 ML INH
--- NOTE | 2018-05-05 12:28 | ED GENERAL ADULT ---
History of Present Illness General Chief Complaint: Dyspnea (COPD, CHF, Other) Stated Complaint: SOB Source: patient Exam Limitations: no limitations Vital Signs & Intake/Output Vital Signs & Intake/Output Vital Signs Date Time Temp Pulse Resp B/P B/P Pulse O2 O2 Flow FiO2 Mean Ox Delivery Rate 05/05 1345 94 20 126/67 94 Nasal 2.0L Cannula 05/05 1325 Nasal 2.0L Cannula 05/05 1210 95 Nasal 2.0L Cannula 05/05 1032 103 20 107/63 97 Nasal 2.0L Cannula Allergies Coded Allergies: No Known Allergies (05/05/18) Reconcile Medications Albuterol Sulfate (Proair Hfa) 90 MCG HFA.AER.AD 2 PUF INH Q4-6 PRN PRN copd Albuterol Sulfate 1.25 MG/3 ML VIAL.NEB 1 Vial INH/THA Q4-6 PRN WHEEZING Buprenorphine HCl/Naloxone HCl (Suboxone 12 MG-3 MG Sl Film) 12 MG-3 MG FILM 1 STR SL DAILY CHRONIC PAIN (Reported) Escitalopram Oxalate (Lexapro) 5 MG TABLET 1 TAB PO DAILY ANXIETY Uptitrate to 2 pills per day after 3 days Ferrous Sulfate 325 MG (65 MG IRON) TABLET 1 TAB PO TID IRON, VITAMIN ( Reported) Fluticasone Propionate 50 MCG/ACTUATION SPRAY.SUSP 2 SPRAY NASB AD PRN ALLERGIES/ASTHMA (Reported) Fluticasone/Salmeterol (Advair 500-50 Diskus) 500 MCG-50 MCG/DOSE BLST.W.DEV 1 PUF INH BID ASTHMA (Reported) Furosemide (Lasix) 40 MG TABLET 1 TAB PO BID WATER RETENTION (Reported) Ipratropium/Albuterol Sulfate (Iprat-Albut 0.5-3(2.5) MG/3 Ml) 0.5 MG-3 MG (2.5 MG BASE)/3 ML AMPUL.NEB 1 UNIT INH Q4-6P PRN copd Montelukast Sodium 10 MG TABLET 1 TAB PO AD PRN ALLERGIES/ASTHMA (Reported) Omeprazole 40 MG CAPSULE.DR 1 CAP PO DAILY GI (Reported) Potassium Citrate (Potassium Citrate ER) 10 MEQ (1,080 MG) TABLET.ER 1 TAB PO 3XW LOW POTASSIUM . Prednisone 20 MG TABLET 1 TAB PO BID copd Tiotropium [place] (Spiriva) 18 MCG CAP.W.DEV 1 CAP INH DAILY RESP. (Reported ) Triage Note: PT BIBA FROM CAR FOR INCREASED SOB. PT REPORTS SHE WAS IN HER CAR AND SUDDENLY FELT SOB. DENIES CHEST PAIN. PT IS ON BASELINE 2L NC OXYGEN WITH O2 SAT WNL. NO ACUTE DISTRESS NOTED IN TRIAGE, NO WORK OF BREATHING NOTED. Triage Nurses Notes Reviewed? yes Onset: Abrupt Duration: minute(s): Timing: single episode today HPI: 52 y/o female with h/o asthma, COPD (on baseline 2 L of oxygen), gastric cancer (was scheduled for third round of chemotherapy today) presenting status post an episode of shortness of breath just prior to arrival. Patient states that she was on her way to her chemotherapy appointment when she began to feel very claustrophobic in the car and had what she perceives to be an anxiety attack. States that her brother was driving her to chemotherapy and he drives a small two-seater vehicle, she had been feeling anxious about driving in the car all day as she gets very cautious phobic. When she was in the vehicle and driving she began to feel very short of breath and had tunnel vision. Her brother called EMS, patient was feeling better when she was out of the vehicle and wanted to continue to her chemotherapy appointment, but EMS insisted that she be evaluated in the emergency department. On arrival to the emergency department patient feels improved, is satting in the high 90s on her baseline O2. Reports that multiple family members in her household have been sick with respiratory symptoms. Has had recent non-productive cough. Patient was seen in the emergency department yesterday for shortness of breath, had a CTA of the chest that was negative for PE, but questionable for pneumonia, and was given a prescription for azithromycin and prednisone, which she states she has been taking. Denies chest pain, URI symptoms, sputum, abdominal pain, nausea, vomiting, diarrhea, dysuria. (Hermelinda Johnston) Past History Travel History Traveled to [place] past 21 day No Medical History Any Pertinent Medical History? see below for history Neurological: NONE EENT: NONE Cardiovascular: NONE Respiratory: asthma, COPD Gastrointestinal: GI BLEED Hepatic: NONE Renal: NONE Musculoskeletal: degen joint disease Psychiatric: NONE Endocrine: NONE Blood Disorders: NONE Cancer(s): STOMACH CANCER CLINICAL SUPPORT ASSOCIATE/Reproductive: NONE History of MRSA: No History of VRE: No History of CDIFF: No Surgical History Surgical History: unobtainable Psychosocial History Who do you live with Mother Services at Home None What is your primary language Faroese Tobacco Use: Quit >30 days ago ETOH Use: denies use Illicit Drug Use: denies illicit drug use Family History Family History, If Any: FATHER (Heart Disease). MOTHER (Asthma). Uncle (Diabetes). BROTHER (sudden ; possibly cardiac.). Hx Contributory? No (Hermelinda Johnston) Review of Systems Review of Systems Constitutional: Reports: no symptoms. EENTM: Reports: no symptoms. Respiratory: Reports: see HPI. Cardiovascular: Reports: no symptoms. GI: Reports: no symptoms. Genitourinary: Reports: no symptoms. Musculoskeletal: Reports: no symptoms. Skin: Reports: no symptoms. Neurological/Psychological: Reports: no symptoms. Hematologic/Endocrine: Reports: no symptoms. Immunologic/Allergic: Reports: no symptoms. (Hermelinda Johnston) Physical Exam Physical Exam General Appearance: well developed/nourished, no apparent distress, alert, awake , comfortable Head: atraumatic, normal appearance Eyes: Bilateral: normal appearance. Ears, Nose, Throat: normal ENT inspection Neck: normal inspection Respiratory: no respiratory distress, wheezing (trace scattered wheezes) Cardiovascular: regular rate/rhythm Gastrointestinal: soft, non-tender Back: normal inspection Extremities: normal inspection Neurologic/Psych: awake, alert, oriented x 3, normal gait, normal mood/affect Skin: intact, normal color, warm/dry Core Measures ACS in differential dx? No CVA/TIA Diagnosis: No Sepsis Present: No Sepsis Focused Exam Completed? No (Hermelinda Johnston) Progress Differential Diagnoses I considered the following diagnoses in my evaluation of the patient: [Anxiety attack versus COPD exacerbation versus pneumonia, low concern for sepsis versus ACS versus PE versus aortic dissection] Plan of Care: Orders Procedure Date/time Status MIXED VENOUS BLOOD GAS (GEN) 05/05 1229 Active TROPONIN LEVEL 05/05 1229 Complete CBC WITHOUT DIFFERENTIAL 05/05 1229 Complete BASIC METABOLIC PANEL 05/05 1229 Complete EKG 05/05 1229 Active AEROSOL (GEN) 05/05 1212 Complete Laboratory Tests 05/05/18 1320: Anion Gap 10, Estimated GFR > 60, BUN/Creatinine Ratio 20.0, Glucose 201 H, Calcium 9.4, Troponin I < 0.01, CBC w Diff NO MAN DIFF REQ, RBC 3.71 L, MCV 81.4, MCH 25.9 L, MCHC 31.8 L, RDW 29.9 H, MPV 7.0 L, Gran % 80.1 H, Lymphocytes % 9.2 L, Monocytes % 10.7 H, Eosinophils % 0, Basophils % 0, Absolute Granulocytes 7.0 H, Absolute Lymphocytes 0.8 L, Absolute Monocytes 0.9 H, Absolute Eosinophils 0, Absolute Basophils 0 EKG is nonischemic, troponin negative. Labs are unremarkable, with the exception of anemia which is relatively at the patient's baseline. Chest x-ray was unremarkable, but given the suspicious pneumonia seen on CT of the chest yesterday patient was instructed to continue her azithromycin and prednisone. Patient has albuterol at home as needed for shortness of breath. Patient is well-appearing, remains with O2 sats in the high 90s on her baseline O2 both at rest and with ambulation. No tachypnea or signs of respiratory distress. Discussed with EDMD and patient is cleared for discharge. Given strict return precautions. Initial ED EKG: NSR, no ST T wave changes (Hermelinda Johnston) Departure Departure Disposition: HOME OR SELF CARE Condition: Stable Clinical Impression Primary Impression: Shortness of breath Secondary Impressions: Anxiety attack Referrals: Brent ACUNA,Chase Elizabeth (PCP/Family) Additional Instructions: Continue taking the azithromycin as prescribed. Follow-up on Friday as scheduled for your next round of chemotherapy. Follow-up with your primary care provider for reevaluation. Return to the emergency department for any new or worsening symptoms. Departure Forms: Customer Survey General Discharge Information (Hermelinda Johnston) PA/COMPUTER REPAIRER Co-Sign Statement Statement: ED Attending supervision documentation- x I saw and evaluated the patient. I have also reviewed all the pertinent lab results and diagnostic results. I agree with the findings and the plan of care as documented in the PA's/COMPUTER REPAIRER's documentation. [] I have reviewed the ED Record and agree with the PA's/COMPUTER REPAIRER's documentation. [] Additions or exceptions (if any) to the PAs/COMPUTER REPAIRER's note and plan are summarized below: [] (Buster ACUNA,Trino) Critical Care Note Critical Care Note Critical Care Time: non-applicable (Hermelinda Johnston)
--- NOTE | 2018-05-05 13:12 | RADIOLOGY REPORT ---
EXAMINATION: XR CHEST CLINICAL INFORMATION: Shortness of breath COMPARISON: Multiple priors, most recently 05/04/2018 TECHNIQUE: 2 views of the chest were obtained. FINDINGS: Body habitus limits evaluation. Right chest wall port which terminates near the cavoatrial junction. The lungs are well expanded. There is no focal consolidation, edema, or effusion. No pneumothorax. The cardiomediastinal silhouette is within normal limits. No acute osseous abnormality. IMPRESSION: No acute pulmonary findings.
[2018-05-05 13:28] LABS: ABSOLUTE BASOPHIL COUNT 0 /CUMM (0.0-0.2); ABSOLUTE EOSINOPHIL COUNT 0 /CUMM (0.0-0.7); ABSOLUTE LYMPH COUNT 0.8 /CUMM (1.2-3.4); ABSOLUTE MONOCYTE COUNT 0.9 /CUMM (0.10-0.60); BASOPHIL % 0 % (0.0-2.0); EOSINOPHIL % 0 % (0-5); HEMATOCRIT 30.2 % (37-47); MEAN CORPUSCULAR HGB 25.9 PG (27.0-31.0); MEAN CORPUSCULAR HGB CONC 31.8 G/DL (33.0-37.0); MEAN CORPUSCULAR VOLUME 81.4 FL (81.0-99.0); PLATELET COUNT 291 /CUMM (130-400); RBC DISTRIBUTION WIDTH 29.9 % (11.5-14.5); RED BLOOD CELL CT 3.71 /CUMM (4.20-5.40); WHITE BLOOD CELL COUNT 8.7 /CUMM (4.8-10.8)
[2018-05-05 13:29] LABS: GRANULOCYTE % 80.1 % (42.2-75.2)
[2018-05-05 13:45] VITALS: BP 126/67
== END 2018-05-05 14:55 ==
LOC: ERH 10:06
PROVIDERS: Physician Assistant
DX: F41.9 Anxiety disorder, unspecified (principal)
CPT/HCPCS: 71046; 93005; 93010; 96374; J2930

== ENCOUNTER 2018-05-11 17:24 | Inpatient (IN) | payer OTHER ==
[~2018-05-11] VITALS: Ht 154.9 cm; Wt 125.6 kg
--- NOTE | 2018-05-11 18:50 | CT SCAN REPORT ---
EXAMINATION: CT CHEST, ABDOMEN AND PELVIS WITH CONTRAST. CLINICAL INFORMATION: SOB, STOMACH CANCER COMPARISON: Prior studies including the 05/04/2018 CT. TECHNIQUE: Multidetector volumetric imaging was performed from the thoracic inlet through the pubic symphysis following administration of 95 ml of Optiray 320. Sagittal and coronal reformatted images were obtained on the technologist's workstation. DLP: 1661 mGy-cm FINDINGS: CHEST: Lung: Calcified granuloma the medial aspect of the right lower lobe. Linear atelectatic changes and volume loss seen in both the lingula and medial right middle lobe, similar to the prior study. I do not appreciate any acute superimposed airspace disease. Central airways are unremarkable Mediastinum: Mild vascular calcification in the aorta and coronary vessels. No bulky hilar or mediastinal adenopathy although there is a tiny calcified subcarinal lymph node incidentally seen. Pericardium/Pleura: No significant effusion. No pleural mass or thickening. Chest Wall/Axilla: Right-sided chest port with the tip near the cavoatrial junction no bulky axillary adenopathy ABDOMEN/PELVIS: Peritoneal Space:No significant free air or free fluid identified. Liver, Gallbladder, Biliary Tree: The liver is normal in size, shape, and attenuation. No focal hepatic lesion or biliary ductal dilatation is present. The gallbladder is unremarkable with no evidence of radiopaque gallstones, gallbladder wall thickening, or obvious pericholecystic inflammatory changes. Pancreas: Unremarkable. Spleen: Unremarkable. Adrenal Glands: Unremarkable. Kidneys and Ureters: The kidneys are normal in size, shape, and attenuation. No hydronephrosis, hydroureter, or calculi seen. No perinephric stranding. Bladder: Unremarkable. Gastrointestinal Tract: Few scattered colonic diverticula are seen. No evidence for diverticulitis. No colonic wall thickening or pericolonic inflammatory changes. Visualized small bowel is unremarkable. Stomach is partially decompressed but grossly unremarkable as well. No obstructive changes seen. Abdominal Wall: There is diffuse anasarca and mild skin thickening along the lower anterior abdominal wall. Mild diastases of the rectus abdominis muscle inferiorly Lymphovascular Structures: I do not appreciate any bulky adenopathy. Vascular calcification within the aorta iliac system. Pelvic Viscera: Unremarkable. Osseus Structures: Unremarkable. IMPRESSION: Diffuse anasarca and skin thickening along the lower abdominal wall. No acute abdominal process seen. Incidental right lower lobe granuloma. Persistent atelectasis/volume loss in the medial aspect of the right middle lobe and lingula.
[2018-05-11 19:30] LABS: ABSOLUTE BASOPHIL COUNT 0 /CUMM (0.0-0.2); ABSOLUTE EOSINOPHIL COUNT 0.2 /CUMM (0.0-0.7); ABSOLUTE GRANULOCYTE CT 5.7 /CUMM (1.4-6.5); ABSOLUTE LYMPH COUNT 2.1 /CUMM (1.2-3.4); ABSOLUTE MONOCYTE COUNT 1.4 /CUMM (0.10-0.60); BASOPHIL % 0 % (0.0-2.0); EOSINOPHIL % 2.3 % (0-5); GRANULOCYTE % 61.1 % (42.2-75.2); HEMATOCRIT 31.5 % (37-47); MEAN CORPUSCULAR HGB CONC 31.2 G/DL (33.0-37.0); MEAN CORPUSCULAR VOLUME 83.5 FL (81.0-99.0); MEAN PLATELET VOLUME 6.6 FL (7.4-10.4); PLATELET COUNT 348 /CUMM (130-400); RBC DISTRIBUTION WIDTH 30.2 % (11.5-14.5); RED BLOOD CELL CT 3.77 /CUMM (4.20-5.40); WHITE BLOOD CELL COUNT 9.4 /CUMM (4.8-10.8)
--- NOTE | 2018-05-11 19:49 | ED GI/GU/ABDOMINAL COMPLAINT ---
History of Present Illness General Chief Complaint: Abdominal Pain/Flank Pain Stated Complaint: ABDOMEN SWOLLEN X2 DAYS Source: patient, old records Exam Limitations: no limitations Vital Signs & Intake/Output Vital Signs & Intake/Output Vital Signs Date Time Temp Pulse Resp B/P B/P Pulse O2 O2 Flow FiO2 Mean Ox Delivery Rate 05/110 98.3 86 18 113/64 97 Nasal 2.0L Cannula 05/11 2129 98.7 98 18 124/65 95 Nasal 2.0L Cannula 05/11 1958 98.3 76 18 118/74 95 Nasal 2.0L Cannula 05/11 1956 95 Nasal 2.0L Cannula 05/11 1918 98.1 05/11 174 98.1 88 22 104/65 94 Nasal 2.0L Cannula Allergies Coded Allergies: No Known Allergies (05/05/18) Triage Note: PT STATES SHE HAS BEEN SWOLLEN FOR 2 DAYS IN HER STOMACH. PT HX OF CA IN HER STOMACH. PT STATES SHE HAS BEEN ABLE TO EAT AND DRINK OK. PT STATES SHE HAS BEEN USING THE BATHROOM WITHOUT DIFFICULTY. PT ALSO HAS BILAT LOWER EXT. SWELLING WITH REDNESS. PT TAKES "WATER PILL" AND JUST TOOK IT A LITTLE WHILE AGO. Triage Nurses Notes Reviewed? yes LMP (ages 10-50): unknown ? N Is pt currently ? No Onset: Gradual Duration: day(s): (3-4), constant, continues in ED, getting worse Timing: recent history Quality/Severity: fullness Severity Numbers: 8 Location: generalized abdomen Radiation: no radiation Activities at Onset: none Prior Abdominal Problems: similar symptoms Past Sexual History: Unobtainable at this time No Modifying Factors: none HPI: 52-year-old female history of COPD on home O2, malignancy presents for evaluation of bilateral lower extremity edema and swelling in her pelvis and abdomen. Patient reports she has had gradually worsening edema in the bilateral lower extremities over the past several days that has started to get much worse. It is now spreading to her abdomen and pelvis. He is taking Lasix 40 mg twice daily without any improvement. She is having no problems urinating but the fluid continues to build up. She also reports worsening shortness of breath especially on exertion when laying back. She has no documented history of CHF. She denies chest pain or fever. She does note some redness to the bilateral lower extremities. She reports pain and difficulty walking due to the swelling. (Mushtaq Tarango) Reconcile Medications Albuterol Sulfate (Proair Hfa) 90 MCG HFA.AER.AD 2 PUF INH Q4-6 PRN PRN copd Albuterol Sulfate 1.25 MG/3 ML VIAL.NEB 1 Vial INH/THA Q4-6 PRN WHEEZING Buprenorphine HCl/Naloxone HCl (Suboxone 12 MG-3 MG Sl Film) 12 MG-3 MG FILM 1 STR SL DAILY CHRONIC PAIN (Reported) Escitalopram Oxalate (Lexapro) 5 MG TABLET 1 TAB PO DAILY ANXIETY Uptitrate to 2 pills per day after 3 days Ferrous Sulfate 325 MG (65 MG IRON) TABLET 1 TAB PO TID IRON, VITAMIN ( Reported) Fluticasone Propionate 50 MCG/ACTUATION SPRAY.SUSP 2 SPRAY NASB AD PRN ALLERGIES/ASTHMA (Reported) Fluticasone/Salmeterol (Advair 500-50 Diskus) 500 MCG-50 MCG/DOSE BLST.W.DEV 1 PUF INH BID ASTHMA (Reported) Furosemide (Lasix) 40 MG TABLET 1 TAB PO BID WATER RETENTION (Reported) Ipratropium/Albuterol Sulfate (Iprat-Albut 0.5-3(2.5) MG/3 Ml) 0.5 MG-3 MG (2.5 MG BASE)/3 ML AMPUL.NEB 1 UNIT INH Q4-6P PRN copd Montelukast Sodium 10 MG TABLET 1 TAB PO AD PRN ALLERGIES/ASTHMA (Reported) Omeprazole 40 MG CAPSULE.DR 1 CAP PO DAILY GI (Reported) Potassium Citrate (Potassium Citrate ER) 10 MEQ (1,080 MG) TABLET.ER 1 TAB PO 3XW LOW POTASSIUM . Tiotropium Hamilton (Spiriva) 18 MCG CAP.W.DEV 1 CAP INH DAILY RESP. (Reported ) (Prince ACUNA,Maryana Matthews) Past History Travel History Traveled to [place] past 21 day No Medical History Any Pertinent Medical History? see below for history Neurological: NONE EENT: NONE Cardiovascular: NONE Respiratory: asthma, COPD Gastrointestinal: GI BLEED Hepatic: NONE Renal: NONE Musculoskeletal: degen joint disease Psychiatric: NONE Endocrine: NONE Blood Disorders: NONE Cancer(s): STOMACH CANCER RESEARCH SUBJECT/Reproductive: NONE History of MRSA: No History of VRE: No History of CDIFF: No Surgical History Surgical History: unobtainable Psychosocial History Who do you live with Mother Services at Home None What is your primary language Haitian Tobacco Use: Quit >30 days ago ETOH Use: denies use Illicit Drug Use: denies illicit drug use Family History Family History, If Any: FATHER (Heart Disease). MOTHER (Asthma). Uncle (Diabetes). BROTHER (sudden ; possibly cardiac.). Hx Contributory? No (Mushtaq Tarango) Review of Systems Review of Systems Constitutional: Reports: no symptoms. EENTM: Reports: no symptoms. Respiratory: Reports: see HPI, cough, short of breath, wheezing. Cardiovascular: Reports: edema, orthopena, peripheral edema. GI: Reports: no symptoms. Genitourinary: Reports: no symptoms. Musculoskeletal: Reports: no symptoms. Skin: Reports: see HPI, erythema. Neurological/Psychological: Reports: no symptoms. Hematologic/Endocrine: Reports: no symptoms. Immunologic/Allergic: Reports: no symptoms. All Other Systems: Reviewed and Negative (Mushtaq Tarango) Physical Exam Physical Exam General Appearance: well developed/nourished, no apparent distress, alert, awake , obese Head: atraumatic, normal appearance Eyes: Bilateral: normal appearance, PERRL, EOMI. Ears, Nose, Throat, Mouth: hearing grossly normal, moist mucous membrane Neck: normal inspection, supple, full range of motion Respiratory: chest non-tender, no respiratory distress, quiet respiration, decreased breath sounds, wheezing (MILD END EXPIRATORY ) Cardiovascular: regular rate/rhythm, normal peripheral pulses Peripheral Pulses: 2+ radial (R), 2+ radial (L) Gastrointestinal: normal bowel sounds, soft, no organomegaly, distention, the abdomen is diffusely distended and tender to palpation. Back: normal inspection, normal range of motion Extremities: there is bilateral lower extremity edema nonpitting. There is faint erythema over the bilateral anterior lower extremities. No focal fluctuant areas no discharge Neurologic/Psych: no motor/sensory deficits, awake, alert, oriented x 3, normal gait Skin: intact, normal color, warm/dry Core Measures ACS in differential dx? No Sepsis Present: No Sepsis Focused Exam Completed? No (Mushtaq Tarango) Progress Differential Diagnosis: anasarca, CHF, DVT, cellulitis, nephrotic syndrome, PE, DVT, acute coronary syndrome, pneumonia, COPD exacerbation Plan of Care: Orders Procedure Date/time Status Heart Healthy Diet 05/12 B Active TROPONIN LEVEL 05/12 1000 Active EKG 05/12 1000 Active CBC WITHOUT DIFFERENTIAL 05/12 600 Active BASIC ELECTROLYTES PLUS BUN&CR 05/12 600 Active TROPONIN LEVEL 05/12 0100 Active EKG 05/12 0100 Active TRC EVALUATION (GEN) 05/11 2235 Active OXYGEN SETUP (GEN) 05/11 2235 Active PT Evaluate & Treat 05/11 2235 Active Pathway - chart 05/11 2235 Active House Staff 05/[address] in observation 05/11 2123 Active ED Holding Orders 05/11 2120 Active Vital Signs 05/11 2120 Active Code Status 05/11 2120 Active Patient Data 05/11 2111 Active ACETOMINOPHEN 05/11 191 Complete URINALYSIS 05/11 174 Complete TROPONIN LEVEL 05/11 174 Complete COMPREHENSIVE METABOLIC PANEL 05/11 174 Complete CBC WITHOUT DIFFERENTIAL 05/11 174 Complete B-TYPE NATRIURETIC PEP (BNP) 05/11 174 Complete EKG 05/11 1744 Active VTE Mechanical Prophylaxis 05/11 UNK Active Vital Signs 05/11 UNK Active Intake & Output 05/11 UNK Active Hemoccult 05/11 UNK Active Activity/Ambulation 05/11 UNK Active Current Medications Sig/Pam Start time Last Medication Dose Stop Time Status Admin Buprenorphine/ 1 TAB BID 05/12 900 UNVr Naloxone (Suboxone) Fluticasone 2 SPRAY BID 05/12 900 UNVr Propionate (Flonase) Tiotropium Hamilton 1 PUF DAILY 05/12 900 UNVr (Spiriva) Furosemide 80 MG 7:30 AM, & 4:30 PM 05/12 730 UNVr (Lasix) Omeprazole 40 MG DAILY AC 05/12 700 UNVr (Prilosec) Heparin Sodium 5,000 UNIT Q8 05/12 600 UNVr (Porcine) Albuterol Sulfate 2 PUF Q4-6 PRN PRN 05/11 2300 UNVr (Ventolin) Montelukast Sodium 10 MG .[AD] PRN 05/11 2300 UNVr (Singulair) Laboratory Tests 05/11/181915: Acetaminophen Cancelled 05/11/181913: Anion Gap 5, Estimated GFR > 60, BUN/Creatinine Ratio 23.3, Glucose 91, Calcium 8.7, Total Bilirubin 0.2, AST 25, ALT 35, Alkaline Phosphatase 113, Troponin I < 0.01, Hlj-H-Aciqubacpjp Pept 66.2, Total Protein 5.9 L, Albumin 3.4 L, Globulin 2.5, Albumin/Globulin Ratio 1.4, CBC w Diff NO MAN DIFF REQ, RBC 3.77 L, MCV 83.5, MCH 26.0 L, MCHC 31.2 L, RDW 30.2 H, MPV 6.6 L, Gran % 61.1, Lymphocytes % 22.1, Monocytes % 14.5 H, Eosinophils % 2.3, Basophils % 0, Absolute Granulocytes 5.7, Absolute Lymphocytes 2.1, Absolute Monocytes 1.4 H, Absolute Eosinophils 0.2, Absolute Basophils 0, Acetaminophen < 10.0 L 05/11/18 1755: Urine Color STRAW, Urine Clarity CLEAR, Urine pH 7.5, Ur Specific [place] 1.015, Urine Protein NEG, Urine Ketones NEG, Urine Nitrite NEG, Urine Bilirubin NEG, Urine Urobilinogen 0.2, Ur Leukocyte Esterase NEG, Ur Microscopic EXAM NOT REQUIRED, Urine Hemoglobin NEG, Urine Glucose NEG Patient is here with bilateral lower extremity edema as well as edema in her abdomen and pelvis. She's been taking 80 mg of Lasix daily without any improvement she is continuing to swell. She also has worsening shortness of breath that is worse on exertion and laying backwards. She has no documented history of CHF. CT scans of the chest abdomen pelvis show evidence of anasarca. EKG is unchanged she has no chest pain. Patient will require admission to the hospital for IV diuresis. She will need serial labs telemetry IV Lasix cardiology medication adjustment physical therapy case management. Case discussed with Dr. Morrison. Diagnostic Imaging: Viewed by Me: CT Scan. Discussed w/RAD: CT Scan. 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 CLINICAL INFORMATION: SOB, STOMACH CANCER COMPARISON: Prior studies including the 05/04/2018 CT. TECHNIQUE: Multidetector volumetric imaging was performed from the thoracic inlet through the pubic symphysis following administration of 95 ml of Optiray 320. Sagittal and coronal reformatted images were obtained on the technologist's workstation. DLP: 1661 mGy-cm FINDINGS: CHEST: Lung: Calcified granuloma the medial aspect of the right lower lobe. Linear atelectatic changes and volume loss seen in both the lingula and medial right middle lobe, similar to the prior study. I do not appreciate any acute superimposed airspace disease. Central airways are unremarkable Mediastinum: Mild vascular calcification in the aorta and coronary vessels. No bulky hilar or mediastinal adenopathy although there is a tiny calcified subcarinal lymph node incidentally seen. Pericardium/Pleura: No significant effusion. No pleural mass or thickening. Chest Wall/Axilla: Right- sided chest port with the tip near the cavoatrial junction no bulky axillary adenopathy ABDOMEN/PELVIS: Peritoneal Space:No significant free air or free fluid identified. Liver, Gallbladder, Biliary Tree: The liver is normal in size, shape, and attenuation. No focal hepatic lesion or biliary ductal dilatation is present. The gallbladder is unremarkable with no evidence of radiopaque gallstones, gallbladder wall thickening, or obvious pericholecystic inflammatory changes. Pancreas: Unremarkable. Spleen: Unremarkable. Adrenal Glands: Unremarkable. Kidneys and Ureters: The kidneys are normal in size, shape, and attenuation. No hydronephrosis, hydroureter, or calculi seen. No perinephric stranding. Bladder: Unremarkable. Gastrointestinal Tract: Few scattered colonic diverticula are seen. No evidence for diverticulitis. No colonic wall thickening or pericolonic inflammatory changes. Visualized small bowel is unremarkable. Stomach is partially decompressed but grossly unremarkable as well. No obstructive changes seen. Abdominal Wall: There is diffuse anasarca and mild skin thickening along the lower anterior abdominal wall. Mild diastases of the rectus abdominis muscle inferiorly Lymphovascular Structures: I do not appreciate any bulky adenopathy. Vascular calcification within the aorta iliac system. Pelvic Viscera: Unremarkable. Osseus Structures: Unremarkable. IMPRESSION: Diffuse anasarca and skin thickening along the lower abdominal wall. No acute abdominal process seen. Incidental right lower lobe granuloma. Persistent atelectasis/volume loss in the medial aspect of the right middle lobe and lingula. DICTATED BY: Jason Rico MD DATE/TIME DICTATED:05/11/181839 PRODUCTION INTERN:RAD.LOMBARDO DATE/TIME TRANSCRIBED:05/11/181839 CONFIDENTIAL, DO NOT COPY WITHOUT APPROPRIATE AUTHORIZATION. <Electronically signed in Other Vendor System> SIGNED BY: Jason Rico MD 05/11/181849 Initial ED EKG: normal sinus rhythm, no ST T wave changes (Mushtaq Tarango) Departure Departure Disposition: STILL A PATIENT Condition: Stable Clinical Impression Primary Impression: Anasarca Referrals: Brent ACUNA,Maryana Elizabeth (PCP/Family) Departure Forms: Customer Survey General Discharge Information Observation Note Spoke With: Heather ACUNA,Ankur Physician Advisor Notified: MARYANA MORRISON MD Place Patient In: Non-ED OBS Care Area Rationale for Observation: My rational for observation is as follows [IV diuresis, serial labs, serial EKGs , telemetry, cardiology, medication adjustment, DuoNeb's]. (Mushtaq Tarango) PA/RESIDENTIAL CARE OFFICER Co-Sign Statement Statement: ED Attending supervision documentation- [X] I saw and evaluated the patient. I have also reviewed all the pertinent lab results and diagnostic results. I agree with the findings and the plan of care as documented in the PA's/RESIDENTIAL CARE OFFICER's documentation. [X] I have reviewed the ED Record and agree with the PA's/RESIDENTIAL CARE OFFICER's documentation. [] Additions or exceptions (if any) to the PAs/RESIDENTIAL CARE OFFICER's note and plan are summarized below: [PT TO BE PLACED IN OBS FOR ANASARCA, IV DIURESIS, ? ZAROXLYN] (Maryana Morrison MD)
--- NOTE | 2018-05-11 21:25 | History & Physical ---
OmkarBenedict 05/11/18 2123: General Information and HPI History of Present Illness: Karen Nicole is a 52 YO morbidly obese female with a PMHx. of gastric cancer , COPD, chronic lower extremity edema on Lasix, LORENA on nocturnal CPAP and asthma who presented to the ED with a chief complaint of "peripheral edema." Patient states her lower extremity edema has progressed over the last few days and now her swelling has spread to her pelvic region. Patient also notes orthopnea and difficulty ambulating due to her leg swelling. Patient also states she has been experiencing dyspnea on exertion, nausea and dizziness. Patient notes increased pedal edema in both legs. Patient denies any fevers, chest pain, palpitations, and dysuria. Patient denies any change in appetite or change in volume of water intake. Patient has been receiving chemotherapy at [facility] beginning in March 2018. Patient is a former smoker who previously smoked 1/2 pack per day. Patient currently lives with her mother and receives help with daily activities from a nursing assistants teacher. Patient has a family history of CAD in her father. Patient previously had an ECHO performed with Dr. Davis (03/16/18 Cardiology) and has had a consult visit with Dr. Medrano (03/15/18 Cardiology). Allergies/Medications Allergies: Coded Allergies: No Known Allergies (05/05/18) Past History Travel History Traveled to [place] past 21 day No Medical History Neurological: NONE EENT: NONE Cardiovascular: NONE Respiratory: asthma, COPD Gastrointestinal: GI BLEED Hepatic: NONE Renal: NONE Musculoskeletal: degen joint disease Psychiatric: NONE Endocrine: NONE Blood Disorders: NONE Cancer(s): STOMACH CANCER RESOLUTION SPECIALIST/Reproductive: NONE History of MRSA: No History of VRE: No History of CDIFF: No Surgical History Surgical History: unobtainable Past Family/Social History Family History Relations & Conditions if any FATHER (Heart Disease). MOTHER (Asthma). Uncle (Diabetes). BROTHER (sudden ; possibly cardiac.). Psychosocial History Who Do You Live With? parent (mother) Services at Home: None Smoking Status: Former Smoker ETOH Use: denies use Illicit Drug Use: denies illicit drug use Review of Systems Review of Systems Constitutional: Denies: chills, fever, malaise. EENTM: Denies: visual changes. Cardiovascular: Reports: edema, peripheral edema (pedal edema). Denies: chest pain, palpitations. Respiratory: Reports: orthopnea, short of breath. Denies: cough. GI: Reports: nausea. Genitourinary: Denies: dysuria. Skin: Denies: rash. Neurological/Psychological: Reports: other (dizziness). Denies: confusion, headache. Exam & Diagnostic Data Last 24 Hrs of Vital Signs/I&O Vital Signs Date Time Temp Pulse Resp B/P B/P Pulse O2 O2 Flow FiO2 Mean Ox Delivery Rate 05/11 2129 98.7 98 18 124/65 95 Nasal 2.0L Cannula 05/11 1958 98.3 76 18 118/74 95 Nasal 2.0L Cannula 05/11 1956 95 Nasal 2.0L Cannula 05/11 1918 98.1 05/11 1741 98.1 88 22 104/65 94 Nasal 2.0L Cannula Physical Exam General Appearance Alert, Oriented X3 Skin No Rashes HEENT Atraumatic, PERRLA Neck Supple Lymphatic Cervical nl Cardiovascular Normal S1, Normal S2, No Murmurs Lungs Normal Air Movement Abdomen Soft, No Tenderness Neurological Strength at 5/5 X4 Ext, Normal Tone Extremities Normal Pulses, Lower extremity edema Assessment/Plan Assessment: CT Chest and Abd/Pelvis : Diffuse anasarca and skin thickening along the lower abdominal wall. No acute abdominal process seen. Incidental right lower lobe granuloma. Persistent atelectasis/volume loss in the medial aspect of the right middle lobe and lingula. ECHO 03/16/[address] DAVIS 1. Normal EF of 65%. 2. Mild left ventricular hypertrophy. 3. Mild left atrial enlargement. 4. Trace mitral regurgitation. 5. Trace tricuspid regurgitation. 6. Trace pulmonic regurgitation. PFTs 04/04/15 Severe obstructive lung disease with a partially reversible component and airtrapping and induced desaturation Assessment: 1. Secondary Lymphedema/Anasarca 2. Congestive Heart Failure 3. Hypoalbuminemia 4. h/o Gastic Cancer 5. h/o COPD/asthma 6. h/o LORENA Plan: * Lymphedema, Secondary / Acute Decompensated Congestive Heart Failure - Admit to telemetry for cardiac monitoring and assessment of vitals - Follow Serial EKG and Troponin - Lasix 40 mg bid diuresis; markers of adequate diuresis include resolution of dyspnea, decreased JVP, Cr normalization, return to baseline weight. - Follow pBNP; pBNP value > 400, highly suggestive of HF > 95% probability - AM Cardiology Consult; await suggestion for ECHO in morning to assess EF and ventricular wall motion - Oxygen therapy to maintain saturation > 92% via NC or face mask; if needed CPAP or BiPAP - Albuterol + Tiotropium - Assess progression/resolution of sx.; correlate with [place] Heart Failure score - Diet: Salt restriction - Positioning: Elevate head of bed and/or extra head pillows - Monitor K, Mg, & Cr - Daily weights; restrict fluids (<1500 ml) - Strict I&Os - Morphine 0.5 mg IV q4h prn for relief of dyspnea, hold parameters RR < 6 - PPI GI PPx.; Omeprazole PO 40 mg - DVT PPx.; Intermittent pnuematic compression device As Ranked By This Provider Problem List: 1. CHF (congestive heart failure) 2. Edema 3. Morbid obesity 4. Leg swelling 5. Anasarca Core Measures/Misc (07/20) Acute Coronary Syndrome ACS Diagnosis: No Congestive Heart Failure Congestive Heart Failure Diagnosis Yes Cerebrovascular Accident CVA/TIA Diagnosis: No VTE (View Protocol) VTE Risk Factors Acute Medical Illness No Mechanical VTE Prophylaxis d/t N/A MechProphylax Ordered No VTE Pharm Prophylaxis d/t NA PharmProphylax ordered Sepsis (View protocol) Sepsis Present: No If YES complete Sepsis Event Note If YES complete Sepsis Event Note Jose Ramon Reeves 05/11/18 7926: General Information and HPI Allergies/Medications Home Med list Albuterol Sulfate (Proair Hfa) 90 MCG HFA.AER.AD 2 PUF INH Q4-6 PRN PRN copd Albuterol Sulfate 1.25 MG/3 ML VIAL.NEB 1 Vial INH/THA Q4-6 PRN WHEEZING Buprenorphine HCl/Naloxone HCl (Suboxone 12 MG-3 MG Sl Film) 12 MG-3 MG FILM 1 STR SL DAILY CHRONIC PAIN (Reported) Escitalopram Oxalate (Lexapro) 5 MG TABLET 1 TAB PO DAILY ANXIETY Uptitrate to 2 pills per day after 3 days Ferrous Sulfate 325 MG (65 MG IRON) TABLET 1 TAB PO TID IRON, VITAMIN ( Reported) Fluticasone Propionate 50 MCG/ACTUATION SPRAY.SUSP 2 SPRAY NASB AD PRN ALLERGIES/ASTHMA (Reported) Fluticasone/Salmeterol (Advair 500-50 Diskus) 500 MCG-50 MCG/DOSE BLST.W.DEV 1 PUF INH BID ASTHMA (Reported) Furosemide (Lasix) 40 MG TABLET 1 TAB PO BID WATER RETENTION (Reported) Ipratropium/Albuterol Sulfate (Iprat-Albut 0.5-3(2.5) MG/3 Ml) 0.5 MG-3 MG (2.5 MG BASE)/3 ML AMPUL.NEB 1 UNIT INH Q4-6P PRN copd Montelukast Sodium 10 MG TABLET 1 TAB PO AD PRN ALLERGIES/ASTHMA (Reported) Omeprazole 40 MG CAPSULE.DR 1 CAP PO DAILY GI (Reported) Potassium Citrate (Potassium Citrate ER) 10 MEQ (1,080 MG) TABLET.ER 1 TAB PO 3XW LOW POTASSIUM . Tiotropium [place] (Spiriva) 18 MCG CAP.W.DEV 1 CAP INH DAILY RESP. (Reported ) Core Measures/Misc (07/20) Sepsis (View protocol) If YES complete Sepsis Event Note If YES complete Sepsis Event Note Resident Review Statement Resident Statement: examined this patient, discussed with commercial intern Other Findings: Ms Schaeffer is a 52 year old woman w/ a PMHx of COPD (2 L supplemental oxygen) , gastric cancer ( poorly differentiated adenocarcinoma with signet ring [id number] della negative), previous GI bleed, chronic pedal edema likely secondary to obesity, obstructive sleep apnea on nocturnal CPAP, asthma came to the hospital with a chief concern of bilateral lower extremity swelling associated with erythema, worsening exertional dyspnea, and generalized swelling of her body x 2-3 days. Also reported orthostatic dizziness and confusion in the last 2 days. She has been using increasing doses of furosemide, as recommended by her primary care physician. Reported decreased appetite. No dysuria, fever, chills. No cough, chest pain, palpitations. No abdominal pain, jaundice, nausea or vomiting. She received 3 rounds of chemotherapy so far, but could not attend the last session 1 week ago due to transportation issues. She is due to get her chemotherapy on 05/13/2018. At the time of admission-temperature 98.1, pulse rate 88, respiration 22, blood pressure 104/65--118/74, pulse ox 94% on 2 L. She was given 80 mg IV furosemide in the ER. General Exam: AAOx3, mild distress, obesity, Skin: No rashes, no breakdown, port -a-cath in place; HEENT: PERRLA, EOMI;Neck: Supple, No JVD; No cervical lymphadenopathy;CVS: Reg Rate, Normal S1,S2, No MGR;Resp: Normal air entry, no ronchi/rales;Abdomen: Soft, distended w/ pitting edema, No tenderness, Normal Bowel Sounds;Neuro: Normal Speech, Strength 5/5 b/l x 4 extremities, Sensation intact, CN III-XII NL, Reflexes 2+;Extremities: No cyanosis,2+ pedal edema extending upto her abdomen, pedal edema associated w/ erythema. Pertinent lab findings: WBC 9.4, hemoglobin 9.8, MCV 83.5, platelet count 348 Sodium 139, potassium 3.9, chloride 93 (likely due to alkalosis), HCO3 41 ( diuretic use) BUN 14, creatinine 0.6. Calcium 8.7 Liver chemistries-AST 25, ALT 35, alkaline phosphatase 113, albumin 3.4. ProBNP -66.2 Troponin I-0.01-- Urinalysis clear, no proteinuria. Echocardiogram done on March 2018 revealed normal ejection fraction of 65%, stage II diastolic dysfunction. Mild left ventricular hypertrophy. She also had right ventricular systolic pressure estimated to be around 28 mmHg. Pulmonary function tests-04/04/2015 revealed severe obstructive lung disease with partially reversible component and air-trapping and induced desaturation. CT chest-revealed diffuse anasarca and skin thickening along the lower abdominal wall. No acute abdominal process seen. Incidental right lower lobe granuloma. Persistent atelectasis or volume loss and medial aspect of right middle lobe and lingula noted. Etiology in her case of worsening exertional dyspnea is likely multifactorial. She also has a history of COPD and obesity with hypoventilation syndrome contributing to her dyspnea. She also has stage II diastolic dysfunction, which could be making it worse. In regards to her lower extremity edema, is unclear given her slighly low albumin+protein, no proteinuria, normal proBNP, indicating low po intake or high catabolic state. Worsening anasarca/pedal edema could be due to possible lymphedema secondary to gastric cancer metastasis, or obesity worsening pedal edema. Dietary indiscretion of salt could be contributing to worsening pedal edema. Problem list: 1. Anasarca 2. h/o gastric cancer 3. h/o COPD 4. Anemia, likely anemia of chornic disease 5. Metabolic alkalosis 6. Class 3 obesity 7. LORENA on cpap Plan: -admit the patient on telemetry -follow serial EKGs, troponins -daily Ins and Outs -daily weights -IV diuretics furosemide 80 mg twice a day. Monitor bicarb closely. -Check BEP daily while on diuretics. -Check TSHR. -2D cardiac echo to assess ejection fraction after discussing w/ cards. -supplemental oxygen as needed -Elevate lower extremities. If she continues to have worsening dyspnea, consider DVT and CTA to r/o PE. -Consider NIPPV to reduce work of breathing, improve oxygenation -CHF diet, 2gm salt restriction -Credit Controller on dietary compliance. -Continue suboxne. Confirm the dose. -No steroids at this time. Checklist: 1. DVT Ppx-Heparin sc 2. GI PPx- Protonix Ankur Romero MD 05/12/18 0014: Core Measures/Misc (07/20) Sepsis (View protocol) If YES complete Sepsis Event Note If YES complete Sepsis Event Note Attending MD Review Statement Attending Statement Attending MD Statement: examined this patient, discuss w/resident/PA/FORMSTONE FITTER, agreed w/resident/PA/FORMSTONE FITTER, reviewed EMR data (avail) Attending Assessment/Plan: 52F PMH recent diagnosis of gastrointestinal cancer, GI bleed, COPD not on home oxygen, chronic lower extremity edema on Lasix, LORENA on nocturnal CPAP and asthma presenting with significant LE edema and bilateral erythema, dyspnea on exertion , and increased abdominal girth consistent with anasarca. Patient has had episodes like this in the past requiring IV diuresis. She has been compliant with her diet and medications and has been keeping her legs up, and diffuse edema continues to steadily increase. She denies chest pain, palpitations, lightheadedness. She is only weekly chemotherapy for her gastric cancer but does not remember the name of her medications. She usually gets her chemo on Mondays but is scheduled to receive it this Friday, as she missed her last session due to an anxiety attack. Labs unremarkable, imaging shows anasarca. 1. Anasarca 2. Bilateral LE stasis dermatitis 3. Gastric adenocarcinoma 4. LORENA on CPAP Plan - Admit to telemetry - Lasix 80mg IV BID - I/O, daily weights - Cardiology and oncology consults - Leg elevation and compression - Continue CPAP - Continue home medications - DVT PPx - Continue CPAP - Continue home medications - DVT PPx
[2018-05-12] VITALS: BP 102/68
--- NOTE | 2018-05-12 00:16 | Admission Certification ---
Admission Certification Certification Statement - As attending physician, I certify that at the time of - admission, based on clinical presentation, severity of - symptoms, need for further diagnostic testing and - therapeutic interventions, and risk of adverse outcomes - without in-hospital treatment, in my clinical assessment, - this patient requires an acute hospital stay for a minimum - of two nights or longer. I have also considered psychsocial - factors such as support system, advanced age, financial - issues, cognitive issues, and failed out-patient treatments, - past re-admission history, safety of patient, and lack of - compliance as applicable. Specific rationale supporting this admission is: Дмитрий
--- NOTE | 2018-05-12 06:56 | PN- Housestaff ---
Unique Hampton 05/12/18 0655: Subjective Follow-up For: Diffuse anasarca/Lower Extremity Edema CHF Tele-Events Since Last Visit: NSR, 91, 0.08, 0.18 Subjective: Patient seen and examined at bedside this morning. She is anxious and in distress about her current situation. Patient currently on observation but agreed to be changed to admision. Patient continues to have shortness of breath and lower extremity swelling/edema and erythema. Patient denies significant pain at this time and is able to ambulate to the bathroom independently. Patient used CPAP this morning saturating at 90%. She denies any other new complaints at this time and has been noted of the further management of her care. Review of Systems Constitutional: Denies: see HPI. Objective Last 24 Hrs of Vital Signs/I&O Vital Signs Date Time Temp Pulse Resp B/P B/P Pulse O2 O2 Flow FiO2 Mean Ox Delivery Rate 05/12 07 97.9 86 22 128/82 90 CPAP 05/12 0126 91 97 05/12 0000 95 Nasal 2.0L Cannula 05/12 0000 98.4 86 22 102/68 97 05/11 2240 98.3 86 18 113/64 97 Nasal 2.0L Cannula 05/119 98.7 98 18 124/65 95 Nasal 2.0L Cannula 05/11 195 98.3 76 18 118/74 95 Nasal 2.0L Cannula 05/11 1956 95 Nasal 2.0L Cannula 05/11 191 98.1 05/11 1741 98.1 88 22 104/65 94 Nasal 2.0L Cannula Intake & Output 05/12 1600 05/12 0800 05/12 0000 Intake Total 200 Output Total 950 1000 Balance -750 -1000 Intake, Oral 200 Output, Urine 950 1000 Patient 276 lb Weight Weight Bed scale Measurement Method Physical Exam General Appearance: Alert, Oriented X3, Cooperative, Mild Distress Skin: Lower extremitiy swelling bilaterally with erythema; 4+ pitting edema; nontender HEENT: PERRLA, EOMI, Mucous Membr. moist/pink Neck: No JVD Cardiovascular: Regular Rate, Normal S1, Normal S2 Lungs: Ronchi noted bilaterally on auscultation Abdomen: Normal Bowel Sounds, Tender to palpation; slightly distended Neurological: Normal Speech, Strength at 5/5 X4 Ext, Normal Tone, Sensation Intact, Cranial Nerves 3-12 NL, Reflexes 2+ Extremities: No Clubbing, No Cyanosis, Significant 4+ lower extremity edema in bilteral lower extremities; erythema; nontender; no pus, drainage or wheeping noted Vascular: Normal Pulses, Pulses Symmetrical Current Medications: Current Medications Sig/Pam Start time Last Medication Dose Route Stop Time Status Admin Acetaminophen 650 MG ONCE ONE 05/11 1930 DC 05/11 PO 05/11 Albuterol Sulfate 2 PUF Q4-6 PRN PRN 05/11 2300 AC INH Buprenorphine/ 1 TAB BID 05/12 900 AC 05/12 Naloxone SL 0823 Fluticasone 2 SPRAY BID 05/12 900 AC 05/12 Propionate DANAE 0813 Furosemide 40 MG 7:30 AM, & 4:30 PM 05/12 1630 AC IV Furosemide 80 MG 7:30 AM, & 4:30 PM 05/12 07 DC 05/12 IV 0812 Furosemide 0 .STK-MED ONE 05/11 194 DC IV Furosemide 80 MG ONCE ONE 05/11 1800 DC 05/11 IV 05/11 [id number] Heparin Sodium 5,000 UNIT Q8 05/12 06 AC 05/12 (Porcine) SC 0733 Montelukast Sodium 10 MG DAILY PRN 05/11 2345 AC PO Omeprazole 40 MG DAILY AC 05/12 07 AC 05/12 PO 0734 Tiotropium [place] 1 PUF DAILY 05/12 09 AC 05/12 INH 0815 Tramadol HCl 50 MG Q8P PRN 05/12 0015 AC PO Last 24 Hrs of Lab/Reza Results Last 24 Hrs of Labs/Mics: Laboratory Tests 05/12/18 0704: Anion Gap 8, Estimated GFR > 60, BUN/Creatinine Ratio 21.4, CBC w Diff NO MAN DIFF REQ, RBC 3.83 L, MCV 84.1, MCH 26.4 L, MCHC 31.4 L, RDW 29.9 H, MPV 6.9 L, Gran % 56.9, Lymphocytes % 26.0, Monocytes % 13.2 H, Eosinophils % 3.8, Basophils % 0.1, Absolute Granulocytes 4.4, Absolute Lymphocytes 2.0, Absolute Monocytes 1.0 H, Absolute Eosinophils 0.3, Absolute Basophils 0 05/12/18 0210: Troponin I < 0.01 05/11/181915: Acetaminophen Cancelled 07/09/18 1914: Anion Gap 5, Estimated GFR > 60, BUN/Creatinine Ratio 23.3, Glucose 91, Calcium 8.7, Total Bilirubin 0.2, AST 25, ALT 35, Alkaline Phosphatase 113, Troponin I < 0.01, Evz-U-Uimisstkqud Pept 66.2, Total Protein 5.9 L, Albumin 3.4 L, Globulin 2.5, Albumin/Globulin Ratio 1.4, CBC w Diff NO MAN DIFF REQ, RBC 3.77 L, MCV 83.5, MCH 26.0 L, MCHC 31.2 L, RDW 30.2 H, MPV 6.6 L, Gran % 61.1, Lymphocytes % 22.1, Monocytes % 14.5 H, Eosinophils % 2.3, Basophils % 0, Absolute Granulocytes 5.7, Absolute Lymphocytes 2.1, Absolute Monocytes 1.4 H, Absolute Eosinophils 0.2, Absolute Basophils 0, Acetaminophen < 10.0 L 05/11/18 1755: Urine Color STRAW, Urine Clarity CLEAR, Urine pH 7.5, Ur Specific [place] 1.015, Urine Protein NEG, Urine Ketones NEG, Urine Nitrite NEG, Urine Bilirubin NEG, Urine Urobilinogen 0.2, Ur Leukocyte Esterase NEG, Ur Microscopic EXAM NOT REQUIRED, Urine Hemoglobin NEG, Urine Glucose NEG Assessment/Plan Assessment: A/P: Patient is a 52 year old female with past medical history of gastric cancer receiving chemotherapy at [facility] since March 2018, chronic lower extremity edema on Lasix, LORENA on nocturnal CPAP and asthma who presented to the ED for shortness of breath and lower extremity and abdominal swelling increasing for past few days. Patient being seen by Dr. Zarate (Cardiology) Patient changed from observation to admit 05/12/18. Problem List: 1. Anasarca/Secondary Lymphadema 2. Congestive Heart Failure 3. H/O Gastric Cancer 4. H/O COPD/Asthma/LORENA Plan: * Patient being seen by Dr. Zarate from a cardiology perspective: low BNP, clear lungs unlikely related to decompensated CHF; recommend ECHO reading -Use CPAP every time going to sleep and daytime -Edema dependent to some extent and worsened by obseity/obstructive process of gastric cancer history -Continue diuresis with Lasix 40mg IV BID (changed from 80) * F/U ECHO * Negative lower extremity US on 05/12/18 for suspected DVT given patients cancer history and shortness of breath on presentation * followed up with radiology in terms of Chest CT to determine if PE present; recommended that she can get a CTA later tonight since she had received contrast last night and given no significant renal dysfunction Code Satus: Full Code DVT PPx: Heparin SC Diet: Heart Healthy Problem List: 1. Leg swelling 2. COPD with acute exacerbation 3. Morbid obesity 4. Gastric adenocarcinoma 5. CHF (congestive heart failure) Pain Ratin Pain Location: Lower extremities Pain Goal: Pain 4 or less Pain Plan: As per pain pathway Tomorrow's Labs & Rationales: CBC BEP DVT/Prophylaxis: pharmacological Estela Cabezas 05/12/18 1242: Attending MD Review Statement Attending Statement Attending MD Statement: examined this patient, discuss w/resident/PA/SAP SOLUTION MANAGER CONSULTANT, agreed w/resident/PA/SAP SOLUTION MANAGER CONSULTANT, reviewed EMR data (avail), discussed with nursing, discussed with case mgmt Attending Assessment/Plan: Chronic LE edema worsening with some redness- cont diureseis with iv lasix. DVT study negative b/l LE. worsening likely sec to non complaince with cpap, dietary non compliance and morbid obesity as pt sleeps in recliner and is unable to sleep flat. cardiology recommendations appreciated. decreased lasxi to 40mg iv bid. cont to follow closely.
[2018-05-12 07:06] VITALS: BP 128/82
--- NOTE | 2018-05-12 08:20 | Cons- Cardiology ---
General Information and HPI Consulting Request Date of Consult: 05/12/18 Requested By: Estela Cabezas MD History of Present Illness: Karen is a 52 year old female with history of asthma, tobacco abuse, obesity and severe obstructive sleep apnea. She also carries a history of gastric cancer. The patient was directed to go to the ER when she reported severe shortness of breath. This has become worse over the past couple weeks and is accompanied by orthopnea. In addition, this patient has noted worsening swelling of her abdomen and legs to the point that she cannot reach behind herself to take care of her hygiene after a bowel movement. She denies fever, chills, nausea or vomiting. She also denies any chest pain, pressure or tightness but does feel lightheaded and has some palpitations. Her symptoms became acutely worse yesterday when she entered a small car and felt claustrophobic. It should be noted that this patient is not using her CPAP faithfully. At baseline, this patient can only walk a couple steps before becoming short of breath. It should be noted that she has a history of rheumatoid arthritis and chronic knee pain. The patient's BNP was very low and her chest X-ray was not suggestive of pulmonary edema. The patient has a normal EF. Allergies/Medications Allergies: Coded Allergies: No Known Allergies (05/05/18) Home Med List: Albuterol Sulfate (Proair Hfa) 90 MCG HFA.AER.AD 2 PUF INH Q4-6 PRN PRN copd Albuterol Sulfate 1.25 MG/3 ML VIAL.NEB 1 Vial INH/THA Q4-6 PRN WHEEZING Buprenorphine HCl/Naloxone HCl (Suboxone 12 MG-3 MG Sl Film) 12 MG-3 MG FILM 1 STR SL DAILY CHRONIC PAIN (Reported) Escitalopram Oxalate (Lexapro) 5 MG TABLET 1 TAB PO DAILY ANXIETY Uptitrate to 2 pills per day after 3 days Ferrous Sulfate 325 MG (65 MG IRON) TABLET 1 TAB PO TID IRON, VITAMIN ( Reported) Fluticasone Propionate 50 MCG/ACTUATION SPRAY.SUSP 2 SPRAY NASB AD PRN ALLERGIES/ASTHMA (Reported) Fluticasone/Salmeterol (Advair 500-50 Diskus) 500 MCG-50 MCG/DOSE BLST.W.DEV 1 PUF INH BID ASTHMA (Reported) Furosemide (Lasix) 40 MG TABLET 1 TAB PO BID WATER RETENTION (Reported) Ipratropium/Albuterol Sulfate (Iprat-Albut 0.5-3(2.5) MG/3 Ml) 0.5 MG-3 MG (2.5 MG BASE)/3 ML AMPUL.NEB 1 UNIT INH Q4-6P PRN copd Montelukast Sodium 10 MG TABLET 1 TAB PO AD PRN ALLERGIES/ASTHMA (Reported) Omeprazole 40 MG CAPSULE.DR 1 CAP PO DAILY GI (Reported) Potassium Citrate (Potassium Citrate ER) 10 MEQ (1,080 MG) TABLET.ER 1 TAB PO 3XW LOW POTASSIUM . Tiotropium [place] (Spiriva) 18 MCG CAP.W.DEV 1 CAP INH DAILY RESP. (Reported ) Review of Systems Review of Systems: A 12 point review of systems is remarkable for profound fatigue. 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 MOTHER (Asthma). Uncle (Diabetes). BROTHER (sudden ; possibly cardiac.). Psychosocial History Who Do You Live With? parent (mother) Services at Home: None Smoking Status: Former Smoker ETOH Use: denies use Illicit Drug Use: denies illicit drug use Exam & Diagnostic Data Vital Signs and I&O Vital Signs Date Time Temp Pulse Resp B/P B/P Pulse O2 O2 Flow FiO2 Mean Ox Delivery Rate 05/12 706 97.9 86 22 128/82 90 CPAP 05/12 0126 91 97 05/12 0000 98.4 86 22 102/68 97 05/11 2240 98.3 86 18 113/64 97 Nasal 2.0L Cannula 05/11 2129 98.7 98 18 124/65 95 Nasal 2.0L Cannula 05/11 1958 98.3 76 18 118/74 95 Nasal 2.0L Cannula 05/11 1956 95 Nasal 2.0L Cannula 05/11 1918 98.1 05/111 98.1 88 22 104/65 94 Nasal 2.0L Cannula Intake & Output 05/12 1600 05/12 0800 07 0000 07/09 1600 05/11 0800 05/11 0000 Intake Total Output Total 1000 Balance -1000 Output, Urine 1000 Patient 276 lb Weight Weight Bed scale Measurement Method Physical Exam: General: WD/obese female in NAD; alert and oriented x 3 HEENT: NC/AT, PERRL, EOMI Neck: no JVD, no carotid bruit Heart: RRR w/o murmur Lungs: decreased air movement bilaterally, no crackles or wheezing ABdomen: soft, obese, NT, +ve bowel sounds Extremities: 3+ bilateral leg edema Assessment/Plan Assessment/Plan * This patient has lower extremity swelling and soft tissue anasarca. This is unlikely to be related to decompensated CHF considering her clear lungs and low BNP. It is certainly possible for this patient to have RV dysfunction in the setting of her severe sleep apnea but the low BNP argues against this. I would obtain an echocardiogram to assess RV function and pressures. In addition, this patient needs to use her CPAP every time she goes to sleep, even in the daytime. She is very lethargic and falls asleep while engaged in conversation and admits to having trouble thinking clearly. Weight loss is also recommended but not necessarily expected. * The patient's edema is to some extent dependent edema worsened by obesity but consideration needs to be given to an obstructive process since she does have a history of gastric cancer. There is no ascites that was seen on her CT scan. I do not suspect an issue with her liver function at this point in time. Diurese with Lasix 40mg IV BID. Check to determine if any of her home medications are associated with fluid retention. Consult Acknowledgment - Thank you for your consult request.
[2018-05-12 08:34] LABS: ABSOLUTE BASOPHIL COUNT 0 /CUMM (0.0-0.2); ABSOLUTE EOSINOPHIL COUNT 0.3 /CUMM (0.0-0.7); ABSOLUTE GRANULOCYTE CT 4.4 /CUMM (1.4-6.5); BASOPHIL % 0.1 % (0.0-2.0); EOSINOPHIL % 3.8 % (0-5); GRANULOCYTE % 56.9 % (42.2-75.2); HEMATOCRIT 32.2 % (37-47); MEAN CORPUSCULAR HGB 26.4 PG (27.0-31.0); MEAN CORPUSCULAR HGB CONC 31.4 G/DL (33.0-37.0); MEAN CORPUSCULAR VOLUME 84.1 FL (81.0-99.0); MEAN PLATELET VOLUME 6.9 FL (7.4-10.4); PLATELET COUNT 346 /CUMM (130-400); RBC DISTRIBUTION WIDTH 29.9 % (11.5-14.5); RED BLOOD CELL CT 3.83 /CUMM (4.20-5.40); WHITE BLOOD CELL COUNT 7.7 /CUMM (4.8-10.8)
--- NOTE | 2018-05-12 12:03 | ULTRASOUND REPORT ---
EXAMINATION: US TRIPLEX OF LOWER EXTREMITIES, BILATERAL CLINICAL INFORMATION: Bilateral lower extremity edema. COMPARISON: 02/22/2018. TECHNIQUE: Color-flow triplex imaging with spectral analysis and compression Doppler were performed on the lower extremities. FINDINGS: Respiratory variation, normal compression and augmented flow are noted throughout the lower extremities. The visualized common femoral vein, superficial femoral vein, profunda femoral vein, popliteal vein and midcalf peroneal and posterior tibial venous segments show no evidence of deep venous thrombosis. There is a Melvin's cyst in left popliteal fossa measuring 3.2 x 1.8 x 0.9 cm. No Melvin's cyst on the right. IMPRESSION: Negative for DVT bilateral lower extremities. 3.2 cm left Melvin's cyst.
[2018-05-12 15:05] VITALS: BP 120/76
--- NOTE | 2018-05-12 18:09 | ECHOCARDIOGRAM REPORT ---
NILO GARDINER Age: 52 : 1965 Gender: F Exam Date: 05/12/2018 13:45 Exam Location: [address] Ht (in): 61 Wt (lb): 275 BSA: 2.40 BP: 128 / 82 Ordering Physician: Dorys Barnett MD Referring Physician: Pool Zarate MD, PhD Technologist: Gloria Cain [facility] Room Number: 179-02 Indications: HEART FAILURE Rhythm: Sinus Technical Quality: Poor, Technically difficult study FINDINGS Left Ventricle Normal size left ventricle. Mild concentric left ventricular hypertrophy. No obvious regional wall motion abnormalities. Normal left ventricular ejection fraction visually estimated at 65%. Normal left ventricular diastolic filling pattern for age. Right Ventricle Right ventricle not well visualized, grossly normal. Right Atrium Right atrium not well visualized, grossly normal. Left Atrium Left atrium not well visualized, grossly normal. Mitral Valve Mitral valve not well visualized, grossly normal. Trace mitral regurgitation. Aortic Valve Aortic valve not well visualized, grossly normal. No hemodynamically significant aortic stenosis. No aortic regurgitation. Tricuspid Valve Tricuspid valve not well visualized, grossly normal. No tricuspid regurgitation. Pulmonic Valve Pulmonic valve not well visualized. No pulmonic regurgitation. Pericardium No pericardial effusion. Great Vessels Normal size aortic root. CONCLUSIONS Normal size left ventricle. Mild concentric left ventricular hypertrophy. No obvious regional wall motion abnormalities. Normal left ventricular ejection fraction visually estimated at 65%. Normal left ventricular diastolic filling pattern for age. Right ventricle not well visualized, grossly normal. Atria not well visualized, grossly normal. Trace mitral regurgitation. Santos Blackmon M.D. (Electronically Signed) Final Date: 12 May 2018 18:03 MEASUREMENTS (Male / Female) Normal Values 2D ECHO LV Diastolic Diameter PLAX 5.1 cm 4.2 - 5.9 / 3.9 - 5.3 cm LV Systolic Diameter PLAX 2.9 cm 2.1 - 4.0 cm LV Fractional Shortening PLAX 43.1 % 25 - 46 % LV Ejection Fraction 2D Teich 74.0 % IVS Diastolic Thickness 1.1 cm LVPW Diastolic Thickness 1.1 cm LV Relative Wall Thickness 0.4 RV Internal Dim ED PLAX 3.3 cm 1.9 - 3.8 cm LVOT Diameter 1.9 cm Aortic Root Diameter 2.7 cm LA Systolic Diameter LX 4.5 cm 3.0 - 4.0 / 2.7 - 3.8 cm LA Volume 31.0 cm 18 - 58 / 22 - 52 cm Ascending Aorta Diameter 2.9 cm DOPPLER AV Peak Velocity 185.0 cm/s AV Peak Gradient 13.7 mmHg AV Mean Velocity 135.0 cm/s AV Mean Gradient 8.0 mmHg AV Velocity Time Integral 35.7 cm LVOT Peak Velocity 134.0 cm/s LVOT Peak Gradient 7.2 mmHg LVOT Mean Velocity 84.3 cm/s LVOT Mean Gradient 3.0 mmHg LVOT Velocity Time Integral 25.2 cm LVOT Stroke Volume 71.4 cm AV Area Cont Eq vti 2.0 cm AV Area Cont Eq pk 2.1 cm MV Peak Velocity 96.7 cm/s MV Peak Gradient 3.7 mmHg MV Mean Velocity 57.2 cm/s MV Mean Gradient 2.0 mmHg Mitral E Point Velocity 110.0 cm/s Mitral A Point Velocity 82.7 cm/s Mitral E to A Ratio 1.3 MV PHT Velocity 101.0 cm/s MV Deceleration Lyman 354.0 cm/s MV Pressure Half Time 85.6 ms MV Area PHT 2.6 cm MV Deceleration Time 214.0 ms PV Peak Velocity 141.0 cm/s PV Peak Gradient 8.0 mmHg PV Mean Velocity 89.0 cm/s PV Mean Gradient 4.0 mmHg PV Velocity Time Integral 27.2 cm LV E' Lateral Velocity 11.8 cm/s Mitral E to LV E' Lateral Ratio 9.3 LV E' Septal Velocity 6.6 cm/s Mitral E to LV E' Septal Ratio 16.6
[2018-05-12 23:00] VITALS: BP 122/64
[2018-05-13 06:24] VITALS: BP 120/68
--- NOTE | 2018-05-13 06:56 | PN- Housestaff ---
Unique Hampton 05/13/18 0655: Subjective Follow-up For: Secondary Lymphedema/Anasarcha Subjective: Patient seen and examined at bedside this morning. She denies any chest pain or shortness of breath this morning. Patient claims she is breathing better. She continues to have lower extremity edema but is able to ambulate independently to the bathroom. She comlpains of belly pain but denies any changes in bowel or bladder movements. Patient educated to cut down on salt in her diet and the need of CPAP use at home that may improve her lower extremity edema. Review of Systems Constitutional: Denies: see HPI. Objective Last 24 Hrs of Vital Signs/I&O Vital Signs Date Time Temp Pulse Resp B/P B/P Pulse O2 O2 Flow FiO2 Mean Ox Delivery Rate 05/13 0900 Nasal 2.0L Cannula 05/13 0830 95 Nasal 2.0L Cannula 05/13 0727 93 18 110/50 05/13 0624 98.5 97 18 120/68 95 Nasal 2.0L Cannula 05/13 0027 94 96 05/13 0000 Nasal 2.0L Cannula 05/12 2300 99.2 99 18 122/64 94 Nasal Cannula 05/12 1645 97 Nasal 2.0L Cannula 05/12 1641 Nasal 2.0L Cannula 05/12 1505 97.1 86 20 120/76 95 Nasal Cannula Intake & Output 05/13 1600 05/13 0800 05/13 0000 Intake Total 300 480 Output Total 650 1500 Balance -350 -1020 Intake, Oral 300 480 Output, Urine 650 1500 Patient 277 lb Weight Weight Bed scale Measurement Method Physical Exam General Appearance: Alert, Oriented X3, Cooperative, Mild Distress HEENT: Atraumatic, PERRLA, EOMI, Mucous Membr. moist/pink Cardiovascular: Regular Rate, Normal S1, Normal S2, No Murmurs Lungs: Clear to Auscultation, Normal Air Movement Abdomen: Normal Bowel Sounds, Distended; tender on palpation Neurological: Strength at 5/5 X4 Ext, Normal Tone, Sensation Intact Extremities: Normal Pulses, lower extremity +4 pitting edema; erythema; no pus or drainage or wheeping Vascular: Normal Pulses, Pulses Symmetrical Current Medications: Current Medications Sig/Pam Start time Last Medication Dose Route Stop Time Status Admin Albuterol Sulfate 3 ML EVERY 4 HRS/AWAKE 05/12 1200 AC 05/13 INH 1157 Albuterol Sulfate 2 PUF Q4-6 PRN PRN 05/11 2300 AC INH Buprenorphine/ 1 TAB BID 05/12 900 AC 05/13 Naloxone SL 0728 Fluticasone 2 SPRAY BID 05/12 900 AC 05/13 Propionate DANAE 0728 Furosemide 40 MG 7:30 AM, & 4:30 PM 05/12 1630 AC 05/13 IV 0728 Heparin Sodium 5,000 UNIT Q8 05/12 06 AC 05/13 (Porcine) SC 0549 Montelukast Sodium 10 MG DAILY PRN 05/11 2345 AC PO Omeprazole 40 MG DAILY AC 05/12 700 AC 05/13 PO 0549 Patient Medication 1 ED ONE ONE 05/12 1730 DC Teaching ED 05/12 1731 Tiotropium [place] 1 PUF DAILY 05/12 900 AC 05/13 INH 0728 Tramadol HCl 50 MG Q8P PRN 05/12 0015 AC 05/13 PO 0728 Last 24 Hrs of Lab/Reza Results Last 24 Hrs of Labs/Mics: Laboratory Tests 05/13/18 0627: Anion Gap 9, Estimated GFR > 60, BUN/Creatinine Ratio 25.7 H, CBC w Diff NO MAN DIFF REQ, RBC 3.85 L, MCV 84.1, MCH 26.3 L, MCHC 31.2 L, RDW 30.2 H, MPV 7.2 L, Gran % 67.6, Lymphocytes % 21.1, Monocytes % 7.8, Eosinophils % 3.1, Basophils % 0.4, Absolute Granulocytes 5.9, Absolute Lymphocytes 1.8, Absolute Monocytes 0.7 H, Absolute Eosinophils 0.3, Absolute Basophils 0 Assessment/Plan Assessment: A/P: Patient is a 52 year old female with past medical history of gastric cancer receiving chemotherapy at [facility] since March 2018, chronic lower extremity edema on Lasix, LORENA on nocturnal CPAP and asthma who presented to the ED for shortness of breath and lower extremity and abdominal swelling increasing for past few days. Improving shortnes of breath. Not likely due to decompensated heart failure with normal ECHO and clear breath sounds. Patient changed from observation to admit on 05/12/18. Cardiology: Dr. Zarate Problem List: 1. Anasarca/Secondary Lymphadema 2. H/O Gastric Cancer 3. H/O COPD/Asthma/LORENA Chronic Lower Extremity Edema * likely secondary lymphedema/anasarca; likely due to noncompliance with CPAP, high salt diet and morbid obesity; patient unable to sleep flat contributing to dependent edema * improved with IV diuresis 40mg BID * B/L LE DVT US: Negative * pending switch to PO lasix and discharge depending on cardiology stand point * patient encouraged to use CPAP at home and sodium restriction * ECHO: 65% EF; clear lung sounds; no chest pain or sob at this time Code Status: Full Code DVT PPx: Heparin SC Diet: Heart Healthy Problem List: 1. COPD (chronic obstructive pulmonary disease) 2. Gastric adenocarcinoma 3. Leg swelling Pain Ratin Pain Location: Belly pain Pain Goal: Pain 4 or less Pain Plan: As per pain pathway Tomorrow's Labs & Rationales: CBC BEP DVT/Prophylaxis: pharmacological Estela Cabezas 05/13/18 1148: Attending MD Review Statement Attending Statement Attending MD Statement: examined this patient, discuss w/resident/PA/HEALTHCARE INTERPRETER, agreed w/resident/PA/HEALTHCARE INTERPRETER, reviewed EMR data (avail), discussed with nursing, discussed with case mgmt Attending Assessment/Plan: Chronic LE edema worsening with some redness- improved wiht iv diuresis. DVT study negative b/l LE. worsening likely sec to non complaince with cpap, dietary non compliance and morbid obesity as pt sleeps in recliner and is unable to sleep flat. pt will be switched to po lasix and dced home on po lasix if ok with cardiology . encouraged pt to be compliant with cpap and also with sodium restriction. see dc summary for details.
[2018-05-13 07:27] VITALS: BP 110/50
[2018-05-13 08:33] LABS: ABSOLUTE BASOPHIL COUNT 0 /CUMM (0.0-0.2); ABSOLUTE EOSINOPHIL COUNT 0.3 /CUMM (0.0-0.7); ABSOLUTE GRANULOCYTE CT 5.9 /CUMM (1.4-6.5); ABSOLUTE LYMPH COUNT 1.8 /CUMM (1.2-3.4); ABSOLUTE MONOCYTE COUNT 0.7 /CUMM (0.10-0.60); BASOPHIL % 0.4 % (0.0-2.0); EOSINOPHIL % 3.1 % (0-5); GRANULOCYTE % 67.6 % (42.2-75.2); HEMATOCRIT 32.4 % (37-47); MEAN CORPUSCULAR HGB 26.3 PG (27.0-31.0); MEAN CORPUSCULAR HGB CONC 31.2 G/DL (33.0-37.0); MEAN CORPUSCULAR VOLUME 84.1 FL (81.0-99.0); MEAN PLATELET VOLUME 7.2 FL (7.4-10.4); PLATELET COUNT 298 /CUMM (130-400); RBC DISTRIBUTION WIDTH 30.2 % (11.5-14.5); RED BLOOD CELL CT 3.85 /CUMM (4.20-5.40); WHITE BLOOD CELL COUNT 8.7 /CUMM (4.8-10.8)
--- NOTE | 2018-05-13 13:25 | Patient Discharge Instructions ---
Discharge Instructions General Discharge Information You were seen/treated for: 1. Anasarca/Secondary Lymphadema 2. Congestive Heart Failure 3. H/O Gastric Cancer 4. H/O COPD/Asthma/LORENA Special Instructions: Follow-up with PCP in 1 week after discharge Follow-up with patient accounting representative in 1 week after discharge Follow-up with your oncologist in 1 week after discharge Diet Continue normal diet: No Recommended Diet: Heart Healthy Activity Full Activity/No Limits: Yes Acute Coronary Syndrome Inclusion Criteria At DC or during hospital stay patient has or had the following: ACS DIAGNOSIS No Discharge Core Measures Meds if any: Prescribed or Continued at Discharge Meds if any: NOT Prescribed or Continued at Discharge Congestive Heart Failure Inclusion Criteria At DC or during hospital stay patient has or had the following: CHF DIAGNOSIS No Discharge Core Measures Meds if any: Prescribed or Continued at Discharge Meds if any: NOT Prescribed or Continued at Discharge Cerebrovascular accident Inclusion Criteria At DC or during hospital stay patient has or had the following: CVA/TIA Diagnosis No Discharge Core Measures Meds if any: Prescribed or Continued at Discharge Meds if any: NOT Prescribed or Continued at Discharge Venous thromboembolism Inclusion Criteria VTE Diagnosis No VTE Type NONE VTE Confirmed by (Test) NONE Discharge Core Measures - Per Current guidelines, there needs to be overlap - treatment for the first 5 days of Warfarin therapy. - If discharged on Warfarin prior to 5 days of - overlap therapy, the patient will need to be - assessed for post discharge needs including - *Post discharge parental anticoagulation - *Warfarin and/or parental anticoagulation education - *Follow up date to check INR post discharge At least 5 days overlap therapy as Inpatient No Meds if any: Prescribed or Continued at Discharge Note: Overlap Therapy is Warfarin and Anticoagulant Meds if any: NOT Prescribed or Continued at Discharge
[2018-05-13 14:35] VITALS: BP 124/70
--- NOTE | 2018-05-13 15:45 | Discharge Summary ---
Visit Information Visit Dates Admission Date: 05/11/18 Discharge Date: 05/13/18 Hospital Course Course Attending Physician: Raulito ACUNA,Estela Del Castillo Primary Care Physician: Brent ACUNA,Chase [place] Hospital Course: Ms. Nicole is a 52 year old morbidly obese female with a past medical history of gastric cancer, COPD, chronic lower extremity edema on Lasix, LORENA on nocutrnal CPAP and asthma who presented to the ED with a cheif complaint of increasing lower extremity edema and shortness of breath. Patients edema progressed over the last few days prior to admission and spread to her pelvic region. Patient stated she is not able to lay flat and has difficulty ambulating due to leg swelling. Patient denied any chest pain, fevers, chills, palpitations on admission. No significant change in diet or volume of water intake. Of note, patient has been receiving chemotherapy beginning in March 2018. She is a former smoker who smoked half a pack a day. She lives with her mother and receives help with daily activities from a nursing aid. Previous ECHO performed by Dr. Zarate (03/16/18) showed an ejection fraction of 65%. ------- EMERGENCY DEPARTMENT: Vitals: 98.1, 88 HR, 22 Respiration, BP: 104/65--118/74, 94% on 2L NC. Given 80 mg IV Furosemide in ER. CT CHEST and ABD/PELVIS: Diffuse anasarca and [facility]. No acute abdominal process. Incidental right lower lobe granuloma. Persistent atelectasis /volume loss in medial aspect of right middle lobe and lingula. ECHO 03/16/[address] Zarate Normal EF of 65%. Mild left ventricular hypertrophy. Mild left atrial enlargement. Trace mitral regurgitation. Trace tricuspid regurgitation. Trace pulmonic regurgitation. PFTs 04/04/15 SEvere obstructive lung disease with a partiall reversible component and airtrapping and induced desaturation. Patient originally on observation to telemetry prior to being admitted given her significant peripheral edema, history of malignancy and was treated and evaluated for the following problems: 1. SECONDARY LYMPHEDEMA/ANASARCA 2. CONGESTIVE HEART FAILURE 3. H/O COPD/ASTHMA/LORENA 4. H/O GASTRIC CANCER SECONDARY LYMPHEDEMA/ANASARCA Patient admitted to telemetry for cardiac monitoring and assessment of vitals and serial EKG and troponins given the significant peripheral edema. IV Lasix 40mg BID diuresis continued. STrict Is/Os. Vitals monitored on each shift. Cardiology consulted. Repeat ECHO demonstrated no change in ejection fraction from previous ECHO (65% EF). Patients renal function was monitored while on diuresis. Salt restricted diet was continued. Patients head was elevated with extra pillows. Daily weights and restricted fluids. Patients lower extremity edema most likely contributed to a combination of morbid obesity, lack of CPAP use leading to right heart strain and fluid build up and heavy sodium diet as per her low BNP and clear lungs on auscultation. Patient ruled out for PE via lower extremity ultrasound on 05/12/18. Advised on the importance of continuing CPAP at home day and night. Educated on a low sodium diet. Advised to return to ED if worsening chest pain or shortness of breath. SUSPECTED CONGESTIVE HEART FAILURE Patient denied any chest pain on admission. Patient positive for orthopnea. She had significant lower extremity edema. Lungs clear on auscultation during admission. IV diuresis was continued with strict I/O and monitoring on the telemetry. ECHO repeated with no change in EF from previous ECHO (65%). Unlikely peripheral edema due to decompensated CHF as per Cardiology consult. Patients pressures were controlled during her stay. Patient discharged on PO lasix and advised to follow up with cardiology. COPD/ASTHMA/LORENA Patient saturated well on 2L NC during her stay. She denied significant shortness of breath. Advised to continue CPAP day and night at home. GASTRIC CARCINOMA Suboxone for pain management continued as per home medication with confirmed home dose. Advised to follow up with missed chemotherapy on 05/13/18. Code Status: Full Code DVT PPx: Heparin SC GI PPx: Omeprazole PO 4mg Diet: Salt Restricted Allergies: Coded Allergies: No Known Allergies (05/05/18) Disposition Summary Disposition Principal Diagnosis: Secondary Lymphedema/Anasarca Additional Diagnosis: COPD LORENA on CPAP Discharge Disposition: home or self care Discharge Instructions General Discharge Information Code Status: Full Code Patient's Diet: 2 gm salt restriction; CHF diet Patient's Activity: As tolerated Follow-Up Instructions/Appts: Follow up with PCP 1 week of discharge. Follow up with cardiology 1 week of discharge. Follow up with pulmonology within 1 week of discharge. Continue home COPD/ASTHMA management. Continue CPAP day and night. Salt restricted diet. Medications at Discharge Discharge Medications: Continue taking these medications: Fluticasone/Salmeterol (Advair 500-50 Diskus) 500 MCG-50 MCG/DOSE BLST.W.DEV 1 Puff Inhale through mouth TWICE DAILY Comments: NOT GIVEN IN HOSPITAL Buprenorphine HCl/Naloxone HCl (Suboxone 12 MG-3 MG Sl Film) 12 MG-3 MG FILM 1 Strip SUBLINGUAL DAILY Qty = 14 Comments: Last Taken: 05/13/18 Time: 8 AM Fluticasone Propionate (Fluticasone Propionate) 50 MCG/ACTUATION SPRAY.SUSP 2 Melvin Both sides of nose As Directed as needed for ALLERGIES/ASTHMA Qty = 16 Comments: Last Taken: 05/13/18 Time: 8 AM Montelukast Sodium (Montelukast Sodium) 10 MG TABLET 1 Tablet ORAL As Directed as needed for ALLERGIES/ASTHMA Qty = 30 Comments: NOT GIVEN IN HOSPITAL Albuterol Sulfate (Albuterol Sulfate) 1.25 MG/3 ML VIAL.NEB 1 Vial Inhale Solution EVERY 4-6 HOURS as needed for WHEEZING Qty = 150 Comments: Last Taken: 05/13/18 Time: 12PM Ferrous Sulfate (Ferrous Sulfate) 325 MG (65 MG IRON) TABLET 1 Tablet ORAL THREE TIMES DAILY Qty = 60 Comments: NOT GIVEN IN HOSPITAL Tiotropium [place] (Spiriva) 18 MCG CAP.W.DEV 1 Capsule Inhale through mouth DAILY Qty = 30 Comments: Last Taken: 05/13/18 Time: 8 AM Omeprazole (Omeprazole) 40 MG CAPSULE.DR 1 Capsule ORAL DAILY Qty = 90 Comments: Last Taken: 05/13/18 Time: 6AM Escitalopram Oxalate (Lexapro) 5 MG TABLET 1 Tablet ORAL DAILY Qty = 30 Instructions: Uptitrate to 2 pills per day after 3 days Comments: NOT GIVEN IN HOSPITAL Potassium Citrate (Potassium Citrate ER) 10 MEQ (1,080 MG) TABLET.ER 1 Tablet ORAL Three times a week Qty = 20 Instructions: . Comments: NOT GIVEN IN HOSPITAL Furosemide (Lasix) 40 MG TABLET 1 Tablet ORAL TWICE DAILY Comments: NOT GIVEN IN HOSPITAL. PT GIVEN IV LASIX Albuterol Sulfate (Proair Hfa) 90 MCG HFA.AER.AD 2 Puff Inhale through mouth EVERY 4-6 HOURS NEEDED as needed for copd Qty = 1 Comments: NOT GIVEN IN HOSPITAL Ipratropium/Albuterol Sulfate (Iprat-Albut 0.5-3(2.5) MG/3 Ml) 0.5 MG-3 MG (2.5 MG BASE)/3 ML AMPUL.NEB 1 Unit Inhale through mouth Q4-6P as needed for copd Qty = 1 Comments: NOT GIVEN IN HOSPITAL Copies To: Brent ACUNA,Chase [place]
== END 2018-05-13 15:34 | disposition home health service (06) | DRG 194 ==
LOC: ERH 17:24 → ENRESERV 22:03 → ENTRNSPT 22:43 → EDTRNSPTSTS 22:49 → ERHI 23:00 → 1NO 23:00 → CMPTRNSPT 23:01 → 1NO 23:16 → ENPENDDIS 05-13 13:25 → ENTRNSPT 05-13 14:59 → 1NO 05-13 15:34
PROVIDERS: Internal Medicine Endocrinology, Diabetes & Metabolism; Physical Medicine & Rehabilitation Pain Medicine; Physician Assistant
DX: I50.9 Heart failure, unspecified (principal); Z85.89 Personal history of malignant neoplasm of other organs and systems; G47.33 Obstructive sleep apnea (adult) (pediatric); E66.01 Morbid (severe) obesity due to excess calories; Z68.43 Body mass index [BMI] 50.0-59.9, adult; Z91.19 Patient's noncompliance with other medical treatment and regimen; Z79.51 Long term (current) use of inhaled steroids; J44.9 Chronic obstructive pulmonary disease, unspecified; I89.0 Lymphedema, not elsewhere classified
CPT/HCPCS: 1NSP; 36415; 36592; 74177; 81003; 82436; 93005; 93010; 93306; 93970; 96374; 97116-GO; 97161-GP; 97530-GO; G0480; J1644; J1940; J3490

== ENCOUNTER 2018-07-16 18:55 | Inpatient (IN) | payer OTHER ==
[~2018-07-16] VITALS: Ht 154.9 cm; Wt 131.1 kg
[~2018-07-16 18:55] MED LIST changes: +ESCITALOPRAM OXA5 MG PO; +FUROSEMIDE80 M1 PO; +LIDOCAINE-PRILO30 GM TOP; +POTASSIUM CHLO10 ME5 PO; +PROCHLORPERAZIN10 MG PO; +SUBOXONE 8 MG-1 EACH SL; +VOLTAREN100 GM TOP
--- NOTE | 2018-07-16 19:02 | ED GENERAL ADULT ---
History of Present Illness General Chief Complaint: Dyspnea (COPD, CHF, Other) Stated Complaint: BIBA DIFF BREATHING Source: patient Exam Limitations: no limitations Vital Signs & Intake/Output Vital Signs & Intake/Output Vital Signs Date Time Temp Pulse Resp B/P B/P Pulse O2 O2 Flow FiO2 Mean Ox Delivery Rate 07/16 2322 88 22 120/63 95 Nasal 3.0L Cannula 07/16 2150 94 20 118/72 93 Nasal 3.0L Cannula 07/16 1906 97.9 101 20 106/53 93 Nasal 3.0L Cannula Allergies Coded Allergies: No Known Allergies (05/05/18) Reconcile Medications Albuterol Sulfate (Proair Hfa) 90 MCG HFA.AER.AD 2 PUF INH Q4-6 PRN PRN copd Albuterol Sulfate 1.25 MG/3 ML VIAL.NEB 1 Vial INH/THA Q4-6 PRN WHEEZING Buprenorphine HCl/Naloxone HCl (Suboxone 8 MG-2 MG Sl Film) 8 MG-2 MG FILM 1.5 STR SL BID CHRONIC PAIN (Reported) Diclofenac Sodium (Voltaren) 1 % GEL..GRAM. 1 NORY TOP AD PRN PAIN/INFLAMMATION (Reported) apply to affected area(s) Escitalopram Oxalate 5 MG TABLET 1 TAB PO PRN ANXIETY (Reported) Ferrous Sulfate 325 MG (65 MG IRON) TABLET 1 TAB PO TID IRON, VITAMIN ( Reported) Fluticasone Propionate 50 MCG/ACTUATION SPRAY.SUSP 2 SPRAY NASB AD PRN ALLERGIES/ASTHMA (Reported) Fluticasone/Salmeterol (Advair 500-50 Diskus) 500 MCG-50 MCG/DOSE BLST.W.DEV 1 PUF INH BID ASTHMA (Reported) Furosemide 80 MG TABLET 1 TAB PO BID DIURETIC (Reported) Ipratropium/Albuterol Sulfate (Iprat-Albut 0.5-3(2.5) MG/3 Ml) 0.5 MG-3 MG (2.5 MG BASE)/3 ML AMPUL.NEB 1 UNIT INH Q4-6P PRN copd Lidocaine/Prilocaine (Lidocaine-Prilocaine Cream) 2.5 %-2.5 % CREAM..G. 1 NORY TOP AD PRN PAIN - PORT ACCESS (Reported) Lidocaine/Prilocaine (Lidocaine-Prilocaine Cream) 2.5 %-2.5 % CREAM..G. 1 NORY TOP AD CREAM Montelukast Sodium 10 MG TABLET 1 TAB PO QPM ALLERGIES/ASTHMA (Reported) Potassium Chloride 10 MEQ TAB.ER.PRT 2 TAB PO TID SUPPLEMENT (Reported) Prednisone (Deltasone) 20 MG TABLET 1 TAB PO TID COPD Prochlorperazine Maleate 10 MG TABLET 1 TAB PO AD PRN N/V (Reported) Tiotropium [place] (Spiriva) 18 MCG CAP.W.DEV 1 CAP INH DAILY RESP. (Reported ) Triage Nurses Notes Reviewed? yes HPI: 52-year-old woman with past medical history significant for asthma, gastric cancer, and oxygen dependent COPD (2.0 L) seen for evaluation of shortness of breath. Patient has been seen in the ED multiple times for similar complaints. Patient reports waking up this morning in her normal state of health and went to take a nap recliner around midday. She awoke from her nap short of breath for which she took an albuterol nebulizer treatment without resolution of her symptoms. She contacted EMS for which she was brought to the [place] ED. En route she received a DuoNeb treatment and Solu-Medrol 125 mg resulting in mild improvement of her symptoms. Presently patient states that she is been feeling unwell for approximately 9 days. Of note patient is currently receiving treatment of her gastric cancer for which she is reportedly not a surgical candidate with infusions of a medication (possibly 5-FU). She was previously on chronic prednisone and was reportedly taken off by her travel services professional Neil Cabrera MD "about a month ago" because it was "interfering with her chemotherapy". Presently she denies any fever, chills, chest pain, abdominal pain. (Christiano ACUNA,Jerrod) Past History Travel History Traveled to [place] past 21 day No Medical History Any Pertinent Medical History? see below for history Neurological: NONE EENT: NONE Cardiovascular: NONE Respiratory: asthma, COPD Gastrointestinal: GI BLEED Hepatic: NONE Renal: NONE Musculoskeletal: degen joint disease Psychiatric: NONE Endocrine: NONE Blood Disorders: NONE Cancer(s): STOMACH CANCER MANAGER OF LEARNING/Reproductive: NONE History of MRSA: No History of VRE: No History of CDIFF: No Surgical History Surgical History: unobtainable Psychosocial History Who do you live with Mother Services at Home Oxygen What is your primary language [place] Family History Family History, If Any: FATHER (Heart Disease). MOTHER (Asthma). Uncle (Diabetes). BROTHER (sudden ; possibly cardiac.). Hx Contributory? No (Jerrod Alvarado MD) Review of Systems Review of Systems Constitutional: Reports: see HPI. (Jerrod Alvarado MD) Physical Exam Physical Exam General Appearance: well developed/nourished, no apparent distress, alert, awake , comfortable Comments: General - well developed, morbidly obese middle-aged woman in no acute distress HEENT - NCAT, PERRL, EOMI, anicteric sclera Neck - Supple, no JVD, trachea midline Cardio - S1, S2 w/o murmurs/gallops/rubs Chest-infusion port in right chest wall Resp -diffuse scattered wheezing without crackles and diminished bibasilar airflow GI - soft, nontender, nondistended, bowel sounds present Neuro - Awake and alert, CN II - XII grossly intact Extremities - no edema, pulses intact Core Measures ACS in differential dx? No CVA/TIA Diagnosis: No Sepsis Present: No Sepsis Focused Exam Completed? No (Jerrod Alvarado MD) Progress Differential Diagnoses I considered the following diagnoses in my evaluation of the patient: COPD exacerbation, respiratory failure, pneumonia, pulmonary embolism Plan of Care: Orders Procedure Date/time Status Regular Diet 07/16 D Active Weight 07/16 2338 Active Vital Signs 07/16 2338 Active Teach/Educate 07/16 2338 Active Pain Treatment and Response 07/16 2338 Active Nutritional Intake, Monitor 07/16 233 Active Isolation 07/16 2338 Active Intake & Output 07/16 2338 Active Patient Care Conference 07/16 2338 Active Activity/Ambulation 07/16 2338 Active ARTERIAL BLOOD GAS (GEN) 07/16 2323 Active Intake & Output 07/16 2303 Active Patient Data 07/16 2216 Active ED Holding Orders 07/16 2204 Active Admit to inpatient 07/16 2204 Active Vital Signs 07/16 2204 Active EKG 07/16 1919 Active PROTHROMBIN TIME 07/16 1915 Complete D-DIMER 07/16 1915 Complete TROPONIN LEVEL 07/16 1909 Complete COMPREHENSIVE METABOLIC PANEL 07/16 1909 Complete CBC WITHOUT DIFFERENTIAL 07/16 1909 Complete B-TYPE NATRIURETIC PEP (BNP) 07/16 1909 Complete TRC EVALUATION (GEN) 07/16 UNK Active CONTIN. POSITIVE AIRWAY PRESS 07/16 UNK Active Laboratory Tests 07/16/18 1910: Anion Gap 7, Estimated GFR > 60, BUN/Creatinine Ratio 36.7 H, Glucose 148 H, Calcium 8.6, Total Bilirubin 0.3, AST 72 H, ALT 113 H, Alkaline Phosphatase 119, Troponin I < 0.01, Hkh-C-Hqyymvwrrvq Pept 300 H, Total Protein 6.2 L, Albumin 3.7, Globulin 2.5, Albumin/Globulin Ratio 1.5, PT 10.9, INR 1.00, D- Dimer High Sensitivty 317 H, CBC w Diff NO MAN DIFF REQ, RBC 3.58 L, MCV 91.5, MCH 28.9, MCHC 31.6 L, RDW 21.8 H, MPV 7.4, Gran % 72.2, Lymphocytes % 10.0 L , Monocytes % 17.8 H, Eosinophils % 0, Basophils % 0, Absolute Granulocytes 3.4 , Absolute Lymphocytes 0.5 L, Absolute Monocytes 0.8 H, Absolute Eosinophils 0 , Absolute Basophils 0 Initial ED EKG: normal axis, normal intervals, normal p-waves, normal QRS complex, normal sinus rhythm, no ST T wave changes Comments: 52-year-old woman with multiple medical problems significant for COPD on 2.0 L home oxygen, asthma, and gastric cancer on 5-fluorouracil infusions seen for evaluation of shortness of breath. Vital signs remain within normal limits on 3.0 L supplemental oxygen. Physical examination demonstrates a chronically ill appearing middle-aged woman in no acute respiratory distress with diffuse scattered wheezing and diminished bibasilar airflow. Labs including complete blood count, and serum chemistry are significant for elevated baseline CO2 with chronic anemia. D-dimer is 318 which is negative when age corrected. CXR shows mild pulmonary vascular congestion. Clinically patient appears to have an acute on chronic COPD exacerbation. Given her frailty and multiple medical comorbidities she will likely require several days of intravenous steroids +/- antibiotics and possibly pulmonology consultation. (Christiano ACUNA,Jerrod) Departure Departure Disposition: STILL A PATIENT Condition: Stable Clinical Impression Primary Impression: COPD exacerbation Referrals: Brent ACUNA,Chase Elizabeth (PCP/Family) Departure Forms: Customer Survey General Discharge Information Admission Note Spoke With: Genesis Simon MD Documentation of Exam: Documentation of any treatments & extenuating circumstances including Concerns Regarding Discharge (functional status, medication knowledge or non-compliance, living conditions, etc.) that warrant an admission rather than observation: * Total respiratory care * Continuous nebulizer treatments * Intravenous steroids * Consider intravenous antibiotics * Pulmonology consultation (Jerrod Alvarado MD) Resident Co-Sign Statement Statement: ED Attending supervision documentation- I saw and evaluated the patient. I have also reviewed all the pertinent lab results and diagnostic results. I agree with the findings and the plan of care as documented in the Resident's documentation. x I have reviewed the ED Record and agree with the Resident's documentation. [] Additions or exceptions (if any) to the Resident's note and plan are summarized below: [] (Trino Goins MD) Critical Care Note Critical Care Note Critical Care Time: non-applicable (Jerrod Alvardao MD)
[2018-07-16 19:44] LABS: ABSOLUTE BASOPHIL COUNT 0 /CUMM (0.0-0.2); ABSOLUTE EOSINOPHIL COUNT 0 /CUMM (0.0-0.7); ABSOLUTE GRANULOCYTE CT 3.4 /CUMM (1.4-6.5); ABSOLUTE LYMPH COUNT 0.5 /CUMM (1.2-3.4); ABSOLUTE MONOCYTE COUNT 0.8 /CUMM (0.10-0.60); BASOPHIL % 0 % (0.0-2.0); MEAN PLATELET VOLUME 7.4 FL (7.4-10.4); PLATELET COUNT 190 /CUMM (130-400); RED BLOOD CELL CT 3.58 /CUMM (4.20-5.40); WHITE BLOOD CELL COUNT 4.7 /CUMM (4.8-10.8)
[2018-07-16 19:50] LABS: EOSINOPHIL % 0 % (0-5); GRANULOCYTE % 72.2 % (42.2-75.2); MEAN CORPUSCULAR HGB 28.9 PG (27.0-31.0); MEAN CORPUSCULAR HGB CONC 31.6 G/DL (33.0-37.0); MEAN CORPUSCULAR VOLUME 91.5 FL (81.0-99.0)
[2018-07-16 19:51] LABS: RBC DISTRIBUTION WIDTH 21.8 % (11.5-14.5)
--- NOTE | 2018-07-16 20:06 | RADIOLOGY REPORT ---
EXAMINATION: XR PORTABLE CHEST CLINICAL INFORMATION: Asthma/SOB. COMPARISON: None TECHNIQUE: Portable frontal view of the chest was obtained. FINDINGS: The lungs are well-expanded without acute consolidation. There is increased bilateral parahilar pulmonary vascular markings with borderline borderline heart size. No pleural effusion seen. No gross bony abnormality seen. IMPRESSION: Suspect mild pulmonary vascular congestion.
[2018-07-16 20:09] LABS: PT 10.9 SEC (9.4-12.5)
--- NOTE | 2018-07-16 22:16 | History & Physical ---
Manpreet Meeks 07/16/18 2215: General Information and HPI MD Statement: I have seen and personally examined NILO GARDINER and documented this H&P. The patient is a 52 year old F who presented with a patient stated chief complaint of ["couldn't breathe at all"]. Source of Information: patient, family Exam Limitations: no limitations History of Present Illness: 52 year old female with history of gastric adenocarcinoma on chemotherapy, asthma and COPD on 2L O2 at home, presented to the ED after becoming increasingly short of breath at home. Previously she would ambulate without difficulty, but can no longer take more than a few steps without becoming extremely short of breath. She has also been noticing worsening orthopnea for approximately the past week, with difficulty sleeping longer than a few minutes at a time. The patient formerly was on CPAP, but the machine was reclaimed by the insurance company after infrequent/improper use and the patient has not been on CPAP for several months. She denies chest pain, but endorses cough, and back/ abdominal pain concurrent with these symptoms. She reports a 120lb weight gain over the past year due to fluid retention/edema, in spite of being on Lasix daily. She is currently receiving a chemotherapy infusion, which should finish tomorrow. Reports nausea, but denies vomiting or diarrhea. She is also a former smoker, quit in january after smoking 1/2 ppd for approximately 40 years. Allergies/Medications Allergies: Coded Allergies: No Known Allergies (05/05/18) Home Med list Albuterol Sulfate (Proair Hfa) 90 MCG HFA.AER.AD 2 PUF INH Q4-6 PRN PRN copd Albuterol Sulfate 1.25 MG/3 ML VIAL.NEB 1 Vial INH/THA Q4-6 PRN WHEEZING Buprenorphine HCl/Naloxone HCl (Suboxone 8 MG-2 MG Sl Film) 8 MG-2 MG FILM 1.5 STR SL BID CHRONIC PAIN (Reported) Diclofenac Sodium (Voltaren) 1 % GEL..GRAM. 1 NORY TOP AD PRN PAIN/INFLAMMATION (Reported) apply to affected area(s) Escitalopram Oxalate 5 MG TABLET 1 TAB PO PRN ANXIETY (Reported) Ferrous Sulfate 325 MG (65 MG IRON) TABLET 1 TAB PO TID IRON, VITAMIN ( Reported) Fluticasone Propionate 50 MCG/ACTUATION SPRAY.SUSP 2 SPRAY NASB AD PRN ALLERGIES/ASTHMA (Reported) Fluticasone/Salmeterol (Advair 500-50 Diskus) 500 MCG-50 MCG/DOSE BLST.W.DEV 1 PUF INH BID ASTHMA (Reported) Furosemide 80 MG TABLET 1 TAB PO BID DIURETIC (Reported) Ipratropium/Albuterol Sulfate (Iprat-Albut 0.5-3(2.5) MG/3 Ml) 0.5 MG-3 MG (2.5 MG BASE)/3 ML AMPUL.NEB 1 UNIT INH Q4-6P PRN copd Lidocaine/Prilocaine (Lidocaine-Prilocaine Cream) 2.5 %-2.5 % CREAM..G. 1 NORY TOP AD PRN PAIN - PORT ACCESS (Reported) Lidocaine/Prilocaine (Lidocaine-Prilocaine Cream) 2.5 %-2.5 % CREAM..G. 1 NORY TOP AD CREAM Montelukast Sodium 10 MG TABLET 1 TAB PO QPM ALLERGIES/ASTHMA (Reported) Potassium Chloride 10 MEQ TAB.ER.PRT 2 TAB PO TID SUPPLEMENT (Reported) Prednisone (Deltasone) 20 MG TABLET 1 TAB PO TID COPD Prochlorperazine Maleate 10 MG TABLET 1 TAB PO AD PRN N/V (Reported) Tiotropium Cypress (Spiriva) 18 MCG CAP.W.DEV 1 CAP INH DAILY RESP. (Reported ) Compliance With Home Meds: POOR Past History Travel History Traveled to [place] past 21 day No Medical History Neurological: NONE EENT: NONE Cardiovascular: NONE Respiratory: asthma, COPD Gastrointestinal: GI BLEED Hepatic: NONE Renal: NONE Musculoskeletal: degen joint disease Psychiatric: NONE Endocrine: NONE Blood Disorders: NONE Cancer(s): STOMACH CANCER UPKEEP WORKER/Reproductive: NONE History of MRSA: No History of VRE: No History of CDIFF: No Surgical History Surgical History: unobtainable Past Family/Social History Family History Relations & Conditions if any FATHER (Heart Disease). MOTHER (Asthma). Uncle (Diabetes). BROTHER (sudden ; possibly cardiac.). Psychosocial History Who Do You Live With? parent (mother) Services at Home: Oxygen Smoking Status: Former Smoker Review of Systems Review of Systems Constitutional: Reports: weakness. Denies: chills, diaphoresis, fever. Cardiovascular: Reports: orthopena, peripheral edema. Denies: chest pain, palpitations. Respiratory: Reports: cough, orthopnea, short of breath, wheezing. GI: Reports: abdominal pain, nausea. Denies: vomiting. Musculoskeletal: Reports: back pain. Exam & Diagnostic Data Last 24 Hrs of Vital Signs/I&O Vital Signs Date Time Temp Pulse Resp B/P B/P Pulse O2 O2 Flow FiO2 Mean Ox Delivery Rate 07/17 0327 91 95 07/17 0321 97 Nasal 3.0L Cannula 07/16 2354 98 Nasal 3.0L Cannula 07/16 2348 98.1 73 22 148/76 96 Nasal 3.0L Cannula 07/16 2330 Nasal 3.0L Cannula 07/16 2322 88 22 120/63 95 Nasal 3.0L Cannula 07/16 2150 94 20 118/72 93 Nasal 3.0L Cannula 07/16 1906 97.9 101 20 106/53 93 Nasal 3.0L Cannula Intake & Output 07/17 0800 07/17 0000 07/16 1600 Intake Total Output Total Balance Patient 127.459 kg Weight Physical Exam General Appearance Alert, Oriented X3, Cooperative, No Acute Distress HEENT Atraumatic, PERRLA, EOMI Cardiovascular Regular Rate, Normal S1, Normal S2 Lungs Diffuse wheezing throughout Abdomen Normal Bowel Sounds, Soft, No Tenderness Neurological Normal Gait, Normal Speech Extremities 4+ pitting edema up to knees in BLE Last 24 Hrs of Labs/Reza: Laboratory Tests 07/17/187: Troponin I Pending 07/17/18 0250: pH 7.36, pCO2 66 *H, pO2 97, HCO3 36 H, ABG O2 Sat (Measured) 97.0, P-50 (Temp Corrected) Y, Carboxyhemoglobin 0.4 L, O2 Concentration % 3 LPM, Temperature 98.1, O2 Delivery Method N/C, Phlebotomy Draw Site RIGHT RADIAL 07/16/18 1910: Anion Gap 7, Estimated GFR > 60, BUN/Creatinine Ratio 36.7 H, Glucose 148 H, Calcium 8.6, Total Bilirubin 0.3, AST 72 H, ALT 113 H, Alkaline Phosphatase 119, Troponin I < 0.01, Xwr-N-Qvzzsbyuepn Pept 300 H, Total Protein 6.2 L, Albumin 3.7, Globulin 2.5, Albumin/Globulin Ratio 1.5, PT 10.9, INR 1.00, D- Dimer High Sensitivty 317 H, CBC w Diff NO MAN DIFF REQ, RBC 3.58 L, MCV 91.5, MCH 28.9, MCHC 31.6 L, RDW 21.8 H, MPV 7.4, Gran % 72.2, Lymphocytes % 10.0 L , Monocytes % 17.8 H, Eosinophils % 0, Basophils % 0, Absolute Granulocytes 3.4 , Absolute Lymphocytes 0.5 L, Absolute Monocytes 0.8 H, Absolute Eosinophils 0 , Absolute Basophils 0 Assessment/Plan Assessment: 52 year old female with history of gastric adenocarcinoma on chemotherapy, asthma and COPD on 2L O2 at home, presented to the ED after becoming increasingly short of breath at home. ABG showed pCO2 of 66, with HCO3, chronically retaining CO2. Saturating in the 90's on 3.0L O2 with the NC. Problems: 1. COPD 2. Peripheral edema 3. Gastric adenocarcinoma on chemotherapy 4. Normocytic anemia 5. Elevated transaminases Plan: -Admit to general medicine -Solu-medrol 40mg IV Q8 -ABG -TRC & Duonebs -CPAP overnight -Continue Spiriva -Continue Singulair -Lasix 40mg IV BID Full Code Heart healthy diet Lovenox DVT ppx As Ranked By This Provider Problem List: 1. Asthma 2. Back pain 3. Lower extremity edema 4. Wheezing 5. SOB (shortness of breath) 6. COPD (chronic obstructive pulmonary disease) Core Measures/Misc (07/20) Acute Coronary Syndrome ACS Diagnosis: No Congestive Heart Failure Congestive Heart Failure Diagnosis No Cerebrovascular Accident CVA/TIA Diagnosis: No VTE (View Protocol) VTE Risk Factors Cancer/chemo/othr therapy No Mechanical VTE Prophylaxis d/t N/A MechProphylax Ordered No VTE Pharm Prophylaxis d/t NA PharmProphylax ordered Sepsis (View protocol) Sepsis Present: No If YES complete Sepsis Event Note If YES complete Sepsis Event Note Genesis Simon MD 07/16/18 6535: Core Measures/Misc (07/20) Sepsis (View protocol) If YES complete Sepsis Event Note If YES complete Sepsis Event Note Attending MD Review Statement Attending Statement Attending MD Statement: examined this patient, discuss w/resident/PA/FIELD CROP TECHNICAL OFFICER, agreed w/resident/PA/FIELD CROP TECHNICAL OFFICER, reviewed EMR data (avail), discussed with nursing, amended to note Attending Assessment/Plan: Patient is a 52-year-old female with history of oxygen dependent COPD with asthmatic component, obstructive sleep apnea noncompliant with CPAP therapy, gastric cancer receiving chemotherapy, history of gastrointestinal bleeding. Brought in by EMS with complaints of difficulty breathing. Reports feeling unwell for the past several days. Reports profound dyspnea with very mild activity. Admits to cough. Denies chest pain. Denies palpitations. Denies fever or chills. On examination she is somnolent. She is easily aroused but appears very sleepy. Heart sounds are regular. No jugular venous distention. Diffuse rhonchi bilaterally. Abdomen soft and nontender. Abdomen obese. Also 2+ bilateral pedal edema. Skin is intact. Problems: 1. COPD exacerbation 2. Gastric cancer on chemotherapy 3. Obstructive sleep apnea Plan: -Admit to the inpatient medical service. -Bronchodilator therapy with albuterol every 4 hours. -Systemic steroid therapy with Solu-Medrol 40 mg IV every 8 hours. -Her somnolence and worsening serum metabolic alkalosis recommend obtaining an ABG to evaluate degree of CO2 retention. -If she has significant CO2 retention begin BiPAP therapy overnight. -Continue diuresis with Lasix. Leg elevation at all times. -Chemical DVT prophylaxis. Dotty Núñez MD 07/17/18 0452: Core Measures/Misc (07/20) Sepsis (View protocol) If YES complete Sepsis Event Note If YES complete Sepsis Event Note Resident Review Statement Resident Statement: examined this patient, discussed with hr internship, agreed with hr internship, reviewed EMR data (avail), reviewed images, amended to note Other Findings: Patient is a 52-year-old morbidly obese female with past medical history of COPD on 2 L home oxygen, with an asthmatic component, chronic lower extremity edema on Lasix, obstructive sleep apnea not currently on CPAP, obesity hypoventilation syndrome, chronic hypercarbia, recently diagnosed with gastric cancer currently on chemotherapy with 5-fluorouracil presenting with chief complaint of shortness of breath. Patient states that she had her seventh chemotherapy session at [facility]. After which she went home and over the course of the day started having increasing shortness of breath. Reports that in the afternoon when she got up from her chair to use the restroom she was unable to keep her oxygen on as the cord was tangled and she took off the oxygen to use the toilet. States that once she was on the toilet she started having worsening shortness of breath and difficulty standing. Reports on her way to put her oxygen back on her neighbor saw her and she appeared to be in distress and notified 911. Patient reports that she was having increasing anxiety and worsening shortness of breath despite putting her oxygen back on. Patient denies any chest pain, cough, fever/chills, nausea/ vomiting, abdominal pain, diarrhea/constipation. Patient reports increasing lower extremity swelling over the past few days despite taking her Lasix. Patient has orthopnea and is unable to lie flat in bed and sleeps in her recliner. Patient states that this is a chronic issue. Reports increasing weight gain. Patient reports that she is no longer using her CPAP machine as she was confused on how often she was supposed to be using the machine and due to her lack of use she returned it to her insurance to afford any fine 3 weeks prior to this admission. Patient's uke driver is Dr. Cabrera with him she has an appointment on August 31. And her golf club assembler is Dr. Zarate with whom she has an appointment on August 02. Medications: Pro-air, DuoNeb, Suboxone 8 mg/2 mg, escitalopram 5 mg when necessary, iron 325 mg 3 times a day, fluticasone nasal spray, Advair 500 mcg50, Lasix 80 mg, montelukast 10 mg, Spiriva 18mcg Physical exam and labs/imaging as above Patient is a 52-year-old female with significant oxygen dependent COPD on 2 L, obstructive sleep apnea not currently on CPAP, asthma, obesity hypoventilation syndrome, chronic hypercarbia, gastric cancer status post chemotherapy presenting with COPD exacerbation with worsening dyspnea at rest and on exertion , worsening lower extremity edema, increasing oxygen requirement and significant wheezing on presentation. Problems: 1. COPD Exacerbation 2. Acute hypercarbic respiratory failure 3. Gastric cancer - currently on chemotherapy with 5 FU bimonthly 4. Chronic conditions: Oxygen dependent COPD, LORENA not compliant with CPAP, Asthma, OHS, Chronic lower extermity edema Plan: Admit to gen med IV Solumedrol 40mg q8h IV lasix 40mg BID TRC/DuoNeb ABG - pCO2 66, patient placed on CPAP Continue home medications Pulmonology consult in AM with Dr. Cabrera Oncology courtesy consult Patient currently has the chemotherapy with her - please notify [place] she is here, it will likely need to be removed today or tomorrow. PT/OT - due to increased weakness and recent falls Code: Full code DVT PPx: Lovenox Diet: Heart Healthy Diet
[2018-07-16 23:48] VITALS: BP 148/76
[2018-07-17 06:24] VITALS: BP 144/70
--- NOTE | 2018-07-17 07:29 | PN- Housestaff ---
Unique Hampton 07/17/18 0728: Subjective Follow-up For: COPD/ASTHMA EXACERBATION Gastric CA Subjective: Pt seen and examined at bedside this morning. Saturating well on her baseline 2L NC. Chemotherapy port running on her right chest that is to be taken off by 11AM today. Dr. Cabrera has seen the patient and is on board. She denies any cough, chest pain, fevers or chills overnight. Review of Systems Constitutional: Denies: see HPI. Objective Last 24 Hrs of Vital Signs/I&O Vital Signs Date Time Temp Pulse Resp B/P B/P Pulse O2 O2 Flow FiO2 Mean Ox Delivery Rate 07/17 06 98.6 87 20 144/70 94 Nasal Cannula 07/17 0327 91 95 07/17 0321 97 Nasal 3.0L Cannula 07/16 2354 98 Nasal 3.0L Cannula 07/16 2348 98.1 73 22 148/76 96 Nasal 3.0L Cannula 07/16 2330 Nasal 3.0L Cannula 07/16 2322 88 22 120/63 95 Nasal 3.0L Cannula 07/16 2150 94 20 118/72 93 Nasal 3.0L Cannula 07/16 1906 97.9 101 20 106/53 93 Nasal 3.0L Cannula Intake & Output 07/17 1600 07/17 0800 07/17 0000 Intake Total 310 Output Total Balance 310 Intake, IV 10 Intake, Oral 300 Patient 281 lb 281 lb Weight Physical Exam General Appearance: Alert, Oriented X3, Cooperative, Mild Distress Skin: No Rashes HEENT: Mucous Membr. moist/pink Cardiovascular: Normal S1, Normal S2 Lungs: decreased breath sounds; minimal wheezing Abdomen: distended and hard, tender to palpation Neurological: Normal Speech, Strength at 5/5 X4 Ext Extremities: +3 edema in bilateral lower extremities Vascular: Normal Pulses Current Medications: Current Medications Sig/Pam Start time Last Medication Dose Route Stop Time Status Admin Acetaminophen 650 MG Q6P PRN 07/165 AC 07/17 PO 0358 Acetaminophen 1,000 MG Q6P PRN 07/16 2345 AC IV Albuterol Sulfate 3 ML Q4-6 PRN PRN 07/17 0015 AC 07/17 INH 0311 Buprenorphine/ 1.5 EACH BID 07/17 09 AC Naloxone SL Docusate Sodium 100 MG DAILY NEEDED PRN 09/13 2345 AC PO Enoxaparin Sodium 40 MG DAILY 07/17 900 AC SC Escitalopram Oxalate 5 MG DAILY NEEDED PRN 07/17 2345 AC PO Ferrous Sulfate 325 MG TID 07/17 900 AC PO Furosemide 40 MG 7:30 AM, & 4:30 PM 07/17 0300 AC 07/17 IV 0358 Ipratropium Sterling 2.5 ML Q4-6 PRN PRN 07/17 0015 AC INH Methylprednisolone 40 MG Q8 07/17 06 AC 07/17 IV 0521 Montelukast Sodium 10 MG QPM 07/17 2100 AC PO Polyethylene Glycol 17 GM AT BEDTIME 07/17 2100 AC PO Senna/Docusate Sodium 2 TAB AT BEDTIME 07/17 2100 AC PO Tiotropium Sterling 1 PUF DAILY 07/17 900 AC INH Last 24 Hrs of Lab/Reza Results Last 24 Hrs of Labs/Mics: Laboratory Tests 07/17/18 0614: Sodium Pending, Potassium Pending, Chloride Pending, Carbon Dioxide Pending, Anion Gap Pending, BUN Pending, Creatinine Pending, BUN/Creatinine Ratio Pending , CBC w Diff Pending, WBC Pending, RBC Pending, Hgb Pending, Hct Pending, MCV Pending, MCH Pending, MCHC Pending, RDW Pending, Plt Count Pending, MPV Pending, Gran % Pending, Lymphocytes % Pending, Monocytes % Pending, Eosinophils % Pending, Basophils % Pending, Absolute Granulocytes Pending, Absolute Lymphocytes Pending, Absolute Monocytes Pending, Absolute Eosinophils Pending, Absolute Basophils Pending 07/17/18 0327: Troponin I 0.01 07/17/18 0250: pH 7.36, pCO2 66 *H, pO2 97, HCO3 36 H, ABG O2 Sat (Measured) 97.0, P-50 (Temp Corrected) Y, Carboxyhemoglobin 0.4 L, O2 Concentration % 3 LPM, Temperature 98.1, O2 Delivery Method N/C, Phlebotomy Draw Site RIGHT RADIAL 07/16/18 1910: Anion Gap 7, Estimated GFR > 60, BUN/Creatinine Ratio 36.7 H, Glucose 148 H, Calcium 8.6, Total Bilirubin 0.3, AST 72 H, ALT 113 H, Alkaline Phosphatase 119, Troponin I < 0.01, Tms-P-Kkejomzafma Pept 300 H, Total Protein 6.2 L, Albumin 3.7, Globulin 2.5, Albumin/Globulin Ratio 1.5, PT 10.9, INR 1.00, D- Dimer High Sensitivty 317 H, CBC w Diff NO MAN DIFF REQ, RBC 3.58 L, MCV 91.5, MCH 28.9, MCHC 31.6 L, RDW 21.8 H, MPV 7.4, Gran % 72.2, Lymphocytes % 10.0 L , Monocytes % 17.8 H, Eosinophils % 0, Basophils % 0, Absolute Granulocytes 3.4 , Absolute Lymphocytes 0.5 L, Absolute Monocytes 0.8 H, Absolute Eosinophils 0 , Absolute Basophils 0 Assessment/Plan Assessment: Patient is a 52-year-old female with history of oxygen dependent COPD (2L O2) with asthmatic component, obstructive sleep apnea noncompliant with CPAP therapy , gastric cancer receiving chemotherapy, history of gastrointestinal bleeding. Brought in by EMS with complaints of difficulty breathing. Reports feeling unwell for the past several days. Reports profound dyspnea with very mild activity. Admits to cough. Denies chest pain. Denies palpitations. Denies fever or chills. Blood Gas: 7.36, 66 CO2, 97, 36 HCO3 CXR: mild pulmonary vascular congestion 07/17: Chemotherapy port to be removed today. Seen by Dr. Cabrera. Saturating well on 2L NC. Will arrange for CPAP. Patient started on prednisone 50 taper. PROBLEM LIST: 1. COPD Exacerbation 2. Gastric Cancer Chemotherapy 3. Obstructive Sleep Apnea 4. H/O Opiod Use on Suboxone COPD Exacberation * Contacted Dr. Cabrera for pulmonology stand point * Appreciate consult with pulmonology: recommends startin ludwin prednisone 50 prednisone taper * TRC/nebs; continue spiriva and symbicort upon dc * Lasix 40mg IV BID Gastric Cancer Chemotherapy * Infusion completed will be removed from port by nursing staff * Patient follows with Dr. Romero at [facility] Obstructive Sleep Apnea * CPAP at night to be arranged Opioid Use Disorder * Suboxone BID Code Status: Full Code DVT PPx: Lovenox Diet: Heart Healthy Problem List: 1. Asthma 2. Chronic pain 3. COPD exacerbation Pain Ratin Pain Location: abdominal Pain Goal: Pain 4 or less Pain Plan: as per pain pathway Tomorrow's Labs & Rationales: cbc Caden Callahan MD 07/17/18 1234: Attending MD Review Statement Attending Statement Attending MD Statement: examined this patient, discuss w/resident/PA/SHEET METAL TECHNICIAN, agreed w/resident/PA/SHEET METAL TECHNICIAN, reviewed EMR data (avail), discussed with nursing, discussed with case mgmt, amended to note Attending Assessment/Plan: The patient was seen and discussed with house staff, nursing, and case management. Dr. Cabrera saw also this morning and agrees with current management ( awaiting his note). Discussed CPAP with patient and it was taken away as she had been in the hospital and not using? Case management to review and will review with Dr. Cabrera who has assumed her pulmonary care. Will attempt to re-establish CPAP.
[2018-07-17 08:22] LABS: ABSOLUTE BASOPHIL COUNT 0 /CUMM (0.0-0.2); ABSOLUTE EOSINOPHIL COUNT 0 /CUMM (0.0-0.7); ABSOLUTE GRANULOCYTE CT 3.8 /CUMM (1.4-6.5); ABSOLUTE LYMPH COUNT 0.2 /CUMM (1.2-3.4); ABSOLUTE MONOCYTE COUNT 0.4 /CUMM (0.10-0.60); BASOPHIL % 0 % (0.0-2.0); EOSINOPHIL % 0.1 % (0-5); GRANULOCYTE % 85.5 % (42.2-75.2); HEMATOCRIT 34.3 % (37-47); MEAN CORPUSCULAR HGB 29.4 PG (27.0-31.0); MEAN CORPUSCULAR VOLUME 91.6 FL (81.0-99.0); MEAN PLATELET VOLUME 7.6 FL (7.4-10.4); PLATELET COUNT 215 /CUMM (130-400); RBC DISTRIBUTION WIDTH 21.6 % (11.5-14.5); RED BLOOD CELL CT 3.74 /CUMM (4.20-5.40); WHITE BLOOD CELL COUNT 4.4 /CUMM (4.8-10.8)
--- NOTE | 2018-07-17 13:07 | Cons- Pulmonary ---
General Information and HPI Consulting Request Date of Consult: 07/17/18 Requested By: MED TEAM History of Present Illness: 52 year old female with history of gastric adenocarcinoma on chemotherapy, asthma and COPD on 2L O2 at home, presented to the ED after becoming increasingly short of breath at home. Previously she would ambulate without difficulty, but can no longer take more than a few steps without becoming extremely short of breath. She has also been noticing worsening orthopnea for approximately the past week, with difficulty sleeping longer than a few minutes at a time. The patient formerly was on CPAP, but the machine was reclaimed by the insurance company after infrequent/improper use and the patient has not been on CPAP for several months. She denies chest pain, but endorses cough, and back/ abdominal pain concurrent with these symptoms. She reports a 120lb weight gain over the past year due to fluid retention/edema, in spite of being on Lasix daily. She is currently receiving a chemotherapy infusion, which should finish tomorrow. Reports nausea, but denies vomiting or diarrhea. She is also a former smoker, quit in january after smoking 1/2 ppd for approximately 40 years. This am she feels well Review of Systems Constitutional: Reports: weakness. Denies: chills, diaphoresis, fever. Cardiovascular: Reports: orthopena, peripheral edema. Denies: chest pain, palpitations. Respiratory: Reports: cough, orthopnea, short of breath, wheezing. GI: Reports: abdominal pain, nausea. Denies: vomiting. Musculoskeletal: Reports: back pain. Allergies/Medications Allergies: Coded Allergies: No Known Allergies (05/05/18) Home Med List: Albuterol Sulfate (Proair Hfa) 90 MCG HFA.AER.AD 2 PUF INH Q4-6 PRN PRN copd Albuterol Sulfate 1.25 MG/3 ML VIAL.NEB 1 Vial INH/THA Q4-6 PRN WHEEZING Buprenorphine HCl/Naloxone HCl (Suboxone 8 MG-2 MG Sl Film) 8 MG-2 MG FILM 1.5 STR SL BID CHRONIC PAIN (Reported) Diclofenac Sodium (Voltaren) 1 % GEL..GRAM. 1 NORY TOP AD PRN PAIN/INFLAMMATION (Reported) apply to affected area(s) Escitalopram Oxalate 5 MG TABLET 1 TAB PO PRN ANXIETY (Reported) Ferrous Sulfate 325 MG (65 MG IRON) TABLET 1 TAB PO TID IRON, VITAMIN ( Reported) Fluticasone Propionate 50 MCG/ACTUATION SPRAY.SUSP 2 SPRAY [place] AD PRN ALLERGIES/ASTHMA (Reported) Fluticasone/Salmeterol (Advair 500-50 Diskus) 500 MCG-50 MCG/DOSE BLST.W.DEV 1 PUF INH BID ASTHMA (Reported) Furosemide 80 MG TABLET 1 TAB PO BID DIURETIC (Reported) Ipratropium/Albuterol Sulfate (Iprat-Albut 0.5-3(2.5) MG/3 Ml) 0.5 MG-3 MG (2.5 MG BASE)/3 ML AMPUL.NEB 1 UNIT INH Q4-6P PRN copd Lidocaine/Prilocaine (Lidocaine-Prilocaine Cream) 2.5 %-2.5 % CREAM..G. 1 NORY TOP AD PRN PAIN - PORT ACCESS (Reported) Lidocaine/Prilocaine (Lidocaine-Prilocaine Cream) 2.5 %-2.5 % CREAM..G. 1 NORY TOP AD CREAM Montelukast Sodium 10 MG TABLET 1 TAB PO QPM ALLERGIES/ASTHMA (Reported) Potassium Chloride 10 MEQ TAB.ER.PRT 2 TAB PO TID SUPPLEMENT (Reported) Prednisone (Deltasone) 20 MG TABLET 1 TAB PO TID COPD Prochlorperazine Maleate 10 MG TABLET 1 TAB PO AD PRN N/V (Reported) Tiotropium [place] (Spiriva) 18 MCG CAP.W.DEV 1 CAP INH DAILY RESP. (Reported ) Past History Travel History Traveled to [place] past 21 day No Medical History Blood Transfusion Hx: Yes Neurological: NONE EENT: NONE Cardiovascular: NONE Respiratory: asthma, COPD Gastrointestinal: GI BLEED Hepatic: NONE Renal: NONE Musculoskeletal: degen joint disease Psychiatric: NONE Endocrine: NONE Blood Disorders: NONE Cancer(s): STOMACH CANCER PUBLIC HEALTH/Reproductive: NONE Surgical History Surgical History: unobtainable Family History Relations & Conditions If Any: FATHER (Heart Disease). MOTHER (Asthma). Uncle (Diabetes). BROTHER (sudden ; possibly cardiac.). Psychosocial History Where Do You Live? Home Who Do You Live With? parent (mother) Services at Home: Oxygen Smoking Status: Former Smoker Exam & Diagnostic Data Last 24 Hrs of Vital Signs/I&O Vital Signs Date Time Temp Pulse Resp B/P B/P Pulse O2 O2 Flow FiO2 Mean Ox Delivery Rate 07/17 1225 Nasal 3.0L Cannula 07/17 0800 95 Nasal 3.0L Cannula 07/17 0624 98.6 87 20 144/70 94 Nasal Cannula 07/17 0327 91 95 07/17 0321 97 Nasal 3.0L Cannula 07/16 2354 98 Nasal 3.0L Cannula 07/16 2348 98.1 73 22 148/76 96 Nasal 3.0L Cannula 07/16 2330 Nasal 3.0L Cannula 07/16 2322 88 22 120/63 95 Nasal 3.0L Cannula 07/16 2150 94 20 118/72 93 Nasal 3.0L Cannula 07/16 1906 97.9 101 20 106/53 93 Nasal 3.0L Cannula Intake & Output 07/17 1600 07/17 0800 07/17 0000 Intake Total 310 Output Total Balance 310 Intake, IV 10 Intake, Oral 300 Patient 281 lb 281 lb Weight Last 48 Hrs of Labs/Reza: Laboratory Tests 07/17/18 0614: Anion Gap 9, Estimated GFR > 60, BUN/Creatinine Ratio 43.3 H, CBC w Diff NO MAN DIFF REQ, RBC 3.74 L, MCV 91.6, MCH 29.4, MCHC 32.0 L, RDW 21.6 H, MPV 7.6, Gran % 85.5 H, Lymphocytes % 4.3 L, Monocytes % 10.1 H, Eosinophils % 0.1, Basophils % 0, Absolute Granulocytes 3.8, Absolute Lymphocytes 0.2 L, Absolute Monocytes 0.4, Absolute Eosinophils 0, Absolute Basophils 0 07/17/18 0327: Troponin I 0.01 07/17/18 0250: pH 7.36, pCO2 66 *H, pO2 97, HCO3 36 H, ABG O2 Sat (Measured) 97.0, P-50 (Temp Corrected) Y, Carboxyhemoglobin 0.4 L, O2 Concentration % 3 LPM, Temperature 98.1, O2 Delivery Method N/C, Phlebotomy Draw Site RIGHT RADIAL 07/16/18 1910: Anion Gap 7, Estimated GFR > 60, BUN/Creatinine Ratio 36.7 H, Glucose 148 H, Calcium 8.6, Total Bilirubin 0.3, AST 72 H, ALT 113 H, Alkaline Phosphatase 119, Troponin I < 0.01, Tnh-J-Gstjnmhzayn Pept 300 H, Total Protein 6.2 L, Albumin 3.7, Globulin 2.5, Albumin/Globulin Ratio 1.5, PT 10.9, INR 1.00, D- Dimer High Sensitivty 317 H, CBC w Diff NO MAN DIFF REQ, RBC 3.58 L, MCV 91.5, MCH 28.9, MCHC 31.6 L, RDW 21.8 H, MPV 7.4, Gran % 72.2, Lymphocytes % 10.0 L , Monocytes % 17.8 H, Eosinophils % 0, Basophils % 0, Absolute Granulocytes 3.4 , Absolute Lymphocytes 0.5 L, Absolute Monocytes 0.8 H, Absolute Eosinophils 0 , Absolute Basophils 0 Assessment/Plan Impression/Plan: General Appearance Alert, Oriented X3, Cooperative, No Acute Distress HEENT Atraumatic, PERRLA, EOMI Cardiovascular Regular Rate, Normal S1, Normal S2 Lungs Diffuse wheezing throughout Abdomen Normal Bowel Sounds, Soft, No Tenderness Neurological Normal Gait, Normal Speech Extremities 3+ pitting edema up to knees in BLE Pt with sig COPD with asthmatic component with Gastric ca on chemo has * Acute bronchospasm yesterday now better with Chronic dyspnea and now with cxr finding with prob pulm edema and unlikely pna, * Sig COPD with asthmatic component with wheezing with acute exacerbation * Has biventricular heart failure with anasarca * Sig Pedal edema with Sig obesity with OHS with sig untreated LORENA pt did now use cpap and noncompliant before (per her preference) with evidence of rt heart dysfunction Chronic hypercarbia at baseline with due to severe OLD with ohv with chronic hypercarbic resp insuff * Has sig bronchomalacia with vc issues aswell complicating the exam * History of chronic narcotic use before REC * COnt lasix iv change to q12 and watch potassium * Cont steroids and reduce the dose to 50 mg prednisone and taer * Cont Spiriva and symbicort bid upon dc * COnt other meds Consult Acknowledgment - Thank you for your consult request.
[2018-07-17 14:07] VITALS: BP 142/90
--- NOTE | 2018-07-17 16:00 | Discharge Summary ---
Visit Information Visit Dates Admission Date: 07/16/18 Discharge Date: 07/20/18 Hospital Course Course Attending Physician: Genesis Simon MD Primary Care Physician: Brent ACUNA,Chase [facility] Course: HOSPITAL COURSE: Patient is a 52 year old morbidly obese female with PMH of COPD on 2L home O2 with an asthmatic component, chronic lower extremity edema on Lasix, LORENA not on CPAP, obesity hypoventilation syndrome, chronic hypercarbia recently diagnosed with Gastric CA on chemotherapy with 5-FU with cheif complaint of shortness of breath. Patient got up from her chair at home and went to use the toilet without her oxygen where she began to have shortness of breath and difficulty standing. She denied any chest pain, fevers, chills, nausea or vomiting. Has had increasing lower extremity swelling over past days despite lasix. She is unable to lie flat in bed and sleeps in her recliner. Reports increasing weight gain. No longer using CPAP prior to admission as she was confused about th emachine and due to lack of use she returned it to her insurance to afford any fines 3 weeks prior to this admission. Education Courses Sales Representative: Dr. Cabrera Process Design Chemical Engineer: Dr. Zarate EMERGENCY DEPARTMENT: Vitals: 97.9, 101, 20, 106/53, 93% NC Labs: WBC 4.7, Hgb: 10.4, Hct: 32, Plt: 190 Chem: 139, 4.1, 92, 38, 26, 0.6 CXR 07/16: Suspect mild pulmonary vascular congestion. ABG 07/17: 7.36/66/97/36 GENERAL MEDICINE: Admitted to general medicine for treatment/evaluation/monitoring of the following: PROBLEM LIST: 1. COPD Exacerbation/Chronic Hypercarbia 2. Gastric Cancer Chemotherapy 3. Obstructive Sleep Apnea 4. H/O Opiod Use on Suboxone COPD Exacberation/Chronic Hypercarbia Patient admitted to general medicine given her COPD/hypercarbic respiratory failure. Started on IV solumedrol 40mg q8. TRC and Duonebs. Patient had CPAP for night time and was continued on her home medications. Contacted Dr. Cabrera for pulmonology stand point Appreciate consult with pulmonology. Eventual recommendation to start on oral prednisone taper. Lasix IV 40mg BID for significant lower extremity edema. Patient continued on her home oxygen of 2-3 liters of oxygen during her stay. Initial chest x ray on admission showed mild pulmonary congestion. Repeat ABG on 07/19/18: 7.40/57/95/40/96. CXR at that time was not significantly different from previous. Discharged on prednisone taper and advised to follow up with pulmonology outpatient. Gastric Cancer Chemotherapy Infusion completed will be removed from port by nursing staff.Patient follows with Dr. Romero at [facility]. Advised to follow up outpatient accordingly. Obstructive Sleep Apnea CPAP at night to be arranged. Based on her ABG her CO2 is 57 which qualifies her for nocturnal Bipap. Advised to follow up with Dr. Cabrera regarding this and possible outpatient sleep study. Opioid Use Disorder * Suboxone BID Code Status: Full Code DVT PPx: Lovenox Diet: Heart Healthy Diet Allergies: Coded Allergies: No Known Allergies (05/05/18) Disposition Summary Disposition Principal Diagnosis: COPD Exacerbation Additional Diagnosis: Chronic Hypercarbia Chronic biventricular heart failure. She received intravenous Lasix while in the hospital due to increased leg swelling. Discharge Disposition: home or self care Discharge Instructions General Discharge Information Code Status: Full Code Patient's Diet: Heart Healthy Patient's Activity: as tolerated Follow-Up Instructions/Appts: Please follow up with PCP within 1-2 weeks of discharge. Please follow up with Pulmonology Dr. Cabrera regarding CPAP/BiPAP usage. Complete Prednisone Taper as prescribed/instructed. Return to ED with worsening shortness of breath, chest pain, fevers, chills, cough. Medications at Discharge Discharge Medications: Stop taking the following medications: Fluticasone Propionate (Fluticasone Propionate) 50 MCG/ACTUATION SPRAY.SUSP Both sides of nose As Directed as needed for ALLERGIES/ASTHMA Qty = 16 Lidocaine/Prilocaine (Lidocaine-Prilocaine Cream) 2.5 %-2.5 % CREAM..G. On the skin As Directed as needed for PAIN - PORT ACCESS Qty = 30 Lidocaine/Prilocaine (Lidocaine-Prilocaine Cream) 2.5 %-2.5 % CREAM..G. On the skin As Directed Qty = 60 Continue taking these medications: Fluticasone/Salmeterol (Advair 500-50 Diskus) 500 MCG-50 MCG/DOSE BLST.W.DEV 1 Puff Inhale through mouth TWICE DAILY Comments: NOT GIVEN IN HOSPITAL spiriva given 07/20/18 9am Montelukast Sodium (Montelukast Sodium) 10 MG TABLET 1 Tablet ORAL Every night Qty = 30 Comments: Last Taken:07/19/18 Time:9PM Albuterol Sulfate (Albuterol Sulfate) 1.25 MG/3 ML VIAL.NEB 1 Vial Inhale Solution EVERY 4-6 HOURS as needed for WHEEZING Qty = 150 Comments: Last Taken: 05/13/18 Time: 12PM Ferrous Sulfate (Ferrous Sulfate) 325 MG (65 MG IRON) TABLET 1 Tablet ORAL THREE TIMES DAILY Qty = 60 Comments: Last Taken:07/20/18 Time:9am Tiotropium [place] (Spiriva) 18 MCG CAP.W.DEV 1 Capsule Inhale through mouth DAILY Qty = 30 Comments: Last Taken: 07/20/18 Time: 9 AM Albuterol Sulfate (Proair Hfa) 90 MCG HFA.AER.AD 2 Puff Inhale through mouth EVERY 4-6 HOURS NEEDED as needed for copd Qty = 1 Comments: 07/20/18 10am Ipratropium/Albuterol Sulfate (Iprat-Albut 0.5-3(2.5) MG/3 Ml) 0.5 MG-3 MG (2.5 MG BASE)/3 ML AMPUL.NEB 1 Unit Inhale through mouth Q4-6P as needed for copd Qty = 1 Comments: NOT GIVEN IN HOSPITAL Buprenorphine HCl/Naloxone HCl (Suboxone 8 MG-2 MG Sl Film) 8 MG-2 MG FILM 1.5 Strip SUBLINGUAL TWICE DAILY Comments: Last Taken:07/20/18 Time:9am Escitalopram Oxalate (Escitalopram Oxalate) 5 MG TABLET 1 Tablet ORAL as needed for ANXIETY Qty = 35 Comments: not given Furosemide (Furosemide) 80 MG TABLET 1 Tablet ORAL TWICE DAILY Qty = 14 Comments: Last Taken:07/20/18 Time:0630 given IV Potassium Chloride (Potassium Chloride) 10 MEQ TAB.ER.PRT 2 Tablet ORAL THREE TIMES DAILY Comments: Last Taken:07/19/18 Time:2PM Prochlorperazine Maleate (Prochlorperazine Maleate) 10 MG TABLET 1 Tablet ORAL As Directed as needed for N/V Qty = 60 Diclofenac Sodium (Voltaren) 1 % GEL..GRAM. 1 Application On the skin As Directed as needed for PAIN/INFLAMMATION Qty = 100 Instructions: apply to affected area(s) Comments: not given Prednisone (Deltasone) 20 MG TABLET 1 Tablet ORAL THREE TIMES DAILY Qty = 12 Comments: Last Taken:04/19/18 Time:9AM GIVEN 50 MG Start taking the following new medications: Prednisone (Prednisone) 10 MG TABLET 1 Tablet ORAL SEE INSTRUCTIONS Qty = 40 No Refills Instructions: Start 07/22: Take 50mg for 2 days 40mg 3 days 30 3 days 20 3 days 10 3 days. Copies To: Rick ACUNA,Neil Del Castillo; Brent ACUNA,Chase Elizabeth Attending MD Review Statement Documenting Attending: Genesis Simon MD Other Findings: Discharged in stable condition.
[2018-07-17 22:03] VITALS: BP 124/68
[2018-07-18 06:01] VITALS: BP 130/68
[2018-07-18 08:40] LABS: ABSOLUTE BASOPHIL COUNT 0 /CUMM (0.0-0.2); ABSOLUTE EOSINOPHIL COUNT 0 /CUMM (0.0-0.7); ABSOLUTE LYMPH COUNT 0.6 /CUMM (1.2-3.4); ABSOLUTE MONOCYTE COUNT 0.5 /CUMM (0.10-0.60); BASOPHIL % 0.1 % (0.0-2.0); EOSINOPHIL % 0 % (0-5); GRANULOCYTE % 73.2 % (42.2-75.2); HEMATOCRIT 34.2 % (37-47); MEAN CORPUSCULAR HGB 29.3 PG (27.0-31.0); MEAN CORPUSCULAR HGB CONC 31.8 G/DL (33.0-37.0); MEAN CORPUSCULAR VOLUME 92.1 FL (81.0-99.0); MEAN PLATELET VOLUME 7.4 FL (7.4-10.4); PLATELET COUNT 233 /CUMM (130-400); RBC DISTRIBUTION WIDTH 21.6 % (11.5-14.5); RED BLOOD CELL CT 3.72 /CUMM (4.20-5.40); WHITE BLOOD CELL COUNT 4.1 /CUMM (4.8-10.8)
--- NOTE | 2018-07-18 11:52 | PN- Pulmonary ---
Subjective HPI/Critical Care Issues: pt seen and examined afebrile hemodynamically stable 95% on 3LNC no n/v/d/c, no cp, no sanchez Objective Current Medications: Current Medications Sig/Pam Start time Last Medication Dose Route Stop Time Status Admin Acetaminophen 650 MG Q6P PRN 07/16 2345 AC 07/17 PO 0358 Acetaminophen 1,000 MG Q6P PRN 07/16 2345 AC IV Albuterol Sulfate 3 ML EVERY 4 HRS/AWAKE 07/17 1248 AC 07/18 INH 1140 Albuterol Sulfate 3 ML Q4-6 PRN PRN 07/17 0015 DC 07/17 INH 0311 Buprenorphine/ 1.5 EACH BID 07/17 09 AC 07/18 Naloxone SL 1039 Docusate Sodium 100 MG DAILY NEEDED PRN 07/16 2345 AC PO Enoxaparin Sodium 40 MG DAILY 07/17 09 AC 07/18 SC 1038 Escitalopram Oxalate 5 MG DAILY NEEDED PRN 07/17 2345 AC PO Ferrous Sulfate 325 MG TID 07/17 09 AC 07/18 PO 1037 Furosemide 40 MG 7:30 AM, & 4:30 PM 07/17 0300 AC 07/18 IV 1035 Guaifenesin 600 MG Q12 07/18 1100 AC PO Ipratropium [place] 2.5 ML Q4-6 PRN PRN 07/17 0015 AC INH Methylprednisolone 40 MG Q8 07/17 06 DC 07/17 IV 0521 Montelukast Sodium 10 MG QPM 07/17 2100 AC 07/17 PO 2136 Patient Medication 1 ED ONE ONE 07/17 2000 DC 07/17 Teaching ED 07/17 Patient Medication 1 ED ONE ONE 07/17 2000 NM 07/17 Teaching ED 07/17 Polyethylene Glycol 17 GM AT BEDTIME 07/17 2100 AC 07/17 PO 2137 Prednisone 50 MG DAILY 07/17 1321 AC 07/18 PO 1038 Senna/Docusate Sodium 2 TAB AT BEDTIME 07/17 2100 AC 07/17 PO 2137 Tiotropium [place] 1 PUF DAILY 07/17 09 AC 07/18 INH 1039 Vital Signs & I&O Last 24 Hrs of Vitals and I&O: Vital Signs Date Time Temp Pulse Resp B/P B/P Pulse O2 O2 Flow FiO2 Mean Ox Delivery Rate 07/18 08 95 Nasal 3.0L Cannula 07/18 0601 98.7 86 20 130/68 98 BIPAP 2.0L 07/18 0053 86 93 07/18 0000 93 Nasal 3.0L Cannula 07/17 2247 96 07/17 2203 97.6 100 20 124/68 93 07/17 2042 95 Nasal 2.0L Cannula 07/17 1646 97 Nasal 2.0L Cannula 07/17 1407 98.7 100 20 142/90 95 Nasal 3.0L Cannula 07/17 1225 Nasal 3.0L Cannula Intake & Output 07/18 1600 07/18 0800 07/18 0000 Intake Total 250 250 Output Total Balance 250 250 Intake, IV 10 10 Intake, Oral 240 240 Patient 291 lb 295 lb Weight Exam Other Physical Findings: gen-aaox3 heent-ncat cvs-s1,s2 lungs-bilateral wheezing abd-soft,bs+ ext-edema Results Last 24 Hrs of Lab Results: Laboratory Tests 07/18/18 0725: Anion Gap 8, Estimated GFR > 60, BUN/Creatinine Ratio 40.0 H, CBC w Diff NO MAN DIFF REQ, RBC 3.72 L, MCV 92.1, MCH 29.3, MCHC 31.8 L, RDW 21.6 H, MPV 7.4, Gran % 73.2, Lymphocytes % 14.1 L, Monocytes % 12.6 H, Eosinophils % 0, Basophils % 0.1, Absolute Granulocytes 3.0, Absolute Lymphocytes 0.6 L, Absolute Monocytes 0.5, Absolute Eosinophils 0, Absolute Basophils 0 Impression/Plan Impression/Plan Impression/Plan: Impression 52 year old woman * COPD with asthma overlap with acute exacerbation * Gastric cancer undergoing chemotherapy * biventricular heart failure * LORENA/OHS * chronic hypercarbic respiratory failure * bronchomalacia Plan -monitor ins/outs -diuresis -keep prednisone at 50mg today - she feels reasonably better, however wheezing is significant and patient may ask for extra steroids at which point we may administer 40mg iv of solumedrol -continue inhalers, trc -based on ABG her co2 is 66 which qualifies for nocturnal bipap, she will follow with Dr. Cabrera regarding this DVT prophylaxis at all times
--- NOTE | 2018-07-18 12:13 | PN- Housestaff ---
Geronimo Ramos 07/18/18 1212: Subjective Follow-up For: COPD/ASTHMA EXACERBATION Gastric CA Subjective: Pt seen and examined at bedside this morning. Saturating well on her baseline 2L NC. she is Feeling better. no difficulkty breathing. Review of Systems Constitutional: Reports: see HPI. Objective Last 24 Hrs of Vital Signs/I&O Vital Signs Date Time Temp Pulse Resp B/P B/P Pulse O2 O2 Flow FiO2 Mean Ox Delivery Rate 07/18 1345 97.8 100 20 120/70 95 Nasal 3.0L Cannula 07/18 0821 95 Nasal 3.0L Cannula 07/18 0800 Nasal 3.0L Cannula 07/18 0601 98.7 86 20 130/68 98 BIPAP 2.0L 07/18 0053 86 93 07/18 0000 93 Nasal 3.0L Cannula 07/17 2247 96 07/17 2203 97.6 100 20 124/68 93 07/17 2042 95 Nasal 2.0L Cannula Intake & Output 07/18 1600 07/18 0800 07/18 0000 Intake Total 720 250 250 Output Total Balance 720 250 250 Intake, IV 0 10 10 Intake, Oral 720 240 240 Number 1 Bowel Movements Patient 291 lb 295 lb Weight Physical Exam General Appearance: Alert, Oriented X3, Cooperative, No Acute Distress Cardiovascular: Regular Rate, No Murmurs Lungs: mild rhonchi heard b/l . Abdomen: Normal Bowel Sounds, Soft, No Tenderness, No Hepatospenomegaly, No Masses Neurological: Normal Speech, Strength at 5/5 X4 Ext, Normal Tone, Sensation Intact Extremities: No Clubbing, No Cyanosis, No Edema, Normal Pulses, No Tenderness/ Swelling Current Medications: Current Medications Sig/Pam Start time Last Medication Dose Route Stop Time Status Admin Acetaminophen 650 MG Q6P PRN 07/16 2345 AC 07/17 PO 0358 Acetaminophen 1,000 MG Q6P PRN 07/16 2345 AC IV Albuterol Sulfate 3 ML EVERY 4 HRS/AWAKE 07/17 1248 AC 07/18 INH 1140 Buprenorphine/ 1.5 EACH BID 07/17 900 AC 07/18 Naloxone SL 1039 Docusate Sodium 100 MG DAILY NEEDED PRN 07/16 2345 AC PO Enoxaparin Sodium 40 MG DAILY 07/17 09 AC 07/18 SC 1038 Escitalopram Oxalate 5 MG DAILY NEEDED PRN 07/17 2345 AC PO Ferrous Sulfate 325 MG TID 07/17 0900 AC 07/18 PO 1339 Furosemide 40 MG 7:30 AM, & 4:30 PM 07/17 0300 AC 07/18 IV 1035 Guaifenesin 600 MG Q12 07/18 1100 AC 07/18 PO 1147 Ipratropium [place] 2.5 ML Q4-6 PRN PRN 07/17 0015 AC INH Montelukast Sodium 10 MG QPM 07/17 2100 AC 07/17 PO 2136 Patient Medication 1 ED ONE ONE 07/17 2000 DC 07/17 Teaching ED 07/17 Patient Medication 1 ED ONE ONE 07/17 2000 DC 07/17 Teaching ED 07/17 Polyethylene Glycol 17 GM AT BEDTIME 07/17 2100 07/17 PO 213 Prednisone 50 MG DAILY 07/17 1321 AC 07/18 PO 1038 Senna/Docusate Sodium 2 TAB AT BEDTIME 07/17 2100 AC 07/17 PO 213 Tiotropium [place] 1 PUF DAILY 07/17 09 AC 07/18 INH 1039 Last 24 Hrs of Lab/Reza Results Last 24 Hrs of Labs/Mics: Laboratory Tests 07/18/18 0725: Anion Gap 8, Estimated GFR > 60, BUN/Creatinine Ratio 40.0 H, CBC w Diff NO MAN DIFF REQ, RBC 3.72 L, MCV 92.1, MCH 29.3, MCHC 31.8 L, RDW 21.6 H, MPV 7.4, Gran % 73.2, Lymphocytes % 14.1 L, Monocytes % 12.6 H, Eosinophils % 0, Basophils % 0.1, Absolute Granulocytes 3.0, Absolute Lymphocytes 0.6 L, Absolute Monocytes 0.5, Absolute Eosinophils 0, Absolute Basophils 0 Assessment/Plan Assessment: Patient is a 52-year-old female with history of oxygen dependent COPD (2L O2) with asthmatic component, obstructive sleep apnea noncompliant with CPAP therapy , gastric cancer receiving chemotherapy, history of gastrointestinal bleeding. Brought in by EMS with complaints of difficulty breathing. Reports feeling unwell for the past several days. Reports profound dyspnea with very mild activity. Admits to cough. Denies chest pain. Denies palpitations. Denies fever or chills. Blood Gas: 7.36, 66 CO2, 97, 36 HCO3 CXR: mild pulmonary vascular congestion 07/17: Chemotherapy port to be removed today. Seen by Dr. Cabrera. Saturating well on 2L NC. Will arrange for CPAP. Patient started on prednisone 50 taper. PROBLEM LIST: 1. COPD Exacerbation 2. Gastric Cancer Chemotherapy 3. Obstructive Sleep Apnea 4. H/O Opiod Use on Suboxone COPD Exacberation patient may ask for extra steroids at which point we may administer 40mg iv of solumedrol * Appreciate consult with pulmonology: recommends startin [place] prednisone 50 prednisone taper, patient may ask for extra steroids at which point we may administer 40mg iv of solumedrol in case of increased wheezing. * TRC/nebs; continue spiriva and symbicort upon dc * Lasix 40mg IV BID Gastric Cancer Chemotherapy * Infusion completed will be removed from port by nursing staff * Patient follows with Dr. Romero at [facility] Obstructive Sleep Apnea * CPAP at night to be arranged, BiPAP will be arranged after consulting Dr. Cabrera Opioid Use Disorder * Suboxone BID Code Status: Full Code DVT PPx: Lovenox Diet: Heart Healthy Problem List: 1. COPD exacerbation 2. COPD exacerbation 3. Gastric adenocarcinoma Pain Ratin Pain Location: none Pain Goal: Remain pain free Pain Plan: none Tomorrow's Labs & Rationales: none Ken Wharton 07/18/18 1234: Attending MD Review Statement Attending Statement Attending MD Statement: examined this patient, discuss w/resident/PA/RAIL CAR REPAIR CARMAN, agreed w/resident/PA/RAIL CAR REPAIR CARMAN, discussed with family, reviewed EMR data (avail), discussed with nursing, discussed with case mgmt, reviewed images, amended to note Attending Assessment/Plan: The patient was seen and discussed with house staff, nursing, and case management. Patient here for shortness of breath multifactorial in origin from COPD exacerbation, LORENA and congestive heart failure. Patient is on diuretics receiving iv as chest xray with pulmonary vascualr congestion. She is on oral prednisone 50 mg daily. Obtain repeat chest xray today to assess diuretic response and monitor I/O. Based on ABG her co2 is 66 which qualifies for nocturnal bipap, she will follow with Dr. Cabrera regarding this. Follow pulmonary recommedations. GI/DVT prophylaxis full code
--- NOTE | 2018-07-18 13:37 | RADIOLOGY REPORT ---
EXAMINATION: XR PORTABLE CHEST CLINICAL INFORMATION: Pulmonary vascular congestion. COMPARISON: Several priors. Most recent of 07/16. CT scan of 05/11/18. TECHNIQUE: Portable frontal view of the chest was obtained. FINDINGS: The right jugular CVL remains in stable position with the tip at the level of the mid SVC. Vascular congestion seen on prior examination is resolved. The lungs are clear. The heart and mediastinal structures are normal. IMPRESSION: Unremarkable examination.
[2018-07-18 13:45] VITALS: BP 120/70
--- NOTE | 2018-07-18 16:45 | Patient Discharge Instructions ---
Discharge Instructions General Discharge Information You were seen/treated for: COPD Exacerbation Chronic Hypercarbic Respiratory Failure Gastric Cancer on Chemotherapy Special Instructions: Based on ABG your co2 is 66 which qualifies you for nocturnal bipap, please will follow with Dr. Cabrera regarding this. Please follow up with Dr. Cabrera of Pulmonology within 1 week of discharge. Please follow up with your PCP within 1 week of discharge. Continue Prednisone taper as prescribed and instructed (50mg for 2 more days, 40mg for 3 days, 30mg for 3 days, 20mg for 3 days and 10mg for 3 days) Return with worsening shortness of breath, increased oxygen requirements, chest pain, fevers, cough. Acute Coronary Syndrome Inclusion Criteria At DC or during hospital stay patient has or had the following: ACS DIAGNOSIS No Discharge Core Measures Meds if any: Prescribed or Continued at Discharge Meds if any: NOT Prescribed or Continued at Discharge Congestive Heart Failure Inclusion Criteria At DC or during hospital stay patient has or had the following: CHF DIAGNOSIS No Discharge Core Measures Meds if any: Prescribed or Continued at Discharge Meds if any: NOT Prescribed or Continued at Discharge Cerebrovascular accident Inclusion Criteria At DC or during hospital stay patient has or had the following: CVA/TIA Diagnosis No Discharge Core Measures Meds if any: Prescribed or Continued at Discharge Meds if any: NOT Prescribed or Continued at Discharge Venous thromboembolism Inclusion Criteria VTE Diagnosis No VTE Type NONE VTE Confirmed by (Test) NONE Discharge Core Measures - Per Current guidelines, there needs to be overlap - treatment for the first 5 days of Warfarin therapy. - If discharged on Warfarin prior to 5 days of - overlap therapy, the patient will need to be - assessed for post discharge needs including - *Post discharge parental anticoagulation - *Warfarin and/or parental anticoagulation education - *Follow up date to check INR post discharge At least 5 days overlap therapy as Inpatient No Meds if any: Prescribed or Continued at Discharge Note: Overlap Therapy is Warfarin and Anticoagulant Meds if any: NOT Prescribed or Continued at Discharge
[2018-07-18 22:17] VITALS: BP 130/84
[2018-07-19 06:20] VITALS: BP 142/74
--- NOTE | 2018-07-19 08:49 | PN- Housestaff ---
Geronimo Ramos 07/19/18 0846: Subjective Follow-up For: copd excerbation sleep apnea Subjective: Patient was seen and examined today. She denied any overnight events But said she hasnt been sleeping alot for the past 7 days. Her breathing is getting better but during examination she had just got out of shower and was running short of breath. Her leg swelling seems to be the same. She specifically c/o tiredness in her eyes, on examination , finger test, she had extreme fatigue and could not follow the finger to the extreme right, Drooping was noticed at the end of the test. Patient admitted to having transient diplopia( I see twins) . Review of Systems Constitutional: Reports: see HPI. Objective Last 24 Hrs of Vital Signs/I&O Vital Signs Date Time Temp Pulse Resp B/P B/P Pulse O2 O2 Flow FiO2 Mean Ox Delivery Rate 07/19 0901 97 Nasal 3.0L Cannula 07/19 0620 98.8 87 22 142/74 96 Nasal 3.0L Cannula 07/19 0036 93 07/18 2217 99.0 99 20 130/84 97 07/18 2206 96 Nasal 3.0L Cannula 07/18 1829 96 Nasal 3.0L Cannula 07/18 1600 Nasal 3.0L Cannula 07/18 1345 97.8 100 20 120/70 95 Nasal 3.0L Cannula Intake & Output 07/19 1600 07/19 0800 07/19 0000 Intake Total 250 490 Output Total Balance 250 490 Intake, IV 10 10 Intake, Oral 240 480 Patient 289 lb Weight Weight Bed scale Measurement Method Physical Exam General Appearance: Alert, Oriented X3, Cooperative, No Acute Distress Cardiovascular: Regular Rate, No Murmurs Lungs: rhonchi heard b/l Abdomen: Normal Bowel Sounds, Soft, No Tenderness, No Hepatospenomegaly, No Masses Neurological: Normal Speech, Strength at 5/5 X4 Ext, Normal Tone, Sensation Intact Extremities: No Clubbing, No Cyanosis, No Edema, Normal Pulses, No Tenderness/ Swelling, edema Current Medications: Current Medications Sig/Pam Start time Last Medication Dose Route Stop Time Status Admin Acetaminophen 650 MG Q6P PRN 07/16 2345 AC 07/17 PO 0358 Acetaminophen 1,000 MG Q6P PRN 07/16 2345 AC IV Albuterol Sulfate 3 ML EVERY 4 HRS/AWAKE 07/17 1248 AC 07/19 INH 0859 Buprenorphine/ 1.5 EACH BID 07/17 900 AC 07/19 Naloxone SL 0951 Docusate Sodium 100 MG DAILY NEEDED PRN 07/16 2345 AC PO Enoxaparin Sodium 40 MG DAILY 07/17 09 AC 07/19 SC 0951 Escitalopram Oxalate 5 MG DAILY NEEDED PRN 07/17 2345 AC PO Ferrous Sulfate 325 MG TID 07/17 09 AC 07/19 PO 0950 Furosemide 40 MG 7:30 AM, & 4:30 PM 07/17 0300 AC 07/19 IV 0945 Guaifenesin 600 MG Q12 07/18 1100 AC 07/19 PO 0950 Ipratropium [place] 2.5 ML Q4-6 PRN PRN 07/17 0015 AC INH Methylprednisolone 40 MG ONCE ONE 07/19 1115 DC IV 07/19 1116 Montelukast Sodium 10 MG QPM 07/17 2100 AC 07/18 PO 2056 Polyethylene Glycol 17 GM AT BEDTIME 07/17 2100 AC 07/18 PO 2056 Prednisone 50 MG DAILY 07/17 1321 AC 07/19 PO 0953 Senna/Docusate Sodium 2 TAB AT BEDTIME 07/17 2100 AC 07/18 PO 2056 Tiotropium [place] 1 PUF DAILY 07/17 09 AC 07/19 INH 0950 Last 24 Hrs of Lab/Reza Results Last 24 Hrs of Labs/Mics: Laboratory Tests 07/19/18 1045: pH 7.40, pCO2 67 *H, pO2 95, HCO3 40 H, ABG O2 Sat (Measured) 96.0, P-50 (Temp Corrected) N, Carboxyhemoglobin 0.8 L, O2 Concentration % 3LPM, O2 Delivery Method NC, Phlebotomy Draw Site RIGHT RADIAL 07/19/1815: Anion Gap 3 L, Estimated GFR > 60, BUN/Creatinine Ratio 43.3 H, CBC w Diff NO MAN DIFF REQ, RBC 3.58 L, MCV 92.4, MCH 29.1, MCHC 31.5 L, RDW 22.0 H, MPV 7.3 L, Gran % 60.1, Lymphocytes % 35.2, Monocytes % 4.2, Eosinophils % 0.2, Basophils % 0.3, Absolute Granulocytes 2.6, Absolute Lymphocytes 1.5, Absolute Monocytes 0.2, Absolute Eosinophils 0, Absolute Basophils 0 Assessment/Plan Assessment: Patient is a 52-year-old female with history of oxygen dependent COPD (2L O2) with asthmatic component, obstructive sleep apnea noncompliant with CPAP therapy , gastric cancer receiving chemotherapy, history of gastrointestinal bleeding. Brought in by EMS with complaints of difficulty breathing. Reports feeling unwell for the past several days. Reports profound dyspnea with very mild activity. Admits to cough. Denies chest pain. Denies palpitations. Denies fever or chills. Blood Gas: 7.36, 66 CO2, 97, 36 HCO3 CXR: mild pulmonary vascular congestion PROBLEM LIST: 1. COPD Exacerbation 2. Gastric Cancer Chemotherapy 3. Obstructive Sleep Apnea 4. H/O Opiod Use on Suboxone COPD Exacberation administer 40mg of extra iv of solumedrol * Appreciate consult with pulmonology: recommends startin [place]win prednisone 50 prednisone taper, patient may ask for extra steroids at which point we may administer 40mg iv of solumedrol in case of increased wheezing.( already given 1 dose today) * TRC/nebs; continue spiriva and symbicort upon dc * convert to Lasix 40mgoral daily Gastric Cancer Chemotherapy * Infusion completed will be removed from port by nursing staff * Patient follows with Dr. Romero at [facility] Obstructive Sleep Apnea * CPAP at night to be arranged, BiPAP will be arranged after consulting Dr. Cabrera Opioid Use Disorder * Suboxone BID Code Status: Full Code DVT PPx: Lovenox Diet: Heart Healthy Problem List: 1. COPD with acute exacerbation 2. SOB (shortness of breath) Pain Ratin Pain Location: none Pain Goal: Remain pain free Pain Plan: none Tomorrow's Labs & Rationales: none Ken Wharton 07/19/18 1229: Attending MD Review Statement Attending Statement Attending MD Statement: examined this patient, discuss w/resident/PA/PATIENT CARE COORDINATOR, agreed w/resident/PA/PATIENT CARE COORDINATOR, discussed with family, reviewed EMR data (avail), discussed with nursing, discussed with case mgmt, reviewed images, amended to note Attending Assessment/Plan: The patient was seen and discussed with house staff, nursing, and case management. Patient here for shortness of breath multifactorial in origin from COPD exacerbation, LORENA and congestive heart failure. Patient is on diuretics receiving iv bid with resolution of vascular congestion on repeat chest xray. Patient also having metabolic alkalosis and therfore will reduce diuretics to iv daily. She is on oral prednisone 50 mg daily. She had transient diplopia and unable to sleep overnight. Her repeat ABG with chronic hypercapnic respiratory failure. Based on ABG her co2 is 66 which qualifies for nocturnal bipap, she will follow with Dr. Cabrera regarding this. Follow pulmonary recommedations. GI/ DVT prophylaxis full code
[2018-07-19 10:32] LABS: ABSOLUTE BASOPHIL COUNT 0 /CUMM (0.0-0.2); ABSOLUTE EOSINOPHIL COUNT 0 /CUMM (0.0-0.7); ABSOLUTE GRANULOCYTE CT 2.6 /CUMM (1.4-6.5); ABSOLUTE LYMPH COUNT 1.5 /CUMM (1.2-3.4); ABSOLUTE MONOCYTE COUNT 0.2 /CUMM (0.10-0.60); BASOPHIL % 0.3 % (0.0-2.0); EOSINOPHIL % 0.2 % (0-5); GRANULOCYTE % 60.1 % (42.2-75.2); HEMATOCRIT 33.1 % (37-47); MEAN CORPUSCULAR HGB 29.1 PG (27.0-31.0); MEAN CORPUSCULAR HGB CONC 31.5 G/DL (33.0-37.0); MEAN CORPUSCULAR VOLUME 92.4 FL (81.0-99.0); MEAN PLATELET VOLUME 7.3 FL (7.4-10.4); PLATELET COUNT 228 /CUMM (130-400); RED BLOOD CELL CT 3.58 /CUMM (4.20-5.40); WHITE BLOOD CELL COUNT 4.3 /CUMM (4.8-10.8)
--- NOTE | 2018-07-19 13:03 | PN- Pulmonary ---
Subjective HPI/Critical Care Issues: pt seen and examined afebrile hemodynamically stable 97% on 3LNC no n/v/d/c, no cp, no sanchez Objective Current Medications: Current Medications Sig/Pam Start time Last Medication Dose Route Stop Time Status Admin Acetaminophen 650 MG Q6P PRN 07/16 2345 AC 07/17 PO 0358 Acetaminophen 1,000 MG Q6P PRN 07/16 2345 AC IV Albuterol Sulfate 3 ML EVERY 4 HRS/AWAKE 07/17 1248 AC 07/19 INH 0859 Buprenorphine/ 1.5 EACH BID 07/17 09 AC 07/19 Naloxone SL 0951 Docusate Sodium 100 MG DAILY NEEDED PRN 07/16 2345 AC PO Enoxaparin Sodium 40 MG DAILY 07/17 900 AC 07/19 SC 0951 Escitalopram Oxalate 5 MG DAILY NEEDED PRN 07/17 2345 AC PO Ferrous Sulfate 325 MG TID 07/17 900 AC 07/19 PO 0950 Furosemide 40 MG 7:30 AM, & 4:30 PM 07/17 0300 AC 07/19 IV 0945 Guaifenesin 600 MG Q12 07/18 1100 AC 07/19 PO 0950 Ipratropium [place] 2.5 ML Q4-6 PRN PRN 07/17 0015 AC INH Methylprednisolone 40 MG ONCE ONE 07/19 1115 DC 07/19 IV 07/19 1116 1240 Montelukast Sodium 10 MG QPM 07/17 2100 AC 07/18 PO 2056 Polyethylene Glycol 17 GM AT BEDTIME 07/17 2100 AC 07/18 PO 2056 Prednisone 50 MG DAILY 07/17 1321 AC 07/19 PO 0953 Senna/Docusate Sodium 2 TAB AT BEDTIME 07/17 2100 AC 07/18 PO 2056 Tiotropium [place] 1 PUF DAILY 07/17 09 AC 07/19 INH 0950 Vital Signs & I&O Last 24 Hrs of Vitals and I&O: Vital Signs Date Time Temp Pulse Resp B/P B/P Pulse O2 O2 Flow FiO2 Mean Ox Delivery Rate 07/19 0901 97 Nasal 3.0L Cannula 07/19 620 98.8 87 22 142/74 96 Nasal 3.0L Cannula 07/19 0036 93 07/18 2217 99.0 99 20 130/84 97 07/18 2206 96 Nasal 3.0L Cannula 09/15 1829 96 Nasal 3.0L Cannula 07/18 1600 Nasal 3.0L Cannula 07/18 1345 97.8 100 20 120/70 95 Nasal 3.0L Cannula Intake & Output 07/19 1600 07/19 0800 07/19 0000 Intake Total 250 490 Output Total Balance 250 490 Intake, IV 10 10 Intake, Oral 240 480 Patient 289 lb Weight Weight Bed scale Measurement Method Exam Other Physical Findings: gen-aaox3 heent-ncat cvs-s1,s2 lungs-bilateral wheezing abd-soft,bs+ ext-edema Results Last 24 Hrs of Lab Results: Laboratory Tests 07/19/18 1045: pH 7.40, pCO2 67 *H, pO2 95, HCO3 40 H, ABG O2 Sat (Measured) 96.0, P-50 (Temp Corrected) N, Carboxyhemoglobin 0.8 L, O2 Concentration % 3LPM, O2 Delivery Method NC, Phlebotomy Draw Site RIGHT RADIAL 07/19/18 0915: Anion Gap 3 L, Estimated GFR > 60, BUN/Creatinine Ratio 43.3 H, CBC w Diff NO MAN DIFF REQ, RBC 3.58 L, MCV 92.4, MCH 29.1, MCHC 31.5 L, RDW 22.0 H, MPV 7.3 L, Gran % 60.1, Lymphocytes % 35.2, Monocytes % 4.2, Eosinophils % 0.2, Basophils % 0.3, Absolute Granulocytes 2.6, Absolute Lymphocytes 1.5, Absolute Monocytes 0.2, Absolute Eosinophils 0, Absolute Basophils 0 Impression/Plan Impression/Plan Impression/Plan: Impression 52 year old woman * COPD with asthma overlap with acute exacerbation * Gastric cancer undergoing chemotherapy * biventricular heart failure * LORENA/OHS * chronic hypercarbic respiratory failure * bronchomalacia Plan -monitor ins/outs -diuresis -s/p prednisone at 50mg - given extra one dose of solumedrol 40mg iv -continue inhalers, trc -based on ABG her co2 is 67 which qualifies for nocturnal bipap, she will follow with Dr. Cabrera regarding this -encouraged compliance with bipap DVT prophylaxis at all times
[2018-07-19 14:34] VITALS: BP 126/70
[2018-07-19 23:05] VITALS: BP 129/74
[2018-07-20 06:22] VITALS: BP 130/72
--- NOTE | 2018-07-20 06:54 | PN- Housestaff ---
Unique Hampton 07/20/18 0654: Subjective Follow-up For: copd excerbation sleep apnea Subjective: Pt seen and examined at bedside. Using CPAP overnight and currently on 3L NC saturating well. Given one dose of IV solumedrol yesterday. Continuing on prednisone 50 taper today. Patient educated on compliance with medication and cpap/bipap at night. Denies fevers, chills, chest pain, shortness of breath. Review of Systems Constitutional: Denies: see HPI. Objective Last 24 Hrs of Vital Signs/I&O Vital Signs Date Time Temp Pulse Resp B/P B/P Pulse O2 O2 Flow FiO2 Mean Ox Delivery Rate 07/20 0622 98.7 94 20 130/72 94 Nasal 3.0L Cannula 07/20 0000 CPAP 07/19 2305 98.3 97 18 129/74 97 Nasal Cannula 07/19 1613 96 Nasal 3.0L Cannula 07/19 1600 Nasal 3.0L Cannula 07/19 1434 97.8 100 18 126/70 93 Nasal 3.0L Cannula 07/19 1358 97 92 07/19 0901 97 Nasal 3.0L Cannula 07/19 0800 98 Nasal 3.0L Cannula Intake & Output 07/20 0800 07/20 0000 07/19 1600 Intake Total 480 770 Output Total Balance 480 770 Intake, IV 50 Intake, Oral 480 720 Number 0 Bowel Movements Physical Exam General Appearance: Alert, Oriented X3, Cooperative Skin: No Rashes HEENT: Mucous Membr. moist/pink Neck: Supple Cardiovascular: Normal S1, Normal S2 Lungs: decreased breath sounds in bilateral lung nguyễn; minimal wheezing Abdomen: tenderness to palpation; distended Extremities: +3 pitting edema bilateral lower extremities Vascular: diffuclt to feel in lower extremities due to body habitus Current Medications: Current Medications Sig/Pam Start time Last Medication Dose Route Stop Time Status Admin Acetaminophen 650 MG Q6P PRN 07/16 2345 AC 07/19 PO 1658 Acetaminophen 1,000 MG Q6P PRN 07/16 2345 AC IV Albuterol Sulfate 3 ML EVERY 4 HRS/AWAKE 07/17 1248 AC 07/20 INH 0846 Buprenorphine/ 1.5 EACH BID 07/17 09 07/20 Naloxone SL 0833 Docusate Sodium 100 MG DAILY NEEDED PRN 07/16 2345 AC PO Enoxaparin Sodium 40 MG DAILY 07/17 09 AC 07/20 SC 0833 Escitalopram Oxalate 5 MG DAILY NEEDED PRN 07/17 2345 AC PO Ferrous Sulfate 325 MG TID 07/17 09 AC 07/20 PO 0832 Furosemide 40 MG 7:30 AM, & 4:30 PM 07/20 1630 AC PO Furosemide 40 MG 7:30 AM, & 4:30 PM 07/17 0300 DC 07/20 IV 0635 Guaifenesin 600 MG Q12 07/18 1100 AC 07/20 PO 0832 Ipratropium [place] 2.5 ML Q4-6 PRN PRN 07/17 0015 AC INH Methylprednisolone 40 MG ONCE ONE 07/19 1115 DC 07/19 IV 07/19 1116 1240 Montelukast Sodium 10 MG QPM 07/17 2100 AC 07/19 PO 2051 Polyethylene Glycol 17 GM AT BEDTIME 07/17 2100 AC 07/19 PO 2051 Potassium Chloride 40 MEQ ONCE ONE 07/19 1400 DC 07/19 PO 07/19 1401 1412 Prednisone 50 MG DAILY 07/17 1321 AC 07/20 PO 33 Senna/Docusate Sodium 2 TAB AT BEDTIME 07/17 2100 AC 07/19 PO 2051 Tiotropium [place] 1 PUF DAILY 07/17 09 AC 07/20 INH 0834 Last 24 Hrs of Lab/Reza Results Last 24 Hrs of Labs/Mics: Laboratory Tests 07/20/18 0633: Anion Gap 6, Estimated GFR > 60, BUN/Creatinine Ratio 40.0 H 07/19/18 1045: pH 7.40, pCO2 67 *H, pO2 95, HCO3 40 H, ABG O2 Sat (Measured) 96.0, P-50 (Temp Corrected) N, Carboxyhemoglobin 0.8 L, O2 Concentration % 3LPM, O2 Delivery Method NC, Phlebotomy Draw Site RIGHT RADIAL Assessment/Plan Assessment: Patient is a 52-year-old female with history of oxygen dependent COPD (2L O2) with asthmatic component, obstructive sleep apnea noncompliant with CPAP therapy , gastric cancer receiving chemotherapy, history of gastrointestinal bleeding. Brought in by EMS with complaints of difficulty breathing. Reports feeling unwell for the past several days. Reports profound dyspnea with very mild activity. Admits to cough. Denies chest pain. Denies palpitations. Denies fever or chills. AB.40, 67, 95, 40, 96 07/20/18: Patient stable for discharge today. Will be sent out on prednisone taper. Educated on compliance for cpap and new need for bipap given ABG. Advised to follow closely with Dr. Cabrera after discharge. PROBLEM LIST: 1. COPD Exacerbation/Chronic hypercarbic respiratory failure 2. Gastric Cancer Chemotherapy 3. Obstructive Sleep Apnea 4. H/O Opiod Use on Suboxone COPD Exacberation/Chronic Hypercarbic Respiratory Failure * Discharge today on prednisone taper accordingly * based on ABG her co2 is 67 which qualifies for nocturnal bipap, she will follow with Dr. Cabrera regarding this * TRC/nebs; continue spiriva and symbicort upon dc * Lasix 40mg oral daily - continue at home with same dose and follow up with PCP Gastric CA * Infusion completed during stay - advised to follow up closely outpatient * Patient follows with Dr[facility] Romero at [facility] Obstructive Sleep Apnea * CPAP at night to be arranged, BiPAP will be arranged after consulting Dr. Cabrera Opioid Use Disorder * Suboxone BID Code Status: Full Code DVT PPx: Lovenox Diet: Heart Healthy Problem List: 1. Asthma with exacerbation 2. Chronic pain Pain Ratin Pain Location: denies pain Pain Goal: Remain pain free Pain Plan: as per pain pathway Tomorrow's Labs & Rationales: discharge Genesis Simon MD 07/20/18 1359: Attending MD Review Statement Attending Statement Attending MD Statement: examined this patient, discuss w/resident/PA/DIRECTOR SHOPPER MARKETING, agreed w/resident/PA/DIRECTOR SHOPPER MARKETING, reviewed EMR data (avail), discussed with nursing, discussed with case mgmt, amended to note Attending Assessment/Plan: Patient seen and examined. Ambulating freely around the unit. Not in any acute distress. Reports feeling significantly better compared to presentation. She is maintaining saturation on 3 L of oxygen. On examination she is not in respiratory distress. She has adequate entry bilaterally with mild wheezing bilaterally. Peripheral edema does still present has improved compared to presentation. At this point in time she is medically stable to be discharged home. He will be discharged on a prednisone taper. She is to follow-up with her firer electric locomotive as an outpatient for repeat sleep studies. We will resume her oral Lasix regimen and I have encouraged leg elevation and compression stockings as tolerable.
[2018-07-20] MEDS ORDERED: PREDNISONE10 M2 PO ×2 (09:30→10:59)
--- NOTE | 2018-07-20 10:15 | PN- Pulmonary ---
Subjective HPI/Critical Care Issues: Doing well stable Objective Current Medications: Current Medications Sig/Pam Start time Last Medication Dose Route Stop Time Status Admin Acetaminophen 650 MG Q6P PRN 07/16 2345 AC 07/19 PO 1658 Acetaminophen 1,000 MG Q6P PRN 07/16 2345 IV Albuterol Sulfate 3 ML EVERY 4 HRS/AWAKE 07/17 1248 AC 07/20 INH 0846 Buprenorphine/ 1.5 EACH BID 07/17 09 AC 07/20 Naloxone SL 0833 Docusate Sodium 100 MG DAILY NEEDED PRN 07/16 2345 AC PO Enoxaparin Sodium 40 MG DAILY 07/17 09 AC 07/20 SC 0833 Escitalopram Oxalate 5 MG DAILY NEEDED PRN 07/17 2345 AC PO Ferrous Sulfate 325 MG TID 07/17 09 AC 07/20 PO 0832 Furosemide 40 MG 7:30 AM, & 4:30 PM 07/20 1630 AC PO Furosemide 40 MG 7:30 AM, & 4:30 PM 07/17 0300 DC 07/20 IV 0635 Guaifenesin 600 MG Q12 07/18 1100 AC 07/20 PO 0832 Ipratropium [place] 2.5 ML Q4-6 PRN PRN 07/17 0015 AC INH Methylprednisolone 40 MG ONCE ONE 07/19 1115 DC 07/19 IV 07/19 1116 1240 Montelukast Sodium 10 MG QPM 07/17 2100 AC 07/19 PO 205 Polyethylene Glycol 17 GM AT BEDTIME 07/17 2100 AC 07/19 PO 2051 Potassium Chloride 40 MEQ ONCE ONE 07/19 1400 DC 07/19 PO 07/19 1401 1412 Prednisone 50 MG DAILY 07/17 1321 AC 07/20 PO 0833 Senna/Docusate Sodium 2 TAB AT BEDTIME 07/17 2100 AC 07/19 PO 2051 Tiotropium [place] 1 PUF DAILY 07/17 09 AC 07/20 INH 0834 Vital Signs & I&O Last 24 Hrs of Vitals and I&O: Vital Signs Date Time Temp Pulse Resp B/P B/P Pulse O2 O2 Flow FiO2 Mean Ox Delivery Rate 07/20 0851 98 Nasal 3.0L Cannula 07/20 0800 Nasal 3.0L Cannula 07/20 0622 98.7 94 20 130/72 94 Nasal 3.0L Cannula 07/20 0000 CPAP 07/19 2305 98.3 97 18 129/74 97 Nasal Cannula 07/19 1613 96 Nasal 3.0L Cannula 07/19 1600 Nasal 3.0L Cannula 07/19 1434 97.8 100 18 126/70 93 Nasal 3.0L Cannula 07/19 1358 97 92 Intake & Output 07/20 1600 07/20 0800 07/20 0000 Intake Total 360 480 Output Total Balance 360 480 Intake, Oral 360 480 Impression/Plan Impression/Plan Impression/Plan: Abg reviewed General Appearance Alert, Oriented X3, Cooperative, No Acute Distress HEENT Atraumatic, PERRLA, EOMI Cardiovascular Regular Rate, Normal S1, Normal S2 Lungs Diffuse wheezing throughout Abdomen Normal Bowel Sounds, Soft, No Tenderness Neurological Normal Gait, Normal Speech Extremities 3+ pitting edema up to knees in BLE Pt with sig COPD with asthmatic component with Gastric ca on chemo has * Acute bronchospasm yesterday now better with Chronic dyspnea and now with cxr finding with prob pulm edema and unlikely pna, * Sig COPD with asthmatic component with wheezing with acute exacerbation * Has biventricular heart failure with anasarca * Sig Pedal edema with Sig obesity with OHS with sig untreated LORENA pt did not use cpap and noncompliant before (per her preference) with evidence of rt heart dysfunction Chronic hypercarbia at baseline with due to severe OLD with ohv with chronic hypercarbic resp insuff * Has sig bronchomalacia with vc issues aswell complicating the exam * History of chronic narcotic use before REC * Stable * Cont steroid taper po * COnt lasix po * Cont Spiriva and symbicort bid upon dc * COnt other meds and stable for dc
== END 2018-07-20 13:20 | disposition home health service (06) | DRG 140 ==
LOC: ERH 18:55 → 2NA 22:04 → ERHI 22:04 → ENRESERV 22:45 → 2NA 23:29 → ENPENDDIS 07-20 10:22 → ENTRNSPT 07-20 13:07 → EDTRNSPT 07-20 13:13 → EDTRNSPTSTS 07-20 13:13 → 2NA 07-20 13:20 → CMPTRNSPT 07-20 13:23
PROVIDERS: Internal Medicine Interventional Cardiology; Physical Medicine & Rehabilitation Pain Medicine; Student in an Organized Health Care Education/Training Program
PROC: 5A09457 Assistance with Respiratory Ventilation, 24-96 Consecutive Hours, Continuous Positive Airway Pressure (ICD-10-PCS; principal; 2018-07-17)
DX: J44.1 Chronic obstructive pulmonary disease with (acute) exacerbation (principal); I50.82 Biventricular heart failure; Z99.81 Dependence on supplemental oxygen; Z68.43 Body mass index [BMI] 50.0-59.9, adult; C16.9 Malignant neoplasm of stomach, unspecified; D64.9 Anemia, unspecified; J45.909 Unspecified asthma, uncomplicated; E87.3 Alkalosis; E66.2 Morbid (severe) obesity with alveolar hypoventilation; J81.1 Chronic pulmonary edema; Z91.19 Patient's noncompliance with other medical treatment and regimen; Z92.21 Personal history of antineoplastic chemotherapy; Z87.891 Personal history of nicotine dependence; Z79.51 Long term (current) use of inhaled steroids; Z79.52 Long term (current) use of systemic steroids; R74.0 Nonspecific elevation of levels of transaminase and lactic acid dehydrogenase [LDH]; F11.11 Opioid abuse, in remission; J96.12 Chronic respiratory failure with hypercapnia
CPT/HCPCS: 2NAP; 2NASP; 36592; 71045; 82436; 93005; 93010; J1650; J1940; J2920